=== PATIENT | male | born 1975 | race American Indian/Alaskan Native ===

== ENCOUNTER 2018-03-09 13:57 | Outpatient (REF) | payer SELFPAY ==
[2018-03-10 09:38] LABS: HBs Antibody, Quant 24.9 mIU/mL; Hepatitis B Surface Ab Positive
[2018-03-10 11:35] LABS: Mumps Antibody IgG Positive; Rubella IgG Ab (UVM) Positive; Varicella IgG Antibody Positive
[2018-03-10 12:28] LABS: Measles IgG Antibody Negative
[2018-03-12 15:08] LABS: TB Interpretation Negative (NEGAT)
== END 2018-03-09 14:17 ==
LOC: LBO 13:57
PROVIDERS: PCP Family Medicine; Visit Provider Nurse Practitioner Family
DX: Z02.1 Encounter for pre-employment examination (principal); Z01.84 Encounter for antibody response examination
CPT/HCPCS: 36415; 86706; 86787; 86735; 86762; 86765

== ENCOUNTER 2019-03-11 16:26 | Outpatient (REF) | payer OTHER, SELFPAY | END 2019-03-11 16:46 | LOC: LBN 16:26 | PROVIDERS: PCP Family Medicine; Visit Provider Nurse Practitioner Family | DX: R05 Cough (principal) | CPT/HCPCS: 87449 ==

== ENCOUNTER 2019-07-12 07:50 | Outpatient (CLI) | payer MEDICAID, SELFPAY ==
[2019-07-12 08:35] LABS: Abs Immature Grans 0.01 k/cumm (0.0-0.09); Absolute Basophil Count 0.08 k/cumm (0.0-0.2); Absolute Eosinophil Count 0.51 k/cumm (0.0-0.7); Absolute Lymphocyte Count 1.83 k/cumm (1.2-3.4); Absolute Monocyte Count 0.42 k/cumm (0.11-0.7); Absolute Neutrophil Count 5.26 k/cumm (1.2-6.7); Eosinophils % 6.3; HCT 47.8 % (40.0-50.0); HGB 16.3 g/dL (13.5-17.5); Immature Grans % 0.1 %; Lymphocytes % 22.6; Mean Corp. HGB Concentration 34.1 g/dL (32.0-36.0); Mean Corpuscular Hemoglobin 29.1 pg (27.0-33.0); Mean Corpuscular Volume 85.4 fL (80-95); Mean Platelet Volume 10.6 fL (8.0-11.0); Monocytes % 5.2; Neutrophils % 64.8; Platelet Count 183 x1000/uL (130-400); RBC Distribution Width 13.6 % (11.8-14.1); White Blood Cell Count 8.11 k/cumm (4.4-10.8)
--- NOTE | 2019-07-12 08:38 | DI.RAD_ITS ---
EXAM: XR CHEST 2V PA LATERAL CLINICAL HISTORY: pain, back pain, chest pain, dorsalgia, M54.9, R07.9. TECHNIQUE: 2D digital imaging was performed. COMPARISON: CHEST 2 VIEWS PA,LAT from 04/28/2017 FINDINGS: LUNGS: Clear. No pleural abnormality seen. HEART: Normal. MEDIASTINUM: Normal. OTHER FINDINGS:Normal. BONE:Normal. IMPRESSION: No acute pulmonary findings.
[2019-07-12 09:19] LABS: ALT 27 U/L (16-63); AST 20 U/L (15-37); Albumin 4.5 g/dL (3.4-5.0); Alkaline Phosphatase 50 U/L (46-116); BUN 20 mg/dL (7-18); Bilirubin, Total 0.8 mg/dL (0.2-1.0); CREATININE 1.16 mg/dL (0.70-1.30); Calcium 9.2 mg/dL (8.5-10.1); Chloride 106 mmol/L (98-107); Glucose 119 mg/dL (74-106); Potassium 3.7 mmol/L (3.5-5.1); Sodium 143 mmol/L (136-145); Total Protein 6.9 g/dL (6.4-8.2)
[2019-07-13 08:50] LABS: Hemoglobin A1C 5.6 % (3.8-5.6)
== END 2019-07-12 08:10 ==
PROVIDERS: PCP Family Medicine; Visit Provider Internal Medicine
DX: R07.9 Chest pain, unspecified (principal); I10 Essential (primary) hypertension; R50.9 Fever, unspecified; E11.9 Type 2 diabetes mellitus without complications; M54.9 Dorsalgia, unspecified
CPT/HCPCS: 36415; 80053; 71046; 83036; 85025

== ENCOUNTER 2019-09-05 19:01 | Observation (INO) | payer MEDICAID, SELFPAY ==
[2019-09-05] VITALS (28 sets, daily range): BP systolic 79–172; BP diastolic 56–105; PULSE 38–58; RESP 9–22; TEMP 36.4–36.9; O2SAT 89–100
--- NOTE | 2019-09-05 19:16 | DI.CT_ITS ---
EXAM: CT THORAX ABD/PEL CTA CLINICAL HISTORY: bradycardia, abdominal pain LLQ. TECHNIQUE: Imaging protocol: Axial computed tomography images were obtained and coronal and sagittal reformatted images were created and reviewed. CONTRAST MATERIAL: 100 cc Omnipaque 350 IV, arterial phase. COMPARISON: CHEST ABD PELVIS WITH CONTRAST from 12/10/2012 FINDINGS: Tracheobronchial tree: Patent where visualized. Mediastinum and Marizol: No dominant adenopathy or fluid collection. Pulmonary parenchyma: No consolidation or dominant measurable mass. Emphysema: None. Interstitial changes: None. Pleura: No effusion or pneumothorax. Heart/Aorta: Thoracic aorta non-dilated. There is no evidence of dissection. The heart is not dilat ed. No coronary artery calcifications are seen. There is minimal calcification of the distal abdomin al aorta. There is no occlusion or significant stenosis of branch vessels. The pulmonary arteries a re not yet opacified. Liver shows several small hypervascular lesions, likely representing hemangiomas. The spleen, pancreas, kidneys, adrenals and gallbladder are unremarkable. There is no bowel dilatati on or inflammatory change. The appendix appears normal. There is a normal quantity of stool. There is no free air or free fluid. Prostate is unremarkable. Lymph nodes: Within normal limits. Bones: Degenerative changes are seen in the spine, greatest at L5-S1. No evidence compression fractu re. IMPRESSION: No acute abnormality in the chest abdomen or pelvis. DATA REPOSITORY: All CT scans at this facility are submitted to the National Radiology Data Registry (NRDR) Dose Index Registry (DIR) with the [employer] (A[employer]). RADIATION OPTIMIZATION: All CT scans at this facility use at least one of these dose optimization te chniques: automated exposure control; mA and/or kV adjustment per patient size (includes targeted exa ms where dose is matched to clinical indication); or iterative reconstruction.
[2019-09-05] MEDS: Normal Saline 1,000 ML 1000 ML IV (19:28)
[2019-09-05] MEDS: Ondansetron 4 MG/2 ML VIAL IVP (19:30)
[2019-09-05] MEDS: Omnipaque 350 MG/ML 100 ML BTL IJ (19:32)
[2019-09-05] MEDS: Normal Saline - Diluent 50 ML VIAL IV (19:34)
[2019-09-05 19:40] LABS: Lactate 1.7 mmol/L (0.6-1.4)
[2019-09-05 19:43] LABS: Abs Immature Grans 0.02 k/cumm (0.0-0.09); Absolute Basophil Count 0.02 k/cumm (0.0-0.2); Absolute Eosinophil Count 0.03 k/cumm (0.0-0.7); Absolute Lymphocyte Count 0.85 k/cumm (1.2-3.4); Absolute Monocyte Count 0.34 k/cumm (0.11-0.7); Absolute Neutrophil Count 9.55 k/cumm (1.2-6.7); Basophils % 0.2; Eosinophils % 0.3; HGB 15.7 g/dL (13.5-17.5); Immature Grans % 0.2 %; Lymphocytes % 7.9; Mean Corp. HGB Concentration 34.9 g/dL (32.0-36.0); Mean Corpuscular Hemoglobin 29.8 pg (27.0-33.0); Mean Corpuscular Volume 85.4 fL (80-95); Mean Platelet Volume 10.7 fL (8.0-11.0); Monocytes % 3.1; Neutrophils % 88.3; Platelet Count 217 x1000/uL (130-400); RBC 5.27 m/cumm (4.50-6.00); RBC Distribution Width 13.8 % (11.8-14.1); White Blood Cell Count 10.82 k/cumm (4.4-10.8)
--- NOTE | 2019-09-05 19:50 | W.ED.GENAD ---
Discharge Plan Disposition Patient Disposition: [facility] INPATIENT Condition: Good Discharge Details Chief Complaint: Abd Prob Clinical Impression: Bradycardia, Vomiting, Abdominal pain Admit Date/Time: 09/05/19 21:32 Admit Provider: Kishor Garcia Attending Provider: Kishor Garcia Primary Care Provider: Michael Floyd ED Provider: Kyra Schuster Hospital Course Hospital Course: 44 y.o male with PMH of HTN and smoking admitted from [facility] ED for bradycardia and abdominal pain. Labs unremarkable except lactate elevated on admission at 1.7 WBC 10.8 on admission. Abodminal pain resolved. CT chest/abd negative for acute process. Concern for patient have HR in 30-50's, he is athletic though HR usually in 60's per patient. Elevated by Cardiology, I do not consider that additional cardiac testing or monitoring would be indicated, he is asymptomatic. He needs follow up with his PCP, recommend event recorder but at this time patient is self pay, per cardiology recommendation he can be discharged without monitor, however CM will work on insurance and recommend zio patch by PCP if bradycardia persists or becomes symptomatic. All symptoms have resolved, given COVID 19 patient would be better at home, will discharge home with recommendation to follow up as outpatient. He denies CP, SOB, n/v/d Discharge Instructions Instructions: Bradycardia (DC) Forms: Nursing Discharge Form Referrals: Michael Floyd MD [Primary Care Provider] - (message left with CM to call you with a appointment. If you haven't heard from them by September 06 please call, ) Discharge Data Discharge Date/Time-TO BE ENTERED AT DEPARTURE: 09/05/19 22:22 Medical Decision Making 1911 -- 44-year-old male with history of COPD and chronic tobacco smoker presents with constant left mid and lower abdominal pain and vomiting since this morning. Also admits to diffuse body pain, sweating and dizziness today. Heart rate 40s on arrival. Heart rate decreased to high 30s at its lowest. Patient admitted to feeling cold and dizzy at this time but denied any chest pain. Pacer pads placed. Patient admitted to severe left lower quadrant abdominal pain. His blood pressure is hypertensive. He is afebrile and appears nontoxic. Unclear if bradycardia due to vasovagal as patient appears in significant pain. A dose of Zofran and morphine given. After morphine, patient complained of feeling hot all over with chest tightness. An EKG was done which noted a heart rate of 38, sinus, no acute ST ischemic changes. Patient taken directly to CT for CTA chest abdomen and pelvis. Patient's heart rate ranged between high 30s to low 60s. Upon return from CT, patient complained of persistent pain and was given a dose of Dilaudid and this seemed to improve his symptoms. 2019 -- heart rate remained stable in the high 40s low 50s. Labs reviewed and unremarkable. White blood cell count 10. Potassium 3.3. Lactate 1.7. Troponin negative. 2044 -- d/w hospitalist -accepts patient for admission. Medical Records Medical records reviewed: Yes I reviewed the patient's medical records. Imaging Data Radiologic Study: Radiologist's impression: CT Angiography Chest With Contrast Exam date and time: 09/05/2019 7:37 PM Age: 44 years old Clinical indication: Chest pain; Other: Bradycardia, abd pain llq; Abdominal pain; Localized; Left lower quadrant (llq) TECHNIQUE: Imaging protocol: Computed tomographic angiography of the chest with intravenous contrast. 3D rendering: MIP and/or 3D reconstructed images were created by the technologist. COMPARISON: CT CHEST ABD PELVIS WITH CONTRAST 12/10/2012 9:45 PM FINDINGS: Pulmonary arteries: Limited opacification without obvious pulmonary emboli. Aorta: No aortic aneurysm. No aortic dissection. Lungs: Minimal scattered emphysematous changes are present with predominance in the lung apices. No significant consolidation. Pleural space: No pneumothorax. No pleural effusion. Heart: Unremarkable. No cardiomegaly. No pericardial effusion. Lymph nodes: Unremarkable. No enlarged lymph nodes. Bones/joints: Unremarkable. No acute fracture. Soft tissues: Unremarkable. IMPRESSION: No acute findings. CT Angiography Abdomen and Pelvis With Contrast Exam date and time: 09/05/2019 7:37 PM Age: 44 years old Clinical indication: Chest pain; Other: Bradycardia, abd pain llq; Abdominal pain; Localized; Left lower quadrant (llq) TECHNIQUE: Imaging protocol: Computed tomographic angiography of the abdomen and pelvis with intravenous contrast material. 3D rendering: MIP and/or 3D reconstructed images were created by the technologist. COMPARISON: CT CHEST ABD PELVIS WITH CONTRAST 12/10/2012 9:45 PM FINDINGS: Aorta: No aortic aneurysm. No aortic dissection. Celiac trunk and mesenteric arteries: No occlusion or significant stenosis. Renal arteries: No occlusion or significant stenosis. Right iliac arteries: No occlusion or significant stenosis. Left iliac arteries: No occlusion or significant stenosis. Liver: A small hyperdense right liver lobe lesion is present and is seen in the same location as a smaller dense lesion from the study performed in 2013. Size is slightly increased from prior, but compatible with a benign diagnosis given limited change since the previous study. Similar appearing smaller lesions are present in the periphery of the liver, and these may represent small granulomas or flash fill hemangiomas. Gallbladder and bile ducts: Unremarkable. No calcified stones. No ductal dilation. Pancreas: Unremarkable. No mass. No ductal dilation. Spleen: Unremarkable. No splenomegaly. Adrenals: Unremarkable. No mass. Kidneys and ureters: Unremarkable. No solid mass. No hydronephrosis. Stomach and bowel: Unremarkable. No obstruction. No mucosal thickening. Appendix: No evidence of appendicitis. Intraperitoneal space: Unremarkable. No free air. No significant fluid collection. Lymph nodes: Unremarkable. No enlarged lymph nodes. Bladder: Unremarkable. No mass. Reproductive: Unremarkable as visualized. Bones/joints: Advanced degenerative changes at L5-S1. No acute osseous findings. Soft tissues: Unremarkable. IMPRESSION: No acute findings. Lab Data Lab results reviewed: Yes I reviewed the patient's lab results. Labs: 09/05/19 20:50 Nasopharynx Influenza Types A,B Antigen - Final 09/05/19 20:05 Blood Blood Culture - Pending 09/05/19 19:27 Blood Blood Culture - Pending Laboratory Tests Range/Units 09/05/19 09/05/19 09/05/19 19:26 19:27 19:27 WBC (4.4-10.8) k/cumm 10.82 H RBC (4.50-6.00) m/cumm 5.27 Hgb (13.5-17.5) g/dL 15.7 Hct (40.0-50.0) % 45.0 MCV (80-95) fL 85.4 MCH (27.0-33.0) pg 29.8 MCHC (32.0-36.0) g/dL 34.9 RDW (11.8-14.1) % 13.8 Plt Count (130-400) x1000/uL 217 MPV (8.0-11.0) fL 10.7 Immature Gran % % 0.2 Neutrophils % 88.3 Lymphocytes % 7.9 Monocytes % 3.1 Eosinophils % 0.3 Basophils % 0.2 Absolute Neutrophils (1.2-6.7) k/cumm 9.55 H Absolute Lymphocytes (1.2-3.4) k/cumm 0.85 L Absolute Monocytes (0.11-0.7) k/cumm 0.34 Absolute Eosinophils (0.0-0.7) k/cumm 0.03 Absolute Basophils (0.0-0.2) k/cumm 0.02 PT (9.3-11.0) sec INR (0.9-1.1) APTT (21.0-31.4) sec Sodium (136-145) mmol/L 142 Potassium (3.5-5.1) mmol/L 3.3 L Chloride (98-107) mmol/L 103 Carbon Dioxide (21.0-32.0) mmol/L 25.9 Anion Gap (3-11) mmol/L 13.1 H BUN (7-18) mg/dL 12 Creatinine (0.70-1.30) mg/dL 1.06 Estimated GFR/1.73 m2 (mL/min/1.73m2) >= 60.00 Glucose (74-106) mg/dL 121 H Lactate (0.6-1.4) mmol/L Calcium (8.5-10.1) mg/dL 9.9 Total Bilirubin (0.2-1.0) mg/dL 0.9 AST (15-37) U/L 19 ALT (16-63) U/L 21 Alkaline Phosphatase (46-116) U/L 58 Troponin I (<0.06) ng/Ml Total Protein (6.4-8.2) g/dL 7.3 Albumin (3.4-5.0) g/dL 4.3 Lipase (73-393) U/L 57 Patient ABO/Rh Antibody Screen Range/Units 09/05/19 09/05/19 09/05/19 19:27 19:27 19:27 WBC (4.4-10.8) k/cumm RBC (4.50-6.00) m/cumm Hgb (13.5-17.5) g/dL Hct (40.0-50.0) % MCV (80-95) fL MCH (27.0-33.0) pg MCHC (32.0-36.0) g/dL RDW (11.8-14.1) % Plt Count (130-400) x1000/uL MPV (8.0-11.0) fL Immature Gran % % Neutrophils % Lymphocytes % Monocytes % Eosinophils % Basophils % Absolute Neutrophils (1.2-6.7) k/cumm Absolute Lymphocytes (1.2-3.4) k/cumm Absolute Monocytes (0.11-0.7) k/cumm Absolute Eosinophils (0.0-0.7) k/cumm Absolute Basophils (0.0-0.2) k/cumm PT (9.3-11.0) sec 11.0 INR (0.9-1.1) 1.1 APTT (21.0-31.4) sec 25.9 Sodium (136-145) mmol/L Potassium (3.5-5.1) mmol/L Chloride (98-107) mmol/L Carbon Dioxide (21.0-32.0) mmol/L Anion Gap (3-11) mmol/L BUN (7-18) mg/dL Creatinine (0.70-1.30) mg/dL Estimated GFR/1.73 m2 (mL/min/1.73m2) Glucose (74-106) mg/dL Lactate (0.6-1.4) mmol/L 1.7 H Calcium (8.5-10.1) mg/dL Total Bilirubin (0.2-1.0) mg/dL AST (15-37) U/L ALT (16-63) U/L Alkaline Phosphatase (46-116) U/L Troponin I (<0.06) ng/Ml Total Protein (6.4-8.2) g/dL Albumin (3.4-5.0) g/dL Lipase (73-393) U/L Patient ABO/Rh A Positive Antibody Screen Negative Range/Units 09/05/19 09/05/19 19:27 20:57 WBC (4.4-10.8) k/cumm RBC (4.50-6.00) m/cumm Hgb (13.5-17.5) g/dL Hct (40.0-50.0) % MCV (80-95) fL MCH (27.0-33.0) pg MCHC (32.0-36.0) g/dL RDW (11.8-14.1) % Plt Count (130-400) x1000/uL MPV (8.0-11.0) fL Immature Gran % % Neutrophils % Lymphocytes % Monocytes % Eosinophils % Basophils % Absolute Neutrophils (1.2-6.7) k/cumm Absolute Lymphocytes (1.2-3.4) k/cumm Absolute Monocytes (0.11-0.7) k/cumm Absolute Eosinophils (0.0-0.7) k/cumm Absolute Basophils (0.0-0.2) k/cumm PT (9.3-11.0) sec INR (0.9-1.1) APTT (21.0-31.4) sec Sodium (136-145) mmol/L Potassium (3.5-5.1) mmol/L Chloride (98-107) mmol/L Carbon Dioxide (21.0-32.0) mmol/L Anion Gap (3-11) mmol/L BUN (7-18) mg/dL Creatinine (0.70-1.30) mg/dL Estimated GFR/1.73 m2 (mL/min/1.73m2) Glucose (74-106) mg/dL Lactate (0.6-1.4) mmol/L Calcium (8.5-10.1) mg/dL Total Bilirubin (0.2-1.0) mg/dL AST (15-37) U/L ALT (16-63) U/L Alkaline Phosphatase (46-116) U/L Troponin I (<0.06) ng/Ml < 0.05 Total Protein (6.4-8.2) g/dL Albumin (3.4-5.0) g/dL Lipase (73-393) U/L Cancelled Patient ABO/Rh Antibody Screen ECG Data Attestation: I personally reviewed and interpreted this ECG (s) as follows: Interpretation: Rate of 38, sinus, no acute ST elevation or depression. NM 150. QTc 423. QRS 102. HPI General Mode of arrival: ambulatory. Date/Time Provider Initiated Documentation: 09/05/19 19:03. Limitations to Documentation: no limitations. Information obtained by: patient. HPI Narrative: Patient is a 44-year-old male with history of COPD and tobacco smoker who presents with constant left mid and lower quadrant abdominal pain since this morning. He states he has vomited multiple times. Last bowel movement yesterday. Admits to constipation today. He cannot describe the quality of his abdominal pain. He also admits to diffuse body pain and feeling sweaty today. Denies any known fever, cough, chest pain, shortness of breath. Related Data Home Medications Medication Instructions Recorded Confirmed ibuprofen [Ibuprofen IB] 800 mg PO PRN PRN 12/10/12 09/05/19 hydrochlorothiazide 25 mg tablet 25 mg PO DAILY #90 tab 07/11/19 09/05/19 lisinopril 20 mg tablet 20 mg PO DAILY #90 tab-cap 07/11/19 09/05/19 Previous Rx's Medication Instructions Recorded hydrochlorothiazide 25 mg tablet 25 mg PO DAILY #90 tab 07/11/19 lisinopril 20 mg tablet 20 mg PO DAILY #90 tab-cap 07/11/19 Allergies Allergy/AdvReac Type Severity Reaction Status Date / Time oxycodone AdvReac Intermediate Nausea Unverified 09/05/19 19:25 codeine phosphate AdvReac Mild Nausea Unverified 09/05/19 19:25 [From Tylenol-Codeine #3] GRASS Allergy Intermediate Itching Uncoded 09/05/19 19:25 MOLDS AND SMUTS Allergy Mild Itching Uncoded 09/05/19 19:25 General Stated Complaint: Abd Prob LISA: 3 Review of Systems All systems reviewed & are unremarkable except as noted in HPI and below Constitutional Constitutional: Reports as per HPI, Denies chills and Denies fever(s) Eyes Eyes: Denies blurry vision ENT Ears, Nose, Mouth, and Throat: Denies dizziness, Denies sore throat and Denies throat swelling Cardiovascular Cardiovascular: Denies chest pain and Denies dyspnea Respiratory Respiratory: Denies cough and Denies dyspnea Gastrointestinal Gastrointestinal: Reports abdominal pain, Denies diarrhea and Denies vomiting Genitourinary Genitourinary: Denies hematuria and Denies dysuria Musculoskeletal Musculoskeletal: Denies back pain and Denies numbness Integumentary/Breasts Skin/Breast: Denies lesions and Denies rash Neurologic Neurologic: Denies dizziness, Denies localized weakness and Denies numbness Allergic/Immunologic Allergic/Immunologic: Denies throat swelling [facility] Medical History COPD (chronic obstructive pulmonary disease) (Chronic) Laceration of spleen (Resolved 12/10/12) Social History Smoking/Tobacco Use Status: Current every day Alcohol Intake: never Drug use: Occasionally Substance use type: marijuana Do you feel safe at home: Yes Do you feel safe in your relationship?: Yes Exam Const General: cooperative, uncomfortable and ill appearing acutely Nutritional Appearance: average body habitus Orientation: alert, awake and oriented x3 HENMT Head: normal to inspection Face and sinus: normal facial exam Eyes General: appearance normal, both eyes and all related structures Pupils: PERRL EOM: EOM intact bilaterally Neck Neck: normal visual inspection and No submandibular swelling Lymphatic: no lymphadenopathy noted Chest Chest: normal inspection of the chest and no tenderness Resp Effort & Inspection: normal respiratory effort and able to speak in complete sentences Auscultation: clear to auscultation bilaterally Cardio Rate: regular rate Rhythm: regular rhythm GI Inspection: normal to inspection Palpation: soft, not firm, not rigid and nontender Auscultation: normal bowel sounds Skin General skin exam: no rashes or lesions noted Neuro General: patient alert, patient awake and patient oriented x3 Cognition: normal cognition Speech: speech normal Motor: muscle tone normal throughout Sensory Exam: no sensory deficits noted Extrem General: normal to inspection, full ROM, capillary refill normal, no calf tenderness bilaterally and no edema Psych Appearance: grossly normal Mental Status: mental status grossly normal Speech and Movement: speech and movement normal Affect: normal affect Course Vital Signs Vital signs: Vital Signs Temperature 98.4 F 09/05/19 19:07 Pulse 48 L 09/05/19 19:07 Respiratory Rate 12 09/05/19 19:07 Blood Pressure 159/98 H 09/05/19 19:07 Pulse Oximetry 100 09/05/19 19:07 Temperature 98.4 F 09/05/19 19:07 Temperature Source Temporal Artery Scan 09/05/19 19:07 Pulse 48 L 09/05/19 19:07 Respiratory Rate 12 09/05/19 19:07 Blood Pressure 159/98 H 09/05/19 19:07 Blood Pressure Position Sitting 09/05/19 19:07 Pulse Oximetry 100 09/05/19 19:07 Oxygen Delivery Method Room Air 09/05/19 19:07 Oxygen Flow Rate 0 09/05/19 19:07 Pain Level 10 09/05/19 19:07 Lab/Test Results Lab/Test Results: 09/05/19 19:27 Blood Blood Culture - Pending 09/05/19 19:24 Blood Blood Culture - Pending Laboratory Tests Range/Units 09/05/19 09/05/19 19:27 19:27 WBC (4.4-10.8) k/cumm 10.82 H RBC (4.50-6.00) m/cumm 5.27 Hgb (13.5-17.5) g/dL 15.7 Hct (40.0-50.0) % 45.0 MCV (80-95) fL 85.4 MCH (27.0-33.0) pg 29.8 MCHC (32.0-36.0) g/dL 34.9 RDW (11.8-14.1) % 13.8 Plt Count (130-400) x1000/uL 217 MPV (8.0-11.0) fL 10.7 Immature Gran % % 0.2 Neutrophils % 88.3 Lymphocytes % 7.9 Monocytes % 3.1 Eosinophils % 0.3 Basophils % 0.2 Absolute Neutrophils (1.2-6.7) k/cumm 9.55 H Absolute Lymphocytes (1.2-3.4) k/cumm 0.85 L Absolute Monocytes (0.11-0.7) k/cumm 0.34 Absolute Eosinophils (0.0-0.7) k/cumm 0.03 Absolute Basophils (0.0-0.2) k/cumm 0.02 Lactate (0.6-1.4) mmol/L 1.7 H
[2019-09-05] MEDS: Normal Saline 50 ML (19:53)
[2019-09-05] MEDS: HYDROmorphone 2 MG/ML VIAL 1 MG IVP (19:53)
[2019-09-05 19:56] LABS: INR 1.1 (0.9-1.1); PTT Activated 25.9 sec (21.0-31.4)
[2019-09-05 19:58] LABS: ALT 21 U/L (16-63); AST 19 U/L (15-37); Albumin 4.3 g/dL (3.4-5.0); Alkaline Phosphatase 58 U/L (46-116); Anion Gap 13.1 mmol/L (3-11); BUN 12 mg/dL (7-18); Bilirubin, Total 0.9 mg/dL (0.2-1.0); CO2 25.9 mmol/L (21.0-32.0); CREATININE 1.06 mg/dL (0.70-1.30); Calcium 9.9 mg/dL (8.5-10.1); Chloride 103 mmol/L (98-107); Glucose 121 mg/dL (74-106); Potassium 3.3 mmol/L (3.5-5.1); Sodium 142 mmol/L (136-145); Total Protein 7.3 g/dL (6.4-8.2)
[2019-09-05 20:10] LABS: Troponin I < 0.05 ng/Ml (<0.06)
--- NOTE | 2019-09-05 20:34 | DI.VRAD_ITS ---
PROCEDURE INFORMATION: Exam: CT Angiography Chest With Contrast Exam date and time: 09/05/2019 7:37 PM Age: 44 years old Clinical indication: Chest pain; Other: Bradycardia, abd pain llq; Abdominal pain; Localized; Left lower quadrant (llq) TECHNIQUE: Imaging protocol: Computed tomographic angiography of the chest with intravenous contrast. 3D rendering: MIP and/or 3D reconstructed images were created by the technologist. COMPARISON: CT CHEST ABD PELVIS WITH CONTRAST 12/10/2012 9:45 PM FINDINGS: Pulmonary arteries: Limited opacification without obvious pulmonary emboli. Aorta: No aortic aneurysm. No aortic dissection. Lungs: Minimal scattered emphysematous changes are present with predominance in the lung apices. No significant consolidation. Pleural space: No pneumothorax. No pleural effusion. Heart: Unremarkable. No cardiomegaly. No pericardial effusion. Lymph nodes: Unremarkable. No enlarged lymph nodes. Bones/joints: Unremarkable. No acute fracture. Soft tissues: Unremarkable. IMPRESSION: No acute findings. PROCEDURE INFORMATION: Exam: CT Angiography Abdomen and Pelvis With Contrast Exam date and time: 09/05/2019 7:37 PM Age: 44 years old Clinical indication: Chest pain; Other: Bradycardia, abd pain llq; Abdominal pain; Localized; Left lower quadrant (llq) TECHNIQUE: Imaging protocol: Computed tomographic angiography of the abdomen and pelvis with intravenous contrast material. 3D rendering: MIP and/or 3D reconstructed images were created by the technologist. COMPARISON: CT CHEST ABD PELVIS WITH CONTRAST 12/10/2012 9:45 PM FINDINGS: Aorta: No aortic aneurysm. No aortic dissection. Celiac trunk and mesenteric arteries: No occlusion or significant stenosis. Renal arteries: No occlusion or significant stenosis. Right iliac arteries: No occlusion or significant stenosis. Left iliac arteries: No occlusion or significant stenosis. Liver: A small hyperdense right liver lobe lesion is present and is seen in the same location as a smaller dense lesion from the study performed in 2012. Size is slightly increased from prior, but compatible with a benign diagnosis given limited change since the previous study. Similar appearing smaller lesions are present in the periphery of the liver, and these may represent small granulomas or flash fill hemangiomas. Gallbladder and bile ducts: Unremarkable. No calcified stones. No ductal dilation. Pancreas: Unremarkable. No mass. No ductal dilation. Spleen: Unremarkable. No splenomegaly. Adrenals: Unremarkable. No mass. Kidneys and ureters: Unremarkable. No solid mass. No hydronephrosis. Stomach and bowel: Unremarkable. No obstruction. No mucosal thickening. Appendix: No evidence of appendicitis. Intraperitoneal space: Unremarkable. No free air. No significant fluid collection. Lymph nodes: Unremarkable. No enlarged lymph nodes. Bladder: Unremarkable. No mass. Reproductive: Unremarkable as visualized. Bones/joints: Advanced degenerative changes at L5-S1. No acute osseous findings. Soft tissues: Unremarkable. IMPRESSION: No acute findings. Dictated and Authenticated by: Baldo Barahona MD. Ordering:CHAN Paige MD
[2019-09-05] MEDS: Normal Saline 500 ML IV (21:04)
--- NOTE | 2019-09-05 21:14 | W.PM.HP.N ---
Date of service: 09/05/19 Time of Service: 21:15 Assessment and Plan Assessment and plan (1) Abdominal pain: Status: Acute Assessment and plan: Abdominal pain, w/o specific diagnosis at this time. Given the vague constitutional symptoms one wonders whether there is perhaps some viral syndrome brewing but this is speculative and by exclusion. I do not have a good explanation at this point for the bradycardia, though I would firstly note that this is asymptomatic and not requiring any treatment. Perhaps some of this may have been vagally mediated, perhaps some (at this point) secondary to opiates. Regardless will monitor, and suffice to say I see no obvious connection to the belly pain syndromically. In short, will give IVF, prn anti-emetics and analgesics, and maintain telemetry. Will await urinalysis and tox screen to complete evaluation. History of Present Illness History of Present Illness Chief Complaint: abdiminal pain Narrative: 44 male repots LLQ pain starting this morning while straining to move bowels (had only small volume BM). Pain intrmittent since, and several episodes of bilious vomiting. Pain non-radiating. Has also had some mild diffuse myalgias.. No similar illness at home and has been on self-isolation for 3 weeks. In ER findings of note fro sinus bradycardia (30s-50s) while eutensive, and unremarkable CBC and chemistries and negative CT chest an abdomen. Due to persistent bradycaria ER requested admission. Patient has received opiates in ER an states no pain at present. Review of Systems All systems reviewed & are unremarkable except as noted in HPI and below PFSH Medical History COPD (chronic obstructive pulmonary disease) (Chronic) Laceration of spleen (Resolved 12/10/12) Social History Smoking/Tobacco Use Status: Current every day Alcohol Intake: never Drug use: Occasionally Substance use type: marijuana Do you feel safe at home: Yes Do you feel safe in your relationship?: Yes Meds Home Medications and Allergies Home Medications Medication Instructions Recorded Confirmed Type ibuprofen [Ibuprofen IB] 800 mg PO PRN PRN 12/10/12 09/05/19 History measles,mumps,rubella vacc(PF) 0.5 ml SC ONCE #1 each 06/22/18 09/05/19 Clinic 1,000-12,[id number]/0.5 mL subcut hydrochlorothiazide 25 mg tablet 25 mg PO DAILY #90 tab 07/11/19 09/05/19 Rx lisinopril 20 mg tablet 20 mg PO DAILY #90 tab-cap 07/11/19 09/05/19 Rx Allergies Allergy/AdvReac Type Severity Reaction Status Date / Time oxycodone AdvReac Intermediate Nausea Unverified 09/05/19 19:25 codeine phosphate AdvReac Mild Nausea Unverified 09/05/19 19:25 [From Tylenol-Codeine #3] GRASS Allergy Intermediate Itching Uncoded 09/05/19 19:25 MOLDS AND SMUTS Allergy Mild Itching Uncoded 09/05/19 19:25 Exam Narrative Exam Narrative: 105/63, 45, 36.9, 14. HEENT unremarkable; neck supple; lungs clear; heart mario and regular; abdomen hypoactive BS, soft and NT; /rctal dferred; extremities w/o edema; neuro Ox3, non-focal Results Labs Result diagrams: 09/05/19 19:27 09/05/19 19:27 Labs: Laboratory Results - last 24 hr 09/05/19 09/05/19 09/05/19 19:27 19:27 19:27 WBC 10.82 H RBC 5.27 Hgb 15.7 Hct 45.0 MCV 85.4 MCH 29.8 MCHC 34.9 RDW 13.8 Plt Count 217 MPV 10.7 Immature Gran % 0.2 Neutrophils % 88.3 Lymphocytes % 7.9 Monocytes % 3.1 Eosinophils % 0.3 Basophils % 0.2 Absolute Neutrophils 9.55 H Absolute Lymphocytes 0.85 L Absolute Monocytes 0.34 Absolute Eosinophils 0.03 Absolute Basophils 0.02 PT 11.0 INR 1.1 APTT 25.9 Sodium 142 Potassium 3.3 L Chloride 103 Carbon Dioxide 25.9 Anion Gap 13.1 H BUN 12 Creatinine 1.06 Estimated GFR/1.73 m2 >= 60.00 Glucose 121 H Lactate Calcium 9.9 Total Bilirubin 0.9 AST 19 ALT 21 Alkaline Phosphatase 58 Troponin I Total Protein 7.3 Albumin 4.3 Lipase Patient ABO/Rh Antibody Screen 09/05/19 09/05/19 09/05/19 19:27 19:27 19:27 WBC RBC Hgb Hct MCV MCH MCHC RDW Plt Count MPV Immature Gran % Neutrophils % Lymphocytes % Monocytes % Eosinophils % Basophils % Absolute Neutrophils Absolute Lymphocytes Absolute Monocytes Absolute Eosinophils Absolute Basophils PT INR APTT Sodium Potassium Chloride Carbon Dioxide Anion Gap BUN Creatinine Estimated GFR/1.73 m2 Glucose Lactate 1.7 H Calcium Total Bilirubin AST ALT Alkaline Phosphatase Troponin I < 0.05 Total Protein Albumin Lipase Patient ABO/Rh A Positive Antibody Screen Negative 09/05/19 20:57 WBC RBC Hgb Hct MCV MCH MCHC RDW Plt Count MPV Immature Gran % Neutrophils % Lymphocytes % Monocytes % Eosinophils % Basophils % Absolute Neutrophils Absolute Lymphocytes Absolute Monocytes Absolute Eosinophils Absolute Basophils PT INR APTT Sodium Potassium Chloride Carbon Dioxide Anion Gap BUN Creatinine Estimated GFR/1.73 m2 Glucose Lactate Calcium Total Bilirubin AST ALT Alkaline Phosphatase Troponin I Total Protein Albumin Lipase Cancelled Patient ABO/Rh Antibody Screen Last Vital Signs Temp 36.9 C 09/05/19 19:07 Pulse 42 L 09/05/19 20:45 Resp 14 09/05/19 20:50 BP 105/63 09/05/19 20:45 Pulse Ox 94 L 09/05/19 20:50 COVID-19 Screening Traveled to [place] from one of the affected countries or regions?: No Recent travel in the [place] within the last 8 weeks?: No Recent out of the country travel within the last 8 weeks?: No Exposure or possible exposure to illness during travel?: No Had IN PERSON contact w/suspected or confirmed C-19 person: No Have you had the following symptoms in the past few days?: No
[2019-09-05 21:34] LABS: Lipase 57 U/L (73-393)
[2019-09-05 22:35] LABS: Bilirubin Negative (Negative); Blood Negative (Negative); Clarity Clear (Clear); Glucose Negative (Negative); Ketones 40 mg/dL (Negative); Leukocyte Esterase Negative (Negative); Nitrite Negative (Negative); Specific Gravity 1.015 (1.005-1.025); Urobilinogen 0.2 EU/dL (Up TO 0.2); pH 8.5 (5-8)
[2019-09-05 22:40] LABS: Troponin I < 0.05 ng/Ml (<0.06)
[2019-09-05 22:50] LABS: *AMPHETAMINES SCREEN URINE Negative (Negative); *BARBITURATES SCREEN URINE Negative (Negative); *BENZODIAZEPINES SCREEN URINE Negative (Negative); Cannabinoids THC POSITIVE (Negative); Cocaine Screen,Urine Negative (Negative); METHADONE URINE SCREEN Negative (Negative); OPIATES URINE SCREEN POSITIVE (Negative)
[2019-09-05 23:03] LABS: Tricyclic Antidepressants Negative (Negative)
[2019-09-05] MEDS: POTASSIUM CHLORIDE/0.9% NACL 1,000 ML 100 MEQ IV (23:15)
[2019-09-05] MEDS: Normal Saline Flush 10 ML SYR IVP (23:15)
[2019-09-06 03:58] VITALS: BP 125/73; PULSE 48; RESP 17; TEMP 36.6; O2SAT 96
[2019-09-06] MEDS: HYDROmorphone 2 MG/ML VIAL 1 MG IVP (04:27)
[2019-09-06 07:26] VITALS: BP 119/73; PULSE 60; RESP 17; TEMP 37.5; O2SAT 97
[2019-09-06] MEDS: POTASSIUM CHLORIDE/0.9% NACL 1,000 ML 100 MEQ IV (09:21)
[2019-09-06 09:24] LABS: Anion Gap 9.3 mmol/L (3-11); BUN 13 mg/dL (7-18); CO2 26.7 mmol/L (21.0-32.0); CREATININE 1.21 mg/dL (0.70-1.30); Calcium 8.8 mg/dL (8.5-10.1); Chloride 109 mmol/L (98-107); FREE T4 1.14 ng/dL (0.76-1.46); Glucose 128 mg/dL (74-106); Magnesium 1.7 mg/dL (1.8-2.4); Potassium 3.8 mmol/L (3.5-5.1); Sodium 145 mmol/L (136-145); TSH 1.53 uIU/mL (0.36-3.74)
--- NOTE | 2019-09-06 10:11 | W.CARDCONSUL ---
Date of service: 09/06/19 Time of Service: 10:12 Assessment and Plan Assessment and plan (1) Bradycardia: Status: Acute Assessment and plan: The patient had asymptomatic sinus bradycardia when presenting with significant abdominal discomfort. I suspect there was some degree of vasovagal reflex contributory to this. I do not consider that additional cardiac testing or monitoring would be indicated (2) Essential hypertension: Status: Chronic Assessment and plan: Adequate control of blood pressure on his lisinopril and hydrochlorothiazide. Neither of these medications are contributory to #1 (3) Abdominal pain: Status: Acute Assessment and plan: This appears to have resolved, will defer to hospital medicine for recommendations History of Present Illness History of Present Illness Chief Complaint: Abdominal pain, constipation, vomiting Narrative: This is a 44-year-old man who presented to the emergency room yesterday because of constipation. He reports that overall he is healthy though he does has a history of hypertension for which he takes lisinopril and hydrochlorothiazide. Usually he moves his bowels every morning around 830. Yesterday he had generalized abdominal pain and felt unable to move his bowels. When he would bear down he would get sweaty and nauseated though he was not lightheaded or dizzy. Because of the symptoms he presented to the emergency room. There his heart rate varied from the 30s to 60s though there was no documented associated cardiac symptoms. His electrocardiogram showed sinus bradycardia but was otherwise normal. He has been admitted overnight. His heart rate currently is in the 50s. Monitoring has disclosed no significant dysrhythmia. His abdominal pain has resolved and he reports that he had a normal bowel movement today [facility] Medical History COPD (chronic obstructive pulmonary disease) (Chronic) Laceration of spleen (Resolved 12/10/12) Social History Smoking/Tobacco Use Status: Current every day Alcohol Intake: never Drug use: Occasionally Substance use type: marijuana Do you feel safe at home: Yes Do you feel safe in your relationship?: Yes Exam Narrative Exam Narrative: Well-developed well-nourished appears stated age no acute distress vital signs noted HEENT is unremarkable neck is supple trachea is midline there is no neck vein distention lungs are clear Heart is regular normal S1-S2 physiologically split no murmur rub or gallop Abdomen was not examined There is no peripheral edema Results Last Vital Signs Temp 37.5 C 09/06/19 07:26 Pulse 60 09/06/19 07:26 Resp 17 09/06/19 07:26 BP 119/73 09/06/19 07:26 Pulse Ox 97 09/06/19 07:26 Labs Result diagrams: 09/05/19 19:27 09/06/19 08:45 Labs: Laboratory Results - last 24 hr 09/05/19 09/05/19 09/05/19 19:26 19:27 19:27 WBC 10.82 H RBC 5.27 Hgb 15.7 Hct 45.0 MCV 85.4 MCH 29.8 MCHC 34.9 RDW 13.8 Plt Count 217 MPV 10.7 Immature Gran % 0.2 Neutrophils % 88.3 Lymphocytes % 7.9 Monocytes % 3.1 Eosinophils % 0.3 Basophils % 0.2 Absolute Neutrophils 9.55 H Absolute Lymphocytes 0.85 L Absolute Monocytes 0.34 Absolute Eosinophils 0.03 Absolute Basophils 0.02 PT INR APTT Sodium 142 Potassium 3.3 L Chloride 103 Carbon Dioxide 25.9 Anion Gap 13.1 H BUN 12 Creatinine 1.06 Estimated GFR/1.73 m2 >= 60.00 Glucose 121 H Lactate Calcium 9.9 Magnesium Total Bilirubin 0.9 AST 19 ALT 21 Alkaline Phosphatase 58 Troponin I Total Protein 7.3 Albumin 4.3 Lipase 57 TSH Free T4 Urine Color Urine Clarity Urine pH Ur Specific [place] Urine Protein Urine Ketones Urine Blood Urine Nitrite Urine Bilirubin Urine Urobilinogen Ur Leukocyte Esterase Urine Glucose Urine Opiates Screen Urine Methadone Screen Ur Barbiturates Screen Ur Tricyclics Screen Ur Amphetamines Screen U Benzodiazepines Scrn Urine Cocaine Screen Ur THC Screen Patient ABO/Rh Antibody Screen 09/05/19 09/05/19 09/05/19 19:27 19:27 19:27 WBC RBC Hgb Hct MCV MCH MCHC RDW Plt Count MPV Immature Gran % Neutrophils % Lymphocytes % Monocytes % Eosinophils % Basophils % Absolute Neutrophils Absolute Lymphocytes Absolute Monocytes Absolute Eosinophils Absolute Basophils PT 11.0 INR 1.1 APTT 25.9 Sodium Potassium Chloride Carbon Dioxide Anion Gap BUN Creatinine Estimated GFR/1.73 m2 Glucose Lactate 1.7 H Calcium Magnesium Total Bilirubin AST ALT Alkaline Phosphatase Troponin I Total Protein Albumin Lipase TSH Free T4 Urine Color Urine Clarity Urine pH Ur Specific [place] Urine Protein Urine Ketones Urine Blood Urine Nitrite Urine Bilirubin Urine Urobilinogen Ur Leukocyte Esterase Urine Glucose Urine Opiates Screen Urine Methadone Screen Ur Barbiturates Screen Ur Tricyclics Screen Ur Amphetamines Screen U Benzodiazepines Scrn Urine Cocaine Screen Ur THC Screen Patient ABO/Rh A Positive Antibody Screen Negative 09/05/19 09/05/19 09/05/19 19:27 20:57 22:05 WBC RBC Hgb Hct MCV MCH MCHC RDW Plt Count MPV Immature Gran % Neutrophils % Lymphocytes % Monocytes % Eosinophils % Basophils % Absolute Neutrophils Absolute Lymphocytes Absolute Monocytes Absolute Eosinophils Absolute Basophils PT INR APTT Sodium Potassium Chloride Carbon Dioxide Anion Gap BUN Creatinine Estimated GFR/1.73 m2 Glucose Lactate Calcium Magnesium Total Bilirubin AST ALT Alkaline Phosphatase Troponin I < 0.05 Total Protein Albumin Lipase Cancelled TSH Free T4 Urine Color Yellow Urine Clarity Clear Urine pH 8.5 H Ur Specific [place] 1.015 Urine Protein Negative Urine Ketones 40 H Urine Blood Negative Urine Nitrite Negative Urine Bilirubin Negative Urine Urobilinogen 0.2 Ur Leukocyte Esterase Negative Urine Glucose Negative Urine Opiates Screen Urine Methadone Screen Ur Barbiturates Screen Ur Tricyclics Screen Ur Amphetamines Screen U Benzodiazepines Scrn Urine Cocaine Screen Ur THC Screen Patient ABO/Rh Antibody Screen 09/05/19 09/05/19 09/06/19 22:05 22:15 08:45 WBC RBC Hgb Hct MCV MCH MCHC RDW Plt Count MPV Immature Gran % Neutrophils % Lymphocytes % Monocytes % Eosinophils % Basophils % Absolute Neutrophils Absolute Lymphocytes Absolute Monocytes Absolute Eosinophils Absolute Basophils PT INR APTT Sodium 145 Potassium 3.8 Chloride 109 H Carbon Dioxide 26.7 Anion Gap 9.3 BUN 13 Creatinine 1.21 Estimated GFR/1.73 m2 >= 60.00 Glucose 128 H Lactate Calcium 8.8 Magnesium 1.7 L Total Bilirubin AST ALT Alkaline Phosphatase Troponin I < 0.05 Total Protein Albumin Lipase TSH 1.53 Free T4 1.14 Urine Color Urine Clarity Urine pH Ur Specific [place] Urine Protein Urine Ketones Urine Blood Urine Nitrite Urine Bilirubin Urine Urobilinogen Ur Leukocyte Esterase Urine Glucose Urine Opiates Screen Positive A Urine Methadone Screen Negative Ur Barbiturates Screen Negative Ur Tricyclics Screen Negative Ur Amphetamines Screen Negative U Benzodiazepines Scrn Negative Urine Cocaine Screen Negative Ur THC Screen Positive A Patient ABO/Rh Antibody Screen 09/06/19 08:45 WBC RBC Hgb Hct MCV MCH MCHC RDW Plt Count MPV Immature Gran % Neutrophils % Lymphocytes % Monocytes % Eosinophils % Basophils % Absolute Neutrophils Absolute Lymphocytes Absolute Monocytes Absolute Eosinophils Absolute Basophils PT INR APTT Sodium Potassium Chloride Carbon Dioxide Anion Gap BUN Creatinine Estimated GFR/1.73 m2 Glucose Lactate 2.0 H Calcium Magnesium Total Bilirubin AST ALT Alkaline Phosphatase Troponin I Total Protein Albumin Lipase TSH Free T4 Urine Color Urine Clarity Urine pH Ur Specific [place] Urine Protein Urine Ketones Urine Blood Urine Nitrite Urine Bilirubin Urine Urobilinogen Ur Leukocyte Esterase Urine Glucose Urine Opiates Screen Urine Methadone Screen Ur Barbiturates Screen Ur Tricyclics Screen Ur Amphetamines Screen U Benzodiazepines Scrn Urine Cocaine Screen Ur THC Screen Patient ABO/Rh Antibody Screen
--- NOTE | 2019-09-06 10:28 | W.PM.DS.N ---
Date of service: 09/06/19 Time of Service: 10:28 DS: Diagnosis Discharge Diagnosis (1) Bradycardia: Start date: 09/06/19 Start time: 10:28 Status: Acute Asessment and Plan: Asymptomatic, athletic HR in 30-50's by telemetry, cardiology evaluation does not feel at this time, would recommend he go home on a event monitor however at this time he does not have insurance and does not want to pay for recorder, consider at follow up with PCP possible zio patch, though likely this is related to him being athletic with no symptoms. CM will work on insurance coverage with him. Thank you (2) Essential hypertension: Start date: 09/06/19 Start time: 10:56 Status: Chronic Asessment and Plan: Continue medications, home regimen, stop smoking (3) Abdominal pain: Start date: 09/06/19 Start time: 10:56 Status: Resolved Asessment and Plan: Take fiber daily. Discharge Plan Disposition Patient Disposition: HOME Condition: Good Discharge Details Chief Complaint: Abd Prob Clinical Impression: Bradycardia, Vomiting, Abdominal pain Reason For Visit: ABDOMINAL PAIN, BRADYCARDIA Admit Date/Time: 09/05/19 21:32 Admit Provider: Kishor Garcia Attending Provider: Kishor Garcia Primary Care Provider: Michael Floyd ED Provider: Kyra Schuster Hospital Course Hospital Course: 44 y.o male with PMH of HTN and smoking admitted from [facility] ED for bradycardia and abdominal pain. Labs unremarkable except lactate elevated on admission at 1.7 WBC 10.8 on admission. Abodminal pain resolved. CT chest/abd negative for acute process. Concern for patient have HR in 30-50's, he is athletic though HR usually in 60's per patient. Elevated by Cardiology, I do not consider that additional cardiac testing or monitoring would be indicated, he is asymptomatic. He needs follow up with his PCP, recommend event recorder but at this time patient is self pay, per cardiology recommendation he can be discharged without monitor, however CM will work on insurance and recommend zio patch by PCP if bradycardia persists or becomes symptomatic. All symptoms have resolved, given COVID 19 patient would be better at home, will discharge home with recommendation to follow up as outpatient. He denies CP, SOB, n/v/d Home Meds and New Rx's Prescriptions: Continued lisinopril 20 mg tablet 20 mg PO DAILY Qty: 90 RF: 4 hydrochlorothiazide 25 mg tablet 25 mg PO DAILY Qty: 90 RF: 4 measles,mumps,rubella vacc(PF) 1,000-12,500 TCID50/0.5 mL recon soln 0.5 ml SC ONCE Qty: 1 RF: 0 ibuprofen [Ibuprofen IB] 200 MG tablet 800 mg PO PRN PRNRF: 0 Discharge Instructions Instructions: Bradycardia (DC) Stand Alone Forms: Nursing Discharge Form Referrals: Michael Floyd MD [Primary Care Provider] - (message left with CM to call you with a appointment. If you haven't heard from them by September 06 please call, ) Activity:: Activity as Tolerated Equipment/Supplies:: per MD Diet:: Add fiber DS: Summary Status at Discharge Functional status at discharge: independent ambulation Overall status at discharge: patient is back to baseline Mental Status: mental status grossly normal Speech and Movement: speech and movement normal Mood: congruent mood Affect: normal affect Exam Narrative Exam Narrative: . HEENT unremarkable; neck supple; lungs clear; heart mario and regular; abdomen hypoactive BS, soft and NT; /rctal dferred; extremities w/o edema; neuro Ox3, non-focal Psych Mental Status: mental status grossly normal Speech and Movement: speech and movement normal Mood: congruent mood Affect: normal affect DS: Data Vitals/I&O Vitals and I&O: Vital Signs Temperature 37.5 C 09/06/19 07:26 Temperature Source Tympanic 09/06/19 07:26 Pulse 60 09/06/19 07:26 Pulse Rhythm Regular 09/06/19 03:04 Pulse 44 L 09/05/19 21:20 Respiratory Rate 17 09/06/19 07:26 Respiratory Effort Non-Labored 09/06/19 03:04 Respiratory Depth Normal 09/06/19 03:04 Respiratory Pattern Normal 09/06/19 03:04 Blood Pressure 119/73 09/06/19 07:26 Blood Pressure Mean 77 09/05/19 21:15 Blood Pressure Position Sitting 09/05/19 19:07 Pulse Oximetry 97 09/06/19 07:26 Oxygen Delivery Method Room Air 09/06/19 07:26 Oxygen Flow Rate 0 09/06/19 07:26 Pain Level 0 09/06/19 07:26 Intake & Output 09/05/19 09/05/19 09/06/19 11:59 23:59 11:59 Intake Total 1490 / 1490 Balance 1490 / 1490 Weight 88.451 kg Intake: IV 1000 / 1000 Oral 490 / 490 Data Completed and Pending Completed studies during hospitalization [Text1]: PROCEDURE INFORMATION: Exam: CT Angiography Abdomen and Pelvis With Contrast Exam date and time: 09/05/2019 7:37 PM Age: 44 years old Clinical indication: Chest pain; Other: Bradycardia, abd pain llq; Abdominal pain; Localized; Left lower quadrant (llq) TECHNIQUE: Imaging protocol: Computed tomographic angiography of the abdomen and pelvis with intravenous contrast material. 3D rendering: MIP and/or 3D reconstructed images were created by the technologist. COMPARISON: CT CHEST ABD PELVIS WITH CONTRAST 12/10/2012 9:45 PM FINDINGS: Aorta: No aortic aneurysm. No aortic dissection. Celiac trunk and mesenteric arteries: No occlusion or significant stenosis. Renal arteries: No occlusion or significant stenosis. Right iliac arteries: No occlusion or significant stenosis. Left iliac arteries: No occlusion or significant stenosis. Liver: A small hyperdense right liver lobe lesion is present and is seen in the same location as a smaller dense lesion from the study performed in 2012. Size is slightly increased from prior, but compatible with a benign diagnosis given limited change since the previous study. Similar appearing smaller lesions are present in the periphery of the liver, and these may represent small granulomas or flash fill hemangiomas. Gallbladder and bile ducts: Unremarkable. No calcified stones. No ductal dilation. Pancreas: Unremarkable. No mass. No ductal dilation. Spleen: Unremarkable. No splenomegaly. Adrenals: Unremarkable. No mass. Kidneys and ureters: Unremarkable. No solid mass. No hydronephrosis. Stomach and bowel: Unremarkable. No obstruction. No mucosal thickening. Appendix: No evidence of appendicitis. Intraperitoneal space: Unremarkable. No free air. No significant fluid collection. Lymph nodes: Unremarkable. No enlarged lymph nodes. Bladder: Unremarkable. No mass. Reproductive: Unremarkable as visualized. Bones/joints: Advanced degenerative changes at L5-S1. No acute osseous findings. Soft tissues: Unremarkable. IMPRESSION: No acute findings. Labs on day of discharge: Labs from last 24 hours 09/06/19 09/06/19 09/05/19 08:45 08:45 22:15 WBC RBC Hgb Hct MCV MCH MCHC RDW Plt Count MPV Immature Gran % Neutrophils % Lymphocytes % Monocytes % Eosinophils % Basophils % Absolute Neutrophils Absolute Lymphocytes Absolute Monocytes Absolute Eosinophils Absolute Basophils PT INR APTT Sodium 145 Potassium 3.8 Chloride 109 H Carbon Dioxide 26.7 Anion Gap 9.3 BUN 13 Creatinine 1.21 Estimated GFR/1.73 m2 >= 60.00 Glucose 128 H Lactate 2.0 H Calcium 8.8 Magnesium 1.7 L Total Bilirubin AST ALT Alkaline Phosphatase Troponin I < 0.05 Total Protein Albumin Lipase TSH 1.53 Free T4 1.14 Urine Color Urine Clarity Urine pH Ur Specific [place] Urine Protein Urine Ketones Urine Blood Urine Nitrite Urine Bilirubin Urine Urobilinogen Ur Leukocyte Esterase Urine Glucose Urine Opiates Screen Urine Methadone Screen Ur Barbiturates Screen Ur Tricyclics Screen Ur Amphetamines Screen U Benzodiazepines Scrn Urine Cocaine Screen Ur THC Screen Patient ABO/Rh Antibody Screen 09/05/19 09/05/19 09/05/19 22:05 22:05 20:57 WBC RBC Hgb Hct MCV MCH MCHC RDW Plt Count MPV Immature Gran % Neutrophils % Lymphocytes % Monocytes % Eosinophils % Basophils % Absolute Neutrophils Absolute Lymphocytes Absolute Monocytes Absolute Eosinophils Absolute Basophils PT INR APTT Sodium Potassium Chloride Carbon Dioxide Anion Gap BUN Creatinine Estimated GFR/1.73 m2 Glucose Lactate Calcium Magnesium Total Bilirubin AST ALT Alkaline Phosphatase Troponin I Total Protein Albumin Lipase Cancelled TSH Free T4 Urine Color Yellow Urine Clarity Clear Urine pH 8.5 H Ur Specific [place] 1.015 Urine Protein Negative Urine Ketones 40 H Urine Blood Negative Urine Nitrite Negative Urine Bilirubin Negative Urine Urobilinogen 0.2 Ur Leukocyte Esterase Negative Urine Glucose Negative Urine Opiates Screen Positive A Urine Methadone Screen Negative Ur Barbiturates Screen Negative Ur Tricyclics Screen Negative Ur Amphetamines Screen Negative U Benzodiazepines Scrn Negative Urine Cocaine Screen Negative Ur THC Screen Positive A Patient ABO/Rh Antibody Screen 09/05/19 09/05/19 09/05/19 19:27 19:27 19:27 WBC RBC Hgb Hct MCV MCH MCHC RDW Plt Count MPV Immature Gran % Neutrophils % Lymphocytes % Monocytes % Eosinophils % Basophils % Absolute Neutrophils Absolute Lymphocytes Absolute Monocytes Absolute Eosinophils Absolute Basophils PT INR APTT Sodium Potassium Chloride Carbon Dioxide Anion Gap BUN Creatinine Estimated GFR/1.73 m2 Glucose Lactate 1.7 H Calcium Magnesium Total Bilirubin AST ALT Alkaline Phosphatase Troponin I < 0.05 Total Protein Albumin Lipase TSH Free T4 Urine Color Urine Clarity Urine pH Ur Specific [place] Urine Protein Urine Ketones Urine Blood Urine Nitrite Urine Bilirubin Urine Urobilinogen Ur Leukocyte Esterase Urine Glucose Urine Opiates Screen Urine Methadone Screen Ur Barbiturates Screen Ur Tricyclics Screen Ur Amphetamines Screen U Benzodiazepines Scrn Urine Cocaine Screen Ur THC Screen Patient ABO/Rh A Positive Antibody Screen Negative 09/05/19 09/05/19 09/05/19 19:27 19:27 19:27 WBC 10.82 H RBC 5.27 Hgb 15.7 Hct 45.0 MCV 85.4 MCH 29.8 MCHC 34.9 RDW 13.8 Plt Count 217 MPV 10.7 Immature Gran % 0.2 Neutrophils % 88.3 Lymphocytes % 7.9 Monocytes % 3.1 Eosinophils % 0.3 Basophils % 0.2 Absolute Neutrophils 9.55 H Absolute Lymphocytes 0.85 L Absolute Monocytes 0.34 Absolute Eosinophils 0.03 Absolute Basophils 0.02 PT 11.0 INR 1.1 APTT 25.9 Sodium 142 Potassium 3.3 L Chloride 103 Carbon Dioxide 25.9 Anion Gap 13.1 H BUN 12 Creatinine 1.06 Estimated GFR/1.73 m2 >= 60.00 Glucose 121 H Lactate Calcium 9.9 Magnesium Total Bilirubin 0.9 AST 19 ALT 21 Alkaline Phosphatase 58 Troponin I Total Protein 7.3 Albumin 4.3 Lipase TSH Free T4 Urine Color Urine Clarity Urine pH Ur Specific [place] Urine Protein Urine Ketones Urine Blood Urine Nitrite Urine Bilirubin Urine Urobilinogen Ur Leukocyte Esterase Urine Glucose Urine Opiates Screen Urine Methadone Screen Ur Barbiturates Screen Ur Tricyclics Screen Ur Amphetamines Screen U Benzodiazepines Scrn Urine Cocaine Screen Ur THC Screen Patient ABO/Rh Antibody Screen 09/05/19 19:26 WBC RBC Hgb Hct MCV MCH MCHC RDW Plt Count MPV Immature Gran % Neutrophils % Lymphocytes % Monocytes % Eosinophils % Basophils % Absolute Neutrophils Absolute Lymphocytes Absolute Monocytes Absolute Eosinophils Absolute Basophils PT INR APTT Sodium Potassium Chloride Carbon Dioxide Anion Gap BUN Creatinine Estimated GFR/1.73 m2 Glucose Lactate Calcium Magnesium Total Bilirubin AST ALT Alkaline Phosphatase Troponin I Total Protein Albumin Lipase 57 TSH Free T4 Urine Color Urine Clarity Urine pH Ur Specific [place] Urine Protein Urine Ketones Urine Blood Urine Nitrite Urine Bilirubin Urine Urobilinogen Ur Leukocyte Esterase Urine Glucose Urine Opiates Screen Urine Methadone Screen Ur Barbiturates Screen Ur Tricyclics Screen Ur Amphetamines Screen U Benzodiazepines Scrn Urine Cocaine Screen Ur THC Screen Patient ABO/Rh Antibody Screen 03/30/20 20:05 Blood Blood Culture - Pending 09/05/19 19:27 Blood Blood Culture - Pending Preliminary micro results at discharge 09/05/19 20:05 Blood Culture - Pending Blood 09/05/19 19:27 Blood Culture - Pending Blood [facility] Medical History COPD (chronic obstructive pulmonary disease) (Chronic) Laceration of spleen (Resolved 12/10/12) Social History Smoking/Tobacco Use Status: Current every day Alcohol Intake: never Drug use: Occasionally Substance use type: marijuana Do you feel safe at home: Yes Do you feel safe in your relationship?: Yes
[2019-09-06] MEDS: Magnesium Oxide 400 MG TAB 800 MG PO (11:15)
--- NOTE | 2019-09-06 11:15 | PDOC.CMIN ---
- If Service Date Differs Date of service: 09/06/19 Time of Service: 11:15 Care Management Initial Assess REASON FOR HOSPITALIZATION:: Abdominal pain and bradycardia. PAST MEDICAL HISTORY/PAST SURGICAL HISTORY:: Medical History: COPD (chronic obstructive pulmonary disease) and laceration of spleen. No surgical history of record. PREVIOUS FUNCTIONAL STATUS/SOCIAL/FAMILY SUPPORTS:: Rober lives in [place] with his , Jose. 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 Rober spends his time renovating his home. He and his also enjoy snowshoeing and hiking their ten acre property. He drives and is independent at baseline. CURRENT FUNCTIONAL STATUS:: Rober is sitting in a chair watching television when CM comes to meet with him. He is pleasant and easily engages in conversation. He talks a little bit about some of his symptoms and shares he is glad to be returning home with a heart monitor. CM will continue to follow. ADVANCE DIRECTIVES:: None on file. Has patient been provided with information about the portal?: Yes Did the patient sign up for the portal?: No CODE STATUS:: Full Code INSURANCE COVERAGE / FINANCIAL ISSUES:: Self-pay ([employer] has been in touch with Rober with respect to applying for health insurance). CURRENT HOME/COMMUNITY SERVICES/EQUIPMENT:: None. PRIMARY CARE PHYSICIAN:: Michael Floyd MD ([facility]) POTENTIAL DISCHARGE NEEDS:: Follow-up appointment with PCP. PATIENT/FAMILY EDUCATION NEEDS:: Discharge education, limitations and follow-up plan of care, including Ask Me Three and self-management. ANTICIPATED BARRIERS TO DISCHARGE:: None. TRANSPORTATION:: will transport him home via private vehicle when ready. PLAN:: Rober will be discharged home with a cardiac event recorder coordinated by RT. His will transport him home via private vehicle upon discharge. CM will continue to follow.
[2019-09-06] MEDS: Normal Saline Flush 10 ML SYR IVP (11:16)
--- NOTE | 2019-09-06 13:25 | PDOC.CMDIS ---
- If Service Date Differs Date of service: 09/06/19 Time of Service: 13:25 LACE Index Scoring Tool - Questions: Length of Stay (in days): 1 Acuity (Admit via E.D.?): Yes Comorbidities: Chronic Pulmonary Disease E.D. Visits: 1 - Answers: Total Score: 7 Risk of Readmission: Low Risk Care Management Discharge Reason for Hospitalization: Abdominal pain and bradycardia. Discharge Plan: Rober is being discharged home with a cardiac event recorder coordinated by RT. His is transporting him home via private vehicle. Patient/Family Education Needs: Discharge education, limitations and follow up plan of care including Ask Me Three and self-management.
== END 2019-09-06 12:03 | disposition home or self-care (01) ==
LOC: ER 21:41 → MS 22:26
PROVIDERS: Nurse Practitioner Family; Physician Assistant; Admitting Provider General Practice; Emergency Provider Physician Assistant; PCP Family Medicine; Visit Provider Internal Medicine
DX: R00.1 Bradycardia, unspecified (principal); I10 Essential (primary) hypertension; R10.9 Unspecified abdominal pain; F17.210 Nicotine dependence, cigarettes, uncomplicated; J44.9 Chronic obstructive pulmonary disease, unspecified; Z23 Encounter for immunization
CPT/HCPCS: 36415; 74177; 80048; 80053; 80307; 83690; 86850; 86900; 86901; 87040; 87449; 93005; 96361; 96374; 96375; 99222; 99239; 99252; 99285; 81003; 83605; 83735; 84439; 84443; 84484; 85025; 85610; 85730; 93010; 99217; 99218; G0378; J2405; J3490

== ENCOUNTER 2019-09-08 09:36 | Observation (INO) | payer MEDICAID, SELFPAY ==
[2019-09-08] VITALS (36 sets, daily range): BP systolic 108–210; BP diastolic 62–116; PULSE 38–68; RESP 10–26; TEMP 36.5–37.1; O2SAT 91–100
[2019-09-08] MEDS: Normal Saline Flush 10 ML SYR IVP ×3 (09:50→20:11)
[2019-09-08] MEDS: Normal Saline 1,000 ML 1000 ML IV ×2 (10:00→11:15)
[2019-09-08] MEDS: Ondansetron 4 MG/2 ML VIAL IVP ×2 (10:03→22:16)
[2019-09-08 10:07] LABS: Lactate 2.4 mmol/L (0.6-1.4)
[2019-09-08 10:19] LABS: Abs Immature Grans 0.02 k/cumm (0.0-0.09); Absolute Basophil Count 0.04 k/cumm (0.0-0.2); Absolute Eosinophil Count 0.24 k/cumm (0.0-0.7); Absolute Lymphocyte Count 1.24 k/cumm (1.2-3.4); Absolute Monocyte Count 0.71 k/cumm (0.11-0.7); Absolute Neutrophil Count 5.45 k/cumm (1.2-6.7); Basophils % 0.5; Eosinophils % 3.1; HGB 15.3 g/dL (13.5-17.5); Immature Grans % 0.3 %; Lymphocytes % 16.1; Mean Corp. HGB Concentration 34.8 g/dL (32.0-36.0); Mean Corpuscular Hemoglobin 29.9 pg (27.0-33.0); Mean Corpuscular Volume 85.9 fL (80-95); Mean Platelet Volume 10.4 fL (8.0-11.0); Monocytes % 9.2; Neutrophils % 70.8; Platelet Count 188 x1000/uL (130-400); RBC 5.12 m/cumm (4.50-6.00); RBC Distribution Width 13.9 % (11.8-14.1)
[2019-09-08 10:23] LABS: ALT 30 U/L (16-63); AST 23 U/L (15-37); Albumin 4.1 g/dL (3.4-5.0); Alkaline Phosphatase 53 U/L (46-116); Anion Gap 11.3 mmol/L (3-11); BUN 12 mg/dL (7-18); Bilirubin, Total 0.9 mg/dL (0.2-1.0); CO2 24.7 mmol/L (21.0-32.0); Calcium 9.2 mg/dL (8.5-10.1); Chloride 106 mmol/L (98-107); Glucose 118 mg/dL (74-106); Lipase 86 U/L (73-393); Potassium 3.3 mmol/L (3.5-5.1); Sodium 142 mmol/L (136-145)
[2019-09-08] MEDS: HYDROmorphone 2 MG/ML VIAL 0.5 MG IVP ×2 (10:25→14:19)
[2019-09-08 10:28] LABS: Magnesium 1.7 mg/dL (1.8-2.4); Troponin I < 0.05 ng/Ml (<0.06)
[2019-09-08 10:42] LABS: Acetaminophen 4 ug/mL (10-30)
--- NOTE | 2019-09-08 10:50 | W.ED.GENAD ---
Discharge Plan Disposition Patient Disposition: OTHER Condition: Serious Discharge Details Chief Complaint: Abd Prob Clinical Impression: Abdominal pain, Colitis Primary Care Provider: Michael Floyd ED Provider: Omero Pena Home Meds and New Rx's Prescriptions: No Action lisinopril 20 mg tablet 20 mg PO DAILY Qty: 90 RF: 4 hydrochlorothiazide 25 mg tablet 25 mg PO DAILY Qty: 90 RF: 4 measles,mumps,rubella vacc(PF) 1,000-12,500 TCID50/0.5 mL recon soln 0.5 ml SC ONCE Qty: 1 RF: 0 ibuprofen [Ibuprofen IB] 200 MG tablet 800 mg PO PRN PRNRF: 0 acetaminophen 500 mg Tablet 1,000 mg PO PRN PRNRF: 0 Medical Decision Making <KRISTA Ferreira - Last Filed: 09/08/19 13:07> 44-year-old gentleman who was seen in our ER on the last month, subsequently admitted. Discharged the following day. It appears as though he had both a cardiology consultation and a CTA while here in the hospital. The following day his lactate had declined from 1.8-2.0. He reports that he has never been completely pain-free although pain has been much increased since this morning associate with increased nausea and vomiting. He appears uncomfortable and is currently dry heaving. Will obtain routine laboratory values and given his chest pressure after vomiting will obtain EKG and troponin. Will give IV fluid, Zofran and reassess. We will also give 0.5 IV Dilaudid Upon reevaluation no improvement, given 25 IV Phenergan Upon reevaluation no improvement, given 10 IV Reglan and 1 IV Dilaudid Heart rate while he has been here in the ER has been trending primarily in the 40s but does drop into the 30s as well. Laboratory values reveal a white count of 7.70 hemoglobin 15.3, hematocrit 44%. Platelet count of 188 sodium 142, potassium 3.3, chloride 106, carbon dioxide 24.7, anion gap 11.3, glucose 118, lactate 2.4, magnesium 1.7. Urine with 15 ketones. EKG performed, reviewed interpreted by Dr. Marie, please see his note. He spoke with our cardiology team regarding the bradycardia, again please see his note. Given his persistent bradycardia, cardiac pads applied Discussed CT findings with radiology. Reports that from the transverse colon distally the colon is collapsed making evaluation somewhat difficult but there appears to be some mild thickening, stranding, edema, early colitis. No other obvious findings Patient continues to have pain, vomiting. Did not feel as though he would best served being discharged at this time, patient agrees with this and believes that he requires admission. There is no obvious fever or white count, given this I have not initiated antibiotic therapy. I contacted the hospitalist team, Dr. Mon, who requested a surgical consultation. I then discussed the case with Dr. Khan who agreed to evaluate the patient here in the ER. Dr. Khan evaluated the patient in the ER. She does not believe the patient was emergently surgical and could certainly be admitted to our hospitalist team. Please see her completed note. At this time in the setting of lack of elevated white count or fever, will not initiate antibiotic therapy Upon another reevaluation patient is now at least comfortable with the additional Dilaudid and antiemetic. He reports his pain is still present but now a 5 out of 10. His called and requested that we initiate a nicotine patch. Place was called back to Dr. Mon who was agreeable to admission, I will place holding orders <Mic Marie MD - Last Filed: 09/08/19 12:16> I reviewed and interpreted ECG from 959 today: Sinus bradycardia with significant plans with junctional escape. I discussed case with KRISTA Pena -we discussed diagnostic work-up including cardiac monitoring, diagnostic labs and CT imaging. I assisted in care by contacting senior systems administrator, Dr. Mccoy, who saw the patient recently on the inpatient service. I discussed ED presentation and diagnostics with her including concerning ECG. She notes that bradycardia is not clinically significant and secondary to abdominal pain. She is not feel additional intervention necessary at this time. Pacer pads have been placed on the patient and I recommended he maintain cardiac monitoring. KRISTA Pena discussed the condition with Dr. Ahn who has requested surgical consultation. I did not physically assess the patient but I did review treatment plan with KRISTA Pena and agree with course. I was physically present in the emergency department and available for consultation. HPI <KRISTA Ferreira - Last Filed: 09/08/19 13:07> General Mode of arrival: ambulatory. Date/Time Provider Initiated Documentation: 09/08/19 09:41. Limitations to Documentation: no limitations. Information obtained by: patient. HPI Narrative: This is a 44-year-old gentleman with a history of essential hypertension, daily smoker, bradycardia, who was recently evaluated in our ER on , admitted for abdominal pain, and then discharged the following day. Patient reports that he has never been pain-free since being discharged however his pain, nausea, vomiting has gotten worse upon waking this morning. He has had very little to eat since his discharge, reports no bowel movement since he was discharged. Later tells me a very small bowel movement this morning. Patient denies recent illness or sick contact. Denies fever. He does report some chest pressure after vomiting today but denies any active chest pain. Patient reports that he actually was going to follow-up with a new primary care provider today around 1120 via telehealth but felt as though his symptoms were too severe and cannot wait that long. He reports his pain is a 9 or 10 out of 10, across his entire abdomen. He denies any pain radiating to his back or into his groin. Denies any dysuria or hematuria. Patient reports that he has been taking [id number] Tylenol since his discharge likely at a higher rate than prescribed. Related Data Home Medications Medication Instructions Recorded Confirmed ibuprofen [Ibuprofen IB] 800 mg PO PRN PRN 12/10/12 09/08/19 hydrochlorothiazide 25 mg tablet 25 mg PO DAILY #90 tab 07/11/19 09/08/19 lisinopril 20 mg tablet 20 mg PO DAILY #90 tab-cap 07/11/19 09/08/19 acetaminophen 1,000 mg PO PRN PRN 09/08/19 09/08/19 Previous Rx's Medication Instructions Recorded hydrochlorothiazide 25 mg tablet 25 mg PO DAILY #90 tab 07/11/19 lisinopril 20 mg tablet 20 mg PO DAILY #90 tab-cap 07/11/19 Allergies Allergy/AdvReac Type Severity Reaction Status Date / Time oxycodone AdvReac Intermediate Nausea Unverified 09/08/19 09:47 codeine phosphate AdvReac Mild Nausea Unverified 09/08/19 09:47 [From Tylenol-Codeine #3] GRASS Allergy Intermediate Itching Uncoded 09/08/19 09:47 MOLDS AND SMUTS Allergy Mild Itching Uncoded 09/08/19 09:47 General Stated Complaint: Abd Prob LISA: 3 Review of Systems <KRISTA Ferreira - Last Filed: 09/08/19 13:07> Constitutional Constitutional: Denies fatigue, Denies fever(s) and Denies headache(s) Eyes Eyes: Denies change in vision ENT Ears, Nose, Mouth, and Throat: Denies headache(s) and Denies sore throat Cardiovascular Cardiovascular: Denies dyspnea and Reports other (Chest pressure after vomiting) Respiratory Respiratory: Denies cough and Denies dyspnea Gastrointestinal Gastrointestinal: Reports abdominal pain, Denies diarrhea, Reports nausea and Reports vomiting Genitourinary Genitourinary: Denies dysuria Musculoskeletal Musculoskeletal: Denies back pain Integumentary/Breasts Skin/Breast: Denies rash Neurologic Neurologic: Denies headache(s) Endocrine Endocrine: Denies fatigue PFSH <KRISTA Ferreira - Last Filed: 09/08/19 13:07> Medical History COPD (chronic obstructive pulmonary disease) (Chronic) Laceration of spleen (Resolved 12/10/12) Social History Smoking/Tobacco Use Status: Current every day Alcohol Intake: never Drug use: Occasionally Substance use type: marijuana Do you feel safe at home: Yes Do you feel safe in your relationship?: Yes Exam <KRISTA Ferreira - Last Filed: 09/08/19 13:07> Const General: cooperative and in distress mild (Both pain and dry heaving) Orientation: alert, awake and oriented x3 HENMT Head: normal to inspection, normocephalic and atraumatic Mouth: moist mucous membranes abnormal (Slightly dry) Throat: posterior oropharynx normal Eyes Conjunctivae: conjunctivae normal Neck Neck: normal visual inspection, full ROM, trachea midline and supple Chest Chest: normal inspection of the chest Resp Effort & Inspection: normal respiratory effort and able to speak in complete sentences Auscultation: clear to auscultation bilaterally Cardio Rate: regular rate and bradycardic (Rate of 45) Rhythm: regular rhythm GI Inspection: normal to inspection Palpation: soft, not firm, no guarding, not rigid and tender (Diffusely throughout, no point tenderness) Auscultation: normal bowel sounds Back/Spine/Pelvis Back: No back tenderness Skin General skin exam: no rashes or lesions noted Neuro General: patient alert, patient awake, patient oriented x3, moves all extremities and no focal motor deficits Motor: muscle tone normal throughout Sensory Exam: no sensory deficits noted Extrem General: normal to inspection, full ROM and capillary refill normal Psych Appearance: grossly normal Mental Status: mental status grossly normal Course <KRISTA Ferreira - Last Filed: 09/08/19 13:07> Vital Signs Vital signs: Vital Signs Temperature 37 C 09/08/19 09:41 Pulse 64 09/08/19 09:41 Respiratory Rate 22 09/08/19 09:41 Blood Pressure 186/86 H 09/08/19 09:41 Pulse Oximetry 100 09/08/19 09:41 Temperature 37 C 09/08/19 09:41 Temperature Source Skin 09/08/19 09:41 Pulse 43 L 09/08/19 10:31 Pulse 46 L 09/08/19 10:31 Respiratory Rate 11 L 09/08/19 10:31 Respiratory Effort Non-Labored 09/08/19 09:48 Blood Pressure 161/99 H 09/08/19 10:31 Blood Pressure Mean 116 09/08/19 10:31 Blood Pressure Position Sitting 09/08/19 09:41 Pulse Oximetry 99 09/08/19 10:31 Oxygen Delivery Method Room Air 09/08/19 09:41 Oxygen Flow Rate 0 09/08/19 09:41 Pain Level 8 09/08/19 10:25 Lab/Test Results Lab/Test Results: Laboratory Tests Range/Units 09/08/19 09/08/19 09/08/19 09:50 09:50 09:50 WBC (4.4-10.8) k/cumm 7.70 RBC (4.50-6.00) m/cumm 5.12 Hgb (13.5-17.5) g/dL 15.3 Hct (40.0-50.0) % 44.0 MCV (80-95) fL 85.9 MCH (27.0-33.0) pg 29.9 MCHC (32.0-36.0) g/dL 34.8 RDW (11.8-14.1) % 13.9 Plt Count (130-400) x1000/uL 188 MPV (8.0-11.0) fL 10.4 Immature Gran % % 0.3 Neutrophils % 70.8 Lymphocytes % 16.1 Monocytes % 9.2 Eosinophils % 3.1 Basophils % 0.5 Absolute Neutrophils (1.2-6.7) k/cumm 5.45 Absolute Lymphocytes (1.2-3.4) k/cumm 1.24 Absolute Monocytes (0.11-0.7) k/cumm 0.71 H Absolute Eosinophils (0.0-0.7) k/cumm 0.24 Absolute Basophils (0.0-0.2) k/cumm 0.04 Sodium (136-145) mmol/L 142 Potassium (3.5-5.1) mmol/L 3.3 L Chloride (98-107) mmol/L 106 Carbon Dioxide (21.0-32.0) mmol/L 24.7 Anion Gap (3-11) mmol/L 11.3 H BUN (7-18) mg/dL 12 Creatinine (0.70-1.30) mg/dL 1.10 Estimated GFR/1.73 m2 (mL/min/1.73m2) >= 60.00 Glucose (74-106) mg/dL 118 H Lactate (0.6-1.4) mmol/L 2.4 H* Calcium (8.5-10.1) mg/dL 9.2 Magnesium (1.8-2.4) mg/dL Total Bilirubin (0.2-1.0) mg/dL 0.9 AST (15-37) U/L 23 ALT (16-63) U/L 30 Alkaline Phosphatase (46-116) U/L 53 Troponin I (<0.06) ng/Ml Total Protein (6.4-8.2) g/dL 7.0 Albumin (3.4-5.0) g/dL 4.1 Lipase (73-393) U/L 86 Acetaminophen (10-30) ug/mL Range/Units 09/08/19 09/08/19 09:50 09:50 WBC (4.4-10.8) k/cumm RBC (4.50-6.00) m/cumm Hgb (13.5-17.5) g/dL Hct (40.0-50.0) % MCV (80-95) fL MCH (27.0-33.0) pg MCHC (32.0-36.0) g/dL RDW (11.8-14.1) % Plt Count (130-400) x1000/uL MPV (8.0-11.0) fL Immature Gran % % Neutrophils % Lymphocytes % Monocytes % Eosinophils % Basophils % Absolute Neutrophils (1.2-6.7) k/cumm Absolute Lymphocytes (1.2-3.4) k/cumm Absolute Monocytes (0.11-0.7) k/cumm Absolute Eosinophils (0.0-0.7) k/cumm Absolute Basophils (0.0-0.2) k/cumm Sodium (136-145) mmol/L Potassium (3.5-5.1) mmol/L Chloride (98-107) mmol/L Carbon Dioxide (21.0-32.0) mmol/L Anion Gap (3-11) mmol/L BUN (7-18) mg/dL Creatinine (0.70-1.30) mg/dL Estimated GFR/1.73 m2 (mL/min/1.73m2) Glucose (74-106) mg/dL Lactate (0.6-1.4) mmol/L Calcium (8.5-10.1) mg/dL Magnesium (1.8-2.4) mg/dL 1.7 L Total Bilirubin (0.2-1.0) mg/dL AST (15-37) U/L ALT (16-63) U/L Alkaline Phosphatase (46-116) U/L Troponin I (<0.06) ng/Ml < 0.05 Total Protein (6.4-8.2) g/dL Albumin (3.4-5.0) g/dL Lipase (73-393) U/L Acetaminophen (10-30) ug/mL 4
[2019-09-08] MEDS: Normal Saline - Diluent 50 ML VIAL IV (10:52)
[2019-09-08] MEDS: Omnipaque 350 MG/ML 100 ML BTL IJ (10:52)
--- NOTE | 2019-09-08 10:55 | DI.CT_ITS ---
EXAM: CT ABDOMEN PELVIS W CLINICAL HISTORY: Worsening pain, lactate 2.4, N/V, NO BM 4 days TECHNIQUE: CT examination of the abdomen and pelvis was performed with bolus infusion of 100 cc of O mnipaque 350. COMPARISON: CT THORAX ABD/PEL CTA from 09/05/2019 FINDINGS: Images obtained through the lung bases are unremarkable. The liver and spleen appear normal as does the pancreas. Gallbladder and bile ducts are CT normal. Abdominal aorta is of normal diameter and m ajor branches appear normal. No abdominal wall hernia. Slight prominence of retroperitoneal lymph n odes noted without any gross adenopathy. Adrenals and kidneys are unremarkable, no urinary tract obstruction or calcification. Appendix is normal. There is a question of wall thickening of collapsed colon from level of the sple steven flexure to the rectum, question is also raised of subtle pericolonic fat edema particularly in th e distal descending and proximal sigmoid colon. The findings could be associated with colitis. Razia chela of the bowel is unremarkable. IMPRESSION: Question colitis involving the splenic flexure to rectum. Please correlate clinically.
[2019-09-08 11:19] LABS: Bilirubin Negative (Negative); Blood Negative (Negative); Clarity Clear (Clear); Glucose Negative (Negative); Ketones 15 mg/dL (Negative); Leukocyte Esterase Negative (Negative); Nitrite Negative (Negative); Urobilinogen 0.2 EU/dL (Up TO 0.2); pH 8.5 (5-8)
[2019-09-08] MEDS: HYDROmorphone 2 MG/ML VIAL 1 MG IVP (11:39)
[2019-09-08] MEDS: Metoclopramide 10 MG/2 ML VIAL IVP (11:40)
--- NOTE | 2019-09-08 12:02 | NUR.NOTE ---
pacer pads placed on patient Nursing Note:
--- NOTE | 2019-09-08 12:56 | W.SURGCON ---
Date of service: 09/08/19 Time of Service: 12:56 Assessment and Plan Assessment and plan (1) Colitis: Status: Acute Assessment and plan: The colitis may be infectious (virus/bacterial) or ischemic in nature. His vasculature looked patent on CT but a combination of smoking and dehydration may contribute. His WBC is normal and exam fairly benign so I think supportive and symptomatic treatment is adequate. I would not start antibiotics at this point. Will order stool cultures if obtainable. Can consider outpatient colonoscopy when elective cases are being performed. History of Present Illness Narrative: This patient was admitted from 09/05/19 to 09/06/19 with abdominal pain and bradycardia. His symptoms resolved and he was discharged. The abdominal pain had been present since 09/03 and was located in the LUQ with radiation across the abdomen when severe. Today while attempting to have a bowel movement the pain returned and was severe enough to prompt a visit to the emergency department. He is now feeling better after treatment with narcotics. The patient has not had a similar pain in the past. His bowels have been functioning normally up to this episode and now he is having some mild constipation for which he was taking a stool softener. No obvious blood in the stool although occasionally there is some bright red blood present presumably from hemorrhoids. His father was treated for diverticulitis. There is no known family history of inflammatory bowel disease or colon cancer. The patient has never had a prior colonoscopy. He has not traveled. He does report treatment with antibiotics in June. He had a CT scan of the chest abdomen and pelvis at his first admission that was normal. Repeat CT scan today is reviewed and shows some mild thickening of the splenic flexure and descending colon possibly consistent with colitis. Review of Systems All systems reviewed & are unremarkable except as noted in HPI and below [facility] Medical History COPD (chronic obstructive pulmonary disease) (Chronic) Laceration of spleen (Resolved 12/10/12) Social History Smoking/Tobacco Use Status: Current every day Alcohol Intake: never Drug use: Occasionally Substance use type: marijuana Do you feel safe at home: Yes Do you feel safe in your relationship?: Yes Exam Narrative Exam Narrative: Not in acute distress. Abdomen soft, non distended, minimal LUQ tenderness. No peritonitis. Results Last Vital Signs Temp 98.8 F 09/08/19 11:08 Pulse 44 L 09/08/19 11:11 Resp 12 09/08/19 11:50 BP 168/112 H 09/08/19 11:11 Pulse Ox 91 L 09/08/19 11:50 Labs Result diagrams: 09/08/19 09:50 09/08/19 09:50 Labs: Laboratory Results - last 24 hr 09/08/19 09/08/19 09/08/19 09:50 09:50 09:50 WBC 7.70 RBC 5.12 Hgb 15.3 Hct 44.0 MCV 85.9 MCH 29.9 MCHC 34.8 RDW 13.9 Plt Count 188 MPV 10.4 Immature Gran % 0.3 Neutrophils % 70.8 Lymphocytes % 16.1 Monocytes % 9.2 Eosinophils % 3.1 Basophils % 0.5 Absolute Neutrophils 5.45 Absolute Lymphocytes 1.24 Absolute Monocytes 0.71 H Absolute Eosinophils 0.24 Absolute Basophils 0.04 Sodium 142 Potassium 3.3 L Chloride 106 Carbon Dioxide 24.7 Anion Gap 11.3 H BUN 12 Creatinine 1.10 Estimated GFR/1.73 m2 >= 60.00 Glucose 118 H Lactate 2.4 H* Calcium 9.2 Magnesium Total Bilirubin 0.9 AST 23 ALT 30 Alkaline Phosphatase 53 Troponin I Total Protein 7.0 Albumin 4.1 Lipase 86 Urine Color Urine Clarity Urine pH Ur Specific [place] Urine Protein Urine Ketones Urine Blood Urine Nitrite Urine Bilirubin Urine Urobilinogen Ur Leukocyte Esterase Urine Glucose Acetaminophen 09/08/19 09/08/19 09/08/19 09:50 09:50 11:00 WBC RBC Hgb Hct MCV MCH MCHC RDW Plt Count MPV Immature Gran % Neutrophils % Lymphocytes % Monocytes % Eosinophils % Basophils % Absolute Neutrophils Absolute Lymphocytes Absolute Monocytes Absolute Eosinophils Absolute Basophils Sodium Potassium Chloride Carbon Dioxide Anion Gap BUN Creatinine Estimated GFR/1.73 m2 Glucose Lactate Calcium Magnesium 1.7 L Total Bilirubin AST ALT Alkaline Phosphatase Troponin I < 0.05 Total Protein Albumin Lipase Urine Color Yellow Urine Clarity Clear Urine pH 8.5 H Ur Specific [place] 1.020 Urine Protein Negative Urine Ketones 15 H Urine Blood Negative Urine Nitrite Negative Urine Bilirubin Negative Urine Urobilinogen 0.2 Ur Leukocyte Esterase Negative Urine Glucose Negative Acetaminophen 4
[2019-09-08 13:20] LABS: Troponin I < 0.05 ng/Ml (<0.06)
--- NOTE | 2019-09-08 14:22 | HPE_ITS ---
Date of service: 09/08/19 Time of Service: 14:22 Assessment and Plan Assessment and plan (1) Abdominal pain: Status: Resolved Assessment and plan: readmitted for recurrence of symptoms. work up shows question on colitis by CT scan. surgical consult in ED, recommendation for bentyl and NSAID. no antibiotics at this time. continue IV fluids, electrolyte replacement, antiemetics. 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 (2) Bradycardia: Status: Acute Assessment and plan: chronic and asymptomatic, has had cardiac work in in the past. no need to telemetry (3) Smoker: Status: Chronic Assessment and plan: nicotine replacement while hospitalized (4) Essential hypertension: Status: Chronic Assessment and plan: continue home medications, monitor and adjust as needed. (5) Electrolyte abnormality: Status: Acute Assessment and plan: hypomagnesemia and hypokalemia, d/t GI losses. will replete and follow. reports he is unable to tolerate PO so will replete IV. History of Present Illness History of Present Illness Chief Complaint: abdominal pain Narrative: return visit for recurrent abdominal pain, no diagnosis on through work up and overnight observation. work up remains unrevealing. CT abd/pelvis with contrast shows a question of colitis. surgical consultation with recommendation for stool sample for bacterial pathogens, no antibiotic recommendations at this time. will be referred to observation. Review of Systems Constitutional Constitutional: Denies body ache(s) and Denies fever(s) Eyes Eyes: Denies change in vision ENT Ears, Nose, Mouth, and Throat: Denies dysphagia, Denies vertigo and Denies dizziness Cardiovascular Cardiovascular: Denies chest pain Respiratory Respiratory: Denies chest congestion and Denies cough Gastrointestinal Gastrointestinal: Reports abdominal pain, Denies dysphagia, Denies diarrhea, Reports nausea, Reports vomiting and Denies hematemesis Genitourinary Genitourinary: Denies dysuria Musculoskeletal Musculoskeletal: Denies back pain and Denies myalgias Neurologic Neurologic: Denies vertigo and Denies dizziness Hematologic/Lymphatic Hematologic/Lymphatic: Denies easy bleeding [facility] Medical History COPD (chronic obstructive pulmonary disease) (Chronic) Laceration of spleen (Resolved 12/10/12) Social History Smoking/Tobacco Use Status: Current every day Alcohol Intake: never Drug use: Occasionally Substance use type: marijuana Do you feel safe at home: Yes Do you feel safe in your relationship?: Yes Meds Home Medications and Allergies Home Medications Medication Instructions Recorded Confirmed Type ibuprofen [Ibuprofen IB] 800 mg PO PRN PRN 12/10/12 09/08/19 History measles,mumps,rubella vacc(PF) 0.5 ml SC ONCE #1 each 06/22/18 09/05/19 Clinic 1,000-12,[id number]/0.5 mL subcut hydrochlorothiazide 25 mg tablet 25 mg PO DAILY #90 tab 07/11/19 09/08/19 Rx lisinopril 20 mg tablet 20 mg PO DAILY #90 tab-cap 07/11/19 09/08/19 Rx acetaminophen 1,000 mg PO PRN PRN 09/08/19 09/08/19 History Allergies Allergy/AdvReac Type Severity Reaction Status Date / Time oxycodone AdvReac Intermediate Nausea Unverified 09/08/19 09:47 codeine phosphate AdvReac Mild Nausea Unverified 09/08/19 09:47 [From Tylenol-Codeine #3] GRASS Allergy Intermediate Itching Uncoded 09/08/19 09:47 MOLDS AND SMUTS Allergy Mild Itching Uncoded 09/08/19 09:47 Exam Const General: not healthy appearing (older appearing), no acute distress, disheveled and ill appearing Nutritional Appearance: average body habitus HENVT Head: normal to inspection, normocephalic and atraumatic Teeth and gingiva: abnormal tooth or associated gingiva and poor dentition Resp Effort & Inspection: normal respiratory effort Auscultation: clear to auscultation bilaterally Cardio Rate: regular rate Rhythm: regular rhythm GI Inspection: normal to inspection Palpation: soft Auscultation: normal bowel sounds Neuro General: patient alert, patient awake and patient oriented x3 Cranial Nerves: CN's II-XI intact bilaterally Cognition: normal cognition Speech: speech normal Motor: muscle tone normal throughout Results Labs Result diagrams: 09/09/19 06:28 09/09/19 06:28 Labs: Laboratory Results - last 24 hr 09/08/19 09/08/19 09/08/19 09:50 09:50 09:50 WBC 7.70 RBC 5.12 Hgb 15.3 Hct 44.0 MCV 85.9 MCH 29.9 MCHC 34.8 RDW 13.9 Plt Count 188 MPV 10.4 Immature Gran % 0.3 Neutrophils % 70.8 Lymphocytes % 16.1 Monocytes % 9.2 Eosinophils % 3.1 Basophils % 0.5 Absolute Neutrophils 5.45 Absolute Lymphocytes 1.24 Absolute Monocytes 0.71 H Absolute Eosinophils 0.24 Absolute Basophils 0.04 Sodium 142 Potassium 3.3 L Chloride 106 Carbon Dioxide 24.7 Anion Gap 11.3 H BUN 12 Creatinine 1.10 Estimated GFR/1.73 m2 >= 60.00 Glucose 118 H Lactate 2.4 H* Calcium 9.2 Magnesium Total Bilirubin 0.9 AST 23 ALT 30 Alkaline Phosphatase 53 Troponin I Total Protein 7.0 Albumin 4.1 Lipase 86 Urine Color Urine Clarity Urine pH Ur Specific [place] Urine Protein Urine Ketones Urine Blood Urine Nitrite Urine Bilirubin Urine Urobilinogen Ur Leukocyte Esterase Urine Glucose Acetaminophen 09/08/19 09/08/19 09/08/19 09:50 09:50 11:00 WBC RBC Hgb Hct MCV MCH MCHC RDW Plt Count MPV Immature Gran % Neutrophils % Lymphocytes % Monocytes % Eosinophils % Basophils % Absolute Neutrophils Absolute Lymphocytes Absolute Monocytes Absolute Eosinophils Absolute Basophils Sodium Potassium Chloride Carbon Dioxide Anion Gap BUN Creatinine Estimated GFR/1.73 m2 Glucose Lactate Calcium Magnesium 1.7 L Total Bilirubin AST ALT Alkaline Phosphatase Troponin I < 0.05 Total Protein Albumin Lipase Urine Color Yellow Urine Clarity Clear Urine pH 8.5 H Ur Specific [place] 1.020 Urine Protein Negative Urine Ketones 15 H Urine Blood Negative Urine Nitrite Negative Urine Bilirubin Negative Urine Urobilinogen 0.2 Ur Leukocyte Esterase Negative Urine Glucose Negative Acetaminophen 4 09/08/19 12:55 WBC RBC Hgb Hct MCV MCH MCHC RDW Plt Count MPV Immature Gran % Neutrophils % Lymphocytes % Monocytes % Eosinophils % Basophils % Absolute Neutrophils Absolute Lymphocytes Absolute Monocytes Absolute Eosinophils Absolute Basophils Sodium Potassium Chloride Carbon Dioxide Anion Gap BUN Creatinine Estimated GFR/1.73 m2 Glucose Lactate Calcium Magnesium Total Bilirubin AST ALT Alkaline Phosphatase Troponin I < 0.05 Total Protein Albumin Lipase Urine Color Urine Clarity Urine pH Ur Specific [place] Urine Protein Urine Ketones Urine Blood Urine Nitrite Urine Bilirubin Urine Urobilinogen Ur Leukocyte Esterase Urine Glucose Acetaminophen Last Vital Signs Temp 37.1 C 09/08/19 13:33 Pulse 42 L 09/08/19 13:33 Resp 13 09/08/19 13:33 BP 108/70 09/08/19 13:33 Pulse Ox 96 09/08/19 13:33 COVID-19 Screening Traveled to [place] from one of the affected countries or regions?: N Recent travel in the [place] within the last 8 weeks?: No Recent out of the country travel within the last 8 weeks?: No Exposure or possible exposure to illness during travel?: No Had IN PERSON contact w/suspected or confirmed C-19 person: No Have you had the following symptoms in the past few days?: No
[2019-09-08] MEDS: Ketorolac 30 MG/ML VIAL IVP ×2 (14:39→20:10)
[2019-09-08] MEDS: Normal Saline 1,000 ML 70 ML IV (14:49)
[2019-09-08] MEDS: Dicyclomine 20 MG TAB PO ×2 (15:11→22:18)
[2019-09-08] MEDS: POTASSIUM CHLORIDE 10 MEQ/100 ML BAG 100 MEQ IVPB ×4 (17:25→21:17)
[2019-09-08] MEDS: MAGNESIUM SULFATE 1 GM/100 ML BAG IVPB (17:25)
[2019-09-08] MEDS: Acetaminophen 325 MG TAB 650 MG PO (22:18)
[2019-09-08] MEDS: LORazepam 1 MG TAB PO (23:21)
[2019-09-09] MEDS: HYDROmorphone 2 MG/ML VIAL 1 MG IVP ×2 (00:06→03:17)
[2019-09-09 00:38] VITALS: BP 129/66
[2019-09-09 00:40] LABS: Anion Gap 9.9 mmol/L (3-11); BUN 9 mg/dL (7-18); CO2 25.1 mmol/L (21.0-32.0); CREATININE 0.91 mg/dL (0.70-1.30); Calcium 8.4 mg/dL (8.5-10.1); Chloride 106 mmol/L (98-107); Glucose 123 mg/dL (74-106); Potassium 3.1 mmol/L (3.5-5.1); Sodium 141 mmol/L (136-145)
[2019-09-09] MEDS: POTASSIUM CHLORIDE/0.9% NACL 1,000 ML 125 MEQ IV ×2 (01:12→08:48)
[2019-09-09] MEDS: LORazepam 1 MG TAB PO (03:18)
[2019-09-09 06:51] LABS: Abs Immature Grans 0.01 k/cumm (0.0-0.09); Absolute Basophil Count 0.02 k/cumm (0.0-0.2); Absolute Eosinophil Count 0.03 k/cumm (0.0-0.7); Absolute Lymphocyte Count 0.88 k/cumm (1.2-3.4); Absolute Monocyte Count 0.55 k/cumm (0.11-0.7); Absolute Neutrophil Count 7.91 k/cumm (1.2-6.7); Basophils % 0.2; Eosinophils % 0.3; HCT 37.6 % (40.0-50.0); HGB 12.6 g/dL (13.5-17.5); Immature Grans % 0.1 %; Lymphocytes % 9.4; Mean Corp. HGB Concentration 33.5 g/dL (32.0-36.0); Mean Corpuscular Hemoglobin 29.2 pg (27.0-33.0); Mean Corpuscular Volume 87.2 fL (80-95); Mean Platelet Volume 10.4 fL (8.0-11.0); Monocytes % 5.9; Neutrophils % 84.1; Platelet Count 160 x1000/uL (130-400); RBC 4.31 m/cumm (4.50-6.00)
[2019-09-09 07:07] LABS: ALT 22 U/L (16-63); AST 17 U/L (15-37); Albumin 3.3 g/dL (3.4-5.0); Alkaline Phosphatase 41 U/L (46-116); Anion Gap 7.6 mmol/L (3-11); BUN 10 mg/dL (7-18); Bilirubin, Total 0.5 mg/dL (0.2-1.0); CO2 26.4 mmol/L (21.0-32.0); Calcium 8.2 mg/dL (8.5-10.1); Chloride 108 mmol/L (98-107); Glucose 107 mg/dL (74-106); Magnesium 1.7 mg/dL (1.8-2.4); Potassium 3.9 mmol/L (3.5-5.1); Sodium 142 mmol/L (136-145); Total Protein 5.7 g/dL (6.4-8.2)
[2019-09-09 07:17] VITALS: BP 125/71; PULSE 51; RESP 18; TEMP 37.2; O2SAT 95
--- NOTE | 2019-09-09 07:40 | PHA.ADMREV ---
Pharmacy Clinical Review - Admission Clinical Review (Last Reviewed 09/08/19 @ 13:01 by Chanel Khan MD) Electrolyte abnormality (Acute) Colitis (Acute) Bradycardia (Acute) Abdominal pain (Acute) oxycodone Adverse Reaction (Intermediate, Unverified 09/08/19 09:47) Nausea codeine phosphate [From Tylenol-Codeine #3] Adverse Reaction (Mild, Unverified 09/08/19 09:47) Nausea GRASS Allergy (Intermediate, Uncoded 09/08/19 09:47) Itching MOLDS AND SMUTS Allergy (Mild, Uncoded 09/08/19 09:47) Itching Height 6 ft Weight 85.275 kg - Renal Dosing Renal Dosing: BUN 10 mg/dL (7-18) 09/09/19 06:28 Creatinine 0.90 mg/dL (0.70-1.30) 09/09/19 06:28 Medications needing adjustments: Reviewed (cRcL~112mL/min) - Anticoagulation Anticoagulation: Hgb 12.6 g/dL (13.5-17.5) L D 09/09/19 06:28 Hct 37.6 % (40.0-50.0) L 09/09/19 06:28 Plt Count 160 x1000/uL (130-400) 09/09/19 06:28 Creatinine 0.90 mg/dL (0.70-1.30) 09/09/19 06:28 DVT Prohphylaxis: Intervened (No DVT PROPH (has colitis (?Infectious). No blood in stool darrius ask Hospitalist) Therapeutic Anticoagulation: N/A - Opiate Usage Evaluate Pain Scale/Pains Meds: Reviewed (dilaudid iv for abdominal pain) Scheduled Bowel Reg ordered if on Opiates?: No - Relevant Labs Sodium 142 mmol/L (136-145) 09/09/19 06:28 Potassium 3.9 mmol/L (3.5-5.1) D 09/09/19 06:28 Chloride 108 mmol/L (98-107) H 09/09/19 06:28 Magnesium 1.7 mg/dL (1.8-2.4) L 09/09/19 06:28 Electrolytes, C-Reactive P, ESR: Reviewed - Antimicrobial Stewardship Antibiotic appropriateness: N/A Culture review/Resistance: Reviewed - DM Control DM Control: Glucose 107 mg/dL (74-106) H 09/09/19 06:28 Insulin Dosing: N/A - Heart Failure/NE Heart Failure/NE: Troponin I < 0.05 ng/Ml (<0.06) 09/08/19 12:55 EF%, MINNIE's, B-Blockers, Diuretics: Reviewed (currently not order home HCTZ or Lisinopril) - BP Control BP Control: Blood Pressure 129/66 Blood Pressure 209/104 If elevated: Reviewed (current BP WNL. home BP meds not ordered yet) - QTc Review If Elevated: Reviewed (QTc-433 no action required) - Home Meds Home Med List reviewed: Reviewed (hctz,lisinopril not ordered here) - Current meds Current Medication Order Review: Reviewed (HCTZ & Lisinopril not re-order yet)
[2019-09-09 07:55] VITALS: O2SAT 95
[2019-09-09] MEDS: Ketorolac 30 MG/ML VIAL IVP (08:00)
[2019-09-09] MEDS: MAGNESIUM SULFATE 2 GM/50 ML BAG IVPB (08:48)
--- NOTE | 2019-09-09 10:20 | INITIAL_ITS ---
- If Service Date Differs Date of service: 09/09/19 Time of Service: 10:20 Care Management Initial Assess REASON FOR HOSPITALIZATION:: Colitis Abdominal Pain PAST MEDICAL HISTORY/PAST SURGICAL HISTORY:: Medical History. COPD (chronic obstructive pulmonary disease) (Chronic). Laceration of spleen (Resolved 12/10/12) PREVIOUS FUNCTIONAL STATUS/SOCIAL/FAMILY SUPPORTS:: Rober lives in [place] with his , Jose. 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 Rober spends his time renovating his home. He and his also enjoy snowshoeing and hiking their ten acre property. He drives and is independent at baseline. CURRENT FUNCTIONAL STATUS:: Rober was sitting up in his chair when CM met with him. He reported that he was feeling a little better, but that he isn't sure that he is tolerating the liquid diet he is on. He did report a small BM this morning. He stated that his biggest concern is the abdominal pain which is difficult for him to bear at times. CM discussed the plan with him, which is to advance his diet as tolerated. CM will continue to follow. ADVANCE DIRECTIVES:: None on file. Has patient been provided with information about the portal?: Yes Did the patient sign up for the portal?: Yes (previously) CODE STATUS:: Full Code INSURANCE COVERAGE / FINANCIAL ISSUES:: Self-pay ([employer] has been in touch with Rober with respect to applying for health insurance). CURRENT HOME/COMMUNITY SERVICES/EQUIPMENT:: No equipment or services at this time. PRIMARY CARE PHYSICIAN:: Michael Floyd MD POTENTIAL DISCHARGE NEEDS:: Evaluations for further needs, follow up appointments PATIENT/FAMILY EDUCATION NEEDS:: Review discharge instructions regarding act ivity levels and medications, discussion of self care needs including ask me three ANTICIPATED BARRIERS TO DISCHARGE:: None identified at this time. TRANSPORTATION:: will transport him home via private vehicle when ready. PLAN:: Anticipate Rober will return home when medically cleared with no additional services. His will drive him home via private vehicle when ready. He will follow up with his PCP and discharge plan of care. CM will continue to follow. Readmission - Within the Past 30 Days Yes or No: Y - Date of First Admission Date of 1st Admission: 09/05/19 - Date of this Admission Date of Admission: 09/08/19 This admission was: Through ED - Office Visit Since 1st Admission Have you seen your PCP in the office since discharge?: No Had an appointment Been Scheduled?: Yes Date of Scheduled Appointment: 09/08/19 Describe barriers for scheduling or getting an appointment: An appointment was scheduled, but he was back at [facility] when it was supposed to take place through telehealth. - I. Interview patient and/or Family Difficulty reaching your doctor or getting an office appt?: No Have you had trouble purchasing/ or taking medication?: No Have you had trouble with getting meals at home?: No Describe your typical meals since you have been home: Rober stated that his diet has not been good since he has been out of work. Did you feel ready for discharge when you left the last time: Yes (Pain was under control.) If patient did not receive services, were there orders at: No Reason there were no orders at discharge: None needed. Did you call your physician beore you came to the ED?: Yes (Reported that his called.) Did your physician tell you to come in?: Yes (Reported that they expected him at [facility].) How do you think you became sick enough to come back?: Rober reported that he felt well enough to return home upon his discharge, but that his symptoms came back in the same manner that they presented previously. - ED visits How many ED visits in the past 12 months: 2 - Assessment for Readmission Summary of readmission circumstances, based upon interviews: Rober was a patient at [facility] earlier this week, and went home after only one day in observation. He stated that he felt that his pain was under control prior to discharging home, but per report, he stated that it was never gone, just not as severe. He reported that he did feel well enough to return home, but when his symptoms returned he decided to return to the ER. He is hoping to have his pain under control before returning home. Per MD, the plan is to advance his diet, and if it is tolerated he will be discharged. Rober is agreeable to returning home when medically cleared.
--- NOTE | 2019-09-09 11:34 | W.PM.PROGNOT ---
Date of Service Date of service: 09/09/19 Time of Service: 11:35 Assessment and Plan Assessment and plan (1) Colitis: Status: Acute Assessment and plan: This is a soft diagnosis at this time as the CT findings are fairly minimal. Stool cultures are pending. Will need an outpatient colonoscopy. My office will contact him when we are proceeding with elective surgery again. I agree cannabinoid syndrome is also a possibility. Will sign off, please contact surgeon grounds restoration specialist with any further concerns. Subjective Subjective Interval history since last seen: Patient currently has minimal pain. Had an episode of crampy pain last night requiring narcotics. Small stool this am. No diarrhea. Exam Narrative Exam Narrative: Not in acute distress Abdomen soft, non distended. Mild tenderness left mid and left upper abdomen. Objective Objective Clinical Data: Abnormal lab results 09/09/19 09/09/19 09/09/19 Range/Units 00:20 06:28 06:28 RBC 4.31 L (4.50-6.00) m/cumm Hgb 12.6 L D (13.5-17.5) g/dL Hct 37.6 L (40.0-50.0) % Absolute Neutrophils 7.91 H (1.2-6.7) k/cumm Absolute Lymphocytes 0.88 L (1.2-3.4) k/cumm Potassium 3.1 L (3.5-5.1) mmol/L Chloride 108 H (98-107) mmol/L Glucose 123 H 107 H (74-106) mg/dL Calcium 8.4 L 8.2 L (8.5-10.1) mg/dL Magnesium 1.7 L (1.8-2.4) mg/dL Alkaline Phosphatase 41 L (46-116) U/L Total Protein 5.7 L (6.4-8.2) g/dL Albumin 3.3 L (3.4-5.0) g/dL Vital Signs Temperature 99.0 F 09/09/19 07:17 Temperature Source Temporal Artery Scan 09/09/19 07:17 Pulse 51 L 09/09/19 07:17 Pulse Rhythm Regular 09/09/19 07:55 Pulse 41 L 09/08/19 13:30 Respiratory Rate 18 09/09/19 07:17 Respiratory Effort Non-Labored 09/09/19 07:55 Respiratory Depth Normal 09/09/19 07:55 Respiratory Pattern Normal 09/09/19 07:55 Blood Pressure 125/71 09/09/19 07:17 Blood Pressure Mean 77 09/08/19 13:01 Blood Pressure Position Sitting 09/08/19 09:41 Pulse Oximetry 95 09/09/19 07:55 Oxygen Delivery Method Room Air 09/09/19 07:55 Oxygen Flow Rate 0 09/09/19 07:55 Pain Level 3 09/09/19 07:17 Comment 09/08/19 22:29 Intake & Output 09/08/19 09/08/19 09/09/19 11:59 23:59 11:59 Intake Total 1051 / 2751 1700 / 2751 950 / 950 Output Total 1974 1100 / 1974 450 / 450 Balance 176 / 776 600 / 776 500 / 500 Weight 187 lb 15.987 oz 187 lb 15.987 oz Intake: IV 1051 / 2351 1300 / 2351 950 / 950 Oral 400 / 400 Output: Urine 1974 1100 / 1974 450 / 450 Other: Urine Color Yellow Yellow Urine Appearance Clear Clear Urine Odor None None Stool Size Small Stool Characteristics Formed Voiding Methods Urinal Toilet Laboratory Results WBC 9.40 k/cumm (4.4-10.8) 09/09/19 06:28 RBC 4.31 m/cumm (4.50-6.00) L 09/09/19 06:28 Hgb 12.6 g/dL (13.5-17.5) L D 09/09/19 06:28 Hct 37.6 % (40.0-50.0) L 09/09/19 06:28 MCV 87.2 fL (80-95) 09/09/19 06:28 MCH 29.2 pg (27.0-33.0) 09/09/19 06:28 MCHC 33.5 g/dL (32.0-36.0) 09/09/19 06:28 RDW 14.0 % (11.8-14.1) 09/09/19 06:28 Plt Count 160 x1000/uL (130-400) 09/09/19 06:28 MPV 10.4 fL (8.0-11.0) 09/09/19 06:28 Immature Gran % 0.1 % 09/09/19 06:28 Neutrophils % 84.1 09/09/19 06:28 Lymphocytes % 9.4 09/09/19 06:28 Monocytes % 5.9 09/09/19 06:28 Eosinophils % 0.3 09/09/19 06:28 Basophils % 0.2 09/09/19 06:28 Absolute Neutrophils 7.91 k/cumm (1.2-6.7) H 09/09/19 06:28 Absolute Lymphocytes 0.88 k/cumm (1.2-3.4) L 09/09/19 06:28 Absolute Monocytes 0.55 k/cumm (0.11-0.7) 09/09/19 06:28 Absolute Eosinophils 0.03 k/cumm (0.0-0.7) 09/09/19 06:28 Absolute Basophils 0.02 k/cumm (0.0-0.2) 09/09/19 06:28 Sodium 142 mmol/L (136-145) 09/09/19 06:28 Potassium 3.9 mmol/L (3.5-5.1) D 09/09/19 06:28 Chloride 108 mmol/L (98-107) H 09/09/19 06:28 Carbon Dioxide 26.4 mmol/L (21.0-32.0) 09/09/19 06:28 Anion Gap 7.6 mmol/L (3-11) 09/09/19 06:28 BUN 10 mg/dL (7-18) 09/09/19 06:28 Creatinine 0.90 mg/dL (0.70-1.30) 09/09/19 06:28 Estimated GFR/1.73 m2 >= 60.00 (mL/min/1.73m2) 09/09/19 06:28 Glucose 107 mg/dL (74-106) H 09/09/19 06:28 Lactate 2.4 mmol/L (0.6-1.4) H* 09/08/19 09:50 Calcium 8.2 mg/dL (8.5-10.1) L 09/09/19 06:28 Magnesium 1.7 mg/dL (1.8-2.4) L 09/09/19 06:28 Total Bilirubin 0.5 mg/dL (0.2-1.0) 09/09/19 06:28 AST 17 U/L (15-37) 09/09/19 06:28 ALT 22 U/L (16-63) 09/09/19 06:28 Alkaline Phosphatase 41 U/L (46-116) L 09/09/19 06:28 Troponin I < 0.05 ng/Ml (<0.06) 09/08/19 12:55 Total Protein 5.7 g/dL (6.4-8.2) L 09/09/19 06:28 Albumin 3.3 g/dL (3.4-5.0) L 09/09/19 06:28 Lipase 86 U/L (73-393) 09/08/19 09:50 Urine Color Yellow (Yellow) 09/08/19 11:00 Urine Clarity Clear (Clear) 09/08/19 11:00 Urine pH 8.5 (5-8) H 09/08/19 11:00 Ur Specific [place] 1.020 (1.005-1.025) 09/08/19 11:00 Urine Protein Negative mg/dL (Negative) 09/08/19 11:00 Urine Ketones 15 mg/dL (Negative) H 09/08/19 11:00 Urine Blood Negative (Negative) 09/08/19 11:00 Urine Nitrite Negative (Negative) 09/08/19 11:00 Urine Bilirubin Negative (Negative) 09/08/19 11:00 Urine Urobilinogen 0.2 EU/dL (Up TO 0.2) 09/08/19 11:00 Ur Leukocyte Esterase Negative (Negative) 09/08/19 11:00 Urine Glucose Negative mg/dL (Negative) 09/08/19 11:00 Acetaminophen 4 ug/mL (10-30) 09/08/19 09:50
--- NOTE | 2019-09-09 14:57 | W.PM.DS.N ---
Date of service: 09/09/19 Time of Service: 14:57 DS: Diagnosis Discharge Diagnosis (1) Colitis: Status: Acute Discharge Plan Disposition Patient Disposition: HOME Condition: Improving Discharge Details Chief Complaint: Abd Prob Clinical Impression: Abdominal pain, Colitis Reason For Visit: COLITIS ABDOMINAL PAIN Admit Date/Time: 09/08/19 12:57 Admit Provider: Omero Mon Attending Provider: Omero Mon Primary Care Provider: Michael Floyd ED Provider: Omero Pena Hospital Course Hospital Course: THis is a 44 year old male with history of hypertension who returned to the ED for recurrent abdominal pain, on first visit no diagnosis on thorough work up and overnight observation so was discharged home for outpatient follow up with GI. Repeat work up remains unrevealing. CT abd/pelvis with contrast shows a question of colitis. surgical consultation with recommendation for stool sample for bacterial pathogens has been sent and is pending, no antibiotic recommendations at this time. He was referred to observation for IV fluids, antiemetics. He received bentyl and toradol with no signifcant improvement in his symptoms and was ultimately given hydromorphone which improved his symptoms. today he is tolerating oral fluids so diet was advanced, which he tolerated as well. he will be discharged home to follow up outpatient. Dr Khan will notify office for appointment. He will be given bentyl and ondansetron for symptoms management. hemodynamically he is stable and tolerating oral intake. he is dishcharged home with no services. Home Meds and New Rx's Prescriptions: New dicyclomine 20 mg Tablet 20 mg PO QID PRN PRNQty: 12 RF: 0 ondansetron 4 mg tablet,disintegrating 4 mg PO Q6H PRNQty: 10 RF: 0 Continued lisinopril 20 mg tablet 20 mg PO DAILY Qty: 90 RF: 4 hydrochlorothiazide 25 mg tablet 25 mg PO DAILY Qty: 90 RF: 4 measles,mumps,rubella vacc(PF) 1,000-12,500 TCID50/0.5 mL recon soln 0.5 ml SC ONCE Qty: 1 RF: 0 ibuprofen [Ibuprofen IB] 200 MG tablet 800 mg PO PRN PRNRF: 0 acetaminophen 500 mg Tablet 1,000 mg PO PRN PRNRF: 0 Discharge Instructions Instructions: Acute Abdominal Pain (DC) Additional Instructions: try miralax 17 gram daily to keep bowels regular. Referrals: Chanel Khan MD [ [facility] STAFF PHYSICIAN] - (1-2 weeks) Activity:: Activity as Tolerated Equipment/Supplies:: No Equipment Needed Diet:: As Tolerated Discharge Orders Discharge Orders: Discharge Order (Routine); Ordered 09/09/19 Ordered By: Bri Rivera DS: Summary Status at Discharge Functional status at discharge: independent ambulation Overall status at discharge: patient is progressing back to baseline Mental Status: mental status grossly normal Speech and Movement: speech and movement normal Mood: congruent mood Affect: normal affect Exam Narrative Exam Narrative: General: not healthy appearing (older appearing), no acute distress, disheveled and ill appearing Nutritional Appearance: thin body habitus HENMT Head: normal to inspection, normocephalic and atraumatic Teeth and gingiva: abnormal tooth or associated gingiva and poor dentition Resp Effort & Inspection: normal respiratory effort Auscultation: clear to auscultation bilaterally Cardio Rate: regular rate Rhythm: regular rhythm GI Inspection: normal to inspection Palpation: soft Auscultation: normal bowel sounds Neuro General: patient alert, patient awake and patient oriented x3 Cranial Nerves: CN's II-XI intact bilaterally Cognition: normal cognition Speech: speech normal Motor: muscle tone normal throughout Psych Mental Status: mental status grossly normal Speech and Movement: speech and movement normal Mood: congruent mood Affect: normal affect DS: Data Vitals/I&O Vitals and I&O: Vital Signs Temperature 37.2 C 09/09/19 07:17 Temperature Source Temporal Artery Scan 09/09/19 07:17 Pulse 51 L 09/09/19 07:17 Pulse Rhythm Regular 09/09/19 07:55 Pulse 41 L 09/08/19 13:30 Respiratory Rate 18 09/09/19 07:17 Respiratory Effort Non-Labored 09/09/19 07:55 Respiratory Depth Normal 09/09/19 07:55 Respiratory Pattern Normal 09/09/19 07:55 Blood Pressure 125/71 09/09/19 07:17 Blood Pressure Mean 77 09/08/19 13:01 Blood Pressure Position Sitting 09/08/19 09:41 Pulse Oximetry 95 09/09/19 07:55 Oxygen Delivery Method Room Air 09/09/19 07:55 Oxygen Flow Rate 0 09/09/19 07:55 Pain Level 3 09/09/19 07:17 Comment 09/08/19 22:29 Intake & Output 09/08/19 09/09/19 09/09/19 23:59 11:59 23:59 Intake Total 1700 / 2751 1460 / 1710 250 / 1710 Output Total 1099 450 / 450 Balance 600 / 776 1010 / 1260 250 / 1260 Weight 85.275 kg Intake: IV 1300 / 2351 950 / 950 Oral 400 / 400 510 / 760 250 / 760 Output: Urine 1099 450 / 450 Other: Urine Color Yellow Yellow Urine Appearance Clear Clear Urine Odor None None Stool Size Small Small Stool Characteristics Formed Soft Formed Brown Voiding Methods Urinal Toilet Data Completed and Pending Labs on day of discharge: Labs from last 24 hours 09/09/19 09/09/19 09/09/19 09:50 06:28 06:28 WBC 9.40 RBC 4.31 L Hgb 12.6 L D Hct 37.6 L MCV 87.2 MCH 29.2 MCHC 33.5 RDW 14.0 Plt Count 160 MPV 10.4 Immature Gran % 0.1 Neutrophils % 84.1 Lymphocytes % 9.4 Monocytes % 5.9 Eosinophils % 0.3 Basophils % 0.2 Absolute Neutrophils 7.91 H Absolute Lymphocytes 0.88 L Absolute Monocytes 0.55 Absolute Eosinophils 0.03 Absolute Basophils 0.02 Sodium 142 Potassium 3.9 D Chloride 108 H Carbon Dioxide 26.4 Anion Gap 7.6 BUN 10 Creatinine 0.90 Estimated GFR/1.73 m2 >= 60.00 Glucose 107 H Calcium 8.2 L Magnesium 1.7 L Total Bilirubin 0.5 AST 17 ALT 22 Alkaline Phosphatase 41 L Total Protein 5.7 L Albumin 3.3 L Stool Campylobacter PCR Pending Stool Salmonella PCR Pending Stool Shigella PCR Pending Shiga Toxin (PCR) Pending 09/09/19 00:20 WBC RBC Hgb Hct MCV MCH MCHC RDW Plt Count MPV Immature Gran % Neutrophils % Lymphocytes % Monocytes % Eosinophils % Basophils % Absolute Neutrophils Absolute Lymphocytes Absolute Monocytes Absolute Eosinophils Absolute Basophils Sodium 141 Potassium 3.1 L Chloride 106 Carbon Dioxide 25.1 Anion Gap 9.9 BUN 9 Creatinine 0.91 Estimated GFR/1.73 m2 >= 60.00 Glucose 123 H Calcium 8.4 L Magnesium Total Bilirubin AST ALT Alkaline Phosphatase Total Protein Albumin Stool Campylobacter PCR Stool Salmonella PCR Stool Shigella PCR Shiga Toxin (PCR) PFSH Medical History COPD (chronic obstructive pulmonary disease) (Chronic) Laceration of spleen (Resolved 12/10/12) Social History Smoking/Tobacco Use Status: Current every day Alcohol Intake: never Drug use: Occasionally Substance use type: marijuana Do you feel safe at home: Yes Do you feel safe in your relationship?: Yes
--- NOTE | 2019-09-09 15:25 | CHAPLAIN ---
Rober and I remembered each other from a previous admission. He was pleasant, but not interested in a longer conversation. Rober said he expects to be discharged later today.
[2019-09-09 15:27] VITALS: BP 147/86; PULSE 65; RESP 16; TEMP 37; O2SAT 100
--- NOTE | 2019-09-09 15:58 | PDOC.CMDIS ---
- If Service Date Differs Date of service: 09/09/19 Time of Service: 15:58 LACE Index Scoring Tool - Questions: Length of Stay (in days): 2 Acuity (Admit via E.D.?): Yes E.D. Visits: 2 - Answers: Total Score: 7 Risk of Readmission: Low Risk Care Management Discharge Reason for Hospitalization: Colitis Abdominal Pain Discharge Plan: Rober will return home with no additional services at this time. His will drive him home via private vehicle. He will follow up with GI, as recommended. He is agreeable to returning home. Patient/Family Education Needs: Review discharge instructions regarding activity levels and medications, discussion of self care needs including ask me three
== END 2019-09-09 16:20 | disposition home or self-care (01) ==
LOC: ER 13:20 → MS 13:54
PROVIDERS: Family Medicine; Nurse Practitioner Acute Care; Admitting Provider Internal Medicine; Emergency Provider Physician Assistant; PCP Family Medicine; Visit Provider Internal Medicine
DX: K52.9 Noninfective gastroenteritis and colitis, unspecified (principal); R10.9 Unspecified abdominal pain; I10 Essential (primary) hypertension; E86.0 Dehydration; F17.210 Nicotine dependence, cigarettes, uncomplicated; R00.1 Bradycardia, unspecified; E83.42 Hypomagnesemia; E87.6 Hypokalemia
CPT/HCPCS: 36415; 80048; 80053; 83690; 87505; 93005; 96361; 96365; 96375; 99217; 99222; 99231; 99252; 99285; 74177; 80329; 81003; 83605; 83735; 84484; 85025; 93010; 99219; G0378; J1885; J2405; J2765; J3475; J3480; J3490

== ENCOUNTER 2019-09-10 05:18 | Inpatient (IN) | payer MEDICAID, SELFPAY ==
[2019-09-10] VITALS (33 sets, daily range): BP systolic 108–166; BP diastolic 56–108; PULSE 42–83; RESP 15–18; TEMP 36.5–37.6; O2SAT 94–99
--- NOTE | 2019-09-10 05:30 | W.ED.GENAD ---
Discharge Plan Disposition Patient Disposition: [facility] INPATIENT Condition: Stable Discharge Details Chief Complaint: Abd Prob Clinical Impression: Abdominal pain, Renal artery embolism, Renal infarct Admit Date/Time: 09/10/19 09:39 Admit Provider: Omero Mon Attending Provider: Omero Mon Primary Care Provider: Michael Floyd ED Provider: Kyra Schuster Discharge Data Discharge Date/Time-TO BE ENTERED AT DEPARTURE: 09/10/19 11:46 Medical Decision Making <Shaheed Beebe MD - Last Filed: 09/10/19 07:50> 44 yo male with hx of copd, smoker, who was using marijuana daily and last used yesterday who comes in with recurrent abdominal pain. Has been seen twice with similar symptoms of diffuse abdominal pain, n/v with negative CT's though one had question of possible colitis. Was admitted twice over the past week with negative ct abdomen/pelvis and no real cause for his symptoms, was d/c'd yesterday and states had recurrence of his abdominal pain, n/v this morning so came back. Denies fevers, chest pain, dyspnea, drug use other than marijuana. He is dry heaving on exam with nondistended abdomen and tendnerness throughout on exam. No testicle pain or tenderness. Suspect this could be psychosomatic pain vs cannabinoid hyperemesis syndrome given his negative w/u but given continued pain and no dedicated CTA to eval for mesenteric ischemia will order this and also obtain lipase, lfts, and monitor. labs unremarkable, CT report states can't exclude colitis, no mesenteric ischemia, periportal edema, small areas of diminished perfusion in upper pole right kidney and lower pole of left kidney representing pyelo vs renal emobli/infarcts which doesn't seem to fit with his clinical history of n/v and abdominal pain/cramping. He is not dry heaving anymore but is still stating he is having excruciating abdominal cramping and doesn't feel he can go home, will discuss with hospitalist about admission. Spoke with Dr. Mon who requests vascular surgery consult. Will sign out to to Dr. Schuster pending consult Differential Diagnosis Differential Diagnosis: pancreatitis, mesenteric ischemia, cannabinoid hyperemesis syndrome Medical Records Medical records reviewed: Yes I reviewed the patient's medical records. Imaging Data Radiologic Study: Attestation: I personally reviewed and interpreted this imaging study as follows: Imaging: CT Scan Radiologist's impression: IMPRESSION: 1. Collapse of the descending and sigmoid colon and colitis cannot be excluded. 2. No mesenteric ischemia. 3. Periportal edema. 4. Small areas of diminished perfusion involving the upper pole of the right kidney and lower pole of the left kidney, possibly representing evidence of pyelonephritis or evidence of renal emboli/infarcts. 5. Degenerative changes of the spine, as described above Lab Data Lab results reviewed: Yes I reviewed the patient's lab results. <Kyra Schuster DO - Last Filed: 09/10/19 13:10> 0800 -- please see Dr. Beebe's note for initial presentation, exam, and plan. Case endorsed to f/u with vascular surgery. Patient assessed -pain is controlled. 0830 --discussed with vascular surgery. She reviewed CT images and agrees with renal emboli and infarcts but does not see any obvious signs of ischemia. Recommends determining possible cause of emboli. Recommends echo and Doppler ultrasounds lower extremities on Thursday. If those are negative, recommends Holter monitor or zio patch and hematology consult as outpatient. Recommends to check a lactate level and if positive to hydrate and recheck. 0900 --d/w hospitalist - accepts pt for admission. Lactate level normal. Able to obtain doppler US b/l LE and negative for dvt. Medical Records Medical records reviewed: Yes I reviewed the patient's medical records. Imaging Data Radiologic Study: Radiologist's impression: CT Angiography Abdomen and Pelvis With Contrast Exam date and time: 09/10/2019 5:54 AM Age: 44 years old Clinical indication: Abdominal pain; Generalized; Additional info: Severe abdominal pain, ? mesenteric ischemia TECHNIQUE: Imaging protocol: Computed tomographic angiography of the abdomen and pelvis with intravenous contrast material. 3D rendering: MIP and/or 3D reconstructed images were created by the technologist. Radiation optimization: All CT scans at this facility use at least one of these dose optimization techniques: automated exposure control; mA and/or kV adjustment per patient size (includes targeted exams where dose is matched to clinical indication); or iterative reconstruction. Contrast material: [id number]; Contrast volume: 100 ml; Contrast route: IV LAC 18G; COMPARISON: CT ABDOMEN PELVIS W 09/08/2019 10:50 AM FINDINGS: Lungs: Linear atelectasis and/or fibrosis is seen in the left lower lobe. Aorta: No aortic aneurysm. No aortic dissection. Celiac trunk and mesenteric arteries: There is a celiac trunk variant with the left gastric artery arising directly from the aorta. Renal arteries: No occlusion or significant stenosis. Right iliac arteries: No occlusion or significant stenosis. Left iliac arteries: No occlusion or significant stenosis. Liver: There is periportal edema, a finding also present on the previous study. Gallbladder and bile ducts: Unremarkable. No calcified stones. No ductal dilation. Pancreas: Unremarkable. No mass. No ductal dilation. Spleen: Unremarkable. No splenomegaly. Adrenals: Unremarkable. No mass. Kidneys and ureters: There is a small area of diminished perfusion of the medial aspect of the upper pole of the right kidney, a finding not present on the previous study. There is a small perfusion defect involving the posterior aspect of the lower pole of the left kidney, a finding not present on the previous study. Stomach and bowel: The descending colon and sigmoid colon are collapsed and are similar in appearance to the previous study. Appendix: The appendix is normal in appearance. Intraperitoneal space: There is no evidence for mesenteric ischemia. Lymph nodes: Unremarkable. No enlarged lymph nodes. Bladder: Unremarkable. No mass. Reproductive: Unremarkable as visualized. Bones/joints: Degenerative disc disease is demonstrated at L5-S1 with narrowing of the intervertebral disc space, vacuum phenomena, disc osteophyte complex, and impingement on the neural foramen. Soft tissues: Unremarkable. IMPRESSION: 1. Collapse of the descending and sigmoid colon and colitis cannot be excluded. 2. No mesenteric ischemia. 3. Periportal edema. 4. Small areas of diminished perfusion involving the upper pole of the right kidney and lower pole of the left kidney, possibly representing evidence of pyelonephritis or evidence of renal emboli/infarcts. 5. Degenerative changes of the spine, as described above. US Duplex Lower Extremity Veins Exam date and time: 09/10/2019 10:33 AM Age: 44 years old Clinical indication: Other: Renal emboli seen on CT. ? Origin of thrombus; Additional info: Rule out dvt TECHNIQUE: Imaging protocol: Real-time duplex ultrasound of the Lower Extremities with 2-D mosley scale, color Doppler flow and spectral waveform analysis with image documentation. Complete exam focused on the bilateral lower extremity veins. COMPARISON: No relevant prior studies available. FINDINGS: Right deep veins: Unremarkable. The common femoral, femoral, proximal profunda femoral and popliteal veins are patent without thrombus. Normal Doppler waveforms. Normal compressibility and/or augmentation response. Right superficial veins: Saphenofemoral junction is patent without thrombus. Left deep veins: Unremarkable. The common femoral, femoral, proximal profunda femoral and popliteal veins are patent without thrombus. Normal Doppler waveforms. Normal compressibility and/or augmentation response. Left superficial veins: Saphenofemoral junction is patent without thrombus. Soft tissues: Popliteal fossa cyst on the right measures 2.9 x 0.6 x 1.5 cm. IMPRESSION: 1. No evidence of deep vein thrombosis. 2. Popliteal fossa cyst on the right measures 2.9 x 0.6 x 1.5 cm. Lab Data Lab results reviewed: Yes I reviewed the patient's lab results. Labs: 09/10/19 06:57 Urine - Voided Urine Culture - Pending Laboratory Tests Range/Units 09/10/19 09/10/19 09/10/19 05:30 05:30 05:30 WBC (4.4-10.8) k/cumm 10.18 RBC (4.50-6.00) m/cumm 4.85 Hgb (13.5-17.5) g/dL 14.4 Hct (40.0-50.0) % 42.1 MCV (80-95) fL 86.8 MCH (27.0-33.0) pg 29.7 MCHC (32.0-36.0) g/dL 34.2 RDW (11.8-14.1) % 14.0 Plt Count (130-400) x1000/uL 187 MPV (8.0-11.0) fL 10.4 Immature Gran % % 0.2 Neutrophils % 72.4 Lymphocytes % 14.8 Monocytes % 8.8 Eosinophils % 3.2 Basophils % 0.6 Absolute Neutrophils (1.2-6.7) k/cumm 7.36 H Absolute Lymphocytes (1.2-3.4) k/cumm 1.51 Absolute Monocytes (0.11-0.7) k/cumm 0.90 H Absolute Eosinophils (0.0-0.7) k/cumm 0.33 Absolute Basophils (0.0-0.2) k/cumm 0.06 PT (9.3-11.0) sec 11.0 INR (0.9-1.1) 1.1 APTT (21.0-31.4) sec 26.9 Sodium (136-145) mmol/L 144 Potassium (3.5-5.1) mmol/L 3.7 Chloride (98-107) mmol/L 106 Carbon Dioxide (21.0-32.0) mmol/L 26.7 Anion Gap (3-11) mmol/L 11.3 H BUN (7-18) mg/dL 10 Creatinine (0.70-1.30) mg/dL 1.20 Estimated GFR/1.73 m2 (mL/min/1.73m2) >= 60.00 Glucose (74-106) mg/dL 120 H Lactate (0.6-1.4) mmol/L Calcium (8.5-10.1) mg/dL 8.9 Magnesium (1.8-2.4) mg/dL 1.8 Total Bilirubin (0.2-1.0) mg/dL 1.3 H Conjugated Bilirubin (0.00-0.20) mg/dL 0.43 H AST (15-37) U/L 28 ALT (16-63) U/L 37 Alkaline Phosphatase (46-116) U/L 55 Total Protein (6.4-8.2) g/dL 6.9 Albumin (3.4-5.0) g/dL 4.1 Lipase (73-393) U/L 169 Urine Color (Yellow) Urine Clarity (Clear) Urine pH (5-8) Ur Specific [place] (1.005-1.025) Urine Protein (Negative) mg/dL Urine Ketones (Negative) mg/dL Urine Blood (Negative) Urine Nitrite (Negative) Urine Bilirubin (Negative) Urine Urobilinogen (Up TO 0.2) EU/dL Ur Leukocyte Esterase (Negative) Urine Glucose (Negative) mg/dL Range/Units 09/10/19 09/10/19 06:57 08:28 WBC (4.4-10.8) k/cumm RBC (4.50-6.00) m/cumm Hgb (13.5-17.5) g/dL Hct (40.0-50.0) % MCV (80-95) fL MCH (27.0-33.0) pg MCHC (32.0-36.0) g/dL RDW (11.8-14.1) % Plt Count (130-400) x1000/uL MPV (8.0-11.0) fL Immature Gran % % Neutrophils % Lymphocytes % Monocytes % Eosinophils % Basophils % Absolute Neutrophils (1.2-6.7) k/cumm Absolute Lymphocytes (1.2-3.4) k/cumm Absolute Monocytes (0.11-0.7) k/cumm Absolute Eosinophils (0.0-0.7) k/cumm Absolute Basophils (0.0-0.2) k/cumm PT (9.3-11.0) sec INR (0.9-1.1) APTT (21.0-31.4) sec Sodium (136-145) mmol/L Potassium (3.5-5.1) mmol/L Chloride (98-107) mmol/L Carbon Dioxide (21.0-32.0) mmol/L Anion Gap (3-11) mmol/L BUN (7-18) mg/dL Creatinine (0.70-1.30) mg/dL Estimated GFR/1.73 m2 (mL/min/1.73m2) Glucose (74-106) mg/dL Lactate (0.6-1.4) mmol/L 0.7 Calcium (8.5-10.1) mg/dL Magnesium (1.8-2.4) mg/dL Total Bilirubin (0.2-1.0) mg/dL Conjugated Bilirubin (0.00-0.20) mg/dL AST (15-37) U/L ALT (16-63) U/L Alkaline Phosphatase (46-116) U/L Total Protein (6.4-8.2) g/dL Albumin (3.4-5.0) g/dL Lipase (73-393) U/L Urine Color (Yellow) Yellow Urine Clarity (Clear) Clear Urine pH (5-8) 7.0 Ur Specific [place] (1.005-1.025) 1.020 Urine Protein (Negative) mg/dL Negative Urine Ketones (Negative) mg/dL 15 H Urine Blood (Negative) Negative Urine Nitrite (Negative) Negative Urine Bilirubin (Negative) Negative Urine Urobilinogen (Up TO 0.2) EU/dL 0.2 Ur Leukocyte Esterase (Negative) Negative Urine Glucose (Negative) mg/dL Negative ECG Data Attestation: I personally reviewed and interpreted this ECG (s) as follows: Interpretation: Rate of 55, sinus. No acute ST elevation or depression. PA 148. QTc 436. QRS 98. HPI <Shaheed Beebe MD - Last Filed: 09/10/19 07:50> General Mode of arrival: ambulatory. Date/Time Provider Initiated Documentation: 09/10/19 05:19. Limitations to Documentation: no limitations. Information obtained by: patient. History of Present Illness 44 year old M presents to the emergency department with the chief complaint of abdominal pain, described as moderate and severe, and is localized to the abdomen. Patient reports no radiation. No relieving factors improve symptom(s), No exacerbating factors reported . Patient notes nausea/vomiting. Patient did receive the following treatments prior to arrival, none Related Data Home Medications Medication Instructions Recorded Confirmed ibuprofen [Ibuprofen IB] 800 mg PO PRN PRN 12/10/12 09/10/19 hydrochlorothiazide 25 mg tablet 25 mg PO DAILY #90 tab 07/11/19 09/10/19 lisinopril 20 mg tablet 20 mg PO DAILY #90 tab-cap 07/11/19 09/10/19 acetaminophen 1,000 mg PO PRN PRN 09/08/19 09/10/19 dicyclomine 20 mg PO QID PRN PRN #12 tab 09/09/19 09/10/19 ondansetron 4 mg PO Q6H PRN #10 tab 09/09/19 09/10/19 Previous Rx's Medication Instructions Recorded hydrochlorothiazide 25 mg tablet 25 mg PO DAILY #90 tab 07/11/19 lisinopril 20 mg tablet 20 mg PO DAILY #90 tab-cap 07/11/19 dicyclomine 20 mg PO QID PRN PRN #12 tab 09/09/19 ondansetron 4 mg PO Q6H PRN #10 tab 09/09/19 Allergies Allergy/AdvReac Type Severity Reaction Status Date / Time oxycodone AdvReac Intermediate Nausea Unverified 09/08/19 09:47 codeine phosphate AdvReac Mild Nausea Unverified 09/08/19 09:47 [From Tylenol-Codeine #3] GRASS Allergy Intermediate Itching Uncoded 09/08/19 09:47 MOLDS AND SMUTS Allergy Mild Itching Uncoded 09/08/19 09:47 General Stated Complaint: Abd Prob LISA: 3 Review of Systems <Shaheed Beebe MD - Last Filed: 09/10/19 07:50> All systems reviewed & are unremarkable except as noted in HPI and below Constitutional Constitutional: Denies chills and Denies fever(s) Cardiovascular Cardiovascular: Denies chest pain and Denies dyspnea Respiratory Respiratory: Denies cough and Denies dyspnea Musculoskeletal Musculoskeletal: Denies joint swelling Psychiatric Psychiatric: Denies depression PFS <Shaheed Beebe MD - Last Filed: 09/10/19 07:50> Social History Smoking/Tobacco Use Status: Current every day Alcohol Intake: current Alcohol Intake frequency: holidays/special occasions only Drug use: Occasionally Substance use type: marijuana Do you feel safe at home: Yes Do you feel safe in your relationship?: Yes Exam <Shaheed Beebe MD - Last Filed: 09/10/19 07:50> Const General: no acute distress Orientation: alert HENAR Head: normal to inspection Ears: external ears normal General nose exam: external nose normal Mouth: moist mucous membranes Eyes General: appearance normal, both eyes and all related structures Neck Neck: normal visual inspection Resp Effort & Inspection: normal respiratory effort and able to speak in complete sentences Cardio Rate: regular rate GI Palpation: soft and tender Skin General skin exam: no rashes or lesions noted Neuro General: patient alert and patient oriented x3 Extrem General: normal to inspection Psych Mental Status: mental status grossly normal Course <Shaheed Beebe MD - Last Filed: 09/10/19 07:50> Vital Signs Vital signs: Vital Signs Temperature 36.5 C 09/10/19 05:25 Pulse 55 L 09/10/19 05:25 Respiratory Rate 18 09/10/19 05:25 Blood Pressure 154/108 H 09/10/19 05:25 Pulse Oximetry 99 09/10/19 05:25 Temperature 36.5 C 09/10/19 05:25 Temperature Source Skin 09/10/19 05:25 Pulse 55 L 09/10/19 05:25 Respiratory Rate 18 09/10/19 05:25 Respiratory Effort 09/10/19 05:27 Blood Pressure 154/108 H 09/10/19 05:25 Blood Pressure Position Sitting 09/10/19 05:25 Pulse Oximetry 99 09/10/19 05:25 Oxygen Delivery Method Room Air 09/10/19 05:25 Oxygen Flow Rate 0 09/10/19 05:25 Pain Level 10 09/10/19 05:25 Sign Out <Shaheed Beebe MD - Last Filed: 09/10/19 07:50> Sign Out Data: Sign Out Comment: pending vascular surgery consult Last updated by Shaheed Beebe MD at 09/10/19 07:51
[2019-09-10] MEDS: Ketorolac 15 MG/ML VIAL IVP ×2 (05:32→11:55)
[2019-09-10] MEDS: Ondansetron 4 MG/2 ML VIAL IVP ×2 (05:32→12:12)
[2019-09-10] MEDS: Normal Saline 1,000 ML 1000 ML IV (05:33)
[2019-09-10] MEDS: LORazepam 2 MG/ML VIAL IVP (05:33)
[2019-09-10 05:46] LABS: Abs Immature Grans 0.02 k/cumm (0.0-0.09); Absolute Basophil Count 0.06 k/cumm (0.0-0.2); Absolute Eosinophil Count 0.33 k/cumm (0.0-0.7); Absolute Lymphocyte Count 1.51 k/cumm (1.2-3.4); Absolute Neutrophil Count 7.36 k/cumm (1.2-6.7); Basophils % 0.6; Eosinophils % 3.2; HCT 42.1 % (40.0-50.0); HGB 14.4 g/dL (13.5-17.5); Immature Grans % 0.2 %; Lymphocytes % 14.8; Mean Corp. HGB Concentration 34.2 g/dL (32.0-36.0); Mean Corpuscular Hemoglobin 29.7 pg (27.0-33.0); Mean Corpuscular Volume 86.8 fL (80-95); Mean Platelet Volume 10.4 fL (8.0-11.0); Monocytes % 8.8; Neutrophils % 72.4; Platelet Count 187 x1000/uL (130-400); RBC 4.85 m/cumm (4.50-6.00); White Blood Cell Count 10.18 k/cumm (4.4-10.8)
--- NOTE | 2019-09-10 05:53 | DI.CT_ITS ---
EXAM: CT ABDOMEN PELVIS CTA CLINICAL HISTORY: severe abdominal pain, ?mesenteric ischemia. TECHNIQUE: Imaging Protocol: Axial CT angiography was performed with multi-slice acquisition and m ulti-planar and/or 3D reconstructions. CONTRAST MATERIAL: Intravenous: Omnipaque 350 Contrast volume:structured data in ml Oral: yes / no COMPARISON: CT ABDOMEN PELVIS W from 09/08/2019 FINDINGS: Vascular Structures: Celiac Roaring Branch/SMA: There appears to be a left gastric artery variant arising directly from the aorta. 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 Renal Arteries: No evidence of stenosis. There is a single renal artery perfusing each kidney. Aorta: No aneurysm. No dissection. Mild atherosclerosis. Pelvis: Iliac Arteries: No evidence of stenosis. No evidence of occlusion. Common Femoral Arteries: No evidence of stenosis. No evidence of occlusion. Soft Tissues: Lung bases:Linear atelectasis or scarring is seen in the lung bases. Liver: Normal density. No measurable mass. There is periportal edema again noted. Gallbladder and biliary tract: No radiodense calculus or dilation. Pancreas: Normal density, no abnormal calcifications or inflammatory process. Spleen: Normal. Kidneys: Normal size, contour and axis. No radiodense stones or obstructive uropathy. There are now w edge-shaped areas of decreased perfusion in the medial aspect of the right upper lobe and the posteri or aspect of the left lower lobe. These were not present on the prior examination from 09/08/2019. Adrenal glands: No masses seen. Bladder: Symmetric distention, no gross wall thickening. Bowel: No obstruction or bowel wall thickening. There is again seen collapse of the descending colon and sigmoid colon which is unchanged compared to the prior examination. A normal appendix is present . Peritoneal cavity: No ascites, collection or mesenteric inflammatory response. Bones: Degenerative changes are present. Reproductive organs: Unremarkable. Lymph nodes: Within normal limits. IMPRESSION: 1. There is again seen collapse of the descending and sigmoid colon. This is unchanged compared to t he prior examination. Colitis cannot be excluded. 2. No evidence of arterial occlusion or significant stenosis. 3. Areas of decreased perfusion involving the upper pole of the right kidney and the lower pole of th e left kidney. These were not present on the prior examination. Infection/pyelonephritis should be considered in addition to renal infarcts/emboli. 4. Periportal edema in the liver. DATA REPOSITORY: All CT scans at this facility are submitted to the National Radiology Data Registry (NRDR) Dose Index Registry (DIR) with the [employer] (ACR). RADIATION OPTIMIZATION: All CT scans at this facility use at least one of these dose optimization te chniques: automated exposure control; mA and/or kV adjustment per patient size (includes targeted exa ms where dose is matched to clinical indication); or iterative reconstruction.
[2019-09-10 06:01] LABS: ALT 37 U/L (16-63); AST 28 U/L (15-37); Albumin 4.1 g/dL (3.4-5.0); Alkaline Phosphatase 55 U/L (46-116); Anion Gap 11.3 mmol/L (3-11); BUN 10 mg/dL (7-18); Bilirubin, Direct 0.43 mg/dL (0.00-0.20); Bilirubin, Total 1.3 mg/dL (0.2-1.0); CO2 26.7 mmol/L (21.0-32.0); Calcium 8.9 mg/dL (8.5-10.1); Chloride 106 mmol/L (98-107); Glucose 120 mg/dL (74-106); Lipase 169 U/L (73-393); Magnesium 1.8 mg/dL (1.8-2.4); Potassium 3.7 mmol/L (3.5-5.1); Sodium 144 mmol/L (136-145); Total Protein 6.9 g/dL (6.4-8.2)
[2019-09-10] MEDS: Normal Saline Flush 10 ML SYR IVP (06:02)
[2019-09-10] MEDS: Normal Saline - Diluent 50 ML VIAL IV (06:02)
[2019-09-10] MEDS: Omnipaque 350 MG/ML 100 ML BTL IJ (06:03)
[2019-09-10 06:13] LABS: INR 1.1 (0.9-1.1); PTT Activated 26.9 sec (21.0-31.4)
--- NOTE | 2019-09-10 06:41 | DI.VRAD_ITS ---
PROCEDURE INFORMATION: Exam: CT Angiography Abdomen and Pelvis With Contrast Exam date and time: 09/10/2019 5:54 AM Age: 44 years old Clinical indication: Abdominal pain; Generalized; Additional info: Severe abdominal pain, ? mesenteric ischemia TECHNIQUE: Imaging protocol: Computed tomographic angiography of the abdomen and pelvis with intravenous contrast material. 3D rendering: MIP and/or 3D reconstructed images were created by the technologist. Radiation optimization: All CT scans at this facility use at least one of these dose optimization techniques: automated exposure control; mA and/or kV adjustment per patient size (includes targeted exams where dose is matched to clinical indication); or iterative reconstruction. Contrast material: [id number]; Contrast volume: 100 ml; Contrast route: IV LAC 18G; COMPARISON: CT ABDOMEN PELVIS W 09/08/2019 10:50 AM FINDINGS: Lungs: Linear atelectasis and/or fibrosis is seen in the left lower lobe. Aorta: No aortic aneurysm. No aortic dissection. Celiac trunk and mesenteric arteries: There is a celiac trunk variant with the left gastric artery arising directly from the aorta. Renal arteries: No occlusion or significant stenosis. Right iliac arteries: No occlusion or significant stenosis. Left iliac arteries: No occlusion or significant stenosis. Liver: There is periportal edema, a finding also present on the previous study. Gallbladder and bile ducts: Unremarkable. No calcified stones. No ductal dilation. Pancreas: Unremarkable. No mass. No ductal dilation. Spleen: Unremarkable. No splenomegaly. Adrenals: Unremarkable. No mass. Kidneys and ureters: There is a small area of diminished perfusion of the medial aspect of the upper pole of the right kidney, a finding not present on the previous study. There is a small perfusion defect involving the posterior aspect of the lower pole of the left kidney, a finding not present on the previous study. Stomach and bowel: The descending colon and sigmoid colon are collapsed and are similar in appearance to the previous study. Appendix: The appendix is normal in appearance. Intraperitoneal space: There is no evidence for mesenteric ischemia. Lymph nodes: Unremarkable. No enlarged lymph nodes. Bladder: Unremarkable. No mass. Reproductive: Unremarkable as visualized. Bones/joints: Degenerative disc disease is demonstrated at L5-S1 with narrowing of the intervertebral disc space, vacuum phenomena, disc osteophyte complex, and impingement on the neural foramen. Soft tissues: Unremarkable. IMPRESSION: 1. Collapse of the descending and sigmoid colon and colitis cannot be excluded. 2. No mesenteric ischemia. 3. Periportal edema. 4. Small areas of diminished perfusion involving the upper pole of the right kidney and lower pole of the left kidney, possibly representing evidence of pyelonephritis or evidence of renal emboli/infarcts. 5. Degenerative changes of the spine, as described above. Dictated and Authenticated by: Ward Hercules MD. Ordering:CHERI Hummel MD
[2019-09-10] MEDS: HYDROmorphone 2 MG/ML VIAL 1 MG IVP (06:56)
[2019-09-10 07:04] LABS: Bilirubin Negative (Negative); Blood Negative (Negative); Clarity Clear (Clear); Glucose Negative (Negative); Ketones 15 mg/dL (Negative); Leukocyte Esterase Negative (Negative); Nitrite Negative (Negative); Urobilinogen 0.2 EU/dL (Up TO 0.2)
[2019-09-10 08:30] LABS: Lactate 0.7 mmol/L (0.6-1.4)
[2019-09-10] MEDS: Normal Saline 1,000 ML 150 ML IV ×3 (08:45→22:16)
--- NOTE | 2019-09-10 09:30 | DI.US_ITS ---
EXAM: US EXTREMITY VENOUS BI CLINICAL HISTORY: F/U CT, RENAL EMBOLI AND INFARCTS,? ISCHEMIA,? DVT TECHNIQUE: Bilateral lower extremity venous ultrasound performed using grayscale, color-flow, and sp ectral Doppler analysis. COMPARISON: No exams were available for comparison FINDINGS: The bilateral common femoral, femoral and popliteal veins demonstrate normal compressibility, augment ation, and color Doppler. The posterior tibial veins are patent. The saphenofemoral junctions are unr emarkable. There is a 2.9 x 0.6 x 1.5 cm right popliteal cyst. The soft tissues are unremarkable. IMPRESSION: 1. Right: Negative for DVT 2. Left: Negative for DVT 3. 2.9 x 0.6 x 1.5 cm right popliteal cyst. DATA REPOSITORY:
--- NOTE | 2019-09-10 10:47 | DI.VRAD_ITS ---
PROCEDURE INFORMATION: Exam: US Duplex Lower Extremity Veins Exam date and time: 09/10/2019 10:33 AM Age: 44 years old Clinical indication: Other: Renal emboli seen on CT. ? Origin of thrombus; Additional info: Rule out dvt TECHNIQUE: Imaging protocol: Real-time duplex ultrasound of the Lower Extremities with 2-D mosley scale, color Doppler flow and spectral waveform analysis with image documentation. Complete exam focused on the bilateral lower extremity veins. COMPARISON: No relevant prior studies available. FINDINGS: Right deep veins: Unremarkable. The common femoral, femoral, proximal profunda femoral and popliteal veins are patent without thrombus. Normal Doppler waveforms. Normal compressibility and/or augmentation response. Right superficial veins: Saphenofemoral junction is patent without thrombus. Left deep veins: Unremarkable. The common femoral, femoral, proximal profunda femoral and popliteal veins are patent without thrombus. Normal Doppler waveforms. Normal compressibility and/or augmentation response. Left superficial veins: Saphenofemoral junction is patent without thrombus. Soft tissues: Popliteal fossa cyst on the right measures 2.9 x 0.6 x 1.5 cm. IMPRESSION: 1. No evidence of deep vein thrombosis. 2. Popliteal fossa cyst on the right measures 2.9 x 0.6 x 1.5 cm. Dictated and Authenticated by: Livia Bergman MD. Ordering:BRIGETTE Rae MD
[2019-09-10] MEDS: HYDROmorphone 2 MG/ML VIAL IVP ×3 (11:51→21:10)
[2019-09-10 13:13] LABS: Lactate 0.7 mmol/L (0.6-1.4)
--- NOTE | 2019-09-10 13:17 | HPE_ITS ---
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 I faxed an order for stat second read on Rober Babb from today. This was faxed to [facility] at [phone]. Furthermore I discussed the case with Dr. Jordan at [facility]. I have also spoken with Dr. Hank Li, pathologist from [facility] regarding ordering a thrombosis panel. Qualifiers: Abdominal location: periumbilical Qualified Code(s): R10.33 - Periumbilical pain (2) Renal artery embolism: Status: Acute Assessment and plan: ASA and heparin drip. check hypercoagulable/thrombosis panel, check LANG w/ Bubble study to r/o PFO. (3) Essential hypertension: Status: Chronic Assessment and plan: control his hypertension. I am going to hold his lisinopril in light of his CTA in order to prevent nephropathy. I would consider use of a beta landry however in light of his recurrent bradycardia w/ HR down into the 30's and 40's (albeit sinus bradycardia), I am inclined to not use lopressor although I originally ordered it d/t it's properties of reducing wall stress on arteries. History of Present Illness History of Present Illness Chief Complaint: Abdominal pain Narrative: 44-year-old male with a history of essential hypertension, COPD, chronic marijuana use, smoker with no history of other illicit drug use such as cocaine or amphetamines or heroin. Denies a history of IV drug use. He presents to the hospital for his third time to [facility] with recurrent severe abdominal pain with nausea and vomiting. His first admission was September 05, 2019 and is episodes of nausea and vomiting have been associated with bradycardia with no evidence of heart block. Patient states his symptoms all began Thursday morning on September 04 with acute onset of upper abdominal pain that spread both to the right and left upper quadrants. There is no associated diarrhea or fever or chills or dysuria or hematuria. His first hospitalization was from September 04 through September 06, 2019 as diagnostic work-up included initial CBC that showed minimally elevated white count of 10,820 with no anemia and a chemistry panel that showed a low potassium of 3.3 and a mild lactic acidosis with a lactate of 1.7 and anion gap of 13.1. LFTs were otherwise normal his troponin was normal. He also had a lipase that was normal. He was given IV fluids and potassium replacement and antiemetics. The next morning on September 06, 2019 his lactate remain mildly elevated at 2.0 but his electrolytes have been corrected. Serial troponins were negative. An initial CTA of his abdomen pelvis that was performed on September 05, 2019 was read as showing no acute abnormality in the chest abdomen or pelvis. Specifically the radiologist said there is no evidence of dissection although the liver had several small hypervascular lesions possibly representing hemangiomas but the spleen pancreas kidneys adrenals and gallbladder were unremarkable and there was no bowel dilatation or bowel inflammation. Cardiology consultation was obtained regarding his bradycardia. They felt he had an athletic heart and as there was no advanced heart block they recommended follow-up monitoring as an outpatient with event recorder or ZIO Patch. However the patient indicated he cannot afford this and therefore Holter was not set up. He re-presented to the emergency department on September 07 with recurrent symptoms of nausea vomiting and abdominal pain. This was also associated with chest discomfort. He was given Reglan and Phenergan and Dilaudid for symptoms and a repeat work-up included EKG routine labs and a noncontrast CT of his abdomen and pelvis that CT suggested questionable colitis involving the splenic flexure to the rectum. Reportedly the liver and spleen and pancreas and gallbladder and bile ducts appear to be normal and the abdominal aorta and major branches appear to be normal. With there was questionable wall thickening of the collapsed colon from the level of splenic flexure to the rectum and pericolonic fat edema. Again the patient was treated conservatively with IV fluids antiemetics and analgesics including Toradol and narcotic pain meds. Patient was initially made n.p.o. but then his diet was advanced and on the day of discharge September 09, 2019 he was feeling better and was discharged home. Laboratory work-up during that admission included initial CBC that showed a normal white count of 7700 and was repeated on September 09, 2019 and remain normal at 9400. His CMP again showed a hypokalemia of 3.3 and an elevated anion gap of 11.3 with a lactate of 2.4. Magnesium was low at 1.7. Again serial troponins were obtained and were normal at less than 0.05. LFTs were within normal limits. Again the lipase was normal at 86. As the patient was tolerating his diet his pain was controlled he was discharged home on September 09, 2019. Since that time the patient is had recurrent upper abdominal pain and periumbilical pain without radiation into his back but after protracted dry heaves he developed chest discomfort. Work-up this morning clued his CMP that showed an elevated anion gap 11.3 but this time his lactate is normal at 0.7. BUN and creatinine are normal at 10 and 1.20. Potassium is normal at 3.7. Magnesium is normal at 1.8. His total bilirubin is mildly elevated at 1.3 with a conjugated bilirubin 0.43 rest of his transaminases are normal. Lipase is normal at 169. CTA has been performed and was read as showing collapse of the descending and sigmoid colon for which colitis cannot be excluded. Reportedly no mesenteric ischemia seen. There is periportal edema he had the gallbladder and bile ducts are unremarkable with no stones or ductal dilatation and the pancreas and spleen are unremarkable as are the adrenals. However in the kidneys are small areas of diminished perfusion involving the upper pole of the right kidney and lower pole of the left kidney possibly representing evidence of renal emboli or infarcts versus pyelonephritis. However his urinalysis is unremarkable other than a small amount of ketones. Specifically there is no hematuria or proteinuria or pyuria. Dr. Shaheed Beebe initially treated and evaluated the patient emergency room this morning and gave him antiemetics and narcotic analgesics and Toradol for his pain and per my request I asked that he consult [facility] vascular in light of the possible renal infarcts. Dr. Beebe referred the case to Dr. Schuster who assumed care of the patient as it was change of shift. Dr. Schuster spoke with Dr. Jordan vascular surgeon at [facility] who advised that patient did not need transfer to [facility] and did not need acute vascular surgery but recommended work-up for cardioembolic phenomenon versus vasculitis or thrombophilia. As such she recommended patient be admitted to [facility] for IV fluid hydration analgesics and antiemetics and start him on a heparin drip. She also recommended work-up with echocardiography with bubble study to rule out a PFO and a check for venous thrombosis. As such a venous duplex was done of his legs and no evidence of DVT was found. Echocardiography is not available on the weekend. Since he was admitted to the floor the patient's had recurrent exquisite severe sharp epigastric and periumbilical pain requiring narcotic analgesics and antiemetics. He had severe dry heaves with this. I have since called [facility] discussed the case with Dr. 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 She recommends aspirin and statin and keep him n.p.o. while she gets a second read from [facility] radiologist. She also recommends no heparin at this time. She indicated that she will call me back once the radiologist is over read our study. We have had our radiology department send further images including the noncontrast CT of the abdomen pelvis from September 07 and the CTA of the chest abdomen pelvis from September 05, 2019. Review of Systems Constitutional Constitutional: Denies chills and Denies fever(s) Eyes Eyes: Reports system reviewed and no additional complaints, except as documented ENT Ears, Nose, Mouth, and Throat: Reports system reviewed and no additional complaints, except as documented Cardiovascular Cardiovascular: Reports chest pain Respiratory Respiratory: Reports system reviewed and no additional complaints, except as documented Gastrointestinal Gastrointestinal: Reports as per HPI, Reports abdominal pain, Denies melena, Denies hematochezia, Denies diarrhea, Reports nausea, Reports vomiting and Denies hematemesis Genitourinary Genitourinary: Reports system reviewed and no additional complaints, except as documented, Denies hematuria and Denies difficulty urinating Musculoskeletal Musculoskeletal: Reports system reviewed and no additional complaints, except as documented Integumentary/Breasts Skin/Breast: Reports system reviewed and no additional complaints, except as documented Neurologic Neurologic: Reports system reviewed and no additional complaints, except as documented Psychiatric Psychiatric: Reports system reviewed and no additional complaints, except as documented Endocrine Endocrine: Reports system reviewed and no additional complaints, except as documented Hematologic/Lymphatic Hematologic/Lymphatic: Reports system reviewed and no additional complaints, except as documented Allergic/Immunologic Allergic/Immunologic: Reports system reviewed and no additional complaints, except as documented PFSH Family History (Updated 09/10/19 @ 13:55 by Omero Mon) Father , at the age of 73 Diverticulitis Heart disease Congestive heart failure Melanoma Sister No problems noted. Mother No problems noted. Maternal Grandmother Diabetes Paternal Uncle ALS (amyotrophic lateral sclerosis) Social History Smoking/Tobacco Use Status: Current every day Alcohol Intake: current Alcohol Intake frequency: holidays/special occasions only Drug use: Occasionally Substance use type: marijuana Do you feel safe at home: Yes Do you feel safe in your relationship?: Yes Meds Home Medications and Allergies Home Medications Medication Instructions Recorded Confirmed Type ibuprofen [Ibuprofen IB] 800 mg PO PRN PRN 12/10/12 09/10/19 History measles,mumps,rubella vacc(PF) 0.5 ml SC ONCE #1 each 06/22/18 09/05/19 Clinic 1,000-12,[id number]/0.5 mL subcut hydrochlorothiazide 25 mg tablet 25 mg PO DAILY #90 tab 07/11/19 09/10/19 Rx lisinopril 20 mg tablet 20 mg PO DAILY #90 tab-cap 07/11/19 09/10/19 Rx acetaminophen 1,000 mg PO PRN PRN 09/08/19 09/10/19 History dicyclomine 20 mg PO QID PRN PRN #12 tab 09/09/19 09/10/19 Rx ondansetron 4 mg PO Q6H PRN #10 tab 09/09/19 09/10/19 Rx Allergies Allergy/AdvReac Type Severity Reaction Status Date / Time oxycodone AdvReac Intermediate Nausea Unverified 09/08/19 09:47 codeine phosphate AdvReac Mild Nausea Unverified 09/08/19 09:47 [From Tylenol-Codeine #3] GRASS Allergy Intermediate Itching Uncoded 09/08/19 09:47 MOLDS AND SMUTS Allergy Mild Itching Uncoded 09/08/19 09:47 Exam Narrative Exam Narrative: Middle-age male who is writhing in bed from pain with dry heaves. Pain is periumbilical and epigastric and radiates across the abdomen. After treatment with narcotic analgesics and antiemetics he is much more relaxed now. HEENT is unremarkable. Funduscopic exam was performed and showed no [place] spots Neck is supple without JVD normal carotid pulse no bruits no thyromegaly no cervical lymphadenopathy. Lungs are clear to auscultation. Heart is regular rate and rhythm without murmur rub or gallop. Abdomen is positive bowel sounds soft with tenderness in the epigastrium but no rebound tenderness. No palpable masses no bruits. Extremities without peripheral cyanosis clubbing or edema. Specifically I do not see any sacral infarcts of his fingertips or toes or subungual infarcts of his nailbeds. Results Labs Result diagrams: 09/10/19 05:30 09/10/19 05:30 Labs: Laboratory Results - last 24 hr 09/10/19 09/10/19 09/10/19 05:30 05:30 05:30 WBC 10.18 RBC 4.85 Hgb 14.4 Hct 42.1 MCV 86.8 MCH 29.7 MCHC 34.2 RDW 14.0 Plt Count 187 MPV 10.4 Immature Gran % 0.2 Neutrophils % 72.4 Lymphocytes % 14.8 Monocytes % 8.8 Eosinophils % 3.2 Basophils % 0.6 Absolute Neutrophils 7.36 H Absolute Lymphocytes 1.51 Absolute Monocytes 0.90 H Absolute Eosinophils 0.33 Absolute Basophils 0.06 PT 11.0 INR 1.1 APTT 26.9 Sodium 144 Potassium 3.7 Chloride 106 Carbon Dioxide 26.7 Anion Gap 11.3 H BUN 10 Creatinine 1.20 Estimated GFR/1.73 m2 >= 60.00 Glucose 120 H Lactate Calcium 8.9 Magnesium 1.8 Total Bilirubin 1.3 H Conjugated Bilirubin 0.43 H AST 28 ALT 37 Alkaline Phosphatase 55 Total Protein 6.9 Albumin 4.1 Lipase 169 Urine Color Urine Clarity Urine pH Ur Specific [place] Urine Protein Urine Ketones Urine Blood Urine Nitrite Urine Bilirubin Urine Urobilinogen Ur Leukocyte Esterase Urine Glucose 09/10/19 09/10/19 09/10/19 06:57 08:28 13:00 WBC RBC Hgb Hct MCV MCH MCHC RDW Plt Count MPV Immature Gran % Neutrophils % Lymphocytes % Monocytes % Eosinophils % Basophils % Absolute Neutrophils Absolute Lymphocytes Absolute Monocytes Absolute Eosinophils Absolute Basophils PT INR APTT Sodium Potassium Chloride Carbon Dioxide Anion Gap BUN Creatinine Estimated GFR/1.73 m2 Glucose Lactate 0.7 0.7 Calcium Magnesium Total Bilirubin Conjugated Bilirubin AST ALT Alkaline Phosphatase Total Protein Albumin Lipase Urine Color Yellow Urine Clarity Clear Urine pH 7.0 Ur Specific [place] 1.020 Urine Protein Negative Urine Ketones 15 H Urine Blood Negative Urine Nitrite Negative Urine Bilirubin Negative Urine Urobilinogen 0.2 Ur Leukocyte Esterase Negative Urine Glucose Negative Last Vital Signs Temp 37 C 09/10/19 12:55 Pulse 70 09/10/19 12:55 Resp 18 09/10/19 12:55 BP 135/89 09/10/19 12:55 Pulse Ox 97 09/10/19 12:55 COVID-19 Screening Traveled to [place] from one of the affected countries or regions?: NO Recent travel in the [place] within the last 8 weeks?: No Recent out of the country travel within the last 8 weeks?: No Exposure or possible exposure to illness during travel?: No Had IN PERSON contact w/suspected or confirmed C-19 person: No Have you had the following symptoms in the past few days?: No Symptoms noted since travel?: No Symptoms
[2019-09-10] MEDS: Aspirin 81 MG CHEW 162 MG PO (13:40)
[2019-09-10 13:59] LABS: Procalcitonin < 0.1 ng/mL
[2019-09-10 14:28] LABS: LDH 156 U/L (85-227)
[2019-09-10 14:41] LABS: ESR 5 mm/hr (0-15)
[2019-09-10] MEDS: Nicotine 14 MG/24 HR PATCH TD (15:17)
[2019-09-10 16:11] LABS: PTT Activated 84.6 sec (21.0-31.4)
[2019-09-10] MEDS: Atorvastatin 40 MG TAB 80 MG PO (20:39)
[2019-09-11] MEDS: Ondansetron 4 MG/2 ML VIAL IVP ×2 (01:13→12:36)
[2019-09-11] MEDS: HYDROmorphone 2 MG/ML VIAL IVP ×4 (01:14→20:07)
[2019-09-11 03:33] VITALS: BP 148/84; PULSE 64; RESP 16; TEMP 36.6; O2SAT 95
[2019-09-11] MEDS: Normal Saline 1,000 ML 150 ML IV ×3 (04:33→21:28)
[2019-09-11 07:20] VITALS: BP 135/87; PULSE 63; RESP 18; TEMP 37.3; O2SAT 94
[2019-09-11 07:28] LABS: Abs Immature Grans 0.01 k/cumm (0.0-0.09); Absolute Basophil Count 0.04 k/cumm (0.0-0.2); Absolute Eosinophil Count 0.12 k/cumm (0.0-0.7); Absolute Lymphocyte Count 0.91 k/cumm (1.2-3.4); Basophils % 0.7; HCT 35.7 % (40.0-50.0); HGB 11.9 g/dL (13.5-17.5); Immature Grans % 0.2 %; Lymphocytes % 15.1; Mean Corp. HGB Concentration 33.3 g/dL (32.0-36.0); Mean Corpuscular Hemoglobin 29.4 pg (27.0-33.0); Mean Corpuscular Volume 88.1 fL (80-95); Mean Platelet Volume 10.8 fL (8.0-11.0); Monocytes % 8.3; Neutrophils % 73.7; Platelet Count 137 x1000/uL (130-400); RBC 4.05 m/cumm (4.50-6.00); RBC Distribution Width 13.8 % (11.8-14.1); White Blood Cell Count 6.04 k/cumm (4.4-10.8)
[2019-09-11 07:32] LABS: Absolute Neutrophil Count 4.45 k/cumm (1.2-6.7)
[2019-09-11 07:44] LABS: ALT 28 U/L (16-63); AST 16 U/L (15-37); Alkaline Phosphatase 45 U/L (46-116); Anion Gap 10.2 mmol/L (3-11); BUN 10 mg/dL (7-18); Bilirubin, Total 0.9 mg/dL (0.2-1.0); C-Reactive Protein 1.64 mg/dL (0.0-0.3); CO2 24.8 mmol/L (21.0-32.0); CREATININE 0.85 mg/dL (0.70-1.30); Chloride 107 mmol/L (98-107); Glucose 76 mg/dL (74-106); Magnesium 1.5 mg/dL (1.8-2.4); Potassium 3.4 mmol/L (3.5-5.1); Sodium 142 mmol/L (136-145); Total Protein 5.4 g/dL (6.4-8.2)
--- NOTE | 2019-09-11 08:34 | PHA.ADMREV ---
Pharmacy Clinical Review - Admission Clinical Review (Last Reviewed 09/08/19 @ 13:01 by Chanel Khan MD) Renal artery embolism (Acute) Renal infarct (Acute) Abdominal pain (Acute) oxycodone Adverse Reaction (Intermediate, Unverified 09/08/19 09:47) Nausea codeine phosphate [From Tylenol-Codeine #3] Adverse Reaction (Mild, Unverified 09/08/19 09:47) Nausea GRASS Allergy (Intermediate, Uncoded 09/08/19 09:47) Itching MOLDS AND SMUTS Allergy (Mild, Uncoded 09/08/19 09:47) Itching Height 6 ft 0.05 in Weight 85.275 kg ABDOMINAL PAIN, Possible RENAL ARTERY EMBOLI/INFARCT - Renal Dosing Renal Dosing: BUN 10 mg/dL (7-18) 09/11/19 06:15 Creatinine 0.85 mg/dL (0.70-1.30) 09/11/19 06:15 Medications needing adjustments: Reviewed (CrCl~119ml/min-no renal meds) - Anticoagulation Anticoagulation: Hgb 11.9 g/dL (13.5-17.5) L D 09/11/19 06:15 Hct 35.7 % (40.0-50.0) L 09/11/19 06:15 Plt Count 137 x1000/uL (130-400) 09/11/19 06:15 INR 1.1 (0.9-1.1) 09/10/19 05:30 Creatinine 0.85 mg/dL (0.70-1.30) 09/11/19 06:15 DVT Prohphylaxis: N/A Medications: Aspirin (was initially started on Heparin infusion and Aspirin loading dose....but since dc'd per [facility] recommendations of ASA 81mg only with Statin and further imaging on Thursday) Therapeutic Anticoagulation: N/A - Opiate Usage Evaluate Pain Scale/Pains Meds: Reviewed (Hydromorphone IVP prn) Scheduled Bowel Reg ordered if on Opiates?: No (Docusate as needed...NPO) - Relevant Labs ESR 5 mm/hr (0-15) 09/10/19 05:30 Sodium 142 mmol/L (136-145) 09/11/19 06:15 Potassium 3.4 mmol/L (3.5-5.1) L 09/11/19 06:15 Chloride 107 mmol/L (98-107) 09/11/19 06:15 Magnesium 1.5 mg/dL (1.8-2.4) L 09/11/19 06:15 C-Reactive Protein 1.64 mg/dL (0.0-0.3) H 09/11/19 06:15 Electrolytes, C-Reactive P, ESR: Reviewed (will need K+, getting Mag replacement, Lactate normal, trend C-reactive protein) - Antimicrobial Stewardship Antibiotic appropriateness: N/A Surgical Abx d/c within 24 hr: N/A Culture review/Resistance: Reviewed (Urine no growth x24h) - DM Control DM Control: Glucose 76 mg/dL (74-106) 09/11/19 06:15 Insulin Dosing: N/A - Heart Failure/[place] EF%, MINNIE's, B-Blockers, Diuretics: Reviewed (Lisinopril) - BP Control BP Control: Blood Pressure 135/87 Blood Pressure 148/84 Blood Pressure 138/56 If elevated: N/A - QTc Review If Elevated: Reviewed (QTC 476-WNL) - IV to PO Switch IV Medications: Reviewed (NPO, IVF's, Zofran, Phenergan-will advance diet today) - Home Meds Home Med List reviewed: Reviewed (Dicyclomine, HCTZ-watching BP closely, Ibuprofen-contraindicated w/renal infarct at this time) - Current meds Current Medication Order Review: Reviewed ( working w/[facility] radiology to compare results, plan to re-image CTA Thursday, watching hypertension closely)
[2019-09-11] MEDS: Polyethylene Glycol 3350 17 GM PACKET PO (08:46)
[2019-09-11] MEDS: Lisinopril 20 MG TAB PO (08:46)
[2019-09-11] MEDS: MAGNESIUM SULFATE 4 GM/100 ML BAG IVPB (08:46)
[2019-09-11] MEDS: Magnesium Gluconate 500 MG TAB PO (08:46)
[2019-09-11] MEDS: Aspirin E.C. 81 MG TABEC PO (08:46)
[2019-09-11] MEDS: Docusate Sodium 100 MG CAP PO (08:46)
--- NOTE | 2019-09-11 08:56 | W.PM.PROGNOT ---
Date of Service Date of service: 09/11/19 Time of Service: 08:56 Assessment and Plan Assessment and plan (1) Celiac artery dissection: Status: Acute Assessment and plan: Continue aspirin 81 mg daily and atorvastatin 80 mg nightly.. Narcotics and antiemetics. Monitor for worsening abdominal pain as his diet is advanced. Repeat CTA of his abdomen pelvis in the morning and follow-up with [facility] in the morning. Awaiting hypercoagulable studies which were sent out. Control his blood pressure. Resume his lisinopril this morning. Consider low-dose beta-landry. Patient needs to quit smoking. He has been given a nicotine patch. 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 (3) Renal artery embolism: Status: Acute Assessment and plan: As above (4) Essential hypertension: Status: Chronic Assessment and plan: Resume lisinopril consider low-dose beta-landry if his heart rate will tolerate. Subjective Subjective Interval history since last seen: Abdomen abdominal pain is markedly better this morning. Admitted tremor clear liquid diet. His pain has been able to be managed with as needed narcotics. Explained to him that I do not want him getting the narcotics [id number] however if he has severe pain he will be medicated but we need to know if he is having worsening pain as this may be a early sign that his dissection is getting worse. I explained to him that we would try him on a clear liquid diet and see if he tolerates this. I will plan on a repeat CTA of his abdomen pelvis in the morning. For now he will continue on atorvastatin and aspirin. Exam Narrative Exam Narrative: Young male who is alert and oriented person place time circumstance. Lungs are clear to auscultation. Heart is regular rate and rhythm without murmur rub or gallop. Abdomen has active bowel sounds. Soft nondistended. Mild epigastric and periumbilical tenderness without rebound or guarding. Objective Objective Clinical Data: Abnormal lab results 09/10/19 09/11/19 09/11/19 Range/Units 15:15 06:15 06:15 RBC 4.05 L (4.50-6.00) m/cumm Hgb 11.9 L D (13.5-17.5) g/dL Hct 35.7 L (40.0-50.0) % Absolute Lymphocytes 0.91 L (1.2-3.4) k/cumm APTT 84.6 H* D (21.0-31.4) sec Potassium 3.4 L (3.5-5.1) mmol/L Calcium 8.0 L (8.5-10.1) mg/dL Magnesium 1.5 L (1.8-2.4) mg/dL Alkaline Phosphatase 45 L (46-116) U/L C-Reactive Protein 1.64 H (0.0-0.3) mg/dL Total Protein 5.4 L (6.4-8.2) g/dL Albumin 3.0 L (3.4-5.0) g/dL Vital Signs Temperature 37.3 C 09/11/19 07:20 Temperature Source Temporal Artery Scan 09/11/19 07:20 Pulse 63 09/11/19 07:20 Pulse Rhythm Regular 09/10/19 12:55 Pulse 49 L 09/10/19 11:14 Respiratory Rate 18 09/11/19 07:20 Respiratory Effort Non-Labored 09/10/19 23:00 Respiratory Depth Normal 09/10/19 23:00 Respiratory Pattern Normal 09/10/19 23:00 Blood Pressure 135/87 09/11/19 07:20 Blood Pressure Mean 94 09/10/19 10:48 Blood Pressure Position Sitting 09/10/19 05:25 Pulse Oximetry 94 L 09/11/19 07:20 Oxygen Delivery Method Room Air 09/11/19 07:20 Oxygen Flow Rate 0 09/11/19 07:20 Pain Level 1 09/11/19 07:20 Intake & Output 09/10/19 09/10/19 09/11/19 11:59 23:59 11:59 Intake Total 1000 / 3112.766 211.766 / 3112.766 942.5 / 942.5 Output Total 500 / 600 100 / 600 250 / 250 Balance 500 / 2512.766 2011.766 / 2512.766 692.5 / 692.5 Weight 85.275 kg 85.275 kg Intake: IV 1000 / 3067.766 2067.766 / 3067.766 942.5 / 942.5 Oral 45 / 45 Output: Urine 500 / 600 100 / 600 250 / 250 Other: Urine Color Dark Santa Dark Santa Urine Appearance Clear Laboratory Results WBC 6.04 k/cumm (4.4-10.8) D 09/11/19 06:15 RBC 4.05 m/cumm (4.50-6.00) L 09/11/19 06:15 Hgb 11.9 g/dL (13.5-17.5) L D 09/11/19 06:15 Hct 35.7 % (40.0-50.0) L 09/11/19 06:15 MCV 88.1 fL (80-95) 09/11/19 06:15 MCH 29.4 pg (27.0-33.0) 09/11/19 06:15 MCHC 33.3 g/dL (32.0-36.0) 09/11/19 06:15 RDW 13.8 % (11.8-14.1) 09/11/19 06:15 Plt Count 137 x1000/uL (130-400) 09/11/19 06:15 MPV 10.8 fL (8.0-11.0) 09/11/19 06:15 Immature Gran % 0.2 % 09/11/19 06:15 Neutrophils % 73.7 09/11/19 06:15 Lymphocytes % 15.1 09/11/19 06:15 Monocytes % 8.3 09/11/19 06:15 Eosinophils % 2.0 09/11/19 06:15 Basophils % 0.7 09/11/19 06:15 Absolute Neutrophils 4.45 k/cumm (1.2-6.7) 09/11/19 06:15 Absolute Lymphocytes 0.91 k/cumm (1.2-3.4) L 09/11/19 06:15 Absolute Monocytes 0.50 k/cumm (0.11-0.7) 09/11/19 06:15 Absolute Eosinophils 0.12 k/cumm (0.0-0.7) 09/11/19 06:15 Absolute Basophils 0.04 k/cumm (0.0-0.2) 09/11/19 06:15 ESR 5 mm/hr (0-15) 09/10/19 05:30 PT Cancelled 09/10/19 13:00 INR Cancelled 09/10/19 13:00 APTT Cancelled 09/10/19 21:15 PTT Control Cancelled 09/10/19 13:00 PTT Patient/Cntrl Mix Cancelled 09/10/19 13:00 Silica Clot Time Scrn Cancelled 09/10/19 13:00 D-Dimer Cancelled 09/10/19 13:00 Dil Damon Viper Venom Cancelled 09/10/19 13:00 Lupus Anticoag Interp Cancelled 09/10/19 13:00 Functional Protein C Cancelled 09/10/19 13:00 APC Resist Ratio (V) Cancelled 09/10/19 13:00 APC Resistance Interp Cancelled 09/10/19 13:00 Functional Protein S Cancelled 09/10/19 13:00 Func Antithrombin III Cancelled 09/10/19 13:00 Sodium 142 mmol/L (136-145) 09/11/19 06:15 Potassium 3.4 mmol/L (3.5-5.1) L 09/11/19 06:15 Chloride 107 mmol/L (98-107) 09/11/19 06:15 Carbon Dioxide 24.8 mmol/L (21.0-32.0) 09/11/19 06:15 Anion Gap 10.2 mmol/L (3-11) 09/11/19 06:15 BUN 10 mg/dL (7-18) 09/11/19 06:15 Creatinine 0.85 mg/dL (0.70-1.30) 09/11/19 06:15 Estimated GFR/1.73 m2 >= 60.00 (mL/min/1.73m2) 09/11/19 06:15 Glucose 76 mg/dL (74-106) 09/11/19 06:15 Lactate 0.7 mmol/L (0.6-1.4) 09/10/19 13:00 Calcium 8.0 mg/dL (8.5-10.1) L 09/11/19 06:15 Magnesium 1.5 mg/dL (1.8-2.4) L 09/11/19 06:15 Total Bilirubin 0.9 mg/dL (0.2-1.0) 09/11/19 06:15 Conjugated Bilirubin 0.43 mg/dL (0.00-0.20) H 09/10/19 05:30 AST 16 U/L (15-37) 09/11/19 06:15 ALT 28 U/L (16-63) 09/11/19 06:15 Alkaline Phosphatase 45 U/L (46-116) L 09/11/19 06:15 Lactate Dehydrogenase 156 U/L (85-227) 09/10/19 13:00 C-Reactive Protein 1.64 mg/dL (0.0-0.3) H 09/11/19 06:15 Total Protein 5.4 g/dL (6.4-8.2) L 09/11/19 06:15 Albumin 3.0 g/dL (3.4-5.0) L 09/11/19 06:15 Lipase 169 U/L (73-393) 09/10/19 05:30 Procalcitonin < 0.1 ng/mL 09/10/19 13:00 Urine Color Yellow (Yellow) 09/10/19 06:57 Urine Clarity Clear (Clear) 09/10/19 06:57 Urine pH 7.0 (5-8) 09/10/19 06:57 Ur Specific [place] 1.020 (1.005-1.025) 09/10/19 06:57 Urine Protein Negative mg/dL (Negative) 09/10/19 06:57 Urine Ketones 15 mg/dL (Negative) H 09/10/19 06:57 Urine Blood Negative (Negative) 09/10/19 06:57 Urine Nitrite Negative (Negative) 09/10/19 06:57 Urine Bilirubin Negative (Negative) 09/10/19 06:57 Urine Urobilinogen 0.2 EU/dL (Up TO 0.2) 09/10/19 06:57 Ur Leukocyte Esterase Negative (Negative) 09/10/19 06:57 Urine Glucose Negative mg/dL (Negative) 09/10/19 06:57 Anti-Cardiolipin IgG Ab Cancelled 09/10/19 13:00 Anti-Cardiolipin IgM Ab Cancelled 09/10/19 13:00
[2019-09-11 11:40] VITALS: BP 144/92; PULSE 61; RESP 18; TEMP 37.4; O2SAT 95
[2019-09-11] MEDS: Acetaminophen 325 MG TAB PO (12:35)
--- NOTE | 2019-09-11 13:55 | PDOC.CMIN ---
- If Service Date Differs Date of service: 09/11/19 Time of Service: 13:55 Care Management Initial Assess REASON FOR HOSPITALIZATION:: Abdominal Pain, Renal Artery Emboli/Infarct PAST MEDICAL HISTORY/PAST SURGICAL HISTORY:: Medical History. COPD, Essential Hypertension, Laceration of Spleen, Smoker. PREVIOUS FUNCTIONAL STATUS/SOCIAL/FAMILY SUPPORTS:: lorene lives in [place] with his , Jose. 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 Rober spends his time renovating his home. He and his also enjoy snowshoeing and hiking their ten acre property. He drives and is independent at baseline. CURRENT FUNCTIONAL STATUS:: Rober was lying in bed when CM met with him. He stated that his pain has been well managed as well as his nausea. He reported that per MD, he will have a CTA tomorrow to further investigate the diagnosis of Celiac artery dissection. He stated that he has spoken with Clarisa regarding his insurance, which should be active now. CM will continue to follow. ADVANCE DIRECTIVES:: None on file. Has patient been provided with information about the portal?: Yes Did the patient sign up for the portal?: Yes (previously ) CODE STATUS:: Full Code INSURANCE COVERAGE / FINANCIAL ISSUES:: [employer] CURRENT HOME/COMMUNITY SERVICES/EQUIPMENT:: No equipment or services at this time. PRIMARY CARE PHYSICIAN:: Michael Floyd MD POTENTIAL DISCHARGE NEEDS:: Evaluations for further needs, follow up appointments PATIENT/FAMILY EDUCATION NEEDS:: Review discharge instructions regarding activity levels and medications, discussion of self care needs including ask me three ANTICIPATED BARRIERS TO DISCHARGE:: None identified at this time. TRANSPORTATION:: will transport him home via private vehicle when ready. PLAN:: Anticipate Rober will return home when medically cleared with no additional services. His will drive him home via private vehicle when ready. He will follow up with his PCP and discharge plan of care. CM will continue to follow.
[2019-09-11 15:30] VITALS: BP 142/87; PULSE 55; RESP 16; TEMP 37.5; O2SAT 98
[2019-09-11 16:54] LABS: D-Dimer (UVM) 254 ng/mL DDU (<=230); INR 1.1 Ratio (0.9-1.1); PTT (UVM) 33 secs (26-37)
[2019-09-11 19:26] VITALS: BP 147/87; PULSE 58; RESP 16; TEMP 37.2; O2SAT 97
[2019-09-11] MEDS: Atorvastatin 40 MG TAB 80 MG PO (20:07)
[2019-09-11 23:30] VITALS: BP 146/84; PULSE 56; RESP 18; TEMP 37.8; O2SAT 94
[2019-09-12] MEDS: Acetaminophen 325 MG TAB PO (01:02)
[2019-09-12] MEDS: HYDROmorphone 2 MG/ML VIAL IVP ×3 (01:02→11:52)
[2019-09-12 03:34] VITALS: BP 135/82; PULSE 59; RESP 17; TEMP 36.8; O2SAT 95
[2019-09-12] MEDS: Normal Saline 1,000 ML 150 ML IV ×2 (03:47→11:42)
[2019-09-12 06:40] LABS: Lactate 0.5 mmol/L (0.6-1.4)
[2019-09-12 06:46] LABS: Absolute Basophil Count 0.03 k/cumm (0.0-0.2); Absolute Eosinophil Count 0.27 k/cumm (0.0-0.7); Absolute Lymphocyte Count 1.16 k/cumm (1.2-3.4); Absolute Monocyte Count 0.52 k/cumm (0.11-0.7); Absolute Neutrophil Count 3.77 k/cumm (1.2-6.7); Basophils % 0.5; Eosinophils % 4.7; HCT 34.7 % (40.0-50.0); HGB 11.9 g/dL (13.5-17.5); Lymphocytes % 20.2; Mean Corp. HGB Concentration 34.3 g/dL (32.0-36.0); Mean Corpuscular Hemoglobin 29.9 pg (27.0-33.0); Mean Corpuscular Volume 87.2 fL (80-95); Mean Platelet Volume 10.4 fL (8.0-11.0); Neutrophils % 65.6; Platelet Count 136 x1000/uL (130-400); RBC 3.98 m/cumm (4.50-6.00); RBC Distribution Width 13.7 % (11.8-14.1); White Blood Cell Count 5.75 k/cumm (4.4-10.8)
[2019-09-12 06:56] LABS: C-Reactive Protein 2.55 mg/dL (0.0-0.3)
[2019-09-12 06:58] LABS: ALT 31 U/L (16-63); AST 20 U/L (15-37); Albumin 2.9 g/dL (3.4-5.0); Alkaline Phosphatase 53 U/L (46-116); Anion Gap 8.1 mmol/L (3-11); BUN 10 mg/dL (7-18); Bilirubin, Total 1.4 mg/dL (0.2-1.0); CO2 25.9 mmol/L (21.0-32.0); CREATININE 0.86 mg/dL (0.70-1.30); Calcium 7.7 mg/dL (8.5-10.1); Chloride 106 mmol/L (98-107); Glucose 82 mg/dL (74-106); Potassium 3.5 mmol/L (3.5-5.1); Sodium 140 mmol/L (136-145); Total Protein 5.3 g/dL (6.4-8.2)
--- NOTE | 2019-09-12 07:15 | DI.CT_ITS ---
EXAM: CT ABDOMEN PELVIS CTA CLINICAL HISTORY: Celiac artery dissection with thrombosis, SMA thrombosis. TECHNIQUE: Imaging Protocol: Axial CT angiography was performed with multi-slice acquisition and m ulti-planar and/or 3D reconstructions. CONTRAST MATERIAL: Intravenous: Omnipaque 350 Contrast volume: 100 ml Oral: yes / no COMPARISON: CT ABDOMEN PELVIS CTA from 09/10/2019 FINDINGS: Vascular Structures: Celiac [place]/SMA: Left gastric artery is again seen to arise directly from the aorta. There is again seen a dissection of the celiac axis. It is unchanged compared to the prior examination. There is also a short segment dissection of the superior mesenteric artery. The distal branches of the superi or mesenteric artery are patent. Renal Arteries: No evidence of stenosis. There is a single renal artery perfusing each kidney. Aorta: No aneurysm. No dissection. Mild atherosclerosis. Mild haziness in the periaortic fat. This may reflect edema or inflammation. Pelvis: Iliac Arteries: No evidence of stenosis. Common Femoral Arteries: No evidence of stenosis. Soft Tissues: Lung bases:Bilateral basilar atelectasis. Liver: Normal density. No measurable mass. Gallbladder and biliary tract: No radiodense calculus or dilation. High density material is seen in t he gallbladder likely reflecting prior contrast CT examination. Pancreas: Normal density, no abnormal calcifications or inflammatory process. Spleen: Normal. Kidneys: Normal size, contour and axis. No radiodense stones or obstructive uropathy. No masses seen. The areas of decreased perfusion in the right and left kidneys are no longer visualized. Adrenal glands: No masses seen. Bladder: Symmetric distention, no gross wall thickening. Bowel: No obstruction or bowel wall thickening. Peritoneal cavity: There is a trace amount of free fluid in the pelvis. Bones: No acute abnormality. Lymph nodes: Within normal limits. Reproductive organs: Enlarged prostate gland. IMPRESSION: 1. Stable celiac and superior mesenteric artery dissections. Perfusion is seen into the distal mesen teric branches. 2. Stable haziness of the periaortic fat which may reflect inflammation or edema. DATA REPOSITORY: All CT scans at this facility are submitted to the National Radiology Data Registry (NRDR) Dose Index Registry (DIR) with the [employer] (ACR). RADIATION OPTIMIZATION: All CT scans at this facility use at least one of these dose optimization te chniques: automated exposure control; mA and/or kV adjustment per patient size (includes targeted exa ms where dose is matched to clinical indication); or iterative reconstruction.
[2019-09-12] MEDS: Normal Saline Flush 10 ML SYR IVP ×2 (07:18→08:16)
[2019-09-12] MEDS: Omnipaque 350 MG/ML 100 ML BTL IJ (07:18)
[2019-09-12] MEDS: Normal Saline - Diluent 50 ML VIAL IV (07:18)
[2019-09-12 07:25] VITALS: BP 165/98; PULSE 48; RESP 17; TEMP 36.9; O2SAT 96
[2019-09-12 07:36] LABS: ESR 7 mm/hr (0-15)
--- NOTE | 2019-09-12 07:47 | DI.VRAD_ITS ---
PROCEDURE INFORMATION: Exam: CT Angiography Abdomen and Pelvis With Contrast Exam date and time: 09/12/2019 12:00 AM Age: 44 years old Clinical indication: Other: Celiac artery dissection with thrombosis, sma thrombosis . History of hypertension. TECHNIQUE: Imaging protocol: Computed tomographic angiography of the abdomen and pelvis with intravenous contrast material. 3D rendering: MIP and/or 3D reconstructed images were created by the technologist. Radiation optimization: All CT scans at this facility use at least one of these dose optimization techniques: automated exposure control; mA and/or kV adjustment per patient size (includes targeted exams where dose is matched to clinical indication); or iterative reconstruction. Contrast material: OMNIPAQUE 350; Contrast volume: 100 ml; Contrast route: IV; COMPARISON: CT ABDOMEN PELVIS CTA 09/10/2019 5:42 AM FINDINGS: Lungs: Mild atelectasis at the lung bases. Aorta: Minimal atherosclerotic disease. No aortic dissection or aneurysm. Celiac trunk and mesenteric arteries: As previously seen there is a dissection involving the celiac trunk extending to the bifurcation of the hepatic and splenic arteries. Both lumens are patent. 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 The superior mesenteric artery also demonstrates a proximal vessel . There is mild narrowing of the true lumen. Distal branches are well perfused. Incidentally noted is a left gastric artery is seen arising off the aorta just superior to the celiac artery. Renal arteries: Renal arteries are unremarkable. Right iliac arteries: No occlusion or significant stenosis. Left iliac arteries: No occlusion or significant stenosis. Liver: No mass. Gallbladder and bile ducts: Hyperdense material is seen in the gallbladder which likely represents contrast from a prior study. Pancreas: Unremarkable. No mass. No ductal dilation. Spleen: Unremarkable. Adrenals: Unremarkable. No mass. Kidneys and ureters: No renal stones or hydronephrosis. Kidneys enhance symmetrically. The previously seen region of diminished perfusion in the right renal cortex is no longer identified. Stomach and bowel: Unremarkable. No obstruction. No mucosal thickening. Appendix: Normal appendix. Intraperitoneal space: Trace free fluid in the pelvis. There is hazy opacity in the retroperitoneal fat surrounding the aorta and mesenteric vessels which may be represent edema . This is unchanged from the prior study. Lymph nodes: Unremarkable. No enlarged lymph nodes. Bladder: Unremarkable. No mass. Reproductive: Enlarged prostate.Nonspecific mild wall prominence of the underdistended urinary bladder. Bones/joints: Degenerative changes at the L5-S1 space with mild L5-S1 retrolisthesis. Soft tissues: Unremarkable. IMPRESSION: Stable dissections involving celiac and superior mesenteric arteries. Perfusion is seen into the distal mesenteric branches. Stable hazy opacity in the periaortic retroperitoneal fat similar to the prior exam which may be related to inflammation or edema. Enlarged prostate. Dictated and Authenticated by: Aisha Hogue MD. Ordering:[facility] Elieser Jamil MD
[2019-09-12] MEDS: Lisinopril 20 MG TAB PO (08:14)
[2019-09-12] MEDS: Magnesium Gluconate 500 MG TAB PO (08:14)
[2019-09-12] MEDS: Aspirin E.C. 81 MG TABEC PO (08:14)
[2019-09-12] MEDS: Potassium Chloride 20 MEQ TABCR PO (08:14)
[2019-09-12] MEDS: Ondansetron 4 MG/2 ML VIAL IVP (08:23)
[2019-09-12 08:51] LABS: Antithrombin 3, Funct. 91 % (85-125)
[2019-09-12 10:32] LABS: Hepatitis A Antibody IgM Negative (Negative); Hepatitis B Core Antibody Negative (Negative); Hepatitis B surface Ag Negative (Negative); Hepatitis C Ab w Rflx HCV PCR Negative (Negative)
[2019-09-12 11:35] VITALS: BP 167/89; PULSE 57; RESP 18; TEMP 37.1; O2SAT 96
[2019-09-12] MEDS: Docusate Sodium 100 MG CAP PO (11:42)
[2019-09-12] MEDS: Polyethylene Glycol 3350 17 GM PACKET PO (11:42)
[2019-09-12] MEDS: amLODIPine 5 MG TAB PO (12:50)
[2019-09-12 13:29] LABS: Dilute Russell Viper Venom 36.7 secs (27.2-36.9); LA Cascade Summary (See Note); Silica Clotting Time 43.2 secs (30.2-48.4)
--- NOTE | 2019-09-12 14:28 | W.PM.DS.N ---
DS: Diagnosis Discharge Diagnosis (1) Celiac artery dissection: Status: Acute Asessment and Plan: patient has been placed on atorvastatin and ASA. He initially was placed on heparin drip when the intial CTA on admission was read as demonstrating bilateral renal infarcts. This was done after discussion w/ vascular surgery at [facility] (Dr. Liu). 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 Per vascular surgery's recommendations on 09/10/2019 the heparin drip was stopped and he remained on atorvastatin and ASA and made NPO while receiving hydration. Repeat CTA of the abdomen and pelvis was performed on 09/12/2019 and showed stability in the celiac and superior mesenteric dissections w/ perfusion seen in all distal mesenteric branches. Follow up call was placed to [facility] and I spoke w/ Dr. Dan who after discussion w/ her colleagues, recommended transfer of the patient to [facility] for close monitoring and to expedite his workup of his aneurysms and dissections. Workup here included anti-cardiolipin antibodies IgG and IgM (both pending), acute hepatitis studies ( immune status: HBs positive @ 24.9, negative HB core antibody and surface antigen; neg for HCV and HAV), functional AT III 91%, lupus anticoagulant, functional protein C, functional protien S and protein C are pending. These hypercoagulable studies were ordered when the original CTA from 09/04 was read as only demonstrating bilateral renal infarcts. No mention was made of celiac or SMA aneurysm or dissection. This was over read by [facility] radiology. 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 continue ASA 81 mg daily and Atorvastatin 80 mg nightly. (3) Renal artery embolism: Status: Acute (4) Essential hypertension: Status: Chronic Asessment and Plan: patient's lisinopril was initially held on 09/09 d/t concern of excess contrast and risk of nephropathy. Patient was treated w/ norvasc. His lisinopril was resumed on 09/10 after repeat BMP demonstrated stable renal function. Discharge Plan Disposition Patient Disposition: [facility] Condition: Stable Discharge Details Chief Complaint: Abd Prob Clinical Impression: Abdominal pain, Renal artery embolism, Renal infarct Reason For Visit: celiac/SMA aneurysm, RENAL ARTERY EMBOLI/INFARCT Admit Date/Time: 09/10/19 09:39 Admit Provider: Omero Mon Attending Provider: Omero Mon Primary Care Provider: Michael Floyd ED Provider: Kyra Schuster Home Meds and New Rx's Prescriptions: Continued lisinopril 20 mg tablet 20 mg PO DAILY Qty: 90 RF: 4 hydrochlorothiazide 25 mg tablet 25 mg PO DAILY Qty: 90 RF: 4 measles,mumps,rubella vacc(PF) 1,000-12,500 TCID50/0.5 mL recon soln 0.5 ml SC ONCE Qty: 1 RF: 0 acetaminophen 500 mg Tablet 1,000 mg PO PRN PRNRF: 0 ondansetron 4 mg tablet,disintegrating 4 mg PO Q6H PRNQty: 10 RF: 0 Discontinued ibuprofen [Ibuprofen IB] 200 MG tablet 800 mg PO PRN PRNRF: 0 dicyclomine 20 mg Tablet 20 mg PO QID PRN PRNQty: 12 RF: 0 Discharge Instructions Instructions: Abdominal Aortic Aneurysm (DC) Additional Instructions: Your home medications will be reconciled upon discharge from [facility]. This will include adjustment of your antihypertensive medications Stand Alone Forms: Nursing Discharge Form Activity:: Activity as Tolerated Diet:: As Tolerated Discharge Orders Discharge Orders: Discharge Order (Routine); Ordered 09/12/19 Ordered By: Omero Mon DS: Summary Status at Discharge Functional status at discharge: independent ambulation Overall status at discharge: patient is progressing back to baseline Mental Status: mental status grossly normal Speech and Movement: speech and movement normal Mood: congruent mood Affect: normal affect Exam Narrative Exam Narrative: Young male who is alert and oriented person place time circumstance. Lungs are clear to auscultation. Heart is regular rate and rhythm without murmur rub or gallop. Abdomen has active bowel sounds. Soft nondistended. Mild epigastric and periumbilical tenderness without rebound or guarding. Psych Mental Status: mental status grossly normal Speech and Movement: speech and movement normal Mood: congruent mood Affect: normal affect DS: Data Vitals/I&O Vitals and I&O: Vital Signs Temperature 37.1 C 09/12/19 11:35 Temperature Source Tympanic 09/12/19 11:35 Pulse 57 L 09/12/19 11:35 Pulse Rhythm Regular 09/12/19 09:55 Pulse 49 L 09/10/19 11:14 Respiratory Rate 18 09/12/19 11:35 Respiratory Effort 09/11/19 20:00 Respiratory Depth Normal 09/11/19 20:00 Respiratory Pattern Normal 09/11/19 20:00 Blood Pressure 167/89 H 09/12/19 11:35 Blood Pressure Mean 94 09/10/19 10:48 Blood Pressure Position Sitting 09/10/19 05:25 Pulse Oximetry 96 09/12/19 11:35 Oxygen Delivery Method Room Air 09/12/19 11:35 Oxygen Flow Rate 0 09/12/19 11:35 Pain Level 7 09/12/19 11:52 Comment 09/11/19 23:30 Intake & Output 09/11/19 09/12/19 09/12/19 23:59 11:59 23:59 Intake Total 1212.5 / 3155.0 1947.5 / 1947.5 Output Total 200 / 450 300 / 550 250 / 550 Balance 1012.5 / 2705.0 1647.5 / 1397.5 -250 / 1397.5 Weight 87.3 kg Intake: IV 882.5 / 2825.0 1947.5 / 1947.5 Oral 330 / 330 Output: Urine 200 / 450 300 / 550 250 / 550 Other: Urine Color Yellow Light Santa Light Santa Urine Appearance Clear Clear Urine Odor None None Stool Occult Blood Negative Stool Size Small Stool Characteristics Liquid Brown Voiding Methods Toilet Urinal Urinal Data Completed and Pending Labs on day of discharge: Labs from last 24 hours 09/12/19 09/12/19 09/12/19 06:30 06:30 06:30 WBC 5.75 RBC 3.98 L Hgb 11.9 L Hct 34.7 L MCV 87.2 MCH 29.9 MCHC 34.3 RDW 13.7 Plt Count 136 MPV 10.4 Immature Gran % 0.0 Neutrophils % 65.6 Lymphocytes % 20.2 Monocytes % 9.0 Eosinophils % 4.7 Basophils % 0.5 Absolute Neutrophils 3.77 Absolute Lymphocytes 1.16 L Absolute Monocytes 0.52 Absolute Eosinophils 0.27 Absolute Basophils 0.03 ESR 7 PT INR APTT D-Dimer Func Antithrombin III Sodium 140 Potassium 3.5 Chloride 106 Carbon Dioxide 25.9 Anion Gap 8.1 BUN 10 Creatinine 0.86 Estimated GFR/1.73 m2 >= 60.00 Glucose 82 Lactate 0.5 L Calcium 7.7 L Magnesium Total Bilirubin 1.4 H AST 20 ALT 31 Alkaline Phosphatase 53 C-Reactive Protein Total Protein 5.3 L Albumin 2.9 L Hepatitis A IgM Ab Hep Bs Antigen Hep B Core Total Ab Hepatitis C Antibody 09/12/19 09/11/19 09/10/19 06:30 09:00 13:00 WBC RBC Hgb Hct MCV MCH MCHC RDW Plt Count MPV Immature Gran % Neutrophils % Lymphocytes % Monocytes % Eosinophils % Basophils % Absolute Neutrophils Absolute Lymphocytes Absolute Monocytes Absolute Eosinophils Absolute Basophils ESR PT 12.8 INR 1.1 APTT 33 D-Dimer 254 H Func Antithrombin III 91 Sodium Potassium Chloride Carbon Dioxide Anion Gap BUN Creatinine Estimated GFR/1.73 m2 Glucose Lactate Calcium Magnesium 2.0 Total Bilirubin AST ALT Alkaline Phosphatase C-Reactive Protein 2.55 H Total Protein Albumin Hepatitis A IgM Ab Negative Hep Bs Antigen Negative Hep B Core Total Ab Negative Hepatitis C Antibody Negative [facility] Family History (Updated 09/10/19 @ 13:55 by Oemro Mon) Father , at the age of 73 Diverticulitis Heart disease Congestive heart failure Melanoma Sister No problems noted. Mother No problems noted. Maternal Grandmother Diabetes Paternal Uncle ALS (amyotrophic lateral sclerosis) Social History Smoking/Tobacco Use Status: Current every day Alcohol Intake: current Alcohol Intake frequency: holidays/special occasions only Drug use: Occasionally Substance use type: marijuana Do you feel safe at home: Yes Do you feel safe in your relationship?: Yes
--- NOTE | 2019-09-12 15:56 | CMPROGNOTE_ITS ---
- If Service Date Differs Date of service: 09/12/19 Time of Service: 15:56 Care Management Progress Note S/O: Rober was sitting up in his chair when CM met with him. He reported that per MD, he would be transferred to [facility] for further treatment and monitoring of his aneurysms and dissections. CM asked how he was feeling about that, which he replied that he is nervous and a bit scared, but he will be happy when this problem is resolved. He recognizes that it is in his best interest to be tra nsferred as there are specialists at [facility] that we do not have access to at [facility]. He is agreeable to the plan, but he is openly nervous. CM will continue to follow. A: Rober is a 44 year old male admitted to [facility] on 09/10/19 with Celiac Artery Dissection. P: Per MD, Rober is being transferred to [facility] for close monitoring and to expedite the workup of his aneurysms and dissections. He will transfer via ambulance. He is nervous, but agreeable to the plan. CM will continue to follow and support discharge planning considerations.
[2019-09-14 11:51] LABS: Protein C, Functional >150 % (71-199); Protein S, Functional 81 % (73-156)
== END 2019-09-12 14:52 | disposition short-term general hospital (02) | DRG 299 ==
LOC: ER 09:52 → MS 11:04
PROVIDERS: Emergency Medicine; Admitting Provider Internal Medicine; Emergency Provider Physician Assistant; PCP Family Medicine; Visit Provider Internal Medicine
DX: I77.79 Dissection of other specified artery (principal); K55.069 Acute infarction of intestine, part and extent unspecified; N28.0 Ischemia and infarction of kidney; I72.8 Aneurysm of other specified arteries; I10 Essential (primary) hypertension; R10.33 Periumbilical pain; J44.9 Chronic obstructive pulmonary disease, unspecified; F12.10 Cannabis abuse, uncomplicated; F17.210 Nicotine dependence, cigarettes, uncomplicated
CPT/HCPCS: 36410; 36415; 80053; 81240; 81241; 83690; 84145; 85300; 85303; 85306; 85610; 85613; 85652; 85730; 85732; 86147; 86704; 86709; 86803; 87340; 93005; 96365; 96366; 99223; 99233; 99239; 99285; 74174; 81003; 82248; 83605; 83615; 83735; 85025; 85240; 85379; 86140; 87086; 93010; 93970; J1885; J2060; J2405; J3475; J3490

== ENCOUNTER 2019-11-24 07:04 | Emergency (ER) | payer MEDICAID, SELFPAY ==
[2019-11-24] VITALS (77 sets, daily range): BP systolic 85–168; BP diastolic 61–108; PULSE 45–88; RESP 6–25; TEMP 36.4–37; O2SAT 93–100
--- NOTE | 2019-11-24 07:13 | W.ED.GENAD ---
Discharge Plan Disposition Patient Disposition: HOME Condition: Improving Discharge Details Chief Complaint: Nausea/Vomit/Diar Clinical Impression: Vomiting, Abdominal pain Primary Care Provider: Michael Floyd ED Provider: Anshu Guadarrama Home Meds and New Rx's Prescriptions: New ondansetron HCl [Zofran] 4 mg tablet 4 mg PO QID PRN (Reason: nausea and vomiting) Qty: 10 RF: 0 dicyclomine 10 mg capsule 10 mg PO TID PRN (Reason: spasm, bloating) Qty: 20 RF: 0 hydrocodone-acetaminophen 5-325 mg tablet 1 tab PO Q8H PRN (Reason: pain) Qty: 7 RF: 0 Continued hydrochlorothiazide 25 mg tablet 25 mg PO DAILY Qty: 90 RF: 4 tamsulosin 0.4 mg capsule 0.4 mg PO DAILY Qty: 60 RF: 2 lisinopril 40 mg tablet 40 mg PO DAILY Qty: 90 RF: 4 atorvastatin 80 mg tablet 80 mg PO QHS Qty: 90 RF: 4 amlodipine 10 mg tablet 5 mg PO DAILY Qty: 90 RF: 4 measles,mumps,rubella vacc(PF) 1,000-12,500 TCID50/0.5 mL recon soln 0.5 ml SC ONCE Qty: 1 RF: 0 acetaminophen 500 mg Tablet 1,000 mg PO PRN PRNRF: 0 prednisone 20 mg tablet 25 mg PO DAILY RF: 0 Discharge Instructions Instructions: Abdominal Pain (ED) Additional Instructions: Home to rest today. May use Bentyl as prescribed for cramping and spasmodic abdominal pain. May use provided Zofran/ondansetron as needed for nausea. May use the prescribed hydrocodone as needed for breakthrough pain. Continue your prednisone as currently prescribed. Please call the rheumatology department at [facility] to make a follow-up outpatient appointment, per their request after we reviewed your results with them today. Return for fever, persistent vomiting, worsening abdominal pain, or any other acute concerns. Discharge Data Discharge Date/Time-TO BE ENTERED AT DEPARTURE: 11/24/19 14:45 Medical Decision Making <Jesus Foster MD - Last Filed: 11/24/19 20:14> Patient with extensive history with recurrent abdominal pain/back pain and some chest discomfort. EKG normal except for bradycardia. No ST changes. Very uncomfortable and writhing on stretcher. I have reviewed our records as well as [facility] records. IV is in place. Fluids going. Dilaudid and Zofran offered for symptomatic control. CTA of the chest abdomen pelvis ordered given previous history of vasculitis and celiac dissection. Will sign over to oncoming physician, Dr. Guadarrama. Medical Records Medical records reviewed: Yes I reviewed the patient's medical records. ECG Data Attestation: I personally reviewed and interpreted this ECG (s) as follows: Prior ECG tracings: not available for review Interpretation: Sinus bradycardia at 47. Normal axis and intervals. Normal ST segments. <Anshu Guadarrama MD - Last Filed: 11/24/19 14:23> Received signout from Dr. Foster. Please see his note regarding details of patient's presentation, exam, plan of care. Patient presented last night with the abrupt onset of bloating, nausea, vomiting after eating the evening meal. The patient's history is notable for vasculitis, celiac artery dissection, SMA thrombosis for which he has been evaluated by the [facility] vascular surgery service and currently managed by rheumatology. Of note, recently decreased prednisone from 40 to 25 mg. His diagnostics today: Labs note a normal lactate 0.9, CBC 14, creatinine 1.1, unremarkable LFTs, CRP less than 0.05 CT scan: Stable areas of dissection and poststenotic dilatation of the celiac artery and superior mesenteric artery. Stable dilatation of the mid splenic artery. No evidence of thrombus. No new areas of dissection are seen. Images uploaded and case discussed with on-call rheumatology at [facility], Dr Potter. We reviewed that the patient's improving retroperitoneal findings without evidence of inflammatory response or significant lymphadenopathy, is unchanged arterial findings, and his normal CRP are encouraging. He is to continue the slow steroid taper and follow-up with rheumatology. Lab Data Lab results reviewed: Yes I reviewed the patient's lab results. Labs: Laboratory Results - last 24 hr 11/24/19 11/24/19 11/24/19 07:15 07:15 07:15 WBC 14.90 H RBC 4.65 Hgb 14.4 Hct 42.6 MCV 91.6 MCH 31.0 MCHC 33.8 RDW 16.8 H Plt Count 297 MPV 9.6 Immature Gran % 0.6 Neutrophils % 72.2 Lymphocytes % 20.3 Monocytes % 5.8 Eosinophils % 0.9 Basophils % 0.2 Absolute Neutrophils 10.76 H Absolute Lymphocytes 3.02 Absolute Monocytes 0.86 H Absolute Eosinophils 0.13 Absolute Basophils 0.03 Sodium 142 Potassium 3.2 L Chloride 101 Carbon Dioxide 34.8 H Anion Gap 6.2 BUN 24 H Creatinine 1.10 Estimated GFR/1.73 m2 >= 60.00 Glucose 126 H Lactate Cancelled Calcium 9.3 Magnesium 2.1 Total Bilirubin 0.8 AST 19 ALT 41 Alkaline Phosphatase 39 L Troponin I < 0.05 Total Protein 6.5 Albumin 4.0 Lipase 195 11/24/19 07:50 WBC RBC Hgb Hct MCV MCH MCHC RDW Plt Count MPV Immature Gran % Neutrophils % Lymphocytes % Monocytes % Eosinophils % Basophils % Absolute Neutrophils Absolute Lymphocytes Absolute Monocytes Absolute Eosinophils Absolute Basophils Sodium Potassium Chloride Carbon Dioxide Anion Gap BUN Creatinine Estimated GFR/1.73 m2 Glucose Lactate 0.9 Calcium Magnesium Total Bilirubin AST ALT Alkaline Phosphatase Troponin I Total Protein Albumin Lipase HPI <Jesus Foster MD - Last Filed: 11/24/19 20:14> General Mode of arrival: wheelchair. Date/Time Provider Initiated Documentation: 11/24/19 07:07. Limitations to Documentation: no limitations. Information obtained by: patient, RN notes reviewed and old records reviewed. HPI Narrative: Patient presents to ED with recurrent abdominal pain/back pain and vomiting. Patient has history of celiac dissection with SMA thrombus, retroperitoneal fibrosis, vasculitis. Currently on a fairly prolonged prednisone taper being managed by rheumatology at [facility]. Has been doing relatively well since discharge. Last night developed severe pain and vomiting like he had at the end of August, start of September when his initial event occurred. Patient also endorsing some chest discomfort but mostly abdominal pain. Pain is upper abdomen and into the back. Denies fever. Has some shortness of breath but cannot tell whether it is related to pain or not. Denies extremity pain. Denies neurologic changes. Did contact his [facility] physicians and presents now for evaluation and repeat CTA. Related Data Home Medications Medication Instructions Recorded Confirmed hydrochlorothiazide 25 mg tablet 25 mg PO DAILY #90 tab 07/11/19 11/24/19 acetaminophen 1,000 mg PO PRN PRN 09/08/19 11/24/19 atorvastatin 80 mg tablet 80 mg PO QHS #90 tab 09/29/19 11/24/19 lisinopril 40 mg tablet 40 mg PO DAILY #90 tab-cap 09/29/19 11/24/19 tamsulosin 0.4 mg capsule 0.4 mg PO DAILY #60 cap 09/29/19 11/24/19 amlodipine 10 mg tablet 5 mg PO DAILY #90 tab 10/25/19 11/24/19 dicyclomine 10 mg PO TID PRN #20 cap 11/24/19 hydrocodone-acetaminophen 1 tab PO Q8H PRN #7 tab 11/24/19 ondansetron HCl [Zofran] 4 mg PO QID PRN #10 tab 11/24/19 prednisone 25 mg PO DAILY 11/24/19 11/24/19 Previous Rx's Medication Instructions Recorded hydrochlorothiazide 25 mg tablet 25 mg PO DAILY #90 tab 07/11/19 atorvastatin 80 mg tablet 80 mg PO QHS #90 tab 09/29/19 lisinopril 40 mg tablet 40 mg PO DAILY #90 tab-cap 09/29/19 tamsulosin 0.4 mg capsule 0.4 mg PO DAILY #60 cap 09/29/19 amlodipine 10 mg tablet 5 mg PO DAILY #90 tab 10/25/19 dicyclomine 10 mg PO TID PRN #20 cap 11/24/19 hydrocodone-acetaminophen 1 tab PO Q8H PRN #7 tab 11/24/19 ondansetron HCl [Zofran] 4 mg PO QID PRN #10 tab 11/24/19 Allergies Allergy/AdvReac Type Severity Reaction Status Date / Time oxycodone AdvReac Intermediate Nausea Unverified 11/24/19 07:10 codeine phosphate AdvReac Mild Nausea Unverified 11/24/19 07:10 [From Tylenol-Codeine #3] GRASS Allergy Intermediate Itching Uncoded 11/24/19 07:10 MOLDS AND SMUTS Allergy Mild Itching Uncoded 11/24/19 07:10 General Stated Complaint: Nausea/Vomit/Diar LISA: 2 Review of Systems <Jesus Foster MD - Last Filed: 11/24/19 20:14> Narrative: Review of systems not obtained, patient in distress from pain, not forthcoming historian. PFSH <Jesus Foster MD - Last Filed: 11/24/19 20:14> Medical History (Updated 11/24/19 @ 14:22 by Anshu Guadarrama MD) Celiac artery dissection (Acute) COPD (chronic obstructive pulmonary disease) (Chronic) Essential hypertension (Chronic 05/07/17) Laceration of spleen (Resolved 12/10/12) Renal artery embolism (Acute) Renal infarct (Acute) Retroperitoneal fibrosis (Acute) Superior mesenteric artery thrombosis (Acute) Surgical History (Updated 11/24/19 @ 07:38 by Jesus Foster MD) No significant past surgical history (Acute) Family History (Updated 09/10/19 @ 13:55 by Omero Elieser) Father , at the age of 73 Diverticulitis Heart disease Congestive heart failure Melanoma Sister No problems noted. Mother No problems noted. Maternal Grandmother Diabetes Paternal Uncle ALS (amyotrophic lateral sclerosis) Social History Smoking/Tobacco Use Status: Current every day Alcohol Intake: current Alcohol Intake frequency: holidays/special occasions only Drug use: Occasionally Substance use type: marijuana Do you feel safe at home: Yes Do you feel safe in your relationship?: Yes Exam <Jesus Foster MD - Last Filed: 11/24/19 20:14> Narrative Exam Narrative: Vitals: Afebrile. Hypertensive. Normal heart rate and room air pulse ox. Const: WDWN male in distress writhing on stretcher. HEENT: NC/AT. Normal facial exam. Eyes: Normal conjunctiva and sclera. Neck: Supple. Trachea midline. Lungs: Normal respiratory effort. Cor: Good radial pulses. GI: Soft and nondistended. Diffusely tender. Neuro: A+O x 3. Normal speech, mentation, gait. Cranial nerves II - XII grossly intact. No gross motor or sensory deficit. Ext: No C/C/E. Skin: Warm and dry without rash. Course <Jesus Fostre MD - Last Filed: 11/24/19 20:14> Vital Signs Vital signs: Vital Signs Temperature 97.5 F L 11/24/19 07:06 Pulse 63 11/24/19 07:06 Respiratory Rate 11/24/19 07:06 Blood Pressure 150/108 H 11/24/19 07:06 Pulse Oximetry 99 11/24/19 07:06 Temperature 97.5 F L 11/24/19 07:06 Temperature Source Temporal Artery Scan 11/24/19 07:06 Pulse 63 11/24/19 07:06 Respiratory Rate 20 11/24/19 07:06 Respiratory Effort Non-Labored 11/24/19 07:09 Blood Pressure 150/108 H 11/24/19 07:06 Blood Pressure Position Sitting 11/24/19 07:06 Pulse Oximetry 99 11/24/19 07:06 Oxygen Delivery Method Room Air 11/24/19 07:06 Oxygen Flow Rate 0 11/24/19 07:06 Pain Level 8 11/24/19 07:06 Sign Out <Jesus Foster MD - Last Filed: 11/24/19 20:14> Sign Out Data: Sign Out Comment: Patient signed out to Dr. Guadarrama for follow-up on lab and imaging studies. Last updated by Jesus Foster MD at 11/24/19 08:03
[2019-11-24] MEDS: Normal Saline 1,000 ML 1000 ML IV (07:20)
[2019-11-24] MEDS: Ondansetron 4 MG/2 ML VIAL IVP ×2 (07:25→10:00)
[2019-11-24] MEDS: HYDROmorphone 2 MG/ML VIAL 1 MG IVP (07:30)
[2019-11-24] MEDS: Normal Saline Flush 10 ML SYR IVP (07:41)
[2019-11-24 07:47] LABS: Abs Immature Grans 0.09 k/cumm (0.0-0.09); Absolute Basophil Count 0.03 k/cumm (0.0-0.2); Absolute Monocyte Count 0.86 k/cumm (0.11-0.7); Basophils % 0.2; Eosinophils % 0.9; HCT 42.6 % (40.0-50.0); HGB 14.4 g/dL (13.5-17.5); Immature Grans % 0.6 %; Lymphocytes % 20.3; Mean Corp. HGB Concentration 33.8 g/dL (32.0-36.0); Mean Corpuscular Volume 91.6 fL (80-95); Mean Platelet Volume 9.6 fL (8.0-11.0); Monocytes % 5.8; Neutrophils % 72.2; Platelet Count 297 x1000/uL (130-400); RBC 4.65 m/cumm (4.50-6.00); RBC Distribution Width 16.8 % (11.8-14.1)
--- NOTE | 2019-11-24 07:49 | DI.CT_ITS ---
EXAM: CT THORAX ABD/PEL CTA CLINICAL HISTORY: chest/abdomen/back pain and vomiting. TECHNIQUE: Imaging Protocol: Axial CT angiography was performed with multi-slice acquisition and m ulti-planar and/or 3D reconstructions. CONTRAST MATERIAL: Intravenous: Omnipaque 350 Contrast volume:100 cc Oral: no COMPARISON: CT CT THORAX ABD/PEL CTA from 09/05/[address] ABDOMEN PELVIS W from 09/08/[address] ABDOMEN PELVIS CTA from 09/10/[address] ABDOMEN PELVIS CTA from 09/12/2019 FINDINGS: CHEST: Pulmonary Arteries: No evidence of filling defect to suggest pulmonary emboli. Tracheobronchial tree: Patent where visualized. Mediastinum and Marizol: No dominant adenopathy or fluid collection. Pulmonary parenchyma: No consolidation or dominant measurable mass. No architectural distortion. Pleura: No effusion or pneumothorax. Heart: The heart is not dilated. No coronary artery calcifications are seen. Aorta: Thoracic aorta non-dilated. No evidence of dissection. . ABDOMEN AND PELVIS: Abdomen: Celiac [place]/SMA: There is again noted to be a dissection of the proximal celiac artery in the proxim al portion extending over a length of approximately 3 cm. There is dilatation of the celiac artery i n the region of dissection to 14 millimeters. This appears unchanged. Again shows a dissection appr oximately 5 cm from the origin with dilatation distally tool approximately 11 millimeters. No thromb us is seen. The gastric arteries again noted to originate from the aorta. There is dilatation of th e mid splenic artery to 1 cm but no evidence of dissection. There is focal dilatation branch of the hepatic artery in the mid right lobe of the liver. Renal Arteries: No evidence of stenosis or dissection.. There is a single renal artery perfusing eac h kidney. Aorta: No aneurysm. No dissection. Minimal calcification distally. There is stable mildly increased density surrounding the abdominal aorta. Pelvis: Iliac Arteries: No evidence of stenosis or dissection.. Common Femoral Arteries: No evidence of stenosis or dissection.. ABDOMEN: Liver: Normal density. Cyst stable tiny hyper perfusing lesion in the anterior left lobe of the liver .. Portal, Superior Mesenteric, and Splenic Veins: Unremarkable. Not yet opacified with contrast. Gallbladder and Biliary Tract: No radiodense calculus or dilation. Pancreas: Normal density, no abnormal calcifications or inflammatory process. Spleen: Normal. Adrenals: No masses seen. Kidneys: Normal size, contour and axis. No radiodense stones or obstructive uropathy. No masses seen. Bowel: No obstruction or bowel wall thickening. Appendix is unremarkable. Peritoneal Cavity: No ascites, collection or mesenteric inflammatory response. Lymph Nodes: Within normal limits. Soft Tissues: Unremarkable. PELVIS: Bladder: Symmetric distention, no gross wall thickening. Reproductive Organs: Unremarkable as visualized. Lymph Nodes: Within normal limits. Bones: Degenerative changes are seen in the spine.. IMPRESSION: Stable areas of dissection and poststenotic dilatation of the celiac artery and superior mesenteric a rtery. Stable dilatation of the mid splenic artery. No evidence of thrombus. No new areas of disse ction are seen.. RADIATION DOSE DELIVERED: 1,038.58mGy.cm Total DLP DATA REPOSITORY: All CT scans at this facility are submitted to the National Radiology Data Registry (NRDR) Dose Index Registry (DIR) with the [employer] (ACR). RADIATION OPTIMIZATION: All CT scans at this facility use at least one of these dose optimization te chniques: automated exposure control; mA and/or kV adjustment per patient size (includes targeted exa ms where dose is matched to clinical indication); or iterative reconstruction.
[2019-11-24 07:50] LABS: Absolute Eosinophil Count 0.13 k/cumm (0.0-0.7); Absolute Lymphocyte Count 3.02 k/cumm (1.2-3.4); Absolute Neutrophil Count 10.76 k/cumm (1.2-6.7)
[2019-11-24 07:53] LABS: Lactate 0.9 mmol/L (0.6-1.4)
[2019-11-24] MEDS: Omnipaque 350 MG/ML 100 ML BTL IJ (07:59)
[2019-11-24] MEDS: Normal Saline - Diluent 50 ML VIAL IV (08:00)
[2019-11-24 08:02] LABS: ALT 41 U/L (16-63); AST 19 U/L (15-37); Alkaline Phosphatase 39 U/L (46-116); Anion Gap 6.2 mmol/L (3-11); BUN 24 mg/dL (7-18); Bilirubin, Total 0.8 mg/dL (0.2-1.0); CO2 34.8 mmol/L (21.0-32.0); Calcium 9.3 mg/dL (8.5-10.1); Chloride 101 mmol/L (98-107); Glucose 126 mg/dL (74-106); Lipase 195 U/L (73-393); Magnesium 2.1 mg/dL (1.8-2.4); Potassium 3.2 mmol/L (3.5-5.1); Sodium 142 mmol/L (136-145); Total Protein 6.5 g/dL (6.4-8.2)
[2019-11-24 08:03] LABS: Troponin I < 0.05 ng/mL (<0.06)
--- NOTE | 2019-11-24 08:16 | DI.VRAD_ITS ---
PROCEDURE INFORMATION: Exam: CT Angiography Chest With Contrast Exam date and time: 11/24/2019 7:41 AM Age: 44 years old Clinical indication: Chest pain; Type not specified; Abdominal pain; Generalized; Patient HX: Chest/abdomen/back pain and vomiting. Previous celiac artery disection/sma thrombosis TECHNIQUE: Imaging protocol: Computed tomographic angiography of the chest with intravenous contrast. 3D rendering: MIP and/or 3D reconstructed images were created by the technologist. Radiation optimization: All CT scans at this facility use at least one of these dose optimization techniques: automated exposure control; mA and/or kV adjustment per patient size (includes targeted exams where dose is matched to clinical indication); or iterative reconstruction. Contrast material: OMNI-PAQUE 350; Contrast volume: 100 ml; Contrast route: INTRAVENOUS (IV); COMPARISON: CT THORAX ABD/PEL CTA 09/05/2019 7:38 PM FINDINGS: Pulmonary arteries: Normal. No pulmonary emboli. Aorta: Unremarkable. No aortic aneurysm. No aortic dissection. Lungs: Unremarkable. No consolidation. No masses. Pleural space: Unremarkable. No pneumothorax. No pleural effusion. Heart: Unremarkable. No cardiomegaly. No pericardial effusion. Lymph nodes: Unremarkable. No enlarged lymph nodes. Bones/joints: Unremarkable. No acute fracture. Soft tissues: Unremarkable. IMPRESSION: No acute findings. PROCEDURE INFORMATION: Exam: CT Angiography Abdomen and Pelvis With Contrast Exam date and time: 11/24/2019 7:41 AM Age: 44 years old Clinical indication: Chest pain; Type not specified; Abdominal pain; Generalized; Patient HX: Chest/abdomen/back pain and vomiting. Previous celiac artery disection/sma thrombosis TECHNIQUE: Imaging protocol: Computed tomographic angiography of the abdomen and pelvis with intravenous contrast material. 3D rendering: MIP and/or 3D reconstructed images were created by the technologist. Radiation optimization: All CT scans at this facility use at least one of these dose optimization techniques: automated exposure control; mA and/or kV adjustment per patient size (includes targeted exams where dose is matched to clinical indication); or iterative reconstruction. Contrast material: OMNI-PAQUE 350; Contrast volume: 100 ml; Contrast route: INTRAVENOUS (IV); COMPARISON: CT THORAX ABD/PEL CTA 09/05/2019 7:38 PM FINDINGS: Aorta: No aortic aneurysm. No aortic dissection. Celiac trunk and mesenteric arteries: The celiac artery demonstrates a short segmental dissection near its origin. The celiac distal to this demonstrates aneurysmal dilatation measuring up to 14 mm which may reflect poststenotic dilatation. Incidental note is made of a separate origin of the left gastric artery from the aorta. 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 The SMA demonstrates a short segmental dissection with subsequent aneurysmal dilatation measuring 1 cm. The appearance of the SMA and celiac are stable compared with the prior study. Note is made of what appears to reflect aneurysmal dilatation of an intrahepatic branch of the hepatic artery in the right lobe of the liver measuring 3 mm Renal arteries: No occlusion or significant stenosis. Right iliac arteries: No occlusion or significant stenosis. Left iliac arteries: No occlusion or significant stenosis. Liver: Multifocal hepatic hyper vascular lesions may reflect transient hepatic attenuation differences Gallbladder and bile ducts: Unremarkable. No calcified stones. No ductal dilation. Pancreas: Unremarkable. No mass. No ductal dilation. Spleen: Unremarkable. No splenomegaly. Adrenals: Unremarkable. No mass. Kidneys and ureters: Unremarkable. No solid mass. No hydronephrosis. Stomach and bowel: Unremarkable. No obstruction. No mucosal thickening. Appendix: No evidence of appendicitis. Intraperitoneal space: Unremarkable. No free air. No significant fluid collection. Lymph nodes: Unremarkable. No enlarged lymph nodes. Bladder: Unremarkable. No mass. Reproductive: Unremarkable as visualized. Bones/joints: No acute fracture. No dislocation. Soft tissues: Unremarkable. IMPRESSION: 1. The celiac artery demonstrates a short segmental dissection near its origin. The celiac distal to this demonstrates aneurysmal dilatation measuring up to 14 mm which may reflect poststenotic dilatation. Incidental note is made of a separate origin of the left gastric artery from the aorta. 2. 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 3. The SMA demonstrates a short segmental dissection with subsequent aneurysmal dilatation measuring 1 cm. 4. The appearance of the SMA and celiac are stable compared with the prior study. Dictated and Authenticated by: Armen Navarro MD. Ordering:OMIZ Lee MD
[2019-11-24 08:38] LABS: Bilirubin Negative (Negative); Blood Negative (Negative); Clarity Clear (Clear); Glucose Negative (Negative); Ketones Negative (Negative); Leukocyte Esterase Negative (Negative); Nitrite Negative (Negative); Specific Gravity 1.015 (1.005-1.025); Urobilinogen 0.2 EU/dL (Up TO 0.2); pH 8.5 (5-8)
[2019-11-24 09:49] LABS: C-Reactive Protein < 0.05 mg/dL (0.0-0.3)
--- NOTE | 2019-11-24 09:59 | NUR.NOTE ---
Nursing Note: Pt reports returning stomach pain accompanied by headache. MD Guadarrama made aware.
[2019-11-24] MEDS: Normal Saline 250 ML IV (10:00)
[2019-11-24] MEDS: HYDROmorphone 2 MG/ML VIAL 0.5 MG IV (10:17)
[2019-11-24] MEDS: Acetaminophen 500 MG TAB 1000 MG PO (10:26)
[2019-11-24] MEDS: POTASSIUM CHLORIDE 20 MEQ/100 ML BAG 50 MEQ IVPB (10:41)
[2019-11-24 10:54] LABS: Troponin I < 0.05 ng/mL (<0.06)
== END 2019-11-24 14:45 | disposition home or self-care (01) ==
PROVIDERS: Emergency Medicine; Emergency Provider Emergency Medicine; PCP Family Medicine
DX: R11.2 Nausea with vomiting, unspecified (principal); R10.10 Upper abdominal pain, unspecified; I77.6 Arteritis, unspecified; I77.79 Dissection of other specified artery; I10 Essential (primary) hypertension; J44.9 Chronic obstructive pulmonary disease, unspecified; F17.210 Nicotine dependence, cigarettes, uncomplicated
CPT/HCPCS: 36415; 71275; 74177; 80053; 83690; 93005; 96361; 96365; 96366; 96375; 96376; 99285; 81003; 83605; 83735; 84484; 85025; 86140; 93010; J2405; J3480; J3490

== ENCOUNTER 2020-03-07 21:16 | Emergency (ER) | payer MEDICAID, SELFPAY ==
[2020-03-07 21:23] VITALS: BP 133/82; PULSE 79; RESP 18; TEMP 36.7; O2SAT 99
--- NOTE | 2020-03-07 21:30 | RT.EKG_ITS ---
APPROVED REPORT Exam: Resting ECG Patient Location: E HR:64 bpm ECG Measurements Heart Rate 64 AXIS DE 151 P 75 QRSd 87 QRS 38 QT 442 T 60 QTc 456 Conclusion Sinus rhythm...normal P axis, V-rate 60- 99 Normal Electrocardiogram
--- NOTE | 2020-03-07 21:30 | W.ED.GENAD ---
Discharge Plan Disposition Patient Disposition: [facility] Condition: Serious Discharge Details Clinical Impression: Abdominal pain Primary Care Provider: Bonita Gong ED Provider: Jud Flores Home Meds and New Rx's Prescriptions: No Action hydrochlorothiazide 25 mg tablet 25 mg PO DAILY Qty: 90 RF: 4 lisinopril 40 mg tablet 40 mg PO DAILY Qty: 90 RF: 4 atorvastatin 80 mg tablet 80 mg PO QHS Qty: 90 RF: 4 amlodipine 10 mg tablet 5 mg PO DAILY Qty: 90 RF: 4 measles,mumps,rubella vacc(PF) 1,000-12,500 TCID50/0.5 mL recon soln 0.5 ml SC ONCE Qty: 1 RF: 0 tamsulosin 0.4 mg capsule 0.4 mg PO DAILY Qty: 90 RF: 4 aspirin 81 mg tablet,delayed release (DR/EC) 81 mg PO DAILY Qty: 90 RF: 4 acetaminophen 500 mg Tablet 1,000 mg PO PRN PRNRF: 0 prednisone 20 mg tablet 25 mg PO DAILY RF: 0 ondansetron HCl [Zofran] 4 mg tablet 4 mg PO QID PRN (Reason: nausea and vomiting) Qty: 10 RF: 0 dicyclomine 10 mg capsule 10 mg PO TID PRN (Reason: spasm, bloating) Qty: 20 RF: 0 Medical Decision Making Patient is a 45-year-old male presenting today with chief complaint of sudden onset of severe abdominal pain. Patient's past medical history significant for celiac dissection with SMA thrombus, retroperitoneal fibrosis, vasculitis. He is currently being followed by rheumatology at [facility]. Recently reports that his prednisone was tapered from 20 mg to 10 mg daily. 3 hours ago he had sudden onset of severe abdominal pain. States that since then he has vomited x5. Denies any hematemesis. Reports normal bowel movement this morning. Denies any change in urinary habits. Reports severe abdominal pain with no known precipitating factors. Denies anything that makes it worse or better. Denies any fevers or chills. No recent travel. On exam, patient is writhing in pain, grimacing. Lungs are clear. His vital signs are stable. He has guarding and exquisite tenderness palpation anywhere about the abdomen but worse in the upper half of the abdomen. He has pulses equal bilaterally in lower extremities. No pulsatile mass. No ecchymosis is noted. CVA tenderness bilaterally. FAST exam was performed by myself did not appreciate any free fluid. We will treat the patient's pain and obtain blood work. I am concerned for potential recurrence of his dissection or thrombus. However, at this time our CT scanner is down and I will need to transfer the patient out for imaging. Will consult with [facility] as the patient typically receives his care at their facility. Discussed with the patient who is in agreement. Consulted with the ED attending, Dr. Hammonds who accepts the patient in transfer for continued evaluation of his severe abdominal pain. HPI General Mode of arrival: ambulatory. Date/Time Provider Initiated Documentation: 03/07/20 21:29. Limitations to Documentation: no limitations. Information obtained by: patient, RN notes reviewed and old records reviewed. History of Present Illness 45 year old M presents to the emergency department with the chief complaint of severe upper abdominal pain, described as severe and similar to prior episodes (same as when here in November), with intensity rated at 8. Quality is described as stabbing, and is localized to the abdomen. Patient reports no radiation. Patient started experiencing this hour(s) (3) and it has been constant. No relieving factors improve symptom(s), No exacerbating factors reported . Patient notes loss of appetite and nausea/vomiting (x4); denies chest pain, cough, fever/chills, rash and shortness of breath. Patient did receive the following treatments prior to arrival, none Related Data Home Medications Medication Instructions Recorded Confirmed hydrochlorothiazide 25 mg tablet 25 mg PO DAILY #90 tab 07/11/19 03/07/20 acetaminophen 1,000 mg PO PRN PRN 09/08/19 03/07/20 atorvastatin 80 mg tablet 80 mg PO QHS #90 tab 09/29/19 03/07/20 lisinopril 40 mg tablet 40 mg PO DAILY #90 tab-cap 09/29/19 03/07/20 amlodipine 10 mg tablet 5 mg PO DAILY #90 tab 10/25/19 03/07/20 dicyclomine 10 mg PO TID PRN #20 cap 11/24/19 03/07/20 ondansetron HCl [Zofran] 4 mg PO QID PRN #10 tab 11/24/19 03/07/20 prednisone 25 mg PO DAILY 11/24/19 03/07/20 aspirin 81 mg tablet,delayed 81 mg PO DAILY #90 tab 01/12/20 03/07/20 release tamsulosin 0.4 mg capsule 0.4 mg PO DAILY #90 cap 01/12/20 03/07/20 Previous Rx's Medication Instructions Recorded hydrochlorothiazide 25 mg tablet 25 mg PO DAILY #90 tab 07/11/19 atorvastatin 80 mg tablet 80 mg PO QHS #90 tab 09/29/19 lisinopril 40 mg tablet 40 mg PO DAILY #90 tab-cap 09/29/19 amlodipine 10 mg tablet 5 mg PO DAILY #90 tab 10/25/19 dicyclomine 10 mg PO TID PRN #20 cap 11/24/19 ondansetron HCl [Zofran] 4 mg PO QID PRN #10 tab 11/24/19 aspirin 81 mg tablet,delayed 81 mg PO DAILY #90 tab 01/12/20 release tamsulosin 0.4 mg capsule 0.4 mg PO DAILY #90 cap 01/12/20 Allergies Allergy/AdvReac Type Severity Reaction Status Date / Time oxycodone AdvReac Intermediate Nausea Unverified 11/24/19 07:10 codeine phosphate AdvReac Mild Nausea Unverified 11/24/19 07:10 [From Tylenol-Codeine #3] GRASS Allergy Intermediate Itching Uncoded 11/24/19 07:10 MOLDS AND SMUTS Allergy Mild Itching Uncoded 11/24/19 07:10 General Stated Complaint: Abd Prob LISA: 3 Review of Systems Constitutional Constitutional: Reports as per HPI, Denies chills, Denies fatigue, Denies fever(s) and Denies headache(s) ENT Ears, Nose, Mouth, and Throat: Denies headache(s) Cardiovascular Cardiovascular: Reports as per HPI, Denies chest pain and Denies dyspnea Respiratory Respiratory: Reports as per HPI, Denies cough and Denies dyspnea Gastrointestinal Gastrointestinal: Reports as per HPI Genitourinary Genitourinary: Denies system reviewed and no additional complaints, except as documented (patient denies any change in urinary habits) Musculoskeletal Musculoskeletal: Reports as per HPI and Denies back pain Integumentary/Breasts Skin/Breast: Reports as per HPI and Denies rash Neurologic Neurologic: Reports as per HPI and Denies headache(s) Endocrine Endocrine: Denies fatigue PFSH Medical History (Updated 03/07/20 @ 22:22 by KRISTA Matos) Celiac artery dissection COPD (chronic obstructive pulmonary disease) Essential hypertension (05/07/17) Laceration of spleen (12/10/12) 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 Mother No problems noted. Maternal Grandmother Diabetes Paternal Uncle ALS (amyotrophic lateral sclerosis) Social History Smoking/Tobacco Use Status: Former Tobacco Use Alcohol Intake: never Drug use: Occasionally Substance use type: marijuana Do you feel safe at home: Yes Do you feel safe in your relationship?: Yes Exam Const General: cooperative, healthy appearing, uncomfortable (patient is writhing, grimacing) and well developed Nutritional Appearance: average body habitus and well nourished Orientation: alert and awake HENMT Head: normal to inspection Mouth: moist mucous membranes Resp Effort & Inspection: normal respiratory effort, able to speak in complete sentences and no respiratory distress Auscultation: clear to auscultation bilaterally, no rales, no rhonchi and no wheezes Cardio Rate: regular rate Rhythm: regular rhythm Heart Sounds: S1 normal and S2 normal GI Inspection: normal to inspection Palpation: firm, guarding (diffuse), no hernias, no masses, no pulsatile masses and tender (diffuse pain) Percussion: normal to percussion Auscultation: hypoactive bowel sounds Back/Spine/Pelvis Back: CVA tenderness (bilaterally) Skin General skin exam: no rashes or lesions noted Trauma: no lacerations or abrasions Neuro General: patient alert and patient awake Cognition: normal cognition Speech: speech normal Gait: normal gait Extrem General: normal to inspection and other (2+ distal pulses) Psych Appearance: grossly normal and well kempt Mental Status: mental status grossly normal Speech and Movement: speech and movement normal Course Vital Signs Vital signs: Vital Signs Temperature 36.7 C 03/07/20 21:23 Pulse 79 03/07/20 21:23 Respiratory Rate 18 03/07/20 21:23 Blood Pressure 133/82 03/07/20 21:23 Pulse Oximetry 99 03/07/20 21:23 Temperature 36.7 C 03/07/20 21:23 Temperature Source Temporal Artery Scan 03/07/20 21:23 Pulse 79 03/07/20 21:23 Respiratory Rate 18 03/07/20 21:23 Respiratory Effort 03/07/20 21:27 Blood Pressure 133/82 03/07/20 21:23 Blood Pressure Position Supine 03/07/20 21:23 Pulse Oximetry 99 03/07/20 21:23 Oxygen Delivery Method Room Air 03/07/20 21:23 Oxygen Flow Rate 0 03/07/20 21:23 Pain Level 8 03/07/20 21:23
[2020-03-07] MEDS: HYDROmorphone 2 MG/ML VIAL 1 MG IVP ×2 (21:44→23:42)
[2020-03-07] MEDS: Ondansetron 4 MG/2 ML VIAL IVP (21:45)
[2020-03-07 21:47] LABS: Abs Immature Grans 0.11 10^3/uL (0.0-0.06); Absolute Basophil Count 0.08 10^3/uL (0.0-0.2); Absolute Eosinophil Count 0.19 10^3/uL (0.0-0.7); Absolute Lymphocyte Count 2.61 10^3/uL (1.2-3.4); Absolute Monocyte Count 1.18 10^3/uL (0.1-0.8); Absolute Neutrophil Count 14.62 10^3/uL (1.2-6.7); Basophils % 0.4; HCT 46.4 % (40.0-50.0); HGB 15.8 g/dL (13.5-17.5); Immature Grans % 0.6; Lymphocytes % 13.9; MCH 30.9 pg (27.0-33.0); MCHC 34.1 % (32.0-36.0); MCV 90.6 fL (80-95); MPV 10.3 fL (8.0-11.0); Monocytes % 6.3; Neutrophils % 77.8; Nucleated RBC 0 %; Platelet Count 260 10^3/uL (130-400); RBC 5.12 10^6/uL (4.36-5.78); RDW 12.8 % (11.8-14.1); RDW-SD 42.6 fL; WBC 18.79 10^3/uL (4.4-10.8)
[2020-03-07] MEDS: Lactated Ringers 1,000 ML 1000 ML IV (21:47)
[2020-03-07 21:56] LABS: Lipase 93 U/L (73-393); Magnesium 2.1 mg/dL (1.8-2.4)
[2020-03-07 22:04] LABS: ALT 31 U/L (16-63); AST 18 U/L (15-37); Albumin 4.5 g/dL (3.4-5.0); Alkaline Phosphatase 49 U/L (46-116); Anion Gap 9.7 mmol/L (3-11); BUN 29 mg/dL (7-18); Bilirubin, Total 0.8 mg/dL (0.2-1.0); CO2 29.3 mmol/L (21.0-32.0); CREATININE 1.17 mg/dL (0.70-1.30); Calcium 10.1 mg/dL (8.5-10.1); Chloride 102 mmol/L (98-107); Glucose 115 mg/dL (74-106); Potassium 3.5 mmol/L (3.5-5.1); Sodium 141 mmol/L (136-145); Troponin I < 0.05 ng/mL (<0.06)
[2020-03-07 22:32] VITALS: BP 106/64; PULSE 65; RESP 15; TEMP 36.6; O2SAT 97
[2020-03-07 23:46] VITALS: BP 113/71; PULSE 66; RESP 16; TEMP 36.6; O2SAT 97
== END 2020-03-07 23:51 | disposition short-term general hospital (02) ==
PROVIDERS: Emergency Provider Physician Assistant; PCP Nurse Practitioner
DX: R10.10 Upper abdominal pain, unspecified (principal); R11.2 Nausea with vomiting, unspecified; I10 Essential (primary) hypertension; J44.9 Chronic obstructive pulmonary disease, unspecified; Z87.891 Personal history of nicotine dependence
CPT/HCPCS: 36415; 80053; 83690; 93005; 96361; 96374; 96375; 96376; 99285; 83735; 84484; 85025; 93010; J2405

== ENCOUNTER 2020-04-06 13:32 | Outpatient (CLI) | payer MEDICAID, SELFPAY ==
[2020-04-06 10:01] LABS: Abs Immature Grans 0.15 10^3/uL (0.0-0.06); Absolute Basophil Count 0.06 10^3/uL (0.0-0.2); Absolute Lymphocyte Count 2.09 10^3/uL (1.2-3.4); Absolute Monocyte Count 0.59 10^3/uL (0.1-0.8); Basophils % 0.4; Eosinophils % 0.9; HCT 47.2 % (40.0-50.0); HGB 15.8 g/dL (13.5-17.5); Lymphocytes % 13.9; MCH 30.6 pg (27.0-33.0); MCHC 33.5 % (32.0-36.0); MCV 91.5 fL (80-95); Monocytes % 3.9; Neutrophils % 79.9; Nucleated RBC 0 %; Platelet Count 206 10^3/uL (130-400); RBC 5.16 10^6/uL (4.36-5.78); RDW 13.2 % (11.8-14.1); RDW-SD 45.1 fL; WBC 15.05 10^3/uL (4.4-10.8)
[2020-04-06 10:02] LABS: Absolute Eosinophil Count 0.14 10^3/uL (0.0-0.7); Absolute Neutrophil Count 12.02 10^3/uL (1.2-6.7)
[2020-04-06 10:48] LABS: ALT 37 U/L (16-63); AST 21 U/L (15-37); Albumin 4.4 g/dL (3.4-5.0); Alkaline Phosphatase 39 U/L (46-116); BUN 24 mg/dL (7-18); Bilirubin, Total 1.2 mg/dL (0.2-1.0); C-Reactive Protein < 0.05 mg/dL (0.0-0.3); CREATININE 1.18 mg/dL (0.70-1.30); Calcium 9.8 mg/dL (8.5-10.1); Chloride 100 mmol/L (98-107); Glucose 121 mg/dL (74-106); Potassium 3.4 mmol/L (3.5-5.1); Sodium 139 mmol/L (136-145); Total Protein 6.7 g/dL (6.4-8.2)
[2020-04-06 11:23] LABS: ESR 2 mm/hr (0-15)
[2020-04-10 16:07] LABS: Hepatitis C Ab w Rflx HCV PCR Negative (Negative)
[2020-04-10 16:08] LABS: Hep B Core Antibody Negative (Negative); Hepatitis B Surface Ag Negative (Negative)
[2020-04-10 16:16] LABS: HBs Antibody, Quant 16.3 mIU/mL (See Note); Hepatitis B Surface Ab Positive (See Note)
[2020-04-11 16:22] LABS: PSA, Screening 1.8 ng/mL (0-2.5)
[2020-04-11 16:32] LABS: HIV-1/2 Ag & Ab Screen Negative (Negative)
[2020-04-12 16:01] LABS: TB Interpretation Negative
== END 2020-04-06 13:52 ==
PROVIDERS: PCP Nurse Practitioner; Visit Provider Nurse Practitioner
DX: Z80.42 Family history of malignant neoplasm of prostate (principal)
CPT/HCPCS: 36415; 80053; 84153; 85652; 86704; 86706; 86803; 87340; 87389; 85025; 86140; 86480

== ENCOUNTER 2020-04-16 16:21 | Emergency (ER) | payer MEDICAID, SELFPAY ==
[2020-04-16] VITALS (24 sets, daily range): BP systolic 89–104; BP diastolic 59–68; PULSE 69–90; RESP 12–18; TEMP 36.2–37.1; O2SAT 92–97
--- NOTE | 2020-04-16 16:30 | RT.EKG_ITS ---
APPROVED REPORT Exam: Resting ECG Patient Location: E HR:80 bpm ECG Measurements Heart Rate 80 AXIS VT 135 P 85 QRSd 88 QRS 31 QT 388 T 50 QTc 446 Conclusion Sinus rhythm...normal P axis, V-rate 60- 99 ST elev, probable normal early repol pattern...ST elevation, age<55
--- NOTE | 2020-04-16 16:45 | DI.CT_ITS ---
EXAM: CT CHEST PE CTA CLINICAL HISTORY: shortness of breath, neck swelling sensation. TECHNIQUE: Imaging Protocol: Axial CT angiography was performed with multi-slice acquisition and mu lti-planar and/or 3D reconstructions. CONTRAST MATERIAL: Intravenous: Omnipaque 350 Contrast volume:80 mL COMPARISON: CT CT THORAX ABD/PEL CTA from 11/24/2019 FINDINGS: Pulmonary Arteries: No evidence of filling defect to suggest pulmonary emboli. Tracheobronchial tree: Patent where visualized. Mediastinum and Marizol: No dominant adenopathy or fluid collection. Thyroid gland is unremarkable. Pulmonary parenchyma: No consolidation or dominant measurable mass. No architectural distortion. Mild emphysematous changes. Pleura: No effusion or pneumothorax. Heart: The heart is not dilated. No coronary artery calcifications are seen. No significant pericardi al effusion. Aorta: Thoracic aorta non-dilated. No evidence of dissection. Upper abdomen: Unremarkable. Bones: Degenerative changes. Soft tissues: Unremarkable. IMPRESSION: No evidence of pulmonary embolism, thoracic aortic dissection or aneurysm. RADIATION DOSE DELIVERED: 502.08mGy.cm Total DLP DATA REPOSITORY: All CT scans at this facility are submitted to the National Radiology Data Registry (NRDR) Dose Index Registry (DIR) with the [employer] (A[employer]). RADIATION OPTIMIZATION: All CT scans at this facility use at least one of these dose optimization te chniques: automated exposure control; mA and/or kV adjustment per patient size (includes targeted exa ms where dose is matched to clinical indication); or iterative reconstruction.
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
[2020-04-16 17:22] LABS: Abs Immature Grans 0.23 10^3/uL (0.0-0.06); Absolute Lymphocyte Count 0.79 10^3/uL (1.2-3.4); Basophils % 0.3; Eosinophils % 0.1; HGB 15.4 g/dL (13.5-17.5); Immature Grans % 1.5; MCH 30.5 pg (27.0-33.0); MCHC 34.2 % (32.0-36.0); MCV 89.1 fL (80-95); MPV 9.6 fL (8.0-11.0); Monocytes % 1.6; Neutrophils % 91.5; Nucleated RBC 0 %; Platelet Count 252 10^3/uL (130-400); RBC 5.05 10^6/uL (4.36-5.78); RDW 13.2 % (11.8-14.1); RDW-SD 42.9 fL
[2020-04-16 17:23] LABS: BE (Venous) 1 mmol/L (-2-3); HCO3 (Venous) 25 mmol/L (23-28); O2 Sat (Venous) 99 %; TCO2 (Venous) 22 mmol/L (24-29); pCO2 (Venous) 37 mmHg (41-51); pH (Venous) 7.45 (7.31-7.41); pO2 (Venous) 107 mmHg
[2020-04-16 17:24] LABS: Absolute Basophil Count 0.05 10^3/uL (0.0-0.2); Absolute Eosinophil Count 0.02 10^3/uL (0.0-0.7); Absolute Monocyte Count 0.25 10^3/uL (0.1-0.8); Absolute Neutrophil Count 14.46 10^3/uL (1.2-6.7)
[2020-04-16 17:32] LABS: Prothrombin Time 10.2 sec (9.3-11.0)
[2020-04-16 17:36] LABS: Lipase 138 U/L (73-393); PTT Activated 20.1 sec (21.0-27.5)
[2020-04-16 17:47] LABS: NT-proBNP 18 pg/mL (<300)
[2020-04-16 17:50] LABS: ALT 32 U/L (16-63); AST 16 U/L (15-37); Albumin 3.9 g/dL (3.4-5.0); Alkaline Phosphatase 35 U/L (46-116); Anion Gap 10.9 mmol/L (3-11); BUN 32 mg/dL (7-18); Bilirubin, Total 0.7 mg/dL (0.2-1.0); CO2 26.1 mmol/L (21.0-32.0); CREATININE 1.68 mg/dL (0.70-1.30); Chloride 98 mmol/L (98-107); Estimated GFR 44.01 (mL/min/1.73m2); Glucose 157 mg/dL (74-106); Potassium 3.8 mmol/L (3.5-5.1); Sodium 135 mmol/L (136-145); TSH (W/Ref FT4) 0.63 uIU/mL (0.36-3.74); Total Protein 6.1 g/dL (6.4-8.2); Troponin I < 0.05 ng/mL (<0.06)
[2020-04-16] MEDS: Omnipaque 350 MG/ML 100 ML BTL IJ (18:36)
[2020-04-16] MEDS: Normal Saline - Diluent 50 ML VIAL IV (18:37)
[2020-04-16 19:02] LABS: Bilirubin Negative (Negative); Blood Negative (Negative); Clarity Clear (Clear); Glucose Negative (Negative); Ketones Negative (Negative); Leukocyte Esterase Negative (Negative); Nitrite Negative (Negative); Specific Gravity >= 1.030 (1.005-1.025); Urobilinogen 0.2 EU/dL (Up TO 0.2); pH 5.5 (5-8)
--- NOTE | 2020-04-16 19:04 | DI.VRAD_ITS ---
PROCEDURE INFORMATION: Exam: CT Angiography Chest With Contrast Exam date and time: 04/16/2020 4:57 PM Age: 45 years old Clinical indication: Shortness of breath; Patient HX: SOB, neck swelling sensation TECHNIQUE: Imaging protocol: Computed tomographic angiography of the chest with intravenous contrast. 3D rendering (Not supervised by radiologist): MIP and/or 3D reconstructed images were created by the technologist. COMPARISON: CT THORAX ABD/PEL CTA 24/11/2019 07:37 FINDINGS: Pulmonary arteries: No evidence for pulmonary embolus. Aorta: Unremarkable. No aortic aneurysm. No aortic dissection. Lungs: Mild emphysematous lung changes at the bases. Pleural space: Unremarkable. No pneumothorax. No pleural effusion. Heart: Unremarkable. No cardiomegaly. No pericardial effusion. Mediastinal space: Hiatal hernia. Lymph nodes: Unremarkable. No enlarged lymph nodes. Bones/joints: Degenerative changes of the thoracic spine. Soft tissues: Unremarkable. IMPRESSION: No acute findings. Dictated and Authenticated by: Emily Macedo MD. Ordering:CHERI Hummel MD
[2020-04-16] MEDS: Normal Saline 1,000 ML 1000 ML IV (19:06)
[2020-04-22 15:02] LABS: Patient Race White; SARS-CoV-2 RNA Undetected (Undetected); SARS-CoV-2 Specimen Source Nasopharynx
--- NOTE | 2020-04-23 11:34 | NUR.NOTE ---
Spoke with patient, verified identity and relayed negative covid and flu test results to patient.
== END 2020-04-16 20:00 | disposition home or self-care (01) ==
PROVIDERS: Emergency Provider Emergency Medicine; PCP Nurse Practitioner
DX: R06.02 Shortness of breath (principal); R53.83 Other fatigue; E86.0 Dehydration; N17.9 Acute kidney failure, unspecified; D80.3 Selective deficiency of immunoglobulin G [IgG] subclasses; I10 Essential (primary) hypertension; Z11.59 Encounter for screening for other viral diseases; J44.9 Chronic obstructive pulmonary disease, unspecified; Z87.891 Personal history of nicotine dependence
CPT/HCPCS: 36415; 71275; 80053; 82805; 83690; 87040; 87449; 93005; 96360; 99285; U0003; 81003; 83605; 83735; 83880; 84443; 84484; 85025; 85610; 85730; 93010; J3490

== ENCOUNTER 2020-08-20 03:17 | Outpatient (CLI) | payer MEDICAID, SELFPAY ==
[2020-08-20 13:39] LABS: Abs Immature Grans 0.03 10^3/uL (0.0-0.06); Absolute Eosinophil Count 0.16 10^3/uL (0.0-0.7); Absolute Lymphocyte Count 1.32 10^3/uL (1.2-3.4); Absolute Monocyte Count 0.45 10^3/uL (0.1-0.8); Eosinophils % 1.4; HCT 46.3 % (40.0-50.0); HGB 15.2 g/dL (13.5-17.5); Immature Grans % 0.3; Lymphocytes % 11.5; MCH 30.5 pg (27.0-33.0); MCHC 32.8 % (32.0-36.0); MCV 92.8 fL (80-95); MPV 10.4 fL (8.0-11.0); Monocytes % 3.9; Neutrophils % 81.9; Nucleated RBC 0 %; Platelet Count 230 10^3/uL (130-400); RBC 4.99 10^6/uL (4.36-5.78); RDW 12.8 % (11.8-14.1); RDW-SD 43.5 fL; WBC 11.52 10^3/uL (4.4-10.8)
[2020-08-20 13:47] LABS: Absolute Basophil Count 0.12 10^3/uL (0.0-0.2); Absolute Neutrophil Count 9.43 10^3/uL (1.2-6.7)
[2020-08-20 15:12] LABS: Lipase 845 U/L (73-393)
[2020-08-20 15:13] LABS: ALT 25 U/L (16-63); AST 16 U/L (15-37); Albumin 4.4 g/dL (3.4-5.0); Alkaline Phosphatase 55 U/L (46-116); Anion Gap 9.7 mmol/L (3-11); BUN 17 mg/dL (7-18); Bilirubin, Total 0.6 mg/dL (0.2-1.0); CO2 30.3 mmol/L (21.0-32.0); CREATININE 1.1 mg/dL (0.70-1.30); Calcium 9.8 mg/dL (8.5-10.1); Chloride 104 mmol/L (98-107); Glucose 109 mg/dL (74-106); Potassium 3.5 mmol/L (3.5-5.1); Sodium 144 mmol/L (136-145)
[2020-08-20 15:21] LABS: C-Reactive Protein < 0.05 mg/dL (0.0-0.3)
[2020-08-20 18:49] LABS: ESR 1 mm/hr (<or=15)
== END 2020-08-20 03:18 | disposition home or self-care (01) ==
LOC: LBO 03:17
PROVIDERS: Family Medicine; PCP Nurse Practitioner
DX: I77.79 Dissection of other specified artery (principal); N28.0 Ischemia and infarction of kidney; Z80.42 Family history of malignant neoplasm of prostate; Z12.5 Encounter for screening for malignant neoplasm of prostate; R74.8 Abnormal levels of other serum enzymes
CPT/HCPCS: 36415; 80053; 83690; 84153; 85652; 85025; 86140

== ENCOUNTER 2020-09-17 01:59 | Outpatient (CLI) | payer MEDICAID, SELFPAY ==
--- NOTE | 2020-09-17 07:00 | DI.US_ITS ---
EXAM: US ABDOMEN CLINICAL HISTORY: elevated amylase,r74.8 TECHNIQUE: Ultrasound of complete upper abdomen performed using standard protocol. COMPARISON: US US EXTREMITY VENOUS BI from 09/10/[address] ABDOMEN PELVIS CTA from 09/12/2019 was reviewed FINDINGS: There is no ascites evident. LIVER: There are no hepatic lesions evident nor obvious dilatation of intrahepatic ducts. GALLBLADDER/BILIARY: There are no gallstones. No gallbladder wall edema nor pericholecystic fluid. The common hepatic duct isnot dilated, measuring 3mm at the level of dewey hepatis. PANCREAS: There is no evidence of pancreatic mass nor dilatation of the pancreatic duct. SPLEEN: The spleen is not enlarged and there are no intrasplenic lesions evident. KIDNEYS:Kidneys exhibit normal size with no evidence of solid mass, calculus, nor hydronephrosis. No cortical cysts evident. ABDOMINAL AORTA: There is no evidence of abdominal aortic aneurysm. IVC: Normal diameter where visualized. IMPRESSION: 1. No evidence of cholelithiasis nor dilatation of the biliary tree. 2. No other significant ultrasound findings in the upper abdomen. 3. There is no ascites. DATA REPOSITORY:
== END 2020-09-17 02:19 ==
PROVIDERS: PCP Nurse Practitioner; Visit Provider Nurse Practitioner
DX: R74.8 Abnormal levels of other serum enzymes (principal)
CPT/HCPCS: 76700

== ENCOUNTER 2020-09-17 04:15 | Outpatient (CLI) | payer MEDICAID, SELFPAY ==
[2020-09-17 09:01] LABS: ALT 23 U/L (16-63); AST 17 U/L (15-37); Alkaline Phosphatase 48 U/L (46-116); Bilirubin, Total 0.5 mg/dL (0.2-1.0); CREATININE 0.9 mg/dL (0.70-1.30); Calculated LDL 73 mg/dL (<100); Cholesterol 151 mg/dL (<200); HDL Cholesterol 54 mg/dL (40-60); Potassium 3.9 mmol/L (3.5-5.1); Total Protein 6.3 g/dL (6.4-8.2); Triglyceride 124 mg/dL (<150)
[2020-09-17 09:09] LABS: Amylase 69 U/L (25-115); Bilirubin, Direct 0.1 mg/dL (0.0-0.2)
== END 2020-09-17 04:16 | disposition home or self-care (01) ==
LOC: LBO 04:15
PROVIDERS: PCP Nurse Practitioner; Visit Provider Nurse Practitioner
DX: I10 Essential (primary) hypertension (principal); R74.8 Abnormal levels of other serum enzymes; Z13.6 Encounter for screening for cardiovascular disorders
CPT/HCPCS: 36415; 80061; 80076; 82150; 82565; 84132

== ENCOUNTER 2021-03-11 04:05 | Outpatient (CLI) | payer MEDICAID, SELFPAY ==
[2021-03-11 12:23] LABS: Abs Immature Grans 0.03 10^3/uL (0.0-0.06); Absolute Basophil Count 0.08 10^3/uL (0.0-0.2); Absolute Eosinophil Count 0.22 10^3/uL (0.0-0.7); Absolute Lymphocyte Count 1.28 10^3/uL (1.2-3.4); Absolute Monocyte Count 0.47 10^3/uL (0.1-0.8); Absolute Neutrophil Count 6.48 10^3/uL (1.2-6.7); Basophils % 0.9; Eosinophils % 2.6; HCT 45.5 % (40.0-50.0); HGB 14.9 g/dL (13.5-17.5); Immature Grans % 0.4; MCH 29.4 pg (27.0-33.0); MCHC 32.7 % (32.0-36.0); MCV 89.7 fL (80-95); MPV 11.3 fL (8.0-11.0); Monocytes % 5.5; Neutrophils % 75.6; Nucleated RBC 0 %; Platelet Count 195 10^3/uL (130-400); RBC 5.07 10^6/uL (4.36-5.78); RDW 13.2 % (11.8-14.1); RDW-SD 43.2 fL; WBC 8.56 10^3/uL (4.4-10.8)
[2021-03-11 12:31] LABS: ESR < 1 mm/hr (0-15)
[2021-03-11 13:19] LABS: ALT 24 U/L (16-63); AST 17 U/L (15-37); Albumin 4.3 g/dL (3.4-5.0); Alkaline Phosphatase 57 U/L (46-116); Anion Gap 5.8 mmol/L (3-11); BUN 14 mg/dL (7-18); Bilirubin, Total 0.7 mg/dL (0.2-1.0); CO2 33.2 mmol/L (21.0-32.0); CREATININE 1.1 mg/dL (0.70-1.30); Calcium 9.5 mg/dL (8.5-10.1); Chloride 106 mmol/L (98-107); Glucose 91 mg/dL (74-106); Potassium 3.8 mmol/L (3.5-5.1); Sodium 145 mmol/L (136-145); Total Protein 6.7 g/dL (6.4-8.2)
[2021-03-11 13:20] LABS: C-Reactive Protein < 0.05 mg/dL (0.0-0.3)
== END 2021-03-11 04:06 | disposition home or self-care (01) ==
PROVIDERS: PCP Nurse Practitioner; Visit Provider Student in an Organized Health Care Education/Training Program
DX: D89.89 Other specified disorders involving the immune mechanism, not elsewhere classified (principal)
CPT/HCPCS: 36415; 80053; 85652; 85025; 86140

== ENCOUNTER 2021-04-01 02:12 | Outpatient (CLI) | payer MEDICAID, SELFPAY ==
[2021-04-01 11:28] LABS: Source Nasal/Nares
[2021-04-01 17:01] LABS: COVID-19 PCR Negative (Negative)
== END 2021-04-01 02:13 | disposition home or self-care (01) ==
LOC: LBO 02:13
PROVIDERS: PCP Nurse Practitioner; Visit Provider Surgery
DX: Z20.822 Contact with and (suspected) exposure to COVID-19 (principal); Z01.818 Encounter for other preprocedural examination
CPT/HCPCS: 87635

== ENCOUNTER 2021-04-02 06:19 | Day surgery (SDC) | payer MEDICAID, SELFPAY ==
[2021-04-02 06:35] VITALS: BP 118/83; PULSE 53; RESP 17; TEMP 36.4; O2SAT 98
--- NOTE | 2021-04-02 07:51 | SKI_PTH ---
PATIENT: Rober Oropeza LOC: [facility] U#:[id number] AGE/SX: 46/M ROOM: RE04/02/[address]: Anali Starkey : 1975 BED: DIS: 04/02/2021 SPEC #: [id number] RECD: 04/02/21 12:32 STATUS: NIK REQ #: [id number] KALYANI: 04/02/21 07:[address]: Anali Starkey DEPT: Surgical Specimen RECD BY: Gina Garcia ENTERED: 04/02/21 12:32 SP TYPE: NIC JADE DR: Bonita Gong, PhD MANAGER CARGO Tissues: 1 - SKIN CYST/TAG/DEBRIDEMENT Procedures: GROSS AND MICRO LEVEL 3 Comments: [id number]
[2021-04-02] MEDS: Bacitracin 30 GM TUBE (08:02)
--- NOTE | 2021-04-02 08:12 | W.PM.DSUDISC ---
Discharge Plan Disposition Patient Disposition: HOME Condition: Good Discharge Details Reason For Visit: lesion removal Attending Provider: Anali Starkey Primary Care Provider: Bonita Gong Home Meds and New Rx's Prescriptions: Continued measles,mumps,rubella vacc(PF) 1,000-12,500 TCID50/0.5 mL recon soln 0.5 ml SC ONCE Qty: 1 RF: 0 rituximab 10 mg/mL concentrate 100 mg IV [id number] RF: 0 Myrbetriq 50 mg tablet extended release 24 hr 50 mg PO DAILY Qty: 90 RF: 4 multivitamin Tablet 1 tab PO DAILY RF: 0 Probiotic 3 billion cell capsule 3,000 mmu cells PO DAILY RF: 0 ascorbic acid (vitamin C) 500 mg capsule PO RF: 0 prednisone 5 mg tablet 5 mg PO DAILY RF: 0 lisinopril 20 mg tablet 20 mg PO DAILY Qty: 90 RF: 3 aspirin 81 mg tablet,delayed release (DR/EC) 81 mg PO DAILY Qty: 90 RF: 4 atorvastatin 80 mg tablet 80 mg PO QHS Qty: 90 RF: 4 hydrochlorothiazide 25 mg tablet 25 mg PO DAILY Qty: 90 RF: 4 acetaminophen 500 mg Tablet 1,000 mg PO PRN PRNRF: 0 ondansetron HCl [Zofran] 4 mg tablet 4 mg PO QID PRN (Reason: nausea and vomiting) Qty: 10 RF: 0 dicyclomine 10 mg capsule 10 mg PO TID PRN (Reason: spasm, bloating) Qty: 20 RF: 0 Discharge Instructions Additional Instructions: Caring for Your Incision You?ll need to help care for your incision after surgery and certain medical procedures. To close an incision, your healthcare provider used stitches (sutures), special strips of surgical tape called Steri-Strips, surgical salvatore, or surgical skin glue. Follow the tips on this sheet to help stop bleeding, speed healing, and prevent infection of your incision. Pain Control Use ice! Ice keeps the swelling down and swelling is what causes pain. Never apply ice directly to the skin. Wrap it in a towel or cloth. Apply ice 20 minutes on and 20 minutes off for pain control. Use as needed. Take tylenol 500 mg by mouth with food every 4 hours as needed for pain. Do not take tylenol if you have a history of heavy drinking , hepatits C or liver problems. Wash w/ soap and water twice a day. Apply bacitracin twice a day Types of incision closures ? Surgical stitches (sutures) are placed by sewing the edges of an incision together with surgical thread. Sutures are either absorbable or non-absorbable. Absorbable sutures break down in the body over time. Non-absorbable sutures need to be removed. ? Home care ? Always wash your hands before touching your incision. ? Keep the incision clean, dry, and out of water, keep the incision out of water. ? Do not to pick at the scabs. Scabs help protect the wound. ? You can take a shower in 24 hours and wash the incision with soap and water. Pat dry/don?t scrub. It?s OK to wash around the incision. But don?t spray water directly on it. ? Pat stitches dry if they get wet. Don't rub. ? Check the incision site daily for pain, redness, drainage, swelling, or separation of the incision edges. ? If there is a bandage (dressing) over the incision, change this every 24 hours as instructed by your provider. Using clean hands change the dressing as directed by your healthcare provider. Always wash your hands before changing your dressing. ? Make sure any clothing that touches the incision is loose-fitting. This will prevent rubbing. If the incision is on the head, keep your child from wearing caps or other head coverings. These may rub against the incision. ? Try to avoid from rough play, contact sports, or physical activities for two weeks. This can put you at risk of opening the incision. ? Make sure you avoid doing things that could cause dirt or sweat to get in or on the incision. As your incision heals, the skin may appear pink or red. It may also feel slightly bumpy or raised. This is called a healing ridge. Over time, the color should fade and the raised skin will become less noticeable. Care for specific closures : ? Sutures or salvatore. Once you no longer need to keep these dry, clean the incision or wound daily, generally after the first 24 hours. First remove the bandage using clean hands. Then wash the area gently with soap and warm water. Use a wet cotton swab to loosen and remove any blood or crust that forms. After cleaning, put a thin layer of antibiotic ointment on. Then put on a new bandage. Follow-up care Salvatore or sutures generally need to be removed in 7-10 days. Be sure to return for suture or staple removal as directed. If dissolving stitches were used in your mouth, these will not need to be removed. They should fall out or dissolve on their own. If tape closures were used, remove them yourself when your healthcare provider tells you to if they have not fallen off on their own. When to seek medical care Call your healthcare provider right away if you have any of these: ? More pain, redness, swelling, bleeding, or foul-smelling discharge around the incision area ? Fever of 101?F (38.3?C) or higher, or as directed by your child's healthcare provider ? Shaking chills ? Vomiting or nausea that doesn?t go away ? Numbness, coldness, or tingling around the incision area, or changes in skin color ? Opening of the sutures or wound Stitches or salvatore come apart or fall out or surgical tape falls off before 7 days, or as directed by your healthcare provider [facility] to make appt w/ Dr. Starkey in 10 days. [phone] Activity:: see above Remove Dressings/Wound Care:: 24 hours Shower/Bathe:: 24 hours Diet:: As Tolerated Discharge Orders Discharge Orders: Discharge Order (Routine); Ordered 04/02/21 Ordered By: Anali Starkey DS: Diagnosis Discharge Diagnosis (1) Skin lesion: Status: Acute
--- NOTE | 2021-04-02 08:17 | ROE_ITS ---
Date of service: 04/02/21 Time of Service: 08:18 Operative Note Operative Note DATE OF PROCEDURE: 04/02/21 PRE-OP DIAGNOSIS: cyst behind right ear POST-OP DIAGNOSIS: same PROCEDURE: excision 1x1cm SURGEON: Anali Starkey MARINE SAFETY OFFICER: Anali Starkey ANESTHESIA TYPE: Local By Surgeon Refer to Anesthesia Record ESTIMATED BLOOD LOSS: 3 PATHOLOGY: other Patient was transported to: same day Patient's condition: stable Procedure Description: Patient is here today for cyst excision. He is seen in preop and the lesion is marked. Risks include bleeding, infection, nonhealing because of his medications. Patient is brought back to the operative suite and placed in the left lateral decubitus position. The area was prepped and draped in usual sterile fashion using a ChloraPrep scrub solution. Timeout is performed. The areas right posterior ear is anesthetized with 10 cc of quarter percent cocaine plain. The lesion is 1 x 1 cm. The incision is 2 x 1 cm. It is excised with a number 15 blade. It is irrigated. Electrocautery is used to provide hemostasis. Lesion was undermined. It is closed in single layer with 4-0 nylon. Bacitracin is applied. May not be able to have a dressing in this area. Specimen is sent to pathology. Patient tolerated procedure well without complication and transferred back to same-day surgery. He was given instructions in wound care, activity, warning signs, pain control. He has an appointment to follow-up in 10 days. If he has any questions or concerns he should contact our office.
[2021-04-02] MEDS: Acetaminophen 500 MG TAB 1000 MG PO (08:22)
[2021-04-02 08:35] VITALS: BP 127/84; PULSE 53; RESP 18; TEMP 36.3; O2SAT 98
== END 2021-04-02 08:35 | disposition home or self-care (01) ==
PROVIDERS: PCP Nurse Practitioner; Visit Provider Surgery
PROC: (CPT 11442; principal; 2021-04-02 07:30)
DX: L98.8 Other specified disorders of the skin and subcutaneous tissue (principal)
CPT/HCPCS: 11442; 88304

== ENCOUNTER 2021-04-15 09:49 | Outpatient (REF) | payer MEDICAID, SELFPAY ==
[2021-04-15 09:24] LABS: Source Nasal/Nares
[2021-04-15 10:15] LABS: COVID-19 PCR Negative (Negative)
== END 2021-04-15 09:50 | disposition home or self-care (01) ==
LOC: LBN 09:49
PROVIDERS: PCP Nurse Practitioner; Visit Provider Surgery
DX: Z20.822 Contact with and (suspected) exposure to COVID-19 (principal); Z01.818 Encounter for other preprocedural examination
CPT/HCPCS: 87635

== ENCOUNTER 2021-04-16 09:22 | Day surgery (SDC) | payer MEDICAID, SELFPAY ==
--- NOTE | 2021-04-15 22:07 | ROE_ITS ---
Date of service: 04/16/21 Operative Note Operative Note DATE OF PROCEDURE: 04/16/21 PRE-OP DIAGNOSIS: squamous acanthoma POST-OP DIAGNOSIS: same SURGEON: Anali Starkey TRUSTEE OF ESTATE: Kimi Maya ANESTHESIA TYPE: Local By Surgeon and MAC Refer to Anesthesia Record ESTIMATED BLOOD LOSS: 2 PATHOLOGY: other Patient was transported to: same day Procedure Description: Patient is here today for reexcision of sinus tract. Informed consent is obtained explaining risks and benefits of procedure including but not limited to: Bleeding, infection, scarring, need for further surgery, anesthesia, and need to heal by secondary intent. Patient is brought to the operative suite room suite and placed in the left lateral decubitus position. IV sedation is administered per the department of anesthesia. He did receive preop antibiotics. Area prepped and draped in the usual sterile fashion with Betadine scrub solution. Timeout is performed. The area is localized with 10 cc of 1/4% Marcaine. The to of the lesion are excised. The floor the lesion is excised. This tissue specimen sent for pathology. The to are curetted to ensure we have all the sinus tract removal. Electrocautery is used to provide hemostasis. The lesion is closed with 3-0 nylon. 10cc of long- acting liposomal lidocaine is instilled at the closure. sterile dressing is applied. Patient was transferred to the recovery room in stable [facility]
--- NOTE | 2021-04-15 22:08 | W.PM.DSUDISC ---
Discharge Plan Disposition Patient Disposition: HOME Condition: Good Discharge Details Reason For Visit: excision sinus tract Attending Provider: Anali Starkey Primary Care Provider: Bonita Gong Home Meds and New Rx's Prescriptions: New cephalexin 500 mg capsule 500 mg PO BID 5 Days Qty: 10 RF: 0 tramadol [Ultram] 50 mg tablet 50 mg PO Q6H PRNQty: 10 RF: 0 Continued measles,mumps,rubella vacc(PF) 1,000-12,500 TCID50/0.5 mL recon soln 0.5 ml SC ONCE Qty: 1 RF: 0 rituximab 10 mg/mL concentrate 100 mg IV [id number] RF: 0 Myrbetriq 50 mg tablet extended release 24 hr 50 mg PO DAILY Qty: 90 RF: 4 multivitamin Tablet 1 tab PO DAILY RF: 0 Probiotic 3 billion cell capsule 3,000 mmu cells PO DAILY RF: 0 ascorbic acid (vitamin C) 500 mg capsule 500 mg PO DAILY RF: 0 prednisone 5 mg tablet 5 mg PO DAILY RF: 0 lisinopril 20 mg tablet 20 mg PO DAILY Qty: 90 RF: 3 aspirin 81 mg tablet,delayed release (DR/EC) 81 mg PO DAILY Qty: 90 RF: 4 atorvastatin 80 mg tablet 80 mg PO QHS Qty: 90 RF: 4 hydrochlorothiazide 25 mg tablet 25 mg PO DAILY Qty: 90 RF: 4 acetaminophen 500 mg Tablet 1,000 mg PO PRN PRNRF: 0 ondansetron HCl [Zofran] 4 mg tablet 4 mg PO QID PRN (Reason: nausea and vomiting) Qty: 10 RF: 0 dicyclomine 10 mg capsule 10 mg PO TID PRN (Reason: spasm, bloating) Qty: 20 RF: 0 Discharge Instructions Additional Instructions: Caring for Your Incision You?ll need to help care for your incision after surgery and certain medical procedures. To close an incision, your healthcare provider used stitches (sutures), special strips of surgical tape called Steri-Strips, surgical salvatore, or surgical skin glue. Follow the tips on this sheet to help stop bleeding, speed healing, and prevent infection of your incision. Pain Control Use ice! Ice keeps the swelling down and swelling is what causes pain. Never apply ice directly to the skin. Wrap it in a towel or cloth. Apply ice 20 minutes on and 20 minutes off for pain control. Use as needed. Take tylenol 500 mg by mouth with food every 6 hours as needed for pain. Or ibuprofen 600 mg by mouth with food every 6 hours as needed for pain. Do not take tylenol if you have a history of heavy drinking , hepatits C or liver problems. Do not take ibuprofen if you have a history of stomach ulcers/problems, bleeding problem or kidney issues. You also have ultram for pain >7. -You also have a prescription for cephalexin, which is an antibiotic. Take this daily until gone. Probiotic daily while on antibiotics. F/u in clinic 04/22 at 3pm. -wash w/ soap and water twice a day and apply antibiotic ointment. Types of incision closures ? Surgical stitches (sutures) are placed by sewing the edges of an incision together with surgical thread. Sutures are either absorbable or non-absorbable. Non-absorbable sutures need to be removed- in 2 wks time. ? Home care ? Always wash your hands before touching your incision. ? Keep the incision clean, dry, and out of water, keep the incision out of water. ? Do not to pick at the scabs. Scabs help protect the wound. ? You can take a shower in 24 hours and wash the incision with soap and water. Pat dry/don?t scrub. It?s OK to wash around the incision. But don?t spray water directly on it. ? Pat stitches dry if they get wet. Don't rub. ? Check the incision site daily for pain, redness, drainage, swelling, or separation of the incision edges. ? If there is a bandage (dressing) over the incision, change this every 24 hours as instructed by your provider. Using clean hands change the dressing as directed by your healthcare provider. Always wash your hands before changing your dressing. ? Make sure any clothing that touches the incision is loose-fitting. This will prevent rubbing. If the incision is on the head, keep your child from wearing caps or other head coverings. These may rub against the incision. ? Try to avoid from rough play, contact sports, or physical activities for two weeks. This can put you at risk of opening the incision. ? Make sure you avoid doing things that could cause dirt or sweat to get in or on the incision. As your incision heals, the skin may appear pink or red. It may also feel slightly bumpy or raised. This is called a healing ridge. Over time, the color should fade and the raised skin will become less noticeable. Care for specific closures : ? Sutures or salvatore. Once you no longer need to keep these dry, clean the incision or wound daily, generally after the first 24 hours. First remove the bandage using clean hands. Then wash the area gently with soap and warm water. Use a wet cotton swab to loosen and remove any blood or crust that forms. After cleaning, put a thin layer of antibiotic ointment on. Then put on a new bandage. Follow-up care Salvatore or sutures generally need to be removed in 7-10 days. Be sure to return for suture or staple removal as directed. If dissolving stitches were used in your mouth, these will not need to be removed. They should fall out or dissolve on their own. If tape closures were used, remove them yourself when your healthcare provider tells you to if they have not fallen off on their own. When to seek medical care Call your healthcare provider right away if you have any of these: ? More pain, redness, swelling, bleeding, or foul-smelling discharge around the incision area ? Fever of 101?F (38.3?C) or higher, or as directed by your child's healthcare provider ? Shaking chills ? Vomiting or nausea that doesn?t go away ? Numbness, coldness, or tingling around the incision area, or changes in skin color ? Opening of the sutures or wound Stitches or salvatore come apart or fall out or surgical tape falls off before 7 days, or as directed by your healthcare provider [facility] make appt w/ Dr. Starkey in 10 days. [phone] Activity:: see above Remove Dressings/Wound Care:: 24 hours Shower/Bathe:: 24 hours Diet:: see above Discharge Orders Discharge Orders: Discharge Order (Routine); Ordered 04/15/21 Ordered By: Anali Starkey DS: Diagnosis Discharge Diagnosis (1) Squamous acanthoma of external ear: Status: Acute (2) COPD (chronic obstructive pulmonary disease): Status: Chronic (3) Skin lesion: Status: Deleted (4) IgG4 related disease: Status: Acute (5) Lower urinary tract symptoms (LUTS): Status: Acute (6) Retroperitoneal fibrosis: Status: Acute (7) Essential hypertension: Status: Chronic
--- NOTE | 2021-04-16 07:26 | W.ANESPRE ---
General Info Date of Service Date Performed: 04/16/21 Height: 6 ft Weight: 83.007 kg Body Mass Index (BMI): 24.8 Surgical Procedure: Operation Date: 04/16/21 10:55 Proposed Procedures Side Surgeon p Excision Cyst RIGHT POSTERIOR EAR Right Anali Starkey, DO Meds Allergies and Home Medications Allergies Allergy/AdvReac Type Severity Reaction Status Date / Time oxycodone AdvReac Intermediate Nausea Verified 04/16/21 09:42 codeine phosphate AdvReac Mild Nausea Verified 04/16/21 09:42 [From Tylenol-Codeine #3] morphine AdvReac Verified 04/16/21 09:42 GRASS Allergy Intermediate Itching Uncoded 04/16/21 09:42 MOLDS AND SMUTS Allergy Mild Itching Uncoded 04/16/21 09:42 Home Medication Medication Instructions Recorded acetaminophen 1,000 mg PO PRN PRN 09/08/19 dicyclomine 10 mg PO TID PRN #20 cap 11/24/19 ondansetron HCl [Zofran] 4 mg PO QID PRN #10 tab 11/24/19 lisinopril 20 mg tablet 20 mg PO DAILY #90 tab 05/29/20 aspirin 81 mg tablet,delayed 81 mg PO DAILY #90 tab 07/17/20 release atorvastatin 80 mg tablet 80 mg PO QHS #90 tab 07/27/20 rituximab 10 mg/mL 100 mg IV [id number] ml 08/30/20 concentrate,intravenous hydrochlorothiazide 25 mg tablet 25 mg PO DAILY #90 tab 10/04/20 mirabegron 50 mg tablet,extended 50 mg PO DAILY #90 tab 12/28/20 release 24 hr ascorbic acid (vitamin C) 500 mg mg PO 01/14/21 capsule lactobacillus combination no.4 3 3,000 mmu cells PO DAILY 01/14/21 billion cell capsule multivitamin 1 tab PO DAILY 01/14/21 prednisone 5 mg tablet 5 mg PO DAILY 01/14/21 Current Visit Medications: Current Medications Generic Name Dose Route Start Last Admin Trade Name Freq PRN Reason Stop Dose Admin Acetaminophen 1,000 mg 04/16/21 06:00 Acetaminophen 500 Mg Tab PO 05/15/21 23:59 PREOP VIVIAN Gabapentin 600 mg 04/16/21 06:00 Gabapentin 300 Mg Cap PO 05/15/21 23:59 PREOP VIVIAN Ringer's Solution 1,000 mls @ 80 mls/hr 04/16/21 06:00 IV 05/15/21 23:59 INFUSION VIVIAN Cefazolin Sodium/Dextrose 2 gm in 50 mls @ 100 mls/hr 04/16/21 06:00 Ancef Duplex IVPB 05/15/21 23:59 PREOP VIVIAN Ondansetron HCl 4 mg/ Sodium 52 mls @ 200 mls/hr 04/15/21 22:05 Chloride IVPB Q6H PRN PRN IV Miscellaneous Supplies 1 each 04/16/21 06:00 Iv Access IV 05/15/21 23:59 DIRECTED VIVIAN Morphine Sulfate 2 mg 04/15/21 22:05 Morphine 4 Mg/Ml Syr IVP Q1H PRN PRN Sodium Chloride 0 ml 04/16/21 06:00 Normal Saline Flush 10 Ml Syr IV 05/15/21 23:59 PRN PRN Sodium Chloride 0 ml 04/16/21 06:00 Normal Saline 10 Ml Vial IJ 05/15/21 23:59 DIRECTED PRN Sterile Water 0 ml 04/16/21 06:00 Water,Injection,Sterile 10 Ml Vial IJ 05/15/21 23:59 DIRECTED PRN Tramadol HCl 50 mg 04/15/21 22:05 Tramadol 50 Mg Tab PO Q6H PRN PRN Pain PFSH Active Problems Active Problems: Problem Status Onset Code Squamous acanthoma of external ear D23.20 COPD (chronic obstructive pulmonary disease) J44.9 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 Elevated amylase R74.8 Lower urinary tract symptoms (LUTS) R39.9 Family history of prostate cancer Z80.42 Low back pain potentially associated with radiculopathy M54.5 Retroperitoneal fibrosis N13.5 Essential hypertension 05/07/17 I10 Bradycardia R00.1 Medical History Medical History 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 smoked 34 years , under 20 cigs a day Superior mesenteric artery thrombosis Surgical History Surgical History History of removal of cyst (~04/02/21) behind Right ear No significant past surgical history Tobacco Smoking/Tobacco Use Status: Former Tobacco Use Tobacco: How many years used: 1 Passive smoking exposure: Yes Second hand exposure: Yes Substance Use Substance use: Daily Substance use type: marijuana and prescription drug Details: last 04.01.21 Vital Signs and Lab Results Lab Results Blood Type / Crossmatch: No Data to Display Complete Blood Count: No Data to Display Complete Metabolic Panel: No Data to Display Liver Function Panel: No Data to Display Coagulation Panel: No Data to Display Cardiac Panel: No Data to Display Arterial Blood Gas: No Data to Display Venous Blood Gas: No Data to Display Pancreas Panel: No Data to Display Thyroid Panel: No Data to Display Infectious Disease: Coronavirus (COVID-19)(PCR) Negative (Negative) 04/15/21 09:09 04/15/21 Coronavirus 2019 Source Nasal/Nares 04/15/21 09:09 04/15/21 Blood Cultures: No Data to Display Toxicology Panel: No Data to Display Imaging and Studies Imaging and Studies EKG Summary: Conclusion Sinus rhythm...normal P axis, V-rate 60- 99 ST elev, probable normal early repol pattern...ST elevation, age<55 Stress Test Summary: Impressions: - Blood pressure response was hypertensive with stress. - Normal myocardial perfusion and contraction after maximal exercise. - Low risk of cardiac events. Summary: 1. Myocardial perfusion imaging: No myocardial perfusion defects noted. 2. The calculated left ventricular ejection fraction after stress: 47% (underestimated) . Left ventricular ejection fraction is within normal limits by visual estimate. No left ventricular regional motion abnormality. 3. Stress ECG conclusions: The stress ECG is negative. 4. Stress: The target heart rate was achieved. There is resting hypertension with a hypertensive response to stress (peak blood pressure 210/105). The patient experienced no chest pain during stress. Exercise capacity is excellent. Recommendations: Consider anti-hypertensive medications. Anesthesia Assessment and Plan Anesthesia History Personal History: No History of Anesthesia Complications Family History: No Family History of Anesthesia Complications Exercise Tolerance Exercise Tolerance: Metabolic Equivalents>4 Pertinent Negatives Pertinent Negatives: No Symptoms of GERD, No Major Cardiovascular Symptoms or Complaints, No Major Pulmonary Symptoms or Complaints and No History of CVA/TIA Cardiac & Pulmonary Exam Cardiac Exam: Normal S1/S2 Heart Sounds Pulmonary Exam: Clear Bilateral Breath Sounds Implantable Cardiac Device Does patient have a Pacemaker or an ICD?: No Airway Exam Known Difficult Airway: No Mallampati Class: 2 Mouth Opening: Normal (> 3cm) Thyromental Distance: Greater than 3 cm Neck Range of Motion: Full ROM Neck Circumference: Normal Teeth Condition: Normal Dentition ASA Classification ASA Score: ASA 2 Emergency Case?: No NPO Status NPO Status: NPO Clears >2 hours, Solids >8 hours Anesthesia Plan Resuscitation Status: Full Code Anesthesia Technique: General Anesthesia Airway Planned: Natural Airway Monitors Used: Standard Monitors
[2021-04-16 09:29] VITALS: BP 129/93; PULSE 62; RESP 16; TEMP 36.3; O2SAT 99
[2021-04-16 11:26] VITALS: BMI 24.8
[2021-04-16] MEDS: predniSONE 5 MG TAB PO (12:37)
[2021-04-16] MEDS: Gabapentin 300 MG CAP 600 MG PO (12:38)
[2021-04-16] MEDS: Acetaminophen 500 MG TAB 1000 MG PO (12:38)
[2021-04-16] MEDS: Lactated Ringers 1,000 ML 80 ML IV (12:45)
[2021-04-16] MEDS: Bupivacaine 0.25% Pres-Free 30 ML VIAL (13:30)
[2021-04-16] MEDS: Bacitracin 30 GM TUBE (13:40)
--- NOTE | 2021-04-16 13:50 | SKI_PTH ---
PATIENT: Rober Oropeza LOC: [facility] U#:[id number] AGE/SX: 46/M ROOM: RE04/16/[address]: Anali Starkey : 1975 BED: DIS: 04/16/2021 SPEC #: [id number] RECD: 04/16/21 18:25 STATUS: NIK RE #: [id number] KALYANI: 04/16/21 13:[address]: Anali Starkey DEPT: Surgical Specimen RECD BY: Gina Garcia ENTERED: 04/16/21 18:26 SP TYPE: NIC JADE DR: Bonita Gong, PhD [employer] Tissues: 1 - SKIN BIOPSY(SHAVE/PUNCH) Procedures: SKIN LEVEL 4 Comments: [id number]
[2021-04-16 13:53] VITALS: BP 113/73; PULSE 64; RESP 16; O2SAT 98
[2021-04-16 13:58] VITALS: BP 108/86; PULSE 64; RESP 16; O2SAT 98
[2021-04-16 14:03] VITALS: BP 116/78; PULSE 60; RESP 18; O2SAT 98
[2021-04-16 14:10] VITALS: BP 110/77; PULSE 61; RESP 18; TEMP 36.7; O2SAT 99
[2021-04-16] MEDS: Bupivacaine LIPOSOME/PF 133 MG/10 ML VIAL IJ (14:11)
--- NOTE | 2021-04-16 14:34 | W.ANESPOSTOP ---
Postoperative Evaluation Date, Time and Location Date Performed: 04/16/21 Time Performed: 14:34 Patient Location: Day Surgery Unit Vital Signs Most Recent Imported Vital Signs: Most Recent Vital Signs Temp Pulse Resp BP Pulse Ox 36.7 C 61 18 110/77 99 04/16/21 14:10 04/16/21 14:10 04/16/21 14:10 04/16/21 14:10 04/16/21 14:10 Pain Score Most Recent Pain Score: Most Recent Pain Score Pain Level 0 04/16/21 14:10 Assessment Mental Status: Awake (Alert & Oriented to Patient Baseline) Airway and Respiratory Function: Patent airway with normal (patient baseline) respiratory exam Cardiovascular Function: Hemodynamically Stable Hydration Status: Adequately Hydrated Nausea & Vomiting: No Nausea or Vomiting Pain: Pt. Denies Any Pain Peripheral Nerve Block: Patient did not receive a nerve block
[2021-04-16 14:48] VITALS: BP 123/94; PULSE 56; RESP 16; TEMP 37.6; O2SAT 99
== END 2021-04-16 15:25 | disposition home or self-care (01) ==
PROVIDERS: PCP Nurse Practitioner; Visit Provider Surgery
PROC: (CPT 11442; principal; 2021-04-16 10:45)
DX: D23.21 Other benign neoplasm of skin of right ear and external auricular canal (principal); M79.5 Residual foreign body in soft tissue; D84.821 Immunodeficiency due to drugs; T45.1X5A Adverse effect of antineoplastic and immunosuppressive drugs, initial encounter; Z79.52 Long term (current) use of systemic steroids
CPT/HCPCS: 11442; 88305; J2001; J2250; J7512

== ENCOUNTER 2021-04-22 23:25 | Emergency (ER) | payer MEDICAID, SELFPAY ==
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
--- NOTE | 2021-04-22 23:30 | DI.CT_ITS ---
Exam(s) CT ABDOMEN PELVIS CTA EXAM: CT ABDOMEN PELVIS CTA CLINICAL HISTORY: hx of celiac dissection, LLQ pain and epigastric. TECHNIQUE: Imaging Protocol: Axial CT angiography was performed with multi-slice acquisition and m ulti-planar and/or 3D reconstructions. CONTRAST MATERIAL: Intravenous: Omnipaque 350 Contrast volume:100 ml Oral: no COMPARISON: CT CHEST ABD PELVIS WITH CONTRAST from 12/10/2012 CT CHEST ABD PELVIS WITH CONTRAST from 12/10/[address] CHEST PE CTA from 04/16/2020 FINDINGS: Vascular Structures: Celiac [place]/SMA: No evidence of stenosis. Dilatation of the celiac trunk distal to the dissection flap, unchanged. Stable focal dilatation of the superior mesenteric artery just distal to small diss ection flap. Renal Arteries: No evidence of stenosis. There is a single renal artery perfusing each kidney. Aorta: No aneurysm. No dissection. Pelvis: Iliac Arteries: No evidence of stenosis. Common Femoral Arteries: No evidence of stenosis. Soft Tissues: Lung bases:Normal. Liver: Normal density. Tiny hypervascular lesion superior right lobe visible on arterial phase images , likely hemangioma. Slight increase interval increase in size when compared with 2012. Gallbladder and biliary tract: No radiodense calculus or dilation. Pancreas: Normal density, no abnormal calcifications or inflammatory process. Spleen: Normal. Kidneys: Normal size, contour and axis. No radiodense stones or obstructive uropathy. No masses seen. Adrenal glands: No masses seen. Bladder: Symmetric distention, no gross wall thickening. Bowel: No obstruction or bowel wall thickening. Peritoneal cavity: No ascites, collection or mesenteric inflammatory response. Bones: Degenerative disc changes lower lumbar spine. Lymph nodes: Within normal limits. 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 No evidence of mesenteric ischemia. No vascular occlusion or significant stenosis. RADIATION DOSE DELIVERED: 1,323.17mGy.cm Total DLP DATA REPOSITORY: All CT scans at this facility are submitted to the National Radiology Data Registry (NRDR) Dose Index Registry (DIR) with the [employer] (ACR). RADIATION OPTIMIZATION: All CT scans at this facility use at least one of these dose optimization te chniques: automated exposure control; mA and/or kV adjustment per patient size (includes targeted exa ms where dose is matched to clinical indication); or iterative reconstruction.
[2021-04-22 23:32] VITALS: BP 141/76; PULSE 58; RESP 21; TEMP 37.4; O2SAT 97
[2021-04-22 23:41] LABS: Abs Immature Grans 0.03 10^3/uL (0.0-0.06); Absolute Basophil Count 0.08 10^3/uL (0.0-0.2); Absolute Eosinophil Count 0.24 10^3/uL (0.0-0.7); Absolute Monocyte Count 0.78 10^3/uL (0.1-0.8); Absolute Neutrophil Count 8.43 10^3/uL (1.2-6.7); Basophils % 0.7; HCT 45.1 % (40.0-50.0); Immature Grans % 0.3; Lymphocytes % 18.7; MCH 29.5 pg (27.0-33.0); MCHC 33.3 % (32.0-36.0); MCV 88.8 fL (80-95); MPV 10.7 fL (8.0-11.0); Monocytes % 6.6; Neutrophils % 71.7; Nucleated RBC 0 %; Platelet Count 225 10^3/uL (130-400); RBC 5.08 10^6/uL (4.36-5.78); RDW 13.1 % (11.8-14.1); WBC 11.76 10^3/uL (4.4-10.8)
[2021-04-22 23:42] LABS: Lactate 2.3 mmol/L (0.6-1.4)
[2021-04-22] MEDS: Normal Saline - Diluent 50 ML VIAL IV (23:45)
[2021-04-22] MEDS: Normal Saline 1,000 ML 1000 ML IV (23:45)
[2021-04-22] MEDS: Omnipaque 350 MG/ML 100 ML BTL IJ (23:45)
[2021-04-22] MEDS: Normal Saline Flush 10 ML SYR IVP (23:46)
[2021-04-22 23:57] LABS: ALT 24 U/L (16-63); AST 18 U/L (15-37); Albumin 4.7 g/dL (3.4-5.0); Alkaline Phosphatase 57 U/L (46-116); Anion Gap 10.7 mmol/L (3-11); BUN 19 mg/dL (7-18); Bilirubin, Total 1.2 mg/dL (0.2-1.0); CO2 31.3 mmol/L (21.0-32.0); CREATININE 1.1 mg/dL (0.70-1.30); Calcium 9.7 mg/dL (8.5-10.1); Chloride 103 mmol/L (98-107); Glucose 108 mg/dL (74-106); Lipase 86 U/L (73-393); Potassium 3.1 mmol/L (3.5-5.1); Sodium 145 mmol/L (136-145); Total Protein 7.1 g/dL (6.4-8.2)
--- NOTE | 2021-04-23 08:58 | DI.VRAD_ITS ---
PROCEDURE INFORMATION: Exam: CTA Abdomen and Pelvis With Contrast Exam date and time: 04/22/2021 11:36 PM Age: 46 years old Clinical indication: Abdominal pain; Localized; Other: Llq and epigastric; Patient HX: HX of celiac dissection, llq pain and epigastric TECHNIQUE: Imaging protocol: Computed tomographic angiography of the abdomen and pelvis with contrast material. 3D rendering (Not supervised by radiologist): MIP and/or 3D reconstructed images were created by the technologist. Radiation optimization: All CT scans at this facility use at least one of these dose optimization techniques: automated exposure control; mA and/or kV adjustment per patient size (includes targeted exams where dose is matched to clinical indication); or iterative reconstruction. Contrast material: OMNIPAQUE 350; Contrast volume: 100 ml; Contrast route: INTRAVENOUS (IV); COMPARISON: CT THORAX ABD/PEL CTA 11/24/2019 7:37 AM FINDINGS: Lungs: The visualized portions of the lung bases are normal. Aorta: No aortic aneurysm. No aortic dissection. Celiac trunk and mesenteric arteries: Stable chronic dissection of the celiac trunk with associated aneurysmal dilatation measuring 1.7 x 3.2 x 1.5 cm. Stable chronic dissection of the proximal-mid superior mesenteric artery with associated aneurysmal dilatation measuring 1.9 x 1.2 x 1.2 cm. Renal arteries: No occlusion or significant stenosis. Right iliac arteries: No occlusion or significant stenosis. Left iliac arteries: No occlusion or significant stenosis. Liver: Enhancing nodular lesion within segment 7 of the liver is larger in size now measuring 8 mm (previously 5 mm). Gallbladder and bile ducts: Unremarkable. No calcified stones. No ductal dilation. Pancreas: Unremarkable. No mass. No ductal dilation. Spleen: Unremarkable. No splenomegaly. Adrenal glands: Unremarkable. No mass. Kidneys and ureters: Unremarkable. No solid mass. No hydronephrosis. Stomach and bowel: Unremarkable. No obstruction. No mucosal thickening. Appendix: No evidence of appendicitis. Intraperitoneal space: Unremarkable. No free air. No significant fluid collection. Lymph nodes: Unremarkable. No enlarged lymph nodes. Urinary bladder: Unremarkable. No mass. Reproductive: Unremarkable as visualized. Bones/joints: Advanced degenerative disc disease at L5-S1. Soft tissues: Unremarkable. IMPRESSION: 1. No evidence of acute abdominal or pelvic process. 2. Stable chronic dissection of the celiac trunk with associated aneurysmal dilatation measuring 1.7 x 3.2 x 1.5 cm. 3. Stable chronic dissection of the proximal-mid superior mesenteric artery with associated aneurysmal dilatation measuring 1.9 x 1.2 x 1.2 cm. 4. Enhancing nodular lesion within segment 7 of the liver is larger in size now measuring 8 mm (previously 5 mm). This may be further characterized with ultrasound. Dictated and Authenticated by: Jacky Haynes MD. Ordering:MINAL Bauer MD
[2021-04-23 11:31] LABS: Clarity Clear (Clear)
[2021-04-23 11:32] LABS: Bilirubin Negative (Negative); Blood Negative (Negative); Glucose Negative (Negative); Ketones Trace mg/dL (Negative); Leukocyte Esterase Negative (Negative); Nitrite Negative (Negative); Urobilinogen 0.2 EU/dL (Up TO 0.2); pH 7.5 (5-8)
--- NOTE | 2021-04-23 13:30 | RT.EKG_ITS ---
APPROVED REPORT Exam: Resting ECG Reason for Exam: upper abdominal pain Patient Location: E HR:48 bpm ECG Measurements Heart Rate 48 AXIS DC 148 P 65 QRSd 104 QRS 1 QT 491 T 57 QTc 432 Conclusion Sinus bradycardia...rate< 60 Atrial premature complex...SV complex w/ short R-R interval. Pt not seen by me and I was not in department at time of EKG but EKG backordered after downtime compl ete. Sinus. No STEMI. I have reviewed and interpreted ECG and agree with software generated interpretation.
== END 2021-04-23 08:19 | disposition home or self-care (01) ==
LOC: ER 23:57
PROVIDERS: Emergency Provider Student in an Organized Health Care Education/Training Program; PCP Nurse Practitioner
DX: R10.32 Left lower quadrant pain (principal); R11.2 Nausea with vomiting, unspecified; R10.13 Epigastric pain
CPT/HCPCS: 36415; 80053; 83690; 93005; 96361; 96374; 96375; 99285; 74174; 81003; 83605; 85025; 93010; 99284; J3490

== ENCOUNTER 2021-06-16 17:12 | Inpatient (IN) | payer MEDICAID, SELFPAY ==
[2021-06-16] VITALS (16 sets, daily range): BP systolic 92–151; BP diastolic 54–97; PULSE 37–60; RESP 8–31; TEMP 36.4–36.8; O2SAT 97–100
--- NOTE | 2021-06-16 17:15 | RT.EKG_ITS ---
APPROVED REPORT Exam: Resting ECG Reason for Exam: abd pain Patient Location: E HR:48 bpm ECG Measurements Heart Rate 48 AXIS WA 143 P 67 QRSd 106 QRS 23 QT 500 T 65 QTc 448 Conclusion Sinus bradycardia...rate< 60
[2021-06-16] MEDS: Ondansetron 4 MG/2 ML VIAL IVP ×2 (17:26→23:03)
[2021-06-16] MEDS: Normal Saline 1,000 ML 1000 ML IV (17:26)
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
[2021-06-16] MEDS: HYDROmorphone 2 MG/ML VIAL 0.5 MG IVP ×2 (17:33→18:40)
[2021-06-16 17:34] LABS: Abs Immature Grans 0.09 10^3/uL (0.0-0.06); Absolute Lymphocyte Count 1.55 10^3/uL (1.2-3.4); Absolute Neutrophil Count 16.52 10^3/uL (1.2-6.7); Basophils % 0.7; Eosinophils % 0.7; HCT 47.1 % (40.0-50.0); HGB 15.8 g/dL (13.5-17.5); Immature Grans % 0.5; Lymphocytes % 8.1; MCH 29.8 pg (27.0-33.0); MCHC 33.5 % (32.0-36.0); MCV 88.9 fL (80-95); MPV 10.9 fL (8.0-11.0); Monocytes % 3.7; Neutrophils % 86.3; Nucleated RBC 0 %; Platelet Count 228 10^3/uL (130-400); RDW 13.1 % (11.8-14.1); RDW-SD 42.6 fL; WBC 19.14 10^3/uL (4.4-10.8)
[2021-06-16 17:35] LABS: Absolute Basophil Count 0.13 10^3/uL (0.0-0.2); Absolute Eosinophil Count 0.13 10^3/uL (0.0-0.7); Absolute Monocyte Count 0.71 10^3/uL (0.1-0.8)
--- NOTE | 2021-06-16 17:45 | RT.EKG_ITS ---
APPROVED REPORT Exam: Resting ECG Reason for Exam: chest pain Patient Location: E HR:38 bpm ECG Measurements Heart Rate 38 AXIS MO 146 P 73 QRSd 93 QRS 7 QT 549 T 59 QTc 435 Conclusion Sinus bradycardia...rate< 60
[2021-06-16 17:46] LABS: ALT 22 U/L (16-63); AST 23 U/L (15-37); Albumin 4.8 g/dL (3.4-5.0); Alkaline Phosphatase 62 U/L (46-116); BUN 20 mg/dL (7-18); Bilirubin, Total 1.1 mg/dL (0.2-1.0); CREATININE 1.1 mg/dL (0.70-1.30); Calcium 10.1 mg/dL (8.5-10.1); Chloride 103 mmol/L (98-107); Glucose 128 mg/dL (74-106); Lipase 74 U/L (73-393); Magnesium 1.8 mg/dL (1.8-2.4); Potassium 3.4 mmol/L (3.5-5.1); Sodium 142 mmol/L (136-145); Total Protein 7.7 g/dL (6.4-8.2)
[2021-06-16 17:51] LABS: Troponin I < 50 ng/L (<or=60)
[2021-06-16] MEDS: Dicyclomine 20 MG TAB PO (18:41)
--- NOTE | 2021-06-16 18:45 | DI.CT_ITS ---
Exam(s) CT ABDOMEN PELVIS CTA EXAM: CT ABDOMEN PELVIS CTA CLINICAL HISTORY: abd pain. TECHNIQUE: Imaging Protocol: Axial CT angiography was performed with multi-slice acquisition and m ulti-planar and/or 3D reconstructions. Arterial and venous phase acquisitions. CONTRAST MATERIAL: Intravenous: Omnipaque 350 Contrast volume:structured data in ml Oral: / no COMPARISON: CT CT ABDOMEN PELVIS CTA from 04/22/2021 FINDINGS: Vascular Structures: No evidence of vascular occlusion. Celiac [place]/SMA: Stable dissection flap and dilatation distally. Stable small area of dissection in the SMA and distension distal to the flap. Renal Arteries: No evidence of stenosis. There is a single renal artery perfusing each kidney. Aorta: No aneurysm. Minimal atherosclerotic changes. Pelvis: Iliac Arteries: No evidence of stenosis. Common Femoral Arteries: No evidence of stenosis. Soft Tissues: Lung bases:Normal. Liver: Normal density. No measurable mass. Gallbladder and biliary tract: No radiodense calculus or dilation. Pancreas: Normal density, no abnormal calcifications or inflammatory process. Spleen: Normal. Kidneys: Normal size, contour and axis. No radiodense stones or obstructive uropathy. No masses seen. Adrenal glands: No masses seen. Bladder: Symmetric distention, no gross wall thickening. Bowel: Mild dilatation loops of jejunum anteriorly at the level of the umbilicus. Remainder of the b owel mainly decompressed. Colon is mainly decompressed. Appendix is normal. Peritoneal cavity: No ascites, collection or mesenteric inflammatory response. Reproductive: Mildly e nlarged prostate. Bones: Within normal limits. Lymph nodes: Within normal limits. IMPRESSION: stable areas dilatation distal to dissection flaps in the celiac trunk and SMA. No evidence of occl usion of distal branches.. Mildly to of distended thick walled loop of jejunum, nonspecific. Findings could be secondary to inf ectious or inflammatory enteritis versus ischemia. RADIATION DOSE DELIVERED: 1,197.09mGy.cm Total DLP DATA REPOSITORY: All CT scans at this facility are submitted to the National Radiology Data Registry (NRDR) Dose Index Registry (DIR) with the [employer] (ACR). RADIATION OPTIMIZATION: All CT scans at this facility use at least one of these dose optimization te chniques: automated exposure control; mA and/or kV adjustment per patient size (includes targeted exa ms where dose is matched to clinical indication); or iterative reconstruction.
[2021-06-16] MEDS: Omnipaque 350 MG/ML 100 ML BTL IJ (19:15)
[2021-06-16] MEDS: Normal Saline Flush 10 ML SYR IVP ×2 (19:17→23:54)
[2021-06-16 20:18] LABS: Bilirubin Negative (Negative); Blood Negative (Negative); Clarity Cloudy (Clear); Glucose Negative (Negative); Ketones 80 mg/dL (Negative); Leukocyte Esterase Negative (Negative); Nitrite Negative (Negative); Specific Gravity 1.015 (1.005-1.025); Urobilinogen 0.2 EU/dL (Up TO 0.2); pH 8.5 (5-8)
[2021-06-16] MEDS: Ketorolac 30 MG/ML VIAL IVP (20:20)
[2021-06-16 20:26] LABS: Bacteria Few HPF (Negative); C & S Indicated? Yes; Casts Negative LPF (Negative); Crystals Few Amorphous HPF (Negative); Epithelial Cells Few HPF (Negative); Mucus Trace (Negative); RBC 0-2 HPF (0-2)
--- NOTE | 2021-06-16 20:27 | DI.VRAD_ITS ---
PROCEDURE INFORMATION: Exam: CTA Abdomen and Pelvis With Contrast Exam date and time: 06/16/2021 6:55 PM Age: 46 years old Clinical indication: Abdominal pain; Localized; Lower; Patient HX: Upper abd pain; Additional info: Mesenteric ischemia protocol per provider TECHNIQUE: Imaging protocol: Computed tomographic angiography of the abdomen and pelvis with contrast material. 3D rendering (Not supervised by radiologist): MIP and/or 3D reconstructed images were created by the technologist. Radiation optimization: All CT scans at this facility use at least one of these dose optimization techniques: automated exposure control; mA and/or kV adjustment per patient size (includes targeted exams where dose is matched to clinical indication); or iterative reconstruction. Contrast material: OMNIPAQUE 350; Contrast volume: 100 ml; Contrast route: INTRAVENOUS (IV); COMPARISON: CT ABDOMEN PELVIS CTA 04/22/2021 11:57 PM FINDINGS: Lungs: Mild dependent atelectasis at the lung bases. Aorta: Normal caliber abdominal aorta. No aneurysmal dilatation or dissection. Celiac trunk and mesenteric arteries: Replaced left gastric artery, arising directly from the aorta. Gross dilatation of the celiac trunk to a maximum transverse dimension of 1.8 cm through the region of what appears to be a long dissection flap measuring approximately 3 cm in length, best demonstrated by sagittal image 63 of series 9, similar in appearance on the comparison exam from April 23, 2022. Splenic artery grossly patent. Moderate focal narrowing at the origin of the common hepatic artery, image 23 of series 4, also seen on the comparison exam, otherwise patent. Superior mesenteric artery grossly patent with unusual focal dilatation to a maximum transverse dimension of 11 mm extending over a 2.0 cm segment at the level of proximal SMA branching. Possible short proximal dissection flap versus vascular folding redemonstratedcInferior mesenteric artery well visualized and widely patent. Renal arteries: Right and left renal arteries widely patent bilaterally. Right iliac arteries: Right common iliac, internal iliac, and external iliac arteries widely patent. Left iliac arteries: Left common iliac, internal iliac, and external iliac arteries widely patent. Liver: Normal appearing liver. Gallbladder and bile ducts: Normal appearing gallbladder. No calcified gallstones. No biliary dilatation. Pancreas: Normal appearing pancreas. Spleen: Normal appearing spleen. Adrenal glands: Normal appearing adrenal glands. Kidneys and ureters: Normal appearing kidneys. No hydronephrosis. Stomach and bowel: No oral contrast. Stomach partially decompressed. No small bowel dilatation to suggest obstruction. Apparent mural thickening through a moderately long segment of the proximal jejunum in the upper abdomen. Relatively normal-appearing downstream mid and distal small bowel loops. Colon largely well evacuated and collapsed through much of its length. Apparent mural thickening through the collapsed distal ascending and proximal transverse colon. Artifact of incomplete distention? Acute segmental colitis? No evidence of focal acute diverticulitis. Appendix: Normal appendix. Intraperitoneal space: No gross ascites or free air. Lymph nodes: No pathologically enlarged mesenteric, retroperitoneal, or pelvic sidewall lymph nodes. Urinary bladder: Normal appearing urinary bladder. Reproductive: Enlarged prostate gland measuring 4.4 cm x 5.6 cm. Normal-appearing seminal vesicles. Bones/joints: No acute fracture seen among the bones of the abdomen or pelvis. Prominent discogenic degeneration at L5-S1. Preservation of a rudimentary S1-S2 disc. Soft tissues: No significant ventral or inguinal hernia. IMPRESSION: 1. Apparent mural thickening through a moderately long segment of the proximal jejunum in the upper abdomen. Acute segmental enteritis could have this appearance although an artifactual appearance caused by the normal redundancy of the absorptive jejunal mucosa could probably simulate this appearance. Clinical correlation is recommended. If acute enteritis is suspected clinically, infectious, ischemic, or inflammatory causes would be considered. 2. Apparent mural thickening through the collapsed distal ascending and proximal transverse colon. Artifact of incomplete distention is suspected although acute segmental colitis could perhaps produce a similar appearance. Clinical correlation is recommended. 3. Gross dilatation of the celiac trunk to a maximum transverse dimension of 1.8 cm through the region of what appears to be a long dissection flap measuring approximately 3 cm in length, best demonstrated by sagittal image 63 of series 9, similar in appearance on the comparison exam from April 23, 2022. Moderate focal narrowing at the origin of the common hepatic artery, image 23 of series 4, also seen on the comparison exam, otherwise patent. 4. Superior mesenteric artery grossly patent with unusual focal dilatation to a maximum transverse dimension of 11 mm extending over a 2.0 cm segment at the level of proximal SMA branching. Possible short proximal dissection flap versus vascular folding redemonstrated, images 289 of series 7 and 39 of series 8. Dictated and Authenticated by: Hadley Kent MD. Ordering:HALIMA Gregory MD
[2021-06-16 20:46] LABS: Lactate 0.9 mmol/L (0.6-1.4)
[2021-06-16 21:46] LABS: ESR 1 mm/hr (0-15)
[2021-06-16 21:52] LABS: C-Reactive Protein < 0.05 mg/dL (0.0-0.3)
[2021-06-16 22:22] LABS: Source Nasal/Nares
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
[2021-06-16] MEDS: HYDROmorphone 2 MG/ML VIAL IVP (23:01)
[2021-06-16 23:03] LABS: COVID-19 PCR Negative (Negative)
[2021-06-16] MEDS: methylPREDNISolone SUCC 125 MG VIAL 80 MG IVP (23:54)
[2021-06-16] MEDS: POTASSIUM CHLORIDE/D5-0.9%NACL 1,000 ML 125 MEQ IV (23:55)
[2021-06-17 01:40] VITALS: BP 92/54; PULSE 60; RESP 17; TEMP 36.5; O2SAT 97
[2021-06-17 06:09] VITALS: BP 104/66; PULSE 70
[2021-06-17 07:17] LABS: HCT 40.9 % (40.0-50.0); HGB 13.7 g/dL (13.5-17.5); MCH 29.9 pg (27.0-33.0); MCHC 33.5 % (32.0-36.0); MCV 89.3 fL (80-95); MPV 11.3 fL (8.0-11.0); Platelet Count 155 10^3/uL (130-400); RBC 4.58 10^6/uL (4.36-5.78); RDW 13.1 % (11.8-14.1); RDW-SD 43.1 fL; WBC 8.58 10^3/uL (4.4-10.8)
[2021-06-17 07:32] LABS: Anion Gap 8.2 mmol/L (3-11); BUN 25 mg/dL (7-18); CO2 26.8 mmol/L (21.0-32.0); Calcium 8.8 mg/dL (8.5-10.1); Chloride 108 mmol/L (98-107); Glucose 163 mg/dL (74-106); Sodium 143 mmol/L (136-145)
[2021-06-17] MEDS: Lisinopril 20 MG TAB PO (07:39)
[2021-06-17] MEDS: Aspirin E.C. 81 MG TABEC PO (07:39)
[2021-06-17] MEDS: POTASSIUM CHLORIDE/D5-0.9%NACL 1,000 ML 125 MEQ IV (07:40)
[2021-06-17] MEDS: methylPREDNISolone SUCC 40 MG VIAL IVP (07:46)
[2021-06-17 07:53] VITALS: BP 108/72; PULSE 64; RESP 18; TEMP 36.9; O2SAT 95
--- NOTE | 2021-06-17 08:31 | INITIAL_ITS ---
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 Laceration of spleen (12/10/12). Renal artery embolism. Renal infarct. Smoker. quit September 06, 2019. smoked 34 years , under 20 cigs a day. Superior mesenteric artery thrombosis. History of removal of cyst (~04/02/21). behind Right ear. No significant past surgical history PREVIOUS FUNCTIONAL STATUS/SOCIAL/FAMILY SUPPORTS:: Rober resides in [place] with his , Jose. He is independent at baseline in the community. CURRENT FUNCTIONAL STATUS:: Rober had his diet advanced and tolerated it well, per MD. He is preparing for discharge with no noted needs at this time. ADVANCE DIRECTIVES:: None on file. Has patient been provided with info about the portal/API?: Yes Did the patient sign up for the portal?: Yes (Previously) CODE STATUS:: Full Code INSURANCE COVERAGE / FINANCIAL ISSUES:: Medicaid CURRENT HOME/COMMUNITY SERVICES/EQUIPMENT:: Raised toilet seat, tub bench, hand held shower PRIMARY CARE PHYSICIAN:: Bonita Gong NP POTENTIAL DISCHARGE NEEDS:: Follow up appointments. PATIENT/FAMILY EDUCATION NEEDS:: Review of discharge instructions, discuss Ask Me Three. ANTICIPATED BARRIERS TO DISCHARGE:: None identified at this time. TRANSPORTATION:: Via private vehicle with his , Jose. PLAN:: Rober will return home when ready per MD. No additional services at this time. He will follow up with his PCP and plan of care as prescribed, and transport via private vehicle with his , Jose.
[2021-06-17] MEDS: Sucralfate 1 GM TAB PO ×2 (09:14→11:54)
[2021-06-17] MEDS: Pantoprazole 40 MG VIAL IVP (09:18)
[2021-06-17] MEDS: Normal Saline Flush 10 ML SYR IVP (10:12)
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
--- NOTE | 2021-06-17 12:43 | PDOC.CMDIS ---
- If Service Date Differs Date of service: 06/17/21 Time of Service: 12:43 LACE Index Scoring Tool - Questions: Length of Stay (in days): 1 Acuity (Admit via E.D.?): Yes Comorbidities: Chronic Pulmonary Disease E.D. Visits: 2 - Answers: Total Score: 8 Risk of Readmission: Low Risk Care Management Discharge Reason for Hospitalization: Abdominal Pain Discharge Plan: Rober will return home when ready per MD. No additional services at this time. He will follow up with his PCP and plan of care as prescribed, and transport via private vehicle with his , Jose. Patient/Family Education Needs: Review of discharge instructions, discuss Ask Me Three.
== END 2021-06-17 14:49 | disposition home or self-care (01) | DRG 393 ==
LOC: ER 22:50 → MS 23:30
PROVIDERS: Admitting Provider General Practice; Emergency Provider Nurse Practitioner Acute Care; PCP Nurse Practitioner; Visit Provider General Practice
DX: K55.1 Chronic vascular disorders of intestine (principal); I77.79 Dissection of other specified artery; D80.3 Selective deficiency of immunoglobulin G [IgG] subclasses; J44.9 Chronic obstructive pulmonary disease, unspecified; I10 Essential (primary) hypertension; M54.16 Radiculopathy, lumbar region; F12.90 Cannabis use, unspecified, uncomplicated; Z87.891 Personal history of nicotine dependence
CPT/HCPCS: 36415; 80048; 80053; 83690; 85027; 85652; 87635; 90686; 93005; 96361; 96374; 96375; 96376; 99285; 74174; 81003; 81015; 83605; 83735; 84484; 85025; 86140; 87086; 93010; 99222; 99238; J1885; J2405; J2930; J3490

== ENCOUNTER 2021-06-18 06:01 | Observation (INO) | payer MEDICAID, SELFPAY ==
[2021-06-18] VITALS (19 sets, daily range): BP systolic 111–168; BP diastolic 68–96; PULSE 41–86; RESP 16–18; TEMP 36.3–37.4; O2SAT 94–100
--- NOTE | 2021-06-18 06:00 | RT.EKG_ITS ---
APPROVED REPORT Exam: Resting ECG Reason for Exam: n/v Patient Location: E HR:53 bpm ECG Measurements Heart Rate 53 AXIS KS 157 P 89 QRSd 95 QRS 24 QT 485 T 66 QTc 456 Conclusion Slow sinus arrhythmia...V-rate 41- 62, mean< 60
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
[2021-06-18 06:18] LABS: Abs Immature Grans 0.08 10^3/uL (0.0-0.06); Absolute Basophil Count 0.06 10^3/uL (0.0-0.2); Absolute Lymphocyte Count 2.18 10^3/uL (1.2-3.4); Absolute Monocyte Count 1.38 10^3/uL (0.1-0.8); Absolute Neutrophil Count 15.66 10^3/uL (1.2-6.7); Basophils % 0.3; Eosinophils % 0.5; HCT 44.3 % (40.0-50.0); HGB 14.2 g/dL (13.5-17.5); Immature Grans % 0.4; Lymphocytes % 11.2; MCH 29.5 pg (27.0-33.0); MCHC 32.1 % (32.0-36.0); MCV 91.9 fL (80-95); MPV 10.9 fL (8.0-11.0); Monocytes % 7.1; Neutrophils % 80.5; Nucleated RBC 0 %; Platelet Count 188 10^3/uL (130-400); RBC 4.82 10^6/uL (4.36-5.78); RDW 13.3 % (11.8-14.1); RDW-SD 45.2 fL; WBC 19.45 10^3/uL (4.4-10.8)
[2021-06-18] MEDS: Normal Saline 1,000 ML 1000 ML IV (06:19)
[2021-06-18] MEDS: HYDROmorphone 2 MG/ML VIAL 1 MG IVP (06:19)
[2021-06-18] MEDS: Ondansetron 4 MG/2 ML VIAL IVP (06:20)
[2021-06-18 06:35] LABS: ALT 27 U/L (16-63); AST 20 U/L (15-37); Albumin 4.3 g/dL (3.4-5.0); Alkaline Phosphatase 54 U/L (46-116); Anion Gap 13.6 mmol/L (3-11); BUN 26 mg/dL (7-18); Bilirubin, Total 0.9 mg/dL (0.2-1.0); CO2 24.4 mmol/L (21.0-32.0); CREATININE 1.3 mg/dL (0.70-1.30); Chloride 108 mmol/L (98-107); Estimated GFR 58.92 (mL/min/1.73m2); Glucose 129 mg/dL (74-106); Lipase 127 U/L (73-393); Magnesium 2.1 mg/dL (1.8-2.4); Potassium 3.5 mmol/L (3.5-5.1); Sodium 146 mmol/L (136-145); Total Protein 6.7 g/dL (6.4-8.2); Troponin I < 50 ng/L (<or=60)
[2021-06-18] MEDS: diphenhydrAMINE 50 MG/ML VIAL 25 MG IVP (06:55)
[2021-06-18] MEDS: Haloperidol 5 MG/ML VIAL IM/IV (06:56)
[2021-06-18 07:57] LABS: Bilirubin Small (Negative); Blood Negative (Negative); Clarity Sl Cloudy (Clear); Glucose Negative (Negative); Ketones Negative (Negative); Leukocyte Esterase Negative (Negative); Nitrite Negative (Negative); Specific Gravity >= 1.030 (1.005-1.025); Urobilinogen 0.2 EU/dL (Up TO 0.2)
[2021-06-18] MEDS: Omnipaque 350 MG/ML 100 ML BTL IJ (08:06)
--- NOTE | 2021-06-18 08:10 | DI.CT_ITS ---
Exam(s) CT THORAX ABD/PEL CTA EXAM: CT THORAX ABD/PEL CTA TECHNIQUE: CT angiography of the chest, abdomen and pelvis was performed with bolus infusion of 100 cc of Omnipaque 350. Axial CT angiography was performed with multi-slice acquisition and multi-planar and/or 3D reconstruc tions. COMPARISON: CT CT ABDOMEN PELVIS CTA from 04/22/[address] ABDOMEN PELVIS CTA from 06/16/2021 FINDINGS: The lungs are clear. No pleural effusion. No evidence of pulmonary embolic disease. No thoracic aort ic dissection or aneurysm. Major branches of the thoracic aorta appear normal. No pleural effusion. No mediastinal or hilar adenopathy. Tracheobronchial tree appears intact. No focal hepatic or renal abnormality seen. However there is periportal edema and small pericholecys tic fluid collection. There is mild upper abdominal ascites but no free fluid in pelvis. Gallbladde r and bile ducts are CT normal. Pancreas is unremarkable. Spleen is unremarkable. No abdominal aortic aneurysm or dissection. There is previously described celiac artery dissection with apparent stable pseudoaneurysm measuring about 30 x 16 x 19 millimeters. This involves the hepatosplenic trunk. There is a left gastric albert ry arising independently from the aorta. Note is also made of previously described dissection of the superior mesenteric artery proximally 6 c m from its origin. No change from prior examination of June 16. No other vascular abnormality i dentified in the abdomen or pelvis. No abdominal or pelvic adenopathy. Normal appendix. No significant abdominal wall hernia. No focal leroy wel pathology. IMPRESSION: 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 No change from examination o f June 16. There is new periportal edema, mild upper abdominal ascites, and pericholecystic fluid collection. P lease correlate clinically. RADIATION DOSE DELIVERED: 979.48mGy.cm Total DLP 979.48mGy.cm Total DLP 13.18mGy CTDIvol DATA REPOSITORY: All CT scans at this facility are submitted to the National Radiology Data Registry (NRDR) Dose Index Registry (DIR) with the [employer] (A[employer]). RADIATION OPTIMIZATION: All CT scans at this facility use at least one of these dose optimization te chniques: automated exposure control; mA and/or kV adjustment per patient size (includes targeted exa ms where dose is matched to clinical indication); or iterative reconstruction.
[2021-06-18] MEDS: PIPERACILLIN/TAZO 3.375 GM in Normal Saline 50 ML IVPB (08:46)
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
[2021-06-18 09:07] LABS: C-Reactive Protein < 0.05 mg/dL (0.0-0.3)
[2021-06-18 09:16] LABS: ESR < 1 mm/hr (0-15)
[2021-06-18 09:20] LABS: Source Nasal/Nares
[2021-06-18] MEDS: Normal Saline 1,000 ML 150 ML IV (09:28)
--- NOTE | 2021-06-18 09:45 | DI.US_ITS ---
Exam(s) US ABDOMEN LIMITED EXAM: US ABDOMEN LIMITED INDICATION: ruq pain, eval gb and liver COMPARISON: US US ABDOMEN from 09/17/2020 TECHNIQUE: Ultrasound abdomen performed using standard protocol FINDINGS: Abdominal ultrasound was performed according to the usual protocol. The liver is normal in size and shape. No focal hepatic lesion seen. There is no evidence of cholelithiasis or biliary dilatation. There is normal thickness of the gallb ladder wall. There is a small pericholecystic fluid collection, as noted on CT. Note is also made o f a small quantity of perihepatic ascites as seen on CT.. Portal venous flow is hepatopetal. Pancreas appears intact as visualized. Spleen is unremarkable in appearance with no focal lesion. Kidneys are normal in size and shape. No renal mass, hydronephrosis, or nephrolithiasis. Abdominal aorta and IVC are of normal diameter. IMPRESSION: No evidence of cholelithiasis. Small quantity of free fluid, pericholecystic and perihepatic .
[2021-06-18 09:56] LABS: Procalcitonin < 0.1 ng/mL
--- NOTE | 2021-06-18 10:30 | DI.NM_ITS ---
Exam(s) NE HEPATOBILIARY SCAN GRP EXAM: NE HEPATOBILIARY SCAN GRP CLINICAL HISTORY: right upper quad pain, [facility] requested. COMPARISON: NE MPI RESTING AND STRESS from 05/06/2017 TECHNIQUE: Hepatobiliary scan was performed with intravenous infusion of 4.6 millicuries of techneti um 99 labeled mebrofenin. Following injection of radiopharmaceutical, there was prompt homogeneous h epatic uptake. There is prompt uptake in gallbladder and bile ducts. Small intestinal uptake was noted on 90 minute s images. FINDINGS: Negative hepatic biliary scan. No evidence of acute cholecystitis. IMPRESSION: DATA REPOSITORY:
[2021-06-18 12:41] LABS: COVID-19 PCR Negative (Negative)
[2021-06-18 13:56] LABS: Troponin I < 50 ng/L (<or=60)
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
[2021-06-18] MEDS: Sucralfate 1 GM TAB PO (21:07)
[2021-06-18] MEDS: Atorvastatin 40 MG TAB 80 MG PO (21:07)
[2021-06-19 06:54] VITALS: BP 121/72; PULSE 65; RESP 18; TEMP 37.4; O2SAT 94
[2021-06-19 07:29] VITALS: BP 149/89; PULSE 54; RESP 14; TEMP 36.6; O2SAT 98
[2021-06-19 07:40] LABS: Abs Immature Grans 0.04 10^3/uL (0.0-0.06); Absolute Basophil Count 0.06 10^3/uL (0.0-0.2); Absolute Eosinophil Count 0.12 10^3/uL (0.0-0.7); Absolute Lymphocyte Count 1.21 10^3/uL (1.2-3.4); Absolute Monocyte Count 0.63 10^3/uL (0.1-0.8); Absolute Neutrophil Count 7.09 10^3/uL (1.2-6.7); Basophils % 0.7; Eosinophils % 1.3; HCT 39.8 % (40.0-50.0); HGB 12.8 g/dL (13.5-17.5); Immature Grans % 0.4; Lymphocytes % 13.2; MCH 30.1 pg (27.0-33.0); MCHC 32.2 % (32.0-36.0); MCV 93.6 fL (80-95); MPV 11.6 fL (8.0-11.0); Monocytes % 6.9; Neutrophils % 77.5; Nucleated RBC 0 %; Platelet Count 125 10^3/uL (130-400); RBC 4.25 10^6/uL (4.36-5.78); RDW 13.4 % (11.8-14.1); RDW-SD 45.8 fL; WBC 9.15 10^3/uL (4.4-10.8)
[2021-06-19 08:00] LABS: ALT 35 U/L (16-63); AST 19 U/L (15-37); Albumin 3.5 g/dL (3.4-5.0); Alkaline Phosphatase 50 U/L (46-116); Anion Gap 4.5 mmol/L (3-11); BUN 26 mg/dL (7-18); Bilirubin, Total 0.9 mg/dL (0.2-1.0); CO2 29.5 mmol/L (21.0-32.0); CREATININE 1.1 mg/dL (0.70-1.30); Calcium 8.1 mg/dL (8.5-10.1); Chloride 108 mmol/L (98-107); Glucose 106 mg/dL (74-106); Potassium 3.3 mmol/L (3.5-5.1); Sodium 142 mmol/L (136-145); Total Protein 5.5 g/dL (6.4-8.2)
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
[2021-06-19] MEDS: Aspirin E.C. 81 MG TABEC PO (09:23)
[2021-06-19] MEDS: predniSONE 20 MG TAB 60 MG PO (09:23)
[2021-06-19] MEDS: Sucralfate 1 GM TAB PO (09:24)
[2021-06-19] MEDS: hydroCHLOROthiazide 25 MG TAB PO (09:24)
[2021-06-19] MEDS: Lactobacillus Acidophilus CAP 1 CAP PO (09:24)
[2021-06-19] MEDS: Normal Saline Flush 10 ML SYR IVP (09:25)
[2021-06-19 10:43] LABS: Hepatitis A Antibody IgM Negative (Negative); Hepatitis B Core Antibody Negative (Negative); Hepatitis B surface Ag Negative (Negative); Hepatitis C Ab w Rflx HCV PCR Negative (Negative)
== END 2021-06-19 10:35 | disposition home or self-care (01) ==
LOC: ER 13:27 → MS 16:54
PROVIDERS: Emergency Medicine; Nurse Practitioner Acute Care; Admitting Provider Internal Medicine; Emergency Provider Student in an Organized Health Care Education/Training Program; PCP Nurse Practitioner; Visit Provider Internal Medicine
DX: R11.2 Nausea with vomiting, unspecified (principal); J44.9 Chronic obstructive pulmonary disease, unspecified; M54.50 Low back pain, unspecified; I10 Essential (primary) hypertension; R00.1 Bradycardia, unspecified; N13.5 Crossing vessel and stricture of ureter without hydronephrosis; R39.9 Unspecified symptoms and signs involving the genitourinary system; I77.79 Dissection of other specified artery; R10.9 Unspecified abdominal pain; F12.90 Cannabis use, unspecified, uncomplicated; D80.3 Selective deficiency of immunoglobulin G [IgG] subclasses; Z87.891 Personal history of nicotine dependence; Z80.42 Family history of malignant neoplasm of prostate
CPT/HCPCS: 36415; 71275; 74177; 78227; 80053; 83690; 84145; 85652; 86704; 86709; 86803; 87040; 87340; 87635; 93005; 96361; 96365; 96372; 96375; 99285; 76705; 81003; 83735; 84484; 85025; 86140; 93010; 99217; 99220; G0378; J1200; J1630; J2405; J2543; J3490; J7512

== ENCOUNTER 2021-06-20 23:28 | Emergency (ER) | payer MEDICAID, SELFPAY ==
[2021-06-20 23:33] VITALS: BP 137/87; PULSE 46; RESP 18; TEMP 36.6; O2SAT 99
[2021-06-20 23:34] VITALS: BP 170/97; PULSE 41; PULSE 44; RESP 14; O2SAT 99
[2021-06-20 23:35] VITALS: PULSE 50; RESP 11; O2SAT 99
[2021-06-20 23:40] VITALS: PULSE 43; RESP 22; O2SAT 97
--- NOTE | 2021-06-20 23:45 | RT.EKG_ITS ---
APPROVED REPORT Exam: Resting ECG Reason for Exam: Patient Location: E HR:44 bpm ECG Measurements Heart Rate 44 AXIS TX 137 P 75 QRSd 97 QRS -1 QT 511 T 38 QTc 437 Conclusion Sinus bradycardia...rate< 60 Probable left atrial enlargement...P >50mS, <-0.10mV V1 There are no significant changes compared to prior EKG performed on 06/16/2021 at 17:58.
[2021-06-20 23:46] VITALS: BP 151/108; PULSE 49; PULSE 50; RESP 20; O2SAT 98
[2021-06-20 23:50] VITALS: PULSE 52; RESP 18; O2SAT 99
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
[2021-06-20 23:59] LABS: Abs Immature Grans 0.05 10^3/uL (0.0-0.06); Absolute Basophil Count 0.01 10^3/uL (0.0-0.2); Absolute Eosinophil Count 0.01 10^3/uL (0.0-0.7); Absolute Lymphocyte Count 1.01 10^3/uL (1.2-3.4); Absolute Monocyte Count 0.91 10^3/uL (0.1-0.8); Basophils % 0.1; Eosinophils % 0.1; HCT 40.2 % (40.0-50.0); HGB 13.8 g/dL (13.5-17.5); Immature Grans % 0.4; Lymphocytes % 7.8; MCH 30.1 pg (27.0-33.0); MCHC 34.3 % (32.0-36.0); MCV 87.8 fL (80-95); MPV 10.9 fL (8.0-11.0); Neutrophils % 84.6; Nucleated RBC 0 %; Platelet Count 165 10^3/uL (130-400); RBC 4.58 10^6/uL (4.36-5.78); RDW 12.5 % (11.8-14.1); RDW-SD 40.5 fL; WBC 12.97 10^3/uL (4.4-10.8)
--- NOTE | 2021-06-20 23:59 | DI.RAD_ITS ---
Exam(s) XR PORTABLE CHEST AP EXAM: XR PORTABLE CHEST AP CLINICAL HISTORY: CP. TECHNIQUE: 2D digital imaging was performed. COMPARISON: CR XR CHEST 2V PA LATERAL from 07/12/2019 FINDINGS: Heart size is upper normal. The mediastinum is not widened. Lungs are clear. No infiltrates nor obvious pleural effusions. IMPRESSION: No acute pulmonary findings on this single AP portable view of the chest. DATA REPOSITORY: RADIATION DOSE DELIVERED: All CT scans at this facility use at least one of these dose optimization techniques: automated exposure control; mA and/or kV adjustment per patient size (includes targeted e xams where dose is matched to clinical indication); or iterative reconstruction.
[2021-06-21] VITALS (51 sets, daily range): BP systolic 88–155; BP diastolic 59–98; PULSE 39–70; RESP 9–28; O2SAT 93–99
[2021-06-21 00:01] LABS: Absolute Neutrophil Count 10.97 10^3/uL (1.2-6.7)
[2021-06-21 00:03] LABS: Lactate 2.7 mmol/L (0.6-1.4)
[2021-06-21] MEDS: Lactated Ringers 1,000 ML 1000 ML IV (00:10)
[2021-06-21 00:22] LABS: ALT 33 U/L (16-63); AST 21 U/L (15-37); Albumin 4.2 g/dL (3.4-5.0); Alkaline Phosphatase 60 U/L (46-116); Anion Gap 12.7 mmol/L (3-11); BUN 18 mg/dL (7-18); Bilirubin, Total 1.2 mg/dL (0.2-1.0); CO2 24.3 mmol/L (21.0-32.0); CREATININE 1.1 mg/dL (0.70-1.30); Calcium 8.9 mg/dL (8.5-10.1); Chloride 104 mmol/L (98-107); Glucose 113 mg/dL (74-106); Lipase 55 U/L (73-393); Potassium 3.2 mmol/L (3.5-5.1); Sodium 141 mmol/L (136-145); Total Protein 6.6 g/dL (6.4-8.2); Troponin I < 50 ng/L (<or=60)
--- NOTE | 2021-06-21 00:47 | DI.VRAD_ITS ---
PROCEDURE INFORMATION: Exam: XR Chest Exam date and time: 06/20/2021 23:54 Age: 46 years old Clinical indication: Other: Cp TECHNIQUE: Imaging protocol: XR of the chest. Views: 1 view. COMPARISON: CT THORAX ABD/PEL CTA 06/18/2021 07:54 FINDINGS: Lungs: No airspace consolidation. No significant interstitial disease for the degree of inflation. Pleural spaces: No pleural effusion. No pneumothorax. Heart/Mediastinum: No cardiomegaly. Diaphragm: Elevated right hemidiaphragm. Bones/joints: No acute fracture. IMPRESSION: Negative portable chest. Dictated and Authenticated by: Carla Carrasco MD. Ordering:MOIZ Lee MD
[2021-06-21] MEDS: LORazepam 2 MG/ML VIAL 1 MG IVP (01:17)
[2021-06-21] MEDS: Hyoscyamine 0.125 MG SL/ORAL/CHEW SL (02:00)
--- NOTE | 2021-06-21 02:30 | RT.EKG_ITS ---
APPROVED REPORT Exam: Resting ECG Reason for Exam: repeat trop draw Patient Location: E HR:40 bpm ECG Measurements Heart Rate 40 AXIS WA 146 P 73 QRSd 92 QRS 8 QT 538 T 37 QTc 442 Conclusion Sinus bradycardia...rate< 60 There are no significant changes compared to prior EKG performed on 06/21/2021 at 00:13.
[2021-06-21 03:01] LABS: Troponin I < 50 ng/L (<or=60)
== END 2021-06-21 06:44 | disposition home or self-care (01) ==
PROVIDERS: Emergency Provider Emergency Medicine; PCP Nurse Practitioner
DX: R10.9 Unspecified abdominal pain (principal); R11.10 Vomiting, unspecified; K92.0 Hematemesis; R07.89 Other chest pain; Z98.890 Other specified postprocedural states
CPT/HCPCS: 36415; 80053; 83690; 93005; 96361; 96374; 96375; 99284; 71045; 83605; 84484; 85025; 93010; J2060; J3490

== ENCOUNTER 2021-09-18 03:10 | Outpatient (CLI) | payer MEDICAID, SELFPAY | END 2021-09-18 03:11 | disposition home or self-care (01) | LOC: LBO 03:10 | PROVIDERS: PCP Nurse Practitioner; Visit Provider Nurse Practitioner ==

== ENCOUNTER 2021-09-26 02:27 | Outpatient (CLI) | payer MEDICAID, SELFPAY ==
[2021-09-27 09:24] LABS: PSA, Screening 2.1 ng/mL (<=2.5)
== END 2021-09-26 02:28 | disposition home or self-care (01) ==
LOC: LBO 02:27
PROVIDERS: PCP Nurse Practitioner; Visit Provider Nurse Practitioner
DX: Z12.5 Encounter for screening for malignant neoplasm of prostate (principal)
CPT/HCPCS: 36415; 84153

== ENCOUNTER 2022-11-07 05:30 | Emergency (ER) | payer MEDICAID, SELFPAY ==
--- NOTE | 2022-11-07 05:30 | RT.EKG_ITS ---
APPROVED REPORT Exam: Resting ECG Reason for Exam: vomiting Patient Location: E HR:50 bpm ECG Measurements Heart Rate 50 AXIS W[place] 167 P 77 QRSd 104 QRS 29 QT 489 T 71 QTc 445 Conclusion Sinus bradycardia...rate< 60 Probable left atrial enlargement...P >50mS, <-0.10mV V1 motion artifact no stemi
[2022-11-07 05:33] VITALS: BP 176/98; PULSE 60; RESP 16; TEMP 36.6; O2SAT 100
[2022-11-07] MEDS: Normal Saline 1,000 ML 1000 ML IV ×2 (05:45→07:45)
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
[2022-11-07] MEDS: Droperidol 5 MG/2 ML VIAL IVP (05:54)
[2022-11-07 06:12] LABS: Abs Immature Grans 0.04 10^3/uL (0.0-0.06); Absolute Basophil Count 0.12 10^3/uL (0.0-0.2); Absolute Eosinophil Count 0.68 10^3/uL (0.0-0.7); Absolute Lymphocyte Count 2.67 10^3/uL (1.2-3.4); Absolute Monocyte Count 0.81 10^3/uL (0.1-0.8); Absolute Neutrophil Count 5.92 10^3/uL (1.2-6.7); Basophils % 1.2; Eosinophils % 6.6; HGB 16.2 g/dL (13.5-17.5); Immature Grans % 0.4; Lymphocytes % 26.1; MCH 31.2 pg (27.0-33.0); MCHC 35.2 % (32.0-36.0); MCV 89 fL (80-95); MPV 11.1 fL (8.0-11.0); Monocytes % 7.9; Neutrophils % 57.8; Platelet Count 222 10^3/uL (130-400); RDW 12.7 % (11.8-14.1); RDW-SD 41.7 fL; WBC 10.24 10^3/uL (4.4-10.8)
[2022-11-07 06:13] LABS: Lactate 2.3 mmol/L (0.6-1.4)
--- NOTE | 2022-11-07 06:13 | NUR.NOTE ---
0600- Pt c/o 01/15 generalized ABD pain, unchanged nausea. HR SB at 39. MD Concepción made aware. No new ords received.
[2022-11-07 06:27] LABS: PTT Activated 25.5 sec (21.5-31.9); Prothrombin Time 10.1 sec (9.3-11.0)
[2022-11-07 06:28] LABS: ALT 28 U/L (16-63); AST 19 U/L (15-37); Albumin 4.4 g/dL (3.4-5.0); Alkaline Phosphatase 70 U/L (46-116); Anion Gap 11.3 mmol/L (3-11); BUN 23 mg/dL (7-18); Bilirubin, Total 0.8 mg/dL (0.2-1.0); CO2 27.7 mmol/L (21.0-32.0); CREATININE 1.1 mg/dL (0.70-1.30); Calcium 9.4 mg/dL (8.5-10.1); Chloride 105 mmol/L (98-107); Estimated GFR 82.29 (mL/min/1.73m2); Glucose 117 mg/dL (74-106); Lipase 46 U/L (16-77); Magnesium 1.9 mg/dL (1.8-2.4); Potassium 3.2 mmol/L (3.5-5.1); Sodium 144 mmol/L (136-145)
[2022-11-07 06:30] VITALS: BP 169/108; PULSE 43; RESP 22; O2SAT 98
--- NOTE | 2022-11-07 06:30 | DI.CT_ITS ---
Exam(s) CT THORAX ABD/PEL CTA EXAM: CT THORAX ABD/PEL CTA CLINICAL HISTORY: abdominal pain, n/v, hx of celiac artery dissectio. TECHNIQUE: Imaging Protocol: Axial CT angiography was performed with multi-slice acquisition and m ulti-planar and/or 3D reconstructions. CONTRAST MATERIAL: Intravenous: Omnipaque 350 Contrast volume:structured data in ml Oral: yes / no COMPARISON: CT CT THORAX ABD/PEL CTA from 09/05/[address] THORAX ABD/PEL CTA from 06/18/2021 FINDINGS: CHEST: Pulmonary Arteries: No evidence of filling defect to suggest pulmonary emboli. Tracheobronchial tree: Patent where visualized. Mediastinum and Marizol: No dominant adenopathy or fluid collection. Pulmonary parenchyma: No consolidation or dominant measurable mass. Minimal emphysematous changes. Pleura: No effusion or pneumothorax. Heart: The heart is not dilated. Mild coronary artery calcifications are seen. Aorta: Thoracic aorta non-dilated. No visible atherosclerotic changes. Bones: Normal. Tubes, Catheters, and Lines: ABDOMEN AND PELVIS: Abdomen: Celiac axis: No change in celiac artery the dissection and aneurysmal dilatation to 1.8 cm. Superior mesenteric artery: Stable 1.4 centimeter aneurysm of the distal SMA with dissection flap. N o evidence of occlusion or significant stenosis. Renal Arteries: No evidence of occlusion or significant stenosis. There is a single renal artery per fusing each kidney. Aorta: Minimal atherosclerotic changes. No evidence of occlusion or significant stenosis. No aneury sm or dissection. Pelvis: Iliac Arteries: No evidence of occlusion or significant stenosis. Common Femoral Arteries: No evidence of occlusion or significant stenosis. ABDOMEN: Liver: Mild periportal edema which could be secondary to aggressive IV hydration. Normal density. No measurable mass. Portal, Superior Mesenteric, and Splenic Veins: Unremarkable. Gallbladder and Biliary Tract: No radiodense calculus or dilation. Pancreas: Normal density, no abnormal calcifications or inflammatory process. Spleen: Normal. Adrenals: No masses seen. Kidneys: Normal size, contour and axis. No radiodense stones or obstructive uropathy. No masses seen. Bowel: No obstruction or bowel wall thickening. Appendix is unremarkable. Peritoneal Cavity: No ascites, collection or mesenteric inflammatory response. Lymph Nodes: Within normal limits. Bones: Degenerative disc changes L5-S1. Soft Tissues: Unremarkable. PELVIS: Bladder: Symmetric distention, no gross wall thickening. Reproductive Organs: Prostate mildly enlarged. Lymph Nodes: Within normal limits. Bones: Within normal limits. IMPRESSION: No significant abnormality seen in the chest. Stable dissection with aneurysm of the celiac axis and SMA. No new abnormality in the abdomen or pel vis. RADIATION DOSE DELIVERED: 1,005.61mGy.cm Total DLP 1,005.61mGy.cm Total DLP DATA REPOSITORY: All CT scans at this facility are submitted to the National Radiology Data Registry (NRDR) Dose Index Registry (DIR) with the [employer] (ACR). RADIATION OPTIMIZATION: All CT scans at this facility use at least one of these dose optimization te chniques: automated exposure control; mA and/or kV adjustment per patient size (includes targeted exa ms where dose is matched to clinical indication); or iterative reconstruction.
[2022-11-07] MEDS: Ketorolac 15 MG/ML VIAL IVP (06:45)
[2022-11-07] MEDS: LORazepam 2 MG/ML VIAL 1 MG IVP (06:45)
[2022-11-07] MEDS: Omnipaque 350 MG/ML 100 ML BTL IJ (06:52)
[2022-11-07] MEDS: Normal Saline - Diluent 50 ML VIAL IJ (06:57)
[2022-11-07 09:03] LABS: Lactate 0.9 mmol/L (0.6-1.4)
--- NOTE | 2022-11-07 09:22 | DI.VRAD_ITS ---
PROCEDURE INFORMATION: Exam: CTA Chest With Contrast CTA Abdomen and Pelvis With Contrast Exam date and time: 11/07/2022 6:52 AM Age: 47 years old Clinical indication: Other: Abdominal pain, n/v, HX of celiac artery dissectio TECHNIQUE: Imaging protocol: Computed tomographic angiography of the chest with contrast. Exam focused on the arteries. Computed tomographic angiography of the abdomen and pelvis with contrast. Exam focused on the arteries. 3D rendering (Not supervised by radiologist): MIP and/or 3D reconstructed images were created by the technologist. Radiation optimization: All CT scans at this facility use at least one of these dose optimization techniques: automated exposure control; mA and/or kV adjustment per patient size (includes targeted exams where dose is matched to clinical indication); or iterative reconstruction. Contrast material: OMNI 350; Contrast volume: 100 ml; Contrast route: INTRAVENOUS (IV); COMPARISON: CT THORAX ABD/PEL CTA 06/18/2021 7:54 AM FINDINGS: VASCULATURE: Pulmonary arteries: Normal. No pulmonary emboli. Aorta: No aortic aneurysm or dissection. 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 No change in aneurysm diameter compared to 06/18/2021. The left gastric artery arises directly from the aorta. 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 Renal arteries: No occlusion or significant stenosis. Right iliac arteries: No occlusion or significant stenosis. Left iliac arteries: No occlusion or significant stenosis. CHEST: Lungs: There is mild centrilobular and paraseptal emphysema. Pleural spaces: Unremarkable. No pneumothorax. No pleural effusion. Heart: Unremarkable. No cardiomegaly. No pericardial effusion. ABDOMEN AND PELVIS: Liver: There is periportal edema, likely secondary to fluid resuscitation. No mass. Gallbladder and bile ducts: Unremarkable. No calcified stones. No ductal dilation. Pancreas: Unremarkable. No mass. No ductal dilation. Spleen: Unremarkable. No splenomegaly. Adrenal glands: Unremarkable. No mass. Kidneys and ureters: Unremarkable. No solid mass. No hydronephrosis. Stomach and bowel: Unremarkable. No obstruction. No mucosal thickening. Appendix: No evidence of appendicitis. Intraperitoneal space: Unremarkable. No free air. No significant fluid collection. Urinary bladder: Unremarkable. No mass. Reproductive: The prostate gland is enlarged. Lymph nodes: Unremarkable. No enlarged lymph nodes. Bones/joints: Unremarkable. No acute fracture. Soft tissues: Unremarkable. IMPRESSION: 1. Dissecting aneurysm of the celiac artery, unchanged. 2. Unchanged distal SMA aneurysm. 3. Mild emphysema. 4. Prostatomegaly. Dictated and Authenticated by: Nicolasa Ortega MD. Ordering:CHERI Hummel MD
[2022-11-07 09:24] LABS: Troponin I < 50 ng/L (<or=60)
--- NOTE | 2022-11-07 09:43 | NUR.NOTE ---
pt confirms that he has used Dilaudid before for pain without an adverse effects
[2022-11-07] MEDS: HYDROmorphone 2 MG/ML SYR 1 MG IVP (09:48)
[2022-11-07 09:51] VITALS: BP 124/85; PULSE 50; RESP 18; O2SAT 95
--- NOTE | 2022-11-07 09:52 | ED.PROG_ITS ---
Date of service: 11/07/22 Time of Service: 09:52 Medical Decision Making Care signed out by Dr. Beebe, please see his documentation regarding initial ED presentation course. Plan at signout was to follow-up on CTA imaging and repeat lactate. Repeat lactate has decreased to 0.9 after IV fluids. Patient was reassessed and continues to complain of abdominal pain. I will give Dilaudid 1 mg IV. Patient notes allergy to morphine in the past and a lot of the past without side effects. CTA of the abdomen pelvis was interpreted by radiology: FINDINGS: VASCULATURE: Pulmonary arteries: Normal. No pulmonary emboli. Aorta: No aortic aneurysm or dissection. 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 No change in aneurysm diameter compared to 06/18/2021. The left gastric artery arises directly from the aorta. 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 Renal arteries: No occlusion or significant stenosis. Right iliac arteries: No occlusion or significant stenosis. Left iliac arteries: No occlusion or significant stenosis. CHEST: Lungs: There is mild centrilobular and paraseptal emphysema. Pleural spaces: Unremarkable. No pneumothorax. No pleural effusion. Heart: Unremarkable. No cardiomegaly. No pericardial effusion. ABDOMEN AND PELVIS: Liver: There is periportal edema, likely secondary to fluid resuscitation.? No mass. Gallbladder and bile ducts: Unremarkable. No calcified stones. No ductal dilation. Pancreas: Unremarkable. No mass. No ductal dilation. Spleen: Unremarkable. No splenomegaly. Adrenal glands: Unremarkable. No mass. Kidneys and ureters: Unremarkable. No solid mass. No hydronephrosis. Stomach and bowel: Unremarkable. No obstruction. No mucosal thickening. Appendix: No evidence of appendicitis. Intraperitoneal space: Unremarkable. No free air. No significant fluid collection. Urinary bladder: Unremarkable. No mass. Reproductive: The prostate gland is enlarged. Lymph nodes: Unremarkable. No enlarged lymph nodes. Bones/joints: Unremarkable. No acute fracture. Soft tissues: Unremarkable. IMPRESSION: 1. ? Dissecting aneurysm of the celiac artery, unchanged. 2. ? Unchanged distal SMA aneurysm. 3. ? Mild emphysema. 4. ? Prostatomegaly. Upon receiving interpretation of CTA, I contacted [facility] [place] to request emergent transfer. I received a call back from Dr. Williamson, discussed ED presentation course, he reviewed CTA imaging and will accept patient in transfer. Lab Data Lab results reviewed: Yes I reviewed the patient's lab results. Labs: Laboratory Tests Range/Units 11/07/22 11/07/22 11/07/22 05:45 05:45 05:45 WBC (4.4-10.8) 10^3/uL 10.24 RBC (4.36-5.78) 10^6/uL 5.20 Hgb (13.5-17.5) g/dL 16.2 Hct (40.0-50.0) % 46.0 MCV (80-95) fL 89 MCH (27.0-33.0) pg 31.2 MCHC (32.0-36.0) % 35.2 RDW (11.8-14.1) % 12.7 Plt Count (130-400) 10^3/uL 222 MPV (8.0-11.0) fL 11.1 H Immature Gran % 0.4 Neutrophils % 57.8 Lymphocytes % 26.1 Monocytes % 7.9 Eosinophils % 6.6 Basophils % 1.2 Nucleated RBC % (0.0-0.3) % 0.0 Absolute Neutrophils (1.2-6.7) 10^3/uL 5.92 Absolute Lymphocytes (1.2-3.4) 10^3/uL 2.67 Absolute Monocytes (0.1-0.8) 10^3/uL 0.81 H Absolute Eosinophils (0.0-0.7) 10^3/uL 0.68 Absolute Basophils (0.0-0.2) 10^3/uL 0.12 PT (9.3-11.0) sec INR (0.9-1.1) APTT (21.5-31.9) sec VBG Lactate (0.6-1.4) mmol/L 2.3 H* Sodium (136-145) mmol/L 144 Potassium (3.5-5.1) mmol/L 3.2 L Chloride (98-107) mmol/L 105 Carbon Dioxide (21.0-32.0) mmol/L 27.7 Anion Gap (3-11) mmol/L 11.3 H BUN (7-18) mg/dL 23 H Creatinine (0.70-1.30) mg/dL 1.1 Est GFR (CKD-EPI 2020) (mL/min/1.73m2) 82.29 Glucose (74-106) mg/dL 117 H Calcium (8.5-10.1) mg/dL 9.4 Magnesium (1.8-2.4) mg/dL 1.9 Total Bilirubin (0.2-1.0) mg/dL 0.8 AST (15-37) U/L 19 ALT (16-63) U/L 28 Alkaline Phosphatase (46-116) U/L 70 Troponin I Total Protein (6.4-8.2) g/dL 7.0 Albumin (3.4-5.0) g/dL 4.4 Lipase (16-77) U/L 46 Range/Units 11/07/22 11/07/22 11/07/22 05:45 05:53 08:58 WBC (4.4-10.8) 10^3/uL RBC (4.36-5.78) 10^6/uL Hgb (13.5-17.5) g/dL Hct (40.0-50.0) % MCV (80-95) fL MCH (27.0-33.0) pg MCHC (32.0-36.0) % RDW (11.8-14.1) % Plt Count (130-400) 10^3/uL MPV (8.0-11.0) fL Immature Gran % Neutrophils % Lymphocytes % Monocytes % Eosinophils % Basophils % Nucleated RBC % (0.0-0.3) % Absolute Neutrophils (1.2-6.7) 10^3/uL Absolute Lymphocytes (1.2-3.4) 10^3/uL Absolute Monocytes (0.1-0.8) 10^3/uL Absolute Eosinophils (0.0-0.7) 10^3/uL Absolute Basophils (0.0-0.2) 10^3/uL PT (9.3-11.0) sec 10.1 INR (0.9-1.1) 1.0 APTT (21.5-31.9) sec 25.5 VBG Lactate (0.6-1.4) mmol/L Sodium (136-145) mmol/L Potassium (3.5-5.1) mmol/L Chloride (98-107) mmol/L Carbon Dioxide (21.0-32.0) mmol/L Anion Gap (3-11) mmol/L BUN (7-18) mg/dL Creatinine (0.70-1.30) mg/dL Est GFR (CKD-EPI 2020) (mL/min/1.73m2) Glucose (74-106) mg/dL Calcium (8.5-10.1) mg/dL Magnesium (1.8-2.4) mg/dL Total Bilirubin (0.2-1.0) mg/dL AST (15-37) U/L ALT (16-63) U/L Alkaline Phosphatase (46-116) U/L Troponin I Cancelled < 50 Total Protein (6.4-8.2) g/dL Albumin (3.4-5.0) g/dL Lipase (16-77) U/L Range/Units 11/07/22 08:58 WBC (4.4-10.8) 10^3/uL RBC (4.36-5.78) 10^6/uL Hgb (13.5-17.5) g/dL Hct (40.0-50.0) % MCV (80-95) fL MCH (27.0-33.0) pg MCHC (32.0-36.0) % RDW (11.8-14.1) % Plt Count (130-400) 10^3/uL MPV (8.0-11.0) fL Immature Gran % Neutrophils % Lymphocytes % Monocytes % Eosinophils % Basophils % Nucleated RBC % (0.0-0.3) % Absolute Neutrophils (1.2-6.7) 10^3/uL Absolute Lymphocytes (1.2-3.4) 10^3/uL Absolute Monocytes (0.1-0.8) 10^3/uL Absolute Eosinophils (0.0-0.7) 10^3/uL Absolute Basophils (0.0-0.2) 10^3/uL PT (9.3-11.0) sec INR (0.9-1.1) APTT (21.5-31.9) sec VBG Lactate (0.6-1.4) mmol/L 0.9 Sodium (136-145) mmol/L Potassium (3.5-5.1) mmol/L Chloride (98-107) mmol/L Carbon Dioxide (21.0-32.0) mmol/L Anion Gap (3-11) mmol/L BUN (7-18) mg/dL Creatinine (0.70-1.30) mg/dL Est GFR (CKD-EPI 2020) (mL/min/1.73m2) Glucose (74-106) mg/dL Calcium (8.5-10.1) mg/dL Magnesium (1.8-2.4) mg/dL Total Bilirubin (0.2-1.0) mg/dL AST (15-37) U/L ALT (16-63) U/L Alkaline Phosphatase (46-116) U/L Troponin I Total Protein (6.4-8.2) g/dL Albumin (3.4-5.0) g/dL Lipase (16-77) U/L Critical Care Time Critical Care Time Critical Care Time: Yes Total Critical Care Time: 40 Attestation: I spent greater than 40 minutes addressing this patient's immediate life threats. Please see MDM section of note. This time was spent engaged in work directly related to the patient's care, exclusive of separate procedures, and failure to initiate these interventions would have likely resulted in clinically significant or life threatening deterioration in the patient's condition. Sign Out Sign Out Data: Sign Out Comment: hx of celiac artery dissection and sma thrombus, igg4 vs who has frequent episodes of abdominal pain and n/v comes in with recurrent abdominal pain and n/v. pending ct read, reevaluation after dluids, pain meds/antiemetics. Last updated by Shaheed Beebe MD at 11/07/22 07:28 Discharge Plan Disposition Patient Disposition: Transfer-Acute Inpatient Care Specific Acute Inpt Facility: [facility] Condition: Critical Discharge Details Clinical Impression: Dissection of mesenteric artery, Aneurysm Primary Care Provider: Jacqueline Pfeiffer ED Provider: Mic Marie Home Meds and New Rx's Prescriptions: No Action hydrochlorothiazide 12.5 mg tablet 12.5 mg PO DAILY Qty: 90 3RF prednisone 5 mg tablet 5 mg PO DAILY Qty: 0 0RF Rx Instructions: [facility] [place] measles,mumps,rubella vacc(PF) 1,000-12,500 TCID50/0.5 mL recon soln 0.5 ml SC ONCE Qty: 1 0RF rituximab 10 mg/mL concentrate 100 mg IV [id number] multivitamin Tablet 1 tab PO DAILY Probiotic 3 billion cell capsule 3,000 mmu cells PO DAILY Rx Instructions: administer with a meal ascorbic acid (vitamin C) 500 mg capsule 500 mg PO DAILY sucralfate 1 gram tablet 1 g PO AC & HS Qty: 80 0RF aspirin 81 mg tablet,delayed release (DR/EC) See Rx Instructions .ROUTE .COMPLEX Qty: 90 4RF Dose Instruction: TAKE ONE TABLET BY MOUTH EVERY DAY Rx Instructions: TAKE ONE TABLET BY MOUTH EVERY DAY atorvastatin 80 mg tablet 80 mg PO QHS Qty: 90 4RF ondansetron HCl 4 mg tablet 4 mg PO QID PRN (Reason: nausea and vomiting) Qty: 10 0RF dicyclomine 10 mg capsule 10 mg PO TID PRN (Reason: spasm, bloating) Qty: 20 0RF losartan 50 mg tablet 50 mg PO DAILY Qty: 90 4RF Myrbetriq 50 mg tablet extended release 24 hr 50 mg PO DAILY Qty: 90 4RF acetaminophen 500 mg Tablet 1,000 mg PO PRN PRN Discharge Data Discharge Date/Time-TO BE ENTERED AT DEPARTURE: 11/07/22 11:11
[2022-11-07 10:46] VITALS: BP 134/75; PULSE 40; RESP 18; O2SAT 97
--- NOTE | 2022-11-07 11:15 | NUR.NOTE ---
attempted to call [facility] for report, phone went to voicemail.
--- NOTE | 2022-11-11 08:59 | NUR.NOTE ---
Nursing Note: Accessed pt chart for transfer documentation information.
== END 2022-11-07 11:11 | disposition short-term general hospital (02) ==
PROVIDERS: Emergency Medicine; Emergency Provider Student in an Organized Health Care Education/Training Program; PCP Nurse Practitioner Family
DX: I77.79 Dissection of other specified artery (principal); I72.8 Aneurysm of other specified arteries
CPT/HCPCS: 36415; 71275; 80053; 83690; 93005; 96361; 96374; 96375; 99291; 74174; 81003; 83605; 83735; 84484; 85025; 85610; 85730; 93010; J1170; J1790; J1885; J2060; J3490

== ENCOUNTER 2022-11-13 04:01 | Emergency (ER) | payer MEDICAID, SELFPAY ==
[2022-11-13] VITALS (23 sets, daily range): BP systolic 145–183; BP diastolic 83–98; PULSE 45–65; RESP 4–43; TEMP 37.2; O2SAT 91–100
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
--- NOTE | 2022-11-13 04:15 | DI.CT_ITS ---
Exam(s) CT THORAX ABD/PEL CTA EXAM: CT THORAX ABD/PEL CTA CLINICAL HISTORY: Hx dissect mesen artery chest abdominal pain. TECHNIQUE: Imaging Protocol: Axial CT angiography was performed with multi-slice acquisition and m ulti-planar and/or 3D reconstructions. CONTRAST MATERIAL: Intravenous: Omnipaque 350 contrast volume:100 mL Oral: No COMPARISON: CT CT THORAX ABD/PEL CTA from 11/07/2022 FINDINGS: CHEST: Tracheobronchial tree: Patent where visualized. Pulmonary parenchyma: No consolidation or dominant measurable mass. No architectural distortion. Pulmonary Arteries: No evidence of filling defect to suggest pulmonary emboli. Mediastinum and Marizol: No dominant adenopathy or fluid collection. The esophagus is unremarkable. Visualized thyroid: Unremarkable. Pleura: No effusion or pneumothorax. Heart: The heart is not dilated. No coronary artery calcifications are seen. No pericardial effusion. Aorta: Thoracic aorta non-dilated. The thoracic ascending aorta measures 3.7 x 3.8 cm. The descendin g aorta measures 2.9 cm maximally. Soft Tissues: Unremarkable. Bones: Within normal limits for the patient's age. ABDOMEN AND PELVIS: Abdomen: Celiac axis/mesenteric arteries: There is again seen a celiac artery aneurysm and dissection which ap pears unchanged. There is a normal variant with the gastric artery arising directly from the aorta. There is now a dissection of the proximal left gastric artery which measures approximately 2.6 cm in length. There is severe luminal narrowing (greater than 50 percent) with no evidence of occlusion. There is also an aneurysm of the superior mesenteric artery with a small dissection flap which is un changed. Renal Arteries: No evidence of occlusion or significant stenosis. There is a single renal artery per fusing each kidney. Atherosclerosis. Aorta: No evidence of occlusion or significant stenosis. No aneurysm or dissection. Atherosclerosi s. Pelvis: Iliac Arteries: No evidence of occlusion or significant stenosis. Atherosclerosis. Common Femoral Arteries: No evidence of occlusion or significant stenosis. ABDOMEN: Liver: Normal density. No measurable mass. Gallbladder and Biliary Tract: No radiodense calculus or dilation. Pancreas: Normal density, no abnormal calcifications or inflammatory process. Spleen: Normal. Adrenals: No masses seen. Kidneys: Normal size, contour and axis. No radiodense stones or obstructive uropathy. No masses seen. Bowel: No obstruction or bowel wall thickening. Appendix is unremarkable. Peritoneal Cavity: No ascites, collection or mesenteric inflammatory response. No free air. Lymph Nodes: Within normal limits. Bones: Within normal limits for the patient's age. Soft Tissues: Unremarkable. PELVIS: Bladder: Symmetric distention, no gross wall thickening. Reproductive Organs: There is enlarged prostate gland. Lymph Nodes: Within normal limits. Bones: Within normal limits for the patient's age. IMPRESSION: 1. New dissection involving the proximal left gastric artery. This was not present on the examinatio n from 11/07/2022. No vessel occlusion but greater than 50 percent stenosis is seen. 2. Stable aneurysms and dissections involving the superior mesenteric artery and the celiac artery. 3. No acute pulmonary, abdominal or pelvic process other than described above. RADIATION DOSE DELIVERED: 960.03mGy.cm Total DLP DATA REPOSITORY: All CT scans at this facility are submitted to the National Radiology Data Registry (NRDR) Dose Index Registry (DIR) with the [employer] (ACR). RADIATION OPTIMIZATION: All CT scans at this facility use at least one of these dose optimization te chniques: automated exposure control; mA and/or kV adjustment per patient size (includes targeted exa ms where dose is matched to clinical indication); or iterative reconstruction.
--- NOTE | 2022-11-13 04:30 | RT.EKG_ITS ---
APPROVED REPORT Exam: Resting ECG Reason for Exam: Chest pain Patient Location: E HR:57 bpm ECG Measurements Heart Rate 57 AXIS PA 105 P -87 QRSd 95 QRS 25 QT 503 T 70 QTc 490 Conclusion Ectopic atrial bradycardia...abnormal P axis, V-rate< 60 ECG showing narrow complex bradycardia not meeting criteria for sinus but with normal axis at a rate of 57. With short PA interval. No signs of WPW. QTc mildly prolonged.Prior QTc has lengthened and PA has shortened. Sinus rhythm is no longer present.
[2022-11-13] MEDS: Ondansetron 4 MG/2 ML VIAL IVP (04:39)
[2022-11-13] MEDS: HYDROmorphone 2 MG/ML SYR 0.5 MG IVP ×2 (04:40→08:23)
[2022-11-13] MEDS: Normal Saline 1,000 ML 1000 ML IV (04:40)
[2022-11-13 04:41] LABS: Abs Immature Grans 0.05 10^3/uL (0.0-0.06); Absolute Eosinophil Count 0.01 10^3/uL (0.0-0.7); Absolute Lymphocyte Count 0.66 10^3/uL (1.2-3.4); Basophils % 0.1; Eosinophils % 0.1; HCT 43.5 % (40.0-50.0); HGB 15.4 g/dL (13.5-17.5); Immature Grans % 0.4; Lymphocytes % 4.7; MCH 30.7 pg (27.0-33.0); MCHC 35.4 % (32.0-36.0); MCV 87 fL (80-95); MPV 10.7 fL (8.0-11.0); Monocytes % 9.3; Neutrophils % 85.4; Platelet Count 191 10^3/uL (130-400); RBC 5.02 10^6/uL (4.36-5.78); RDW 12.5 % (11.8-14.1); RDW-SD 39.5 fL; WBC 14.05 10^3/uL (4.4-10.8)
[2022-11-13 04:43] LABS: Absolute Basophil Count 0.01 10^3/uL (0.0-0.2); Absolute Monocyte Count 1.31 10^3/uL (0.1-0.8); Lactate 1.4 mmol/L (0.6-1.4)
--- NOTE | 2022-11-13 05:06 | NUR.NOTE ---
Pt placed on care management list for Patient Advocacy, pt's physician primary care sports medicine requesting info.
[2022-11-13 05:14] LABS: ALT 24 U/L (16-63); AST 12 U/L (15-37); Albumin 4.2 g/dL (3.4-5.0); Alkaline Phosphatase 64 U/L (46-116); Anion Gap 7.1 mmol/L (3-11); BUN 23 mg/dL (7-18); Bilirubin, Total 1.2 mg/dL (0.2-1.0); CO2 32.9 mmol/L (21.0-32.0); CREATININE 1.3 mg/dL (0.70-1.30); Calcium 9.5 mg/dL (8.5-10.1); Chloride 99 mmol/L (98-107); Estimated GFR 67.34 (mL/min/1.73m2); Glucose 126 mg/dL (74-106); Lipase 130 U/L (16-77); Potassium 3.5 mmol/L (3.5-5.1); Sodium 139 mmol/L (136-145); Total Protein 6.9 g/dL (6.4-8.2); Troponin I < 50 ng/L (<or=60)
--- NOTE | 2022-11-13 05:15 | RT.EKG_ITS ---
APPROVED REPORT Exam: Resting ECG Reason for Exam: Chest pain Patient Location: E HR:52 bpm ECG Measurements Heart Rate 52 AXIS MI 148 P 74 QRSd 93 QRS -13 QT 522 T 52 QTc 485 Conclusion Sinus bradycardia...rate< 60 Probable left atrial enlargement...P >50mS, <-0.10mV V1 Repeat ECG showing narrow complex sinus bradycardia at a rate of 52. Left axis deviation no signs of LVH based on voltage criteria. No acute injury pattern. Sinus bradycardia has replaced ectopic atr ial bradycardia from prior ECG.
[2022-11-13] MEDS: Normal Saline - Diluent 50 ML VIAL IJ (05:26)
[2022-11-13] MEDS: Omnipaque 350 MG/ML 100 ML BTL IJ (05:26)
--- NOTE | 2022-11-13 07:32 | DI.VRAD_ITS ---
PROCEDURE INFORMATION: Exam: CTA Chest With Contrast CTA Abdomen and Pelvis With Contrast Exam date and time: 11/13/2022 5:20 AM Age: 47 years old Clinical indication: Other: HX dissect mesenteric artery chest \T\ abdominal pain TECHNIQUE: Imaging protocol: Computed tomographic angiography of the chest with contrast. Exam focused on the arteries. Computed tomographic angiography of the abdomen and pelvis with contrast. Exam focused on the arteries. 3D rendering (Not supervised by radiologist): MIP and/or 3D reconstructed images were created by the technologist. Radiation optimization: All CT scans at this facility use at least one of these dose optimization techniques: automated exposure control; mA and/or kV adjustment per patient size (includes targeted exams where dose is matched to clinical indication); or iterative reconstruction. Contrast material: OMNI 350; Contrast volume: 100 ml; Contrast route: INTRAVENOUS (IV); COMPARISON: 1. CT THORAX ABD/PEL CTA 11/07/2022 6:[address] THORAX ABD/PEL CTA 06/18/2021 7:54 AM FINDINGS: VASCULATURE: Pulmonary arteries: Normal caliber main pulmonary artery. No central pulmonary embolism. Aorta: No aortic dissection or aneurysm. Mild atherosclerotic mural calcification in the abdominal aorta. Celiac trunk and mesenteric arteries: There is variant anatomy of the celiac axis with the left gastric artery arising directly from the aorta. 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 There is new poststenotic dilatation of the vessel which measures up to 7 mm in diameter. 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 Renal arteries: No occlusion or significant stenosis. Single bilateral renal arteries. Right iliac arteries: No occlusion or significant stenosis. Left iliac arteries: No occlusion or significant stenosis. CHEST: Lungs: Minimal dependent hypoventilatory changes. Lungs are otherwise clear, without consolidation or mass. Pleural spaces: Unremarkable. No pneumothorax. No pleural effusion. Heart: Heart size is normal. No pericardial effusion. ABDOMEN AND PELVIS: Liver: Unremarkable. Gallbladder and bile ducts: Unremarkable. No calcified gallstones. No intrahepatic or extrahepatic biliary ductal dilation. Pancreas: Unremarkable. Spleen: Unremarkable. The spleen is normal in size. Adrenal glands: Unremarkable. Kidneys and ureters: No hydronephrosis or hydroureter. Normal and symmetric renal enhancement. No suspicious renal masses. Stomach and bowel: Unremarkable. The stomach is nondilated. The small and large bowel are normal in caliber. No mural thickening. Appendix: A nondilated appendix is identified. Intraperitoneal space: No ascites, fluid collection, or pneumoperitoneum. Urinary bladder: Unremarkable. Reproductive: Mildly enlarged prostate gland. Lymph nodes: No pathologically enlarged lymph nodes. Bones/joints: Degenerative changes. No suspicious osseous lesions. Soft tissues: Unremarkable. IMPRESSION: 1. 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 No vessel occlusion. 2. Additional stable vascular findings are discussed in the body of the report. Dictated and Authenticated by: Lorri Floyd MD. Ordering:BRIAN Rodriguez MD
--- NOTE | 2022-11-13 08:15 | ED.PROG_ITS ---
Date of service: 11/13/22 Time of Service: 08:16 Medical Decision Making Signout received from Dr. Caceres. Patient with gastric artery dissection, follow closely at [facility], recurrent abdominal pain nausea today. Given new arterial dissection and worsening symptoms patient will be transferred to [facility] vascular surgery service excepting physician Dr. Peralta; recommendations of vascular team is to control patient's pain, keep systolic blood pressure between 130 and 140. Patient amenable to plan Sign Out Sign Out Data: Sign Out Comment: Please follow-up with vascular from [facility] in the setting of new proximal left gastric artery dissection. Last updated by Michael Caceres MD at 11/13/22 07:51 Discharge Plan Disposition Patient Disposition: Transfer-Acute Inpatient Care Specific Acute Inpt Facility: [facility] Condition: Stable Discharge Details Chief Complaint: Abd Prob Clinical Impression: Artery dissection, Abdominal pain Primary Care Provider: Jacqueline Pfeiffer ED Provider: Michael Caceres Home Meds and New Rx's Prescriptions: No Action hydrochlorothiazide 12.5 mg tablet 12.5 mg PO DAILY Qty: 90 3RF prednisone 5 mg tablet 5 mg PO DAILY Qty: 0 0RF Rx Instructions: [facility] measles,mumps,rubella vacc(PF) 1,000-12,500 TCID50/0.5 mL recon soln 0.5 ml SC ONCE Qty: 1 0RF rituximab 10 mg/mL concentrate 100 mg IV [id number] multivitamin Tablet 1 tab PO DAILY Probiotic 3 billion cell capsule 3,000 mmu cells PO DAILY Rx Instructions: administer with a meal ascorbic acid (vitamin C) 500 mg capsule 500 mg PO DAILY sucralfate 1 gram tablet 1 g PO AC & HS Qty: 80 0RF aspirin 81 mg tablet,delayed release (DR/EC) See Rx Instructions .ROUTE .COMPLEX Qty: 90 4RF Dose Instruction: TAKE ONE TABLET BY MOUTH EVERY DAY Rx Instructions: TAKE ONE TABLET BY MOUTH EVERY DAY atorvastatin 80 mg tablet 80 mg PO QHS Qty: 90 4RF ondansetron HCl 4 mg tablet 4 mg PO QID PRN (Reason: nausea and vomiting) Qty: 10 0RF dicyclomine 10 mg capsule 10 mg PO TID PRN (Reason: spasm, bloating) Qty: 20 0RF losartan 50 mg tablet 50 mg PO DAILY Qty: 90 4RF Myrbetriq 50 mg tablet extended release 24 hr 50 mg PO DAILY Qty: 90 4RF acetaminophen 500 mg Tablet 1,000 mg PO PRN PRN
[2022-11-13] MEDS: Labetalol 100 MG/20 ML VIAL 10 MG IVP (08:39)
== END 2022-11-13 09:45 | disposition short-term general hospital (02) ==
PROVIDERS: Emergency Medicine; Emergency Provider Emergency Medicine; PCP Nurse Practitioner Family
DX: I77.79 Dissection of other specified artery (principal); R10.9 Unspecified abdominal pain
CPT/HCPCS: 71275; 80053; 83690; 93005; 96361; 96374; 96375; 96376; 99285; 74174; 83605; 84484; 85025; 93010; J1170; J2405; J3490

== ENCOUNTER 2022-12-06 10:41 | Emergency (ER) | payer MEDICAID, SELFPAY ==
[2022-12-06] VITALS (24 sets, daily range): BP systolic 114–162; BP diastolic 68–96; PULSE 48–64; RESP 20–29; TEMP 36.6; O2SAT 100
--- NOTE | 2022-12-06 10:45 | RT.EKG_ITS ---
APPROVED REPORT Exam: Resting ECG Reason for Exam: vomiting Patient Location: E HR:48 bpm ECG Measurements Heart Rate 48 AXIS NH 136 P 40 QRSd 97 QRS 26 QT 474 T 54 QTc 425 Conclusion Sinus bradycardia...rate< 60
--- NOTE | 2022-12-06 10:55 | DI.CT_ITS ---
Exam(s) CT THORAX ABD/PEL CTA EXAM: CT THORAX ABD/PEL CTA CLINICAL HISTORY: abdomen pain, hx of dissections. TECHNIQUE: Imaging Protocol: Axial CT angiography was performed with multi-slice acquisition and m ulti-planar and/or 3D reconstructions. CONTRAST MATERIAL: Intravenous: Omnipaque 350 contrast volume:125 mL Oral: No COMPARISON: CT CT THORAX ABD/PEL CTA from 11/07/[address] THORAX ABD/PEL CTA from 11/13/2022 FINDINGS: CHEST: Tracheobronchial tree: Patent where visualized. Pulmonary parenchyma: There is dependent atelectasis in the lung bases. No focal consolidating infil trates are present. No architectural distortion. Pulmonary Arteries: No evidence of filling defect to suggest pulmonary emboli. Mediastinum and Marizol: No dominant adenopathy or fluid collection. The esophagus is unremarkable. Visualized thyroid: Unremarkable. Pleura: No effusion or pneumothorax. Heart: The heart is not dilated. Mild atherosclerosis is seen in the LAD. No pericardial effusion. Aorta: Thoracic aorta non-dilated. No evidence of dissection. Atherosclerosis is present. Soft Tissues: Unremarkable. Bones: Within normal limits for the patient's age. ABDOMEN AND PELVIS: Abdomen: Celiac axis/mesenteric arteries: There is a stable dissection with pseudoaneurysm seen of the hepatos plenic trunk. There is also an old dissection seen of the superior mesenteric artery. There is aneu rysmal dilatation of the proximal SMA. There is a new dissection seen on of a branch of the superior mesenteric artery (series 7 images 736 through 770). There is again seen at the left gastric artery arises directly from the aorta. There is stable chronic dissection of the proximal left gastric art fernando. There is increased luminal narrowing of the gastric artery which now just measures 3 mm. This is worsened since the prior examination. Renal Arteries: No evidence of occlusion or significant stenosis. There is a single renal artery per fusing each kidney. Aorta: No evidence of occlusion or significant stenosis. No aneurysm or dissection. Pelvis: Iliac Arteries: There is a stable dissection of the right external iliac artery with pseudoaneurysm. Common Femoral Arteries: No evidence of occlusion or significant stenosis. ABDOMEN: Liver: Normal density. There is a 4 mm area of hyper density in the dome of the right lobe of the shil[place] er. It is isodense to the aorta and may represent small hemangioma. It is too small for further christiano racterization. Gallbladder and Biliary Tract: No radiodense calculus or dilation. Pancreas: Normal density, no abnormal calcifications or inflammatory process. Spleen: Normal. Adrenals: No masses seen. Kidneys: Normal size, contour and axis. No radiodense stones or obstructive uropathy. No masses seen. Bowel: No obstruction or bowel wall thickening. Appendix is unremarkable. Peritoneal Cavity: No ascites, collection or mesenteric inflammatory response. No free air. Lymph Nodes: Within normal limits. Bones: Within normal limits for the patient's age. Soft Tissues: Unremarkable. PELVIS: Bladder: Symmetric distention, no gross wall thickening. Reproductive Organs: Unremarkable as visualized. Lymph Nodes: Within normal limits. Bones: Within normal limits for the patient's age. IMPRESSION: 1. Findings suspicious for a new area of dissection involving a branch arising from the superior mese nteric artery (series 7, images [id number]). 2. Progressive luminal narrowing of the left gastric artery. There is a chronic dissection of the pr oximal left gastric artery noted. 3. Stable dissections in pseudoaneurysm 0 dilatation of arterial branches in the abdomen as described above. 4. No acute pulmonary process. 5. Findings were discussed with Dr. Delcid at 10:24 a.m. on 12/07/2022. RADIATION DOSE DELIVERED: 1,130.35mGy.cm Total DLP DATA REPOSITORY: All CT scans at this facility are submitted to the National Radiology Data Registry (NRDR) Dose Index Registry (DIR) with the [employer] (A[employer]). RADIATION OPTIMIZATION: All CT scans at this facility use at least one of these dose optimization te chniques: automated exposure control; mA and/or kV adjustment per patient size (includes targeted exa ms where dose is matched to clinical indication); or iterative reconstruction.
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
[2022-12-06 11:06] LABS: Abs Immature Grans 0.32 10^3/uL (0.0-0.06); Absolute Basophil Count 0.05 10^3/uL (0.0-0.2); Absolute Neutrophil Count 12.14 10^3/uL (1.2-6.7); Basophils % 0.3; Eosinophils % 1.5; HCT 46.4 % (40.0-50.0); HGB 15.4 g/dL (13.5-17.5); Lymphocytes % 12.4; MCH 30.3 pg (27.0-33.0); MCHC 33.2 % (32.0-36.0); MCV 91 fL (80-95); MPV 9.8 fL (8.0-11.0); Monocytes % 6.8; Platelet Count 214 10^3/uL (130-400); RBC 5.09 10^6/uL (4.36-5.78); RDW 14.4 % (11.8-14.1); RDW-SD 48.1 fL; WBC 15.77 10^3/uL (4.4-10.8)
[2022-12-06] MEDS: Droperidol 5 MG/2 ML VIAL 2.5 MG IVP (11:12)
[2022-12-06] MEDS: HYDROmorphone 2 MG/ML SYR IVP (11:12)
[2022-12-06] MEDS: Normal Saline 1,000 ML 1000 ML IV (11:13)
[2022-12-06 11:15] LABS: PTT Activated 22.3 sec (21.5-31.9); Prothrombin Time 10.1 sec (9.3-11.0)
[2022-12-06 11:19] LABS: Absolute Eosinophil Count 0.24 10^3/uL (0.0-0.7); Absolute Lymphocyte Count 1.96 10^3/uL (1.2-3.4); Absolute Monocyte Count 1.07 10^3/uL (0.1-0.8)
[2022-12-06 11:29] LABS: ALT 38 U/L (16-63); AST 15 U/L (15-37); Albumin 4.4 g/dL (3.4-5.0); Alkaline Phosphatase 52 U/L (46-116); Anion Gap 11.7 mmol/L (3-11); BUN 25 mg/dL (7-18); Bilirubin, Total 1.1 mg/dL (0.2-1.0); CO2 27.3 mmol/L (21.0-32.0); CREATININE 1.1 mg/dL (0.70-1.30); Calcium 9.7 mg/dL (8.5-10.1); Chloride 106 mmol/L (98-107); Estimated GFR 82.29 (mL/min/1.73m2); Glucose 111 mg/dL (74-106); Lipase 104 U/L (16-77); Potassium 3.4 mmol/L (3.5-5.1); Sodium 145 mmol/L (136-145); TSH (W/Ref FT4) 1.76 uIU/mL (0.36-3.74); Total Protein 7.2 g/dL (6.4-8.2); Troponin I < 50 ng/L (<or=60)
[2022-12-06] MEDS: Omnipaque 350 MG/ML 100 ML BTL IJ (12:13)
[2022-12-06] MEDS: Normal Saline - Diluent 50 ML VIAL IJ ×2 (12:13→12:14)
[2022-12-06] MEDS: Omnipaque 350 MG/ML 50 ML BTL IJ (12:14)
[2022-12-06 12:37] LABS: Bilirubin Negative (Negative); Blood Negative (Negative); Clarity Sl Cloudy (Clear); Glucose Negative (Negative); Ketones Negative (Negative); Leukocyte Esterase Negative (Negative); Nitrite Negative (Negative); Urobilinogen 0.2 mg/dL (Up to 0.2); pH 7.5 (5-8)
--- NOTE | 2022-12-06 13:19 | DI.VRAD_ITS ---
PROCEDURE INFORMATION: Exam: CTA Chest With Contrast CTA Abdomen and Pelvis With Contrast Exam date and time: 12/06/2022 12:17 PM Age: 47 years old Clinical indication: Other: Abdomen pain, HX of dissections TECHNIQUE: Imaging protocol: Computed tomographic angiography of the chest with contrast. Exam focused on the arteries. Computed tomographic angiography of the abdomen and pelvis with contrast. Exam focused on the arteries. 3D rendering (Not supervised by radiologist): MIP and/or 3D reconstructed images were created by the technologist. Radiation optimization: All CT scans at this facility use at least one of these dose optimization techniques: automated exposure control; mA and/or kV adjustment per patient size (includes targeted exams where dose is matched to clinical indication); or iterative reconstruction. Contrast material: OMNIPAQUE 350; Contrast volume: 125 ml; Contrast route: INTRAVENOUS (IV); COMPARISON: CT THORAX ABDOMEN CTA 11/13/2022 5:20 AM FINDINGS: VASCULATURE: Pulmonary arteries: No evidence of pulmonary embolus to the segmental level. Aorta: No aneurysm of the aorta. No dissection of the aorta. Celiac trunk and mesenteric arteries: Again noted is variant anatomy of the celiac axis with the left gastric artery arising directly from the aorta. The dissection of the proximal left gastric artery is again noted. There is significant severe luminal narrowing which has exacerbated since the prior study. It is now string like . Series 5, image 60. Series 7 image [id number] . It was 3 mm in width on the prior study.. Also again identified is aneurysmal dilatation of the proximal SMA which contains a stable small dissection flap. 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 Renal arteries: No occlusion or significant stenosis. Right iliac arteries: Stable dissection in the right external iliac artery. Series 7, image 1011. Left iliac arteries: No occlusion or significant stenosis. CHEST: Lungs: Unremarkable. No consolidation. No masses. Pleural spaces: Unremarkable. No pneumothorax. No pleural effusion. Heart: Unremarkable. No cardiomegaly. No pericardial effusion. ABDOMEN AND PELVIS: Liver: No mass. Gallbladder and bile ducts: Unremarkable. No calcified stones. No ductal dilation. Pancreas: Unremarkable. No mass. No ductal dilation. Spleen: Unremarkable. No splenomegaly. Adrenal glands: Unremarkable. No mass. Kidneys and ureters: Unremarkable. No solid mass. No hydronephrosis. Stomach and bowel: Unremarkable. No obstruction. No mucosal thickening. Appendix: Normal appendix Intraperitoneal space: Unremarkable. No free air. No significant fluid collection. Urinary bladder: Unremarkable. No mass. Reproductive: Unremarkable as visualized. Lymph nodes: Unremarkable. No enlarged lymph nodes. Bones/joints: Unremarkable. No acute fracture. Soft tissues: Unremarkable. IMPRESSION: 1. No evidence of pulmonary embolus to the segmental level. 2. No aneurysm of the aorta. 3. No dissection of the aorta. 4. Again noted is variant anatomy of the celiac axis with the left gastric artery arising directly from the aorta. The dissection of the proximal left gastric artery is again noted. There is significant severe luminal narrowing which has exacerbated since the prior study. It is now string like . Series 5, image 60. Series 7 image [id number] . It was 3 mm in width on the prior study.. 5. 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 6. Also again identified is aneurysmal dilatation of the proximal SMA which contains a stable small dissection flap. 7. Stable dissection in the right external iliac artery. Series 7, image 1011. Dictated and Authenticated by: Kayla Parham MD. Ordering:CHERI Hummel MD
[2022-12-06 13:56] LABS: Lactate 1.1 mmol/L (0.6-1.4)
[2022-12-06 14:20] LABS: Troponin I < 50 ng/L (<or=60)
--- NOTE | 2022-12-07 11:00 | W.ED.FU ---
Date of service: 12/06/22 Follow Up Plan: Called patient by phone and spoke directly with him. Informed him of the findings concerning for new dissection. Patient states that this time he is symptom-free and the episode seems to have resolved. He is in no pain no nausea tolerating p.o. fluids. Patient understands need to return to the emergency department should he have a repeat episode of pain or or even if he is having difficulty control blood pressure. Patient is highly intelligent and has a good handle on how he should manage his condition out of the hospital and I feel that there is no indication at this time to emergently come to the emergency department if he is asymptomatic. He has follow-up tomorrow with his PCP and follow-up with vascular surgery in the near term. I have not seen this patient but the phone conversation I had with them would appear that he has some sort of vasculitis and/or connective tissue disorder that is leading to multiple repeated dissections at different sites. He mentions a diagnosis of segmental vasculitis and for this he sees to rheumatology.
== END 2022-12-06 15:01 | disposition home or self-care (01) ==
PROVIDERS: Emergency Provider Emergency Medicine; PCP Nurse Practitioner Family
DX: R10.9 Unspecified abdominal pain (principal); R11.2 Nausea with vomiting, unspecified
CPT/HCPCS: 71275; 80053; 83690; 93005; 96361; 96374; 96375; 99285; 74174; 81003; 83605; 84443; 84484; 85025; 85610; 85730; 93010; 99284; J1170; J1790; J3490; Q9967

== ENCOUNTER 2023-01-15 12:50 | Outpatient (CLI) | payer MEDICAID, SELFPAY ==
[2023-01-15 15:49] LABS: ALT 40 U/L (16-63); AST 17 U/L (15-37); Albumin 3.9 g/dL (3.4-5.0); Alkaline Phosphatase 51 U/L (46-116); Anion Gap 6.1 mmol/L (3-11); BUN 20 mg/dL (7-18); Bilirubin, Total 0.6 mg/dL (0.2-1.0); C-Reactive Protein < 0.05 mg/dL (0.0-0.3); CO2 30.9 mmol/L (21.0-32.0); Calcium 9.1 mg/dL (8.5-10.1); Chloride 106 mmol/L (98-107); Estimated GFR 92.26 (mL/min/1.73m2); Glucose 144 mg/dL (74-106); Potassium 4.1 mmol/L (3.5-5.1); Sodium 143 mmol/L (136-145); Total Protein 6.5 g/dL (6.4-8.2)
[2023-01-15 16:05] LABS: Abs Immature Grans 0.24 10^3/uL (0.0-0.06); Absolute Basophil Count 0.07 10^3/uL (0.0-0.2); Absolute Eosinophil Count 0.08 10^3/uL (0.0-0.7); Absolute Lymphocyte Count 0.74 10^3/uL (1.2-3.4); Absolute Monocyte Count 0.52 10^3/uL (0.1-0.8); Basophils % 0.6; Eosinophils % 0.7; HCT 42.4 % (40.0-50.0); HGB 14.2 g/dL (13.5-17.5); Lymphocytes % 6.3; MCH 30.3 pg (27.0-33.0); MCHC 33.5 % (32.0-36.0); MCV 91 fL (80-95); MPV 10.4 fL (8.0-11.0); Monocytes % 4.4; Platelet Count 185 10^3/uL (130-400); RBC 4.68 10^6/uL (4.36-5.78); RDW 15.2 % (11.8-14.1); RDW-SD 50.4 fL; WBC 11.72 10^3/uL (4.4-10.8)
[2023-01-15 16:11] LABS: Absolute Neutrophil Count 10.08 10^3/uL (1.2-6.7)
[2023-01-15 16:18] LABS: ESR 1 mm/hr (0-15)
== END 2023-01-15 12:51 | disposition home or self-care (01) ==
LOC: LBO 12:51
PROVIDERS: PCP Nurse Practitioner Family; Visit Provider Student in an Organized Health Care Education/Training Program
DX: I77.6 Arteritis, unspecified (principal)
CPT/HCPCS: 36415; 80053; 85652; 85025; 86140

== ENCOUNTER 2023-02-14 13:14 | Emergency (ER) | payer MEDICAID, SELFPAY ==
[2023-02-14] VITALS (24 sets, daily range): BP systolic 137–194; BP diastolic 74–139; PULSE 38–95; RESP 12–25; TEMP 36.4; O2SAT 93–100
--- NOTE | 2023-02-14 13:44 | DI.CT_ITS ---
Exam(s) CT THORAX ABD/PEL CTA EXAM: CT THORAX ABD/PEL CTA CLINICAL HISTORY: Abdominal pain, history of dissection. TECHNIQUE: Imaging Protocol: Axial computed tomography images with coronal and sagittal reformatted images were created and reviewed CONTRAST MATERIAL: Intravenous: Omnipaque 350 Contrast volume:100 ml Oral: None COMPARISON: CT CT THORAX ABD/PEL CTA from 12/06/2022 FINDINGS: CHEST: AORTA: The diameter of the ascending thoracic aorta is 3.8 cm. Aortic arch anatomy is conventional. There is no dissection evident. Diameter of the descending thoracic aorta is 2.7 cm. No dissection . There is no evidence of abdominal aortic aneurysm. Maximum diameter of the abdominal aorta is 2.2 cm. Diameter of the iliac arteries is upper normal. On the right side there is a small nonobstruct nolan dissection flap in the proximal aspect of the right external iliac artery (series 4/image 98). D iameter of the vessel is slightly prominent measuring 1.0 cm at this level but without fusiform dilat ation. The remainder of the right external iliac artery appears unremarkable. Both internal iliac a rteries are patent and both common femoral arteries appear unremarkable. LUNGS: No infiltrates nor pleural effusions. No findings in trachea and mainstem bronchi.. MEDIASTINUM: There is no hilar nor mediastinal adenopathy. Visualized thyroid unremarkable. CARDIAC: Heart size is normal. There is no pericardial effusion. AORTA: As above ABDOMEN: There is no evidence of abdominal aortic aneurysm. Celiac, SMA, and inferior mesenteric arteries are patent. 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 It is dilated up to 1.9 cm at this level just prior to origin of the splenic arter y. There also appears to be a subtle dissection flap in the dilated celiac artery, nonocclusive. The superior mesenteric artery also exhibits prominent aneurysmal diameter of 1.4 cm starting approxi mately 4 cm distal to its origin. Beyond its origin. No calcified plaque. No significant stenosis at its origin. No dissection. No intraluminal filling defects to suggest emboli. No ascites and no ischemic appearing bowel loops. However, diameter of some left-sided jejunal loops are slightly prominent possibly and mint of enteritis. No evidence of small-bowel obstruction. Jeovany endix unremarkable. The transverse colon is collapsed. Probable pseudo colitis pattern. There is n o colitis pattern evident in the sigmoid. No significant sigmoid diverticular disease. LIVER: There are no focal hepatic lesions nor dilatation of intrahepatic ducts. GALLBLADDER/BILIARY: No obvious gallbladder pathology. CBD is not dilated. PANCREAS: No evidence of pancreatic mass nor dilatation of the pancreatic duct. SPLEEN: Spleen is not enlarged. There are no intrasplenic lesions. Splenic and portal veins are grigsby nt. ADRENALS: There are no significant adrenal masses. KIDNEYS: No cysts evident. No calculi nor hydronephrosis. No solid renal masses. ABDOMINAL AORTA: The abdominal aorta is not enlarged. 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 LYMPH NODES: There is no retroperitoneal nor para-aortic adenopathy. No obvious mesenteric masses. ABDOMINAL WALL: No evidence of significant anterior abdominal wall hernia. GI: There is no evidence of bowel obstruction, free air, nor abscess. PELVIS: LYMPH NODES: There is no intrapelvic nor inguinal adenopathy. GI: No evidence of appendicitis.No evidence of sigmoid diverticulitis. URINARY BLADDER: No calculi nor masses evident REPRODUCTIVE: Prostate size upper normal. Seminal vesicles unremarkable. OSSEOUS: No significant osseous lesions. No fractures. Chronic disc space narrowing L5-S1 level. IMPRESSION: 1. No evidence of aortic dissection but again noted are aneurysmal dilatation and dissections in the celiac and superior mesenteric arteries, nonocclusive and there also no emboli evident in these vesse ls. Correlation with any clinical history of collagen vascular disease recommended also focal nonocc lusive dissection seen in the proximal 3rd of the right external iliac artery, similar to previous. 2. There are no ischemic appearing bowel loops. There is no ascites. 3. Other findings as above. 4. RADIATION DOSE DELIVERED: 1,051.9mGy.cm Total DLP DATA REPOSITORY: All CT scans at this facility are submitted to the National Radiology Data Registry (NRDR) Dose Index Registry (DIR) with the [employer] (A[employer]). RADIATION OPTIMIZATION: All CT scans at this facility use at least one of these dose optimization te chniques: automated exposure control; mA and/or kV adjustment per patient size (includes targeted exa ms where dose is matched to clinical indication); or iterative reconstruction.
[2023-02-14] MEDS: HYDROmorphone 2 MG/ML SYR 1 MG IVP (13:52)
[2023-02-14] MEDS: Droperidol 5 MG/2 ML VIAL 2.5 MG IVP (13:52)
[2023-02-14] MEDS: Normal Saline 1,000 ML 1000 ML IV ×2 (13:53→15:31)
[2023-02-14 14:00] LABS: Abs Immature Grans 0.17 10^3/uL (0.0-0.06); Absolute Basophil Count 0.15 10^3/uL (0.0-0.2); Absolute Lymphocyte Count 2.56 10^3/uL (1.2-3.4); Basophils % 0.8; Eosinophils % 1.8; HCT 43.8 % (40.0-50.0); HGB 15.2 g/dL (13.5-17.5); Immature Grans % 0.9; Lymphocytes % 13.4; MCH 30.5 pg (27.0-33.0); MCHC 34.7 % (32.0-36.0); MCV 88 fL (80-95); MPV 10.6 fL (8.0-11.0); Monocytes % 6.4; Neutrophils % 76.7; Platelet Count 258 10^3/uL (130-400); RBC 4.98 10^6/uL (4.36-5.78); RDW 14.5 % (11.8-14.1); RDW-SD 46.8 fL; WBC 19.12 10^3/uL (4.4-10.8)
[2023-02-14 14:02] LABS: Absolute Eosinophil Count 0.34 10^3/uL (0.0-0.7); Absolute Monocyte Count 1.22 10^3/uL (0.1-0.8); Absolute Neutrophil Count 14.67 10^3/uL (1.2-6.7)
[2023-02-14 14:05] LABS: Lactate 2.8 mmol/L (0.6-1.4)
[2023-02-14 14:20] LABS: ALT 21 U/L (16-63); AST 15 U/L (15-37); Albumin 4.6 g/dL (3.4-5.0); Alkaline Phosphatase 64 U/L (46-116); Anion Gap 13.5 mmol/L (3-11); BUN 29 mg/dL (7-18); Bilirubin, Total 1.1 mg/dL (0.2-1.0); CO2 24.5 mmol/L (21.0-32.0); CREATININE 1.1 mg/dL (0.70-1.30); Calcium 10.1 mg/dL (8.5-10.1); Chloride 107 mmol/L (98-107); Estimated GFR 82.29 (mL/min/1.73m2); Glucose 197 mg/dL (74-106); Lipase 27 U/L (16-77); Magnesium 1.9 mg/dL (1.8-2.4); Sodium 145 mmol/L (136-145); Total Protein 7.3 g/dL (6.4-8.2)
[2023-02-14] MEDS: Normal Saline Flush 10 ML SYR IVP (14:56)
[2023-02-14] MEDS: Normal Saline - Diluent 50 ML VIAL IJ (14:56)
[2023-02-14] MEDS: Omnipaque 350 MG/ML 100 ML BTL IJ (14:57)
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
[2023-02-14 15:10] LABS: Bilirubin Negative (Negative); Blood Negative (Negative); Clarity Sl Cloudy (Clear); Glucose Negative (Negative); Ketones 40 mg/dL (Negative); Leukocyte Esterase Negative (Negative); Nitrite Negative (Negative); Urobilinogen 0.2 mg/dL (Up to 0.2)
[2023-02-14 15:22] LABS: Bacteria Moderate HPF (Negative); C & S Indicated? Yes; Casts Negative LPF (Negative); Crystals Negative HPF (Negative); Epithelial Cells Few HPF (Negative); Mucus Trace (Negative); RBC 0-2 HPF (0-2)
--- NOTE | 2023-02-14 15:31 | DI.VRAD_ITS ---
PROCEDURE INFORMATION: Exam: CTA Chest With Contrast CTA Abdomen and Pelvis With Contrast Exam date and time: 02/14/2023 2:33 PM Age: 47 years old Clinical indication: Other: Abdominal pain, HX of dissection TECHNIQUE: Imaging protocol: Computed tomographic angiography of the chest with contrast. Exam focused on the arteries. Computed tomographic angiography of the abdomen and pelvis with contrast. Exam focused on the arteries. 3D rendering (Not supervised by radiologist): MIP and/or 3D reconstructed images were created by the technologist. Radiation optimization: All CT scans at this facility use at least one of these dose optimization techniques: automated exposure control; mA and/or kV adjustment per patient size (includes targeted exams where dose is matched to clinical indication); or iterative reconstruction. Contrast material: OMNI 350; Contrast volume: 100 ml; Contrast route: INTRAVENOUS (IV); COMPARISON: CT THORAX ABD/PEL CTA 12/06/2022 12:17 PM FINDINGS: VASCULATURE: Pulmonary arteries: Normal. No pulmonary emboli. Aorta: No aortic aneurysm. No aortic dissection. Celiac trunk and mesenteric arteries: No occlusion or significant stenosis. Renal arteries: No occlusion or significant stenosis. Right iliac arteries: No occlusion or significant stenosis. Pseudoaneurysm versus focal dissection flap images 98-99 in the right external iliac artery and sagittal image 87 series 9 measuring up to 2 cm Left iliac arteries: No occlusion or significant stenosis. CHEST: Lungs: Unremarkable. No consolidation. No masses. Pleural spaces: Unremarkable. No pneumothorax. No pleural effusion. Heart: Unremarkable. No cardiomegaly. No pericardial effusion. ABDOMEN AND PELVIS: Liver: No mass. Gallbladder and bile ducts: Unremarkable. No calcified stones. No ductal dilation. Pancreas: Unremarkable. No mass. No ductal dilation. Spleen: Unremarkable. No splenomegaly. Adrenal glands: Unremarkable. No mass. Kidneys and ureters: Unremarkable. No solid mass. No hydronephrosis. Stomach and bowel: Unremarkable. No obstruction. No mucosal thickening. Appendix: No evidence of appendicitis. Intraperitoneal space: Unremarkable. No free air. No significant fluid collection. Urinary bladder: Unremarkable. No mass. Reproductive: Unremarkable as visualized. Lymph nodes: Unremarkable. No enlarged lymph nodes. Bones/joints: Unremarkable. No acute fracture. Soft tissues: Unremarkable. 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 No occlusion or significant stenosis. Findings are grossly stable Dictated and Authenticated by: Luciano Ley MD. Ordering:EMILY Longo MD
[2023-02-14] MEDS: Ondansetron O.D.T. 4 MG TABEF, 3 TABS/BTL PO (15:47)
[2023-02-14] MEDS: Potassium Chloride 20 MEQ TABCR 40 MEQ PO (15:48)
== END 2023-02-14 16:16 | disposition home or self-care (01) ==
PROVIDERS: Emergency Provider Nurse Practitioner Family; PCP Nurse Practitioner Family
DX: R11.2 Nausea with vomiting, unspecified (principal); F12.90 Cannabis use, unspecified, uncomplicated; I10 Essential (primary) hypertension; R00.1 Bradycardia, unspecified; K90.0 Celiac disease; Z87.891 Personal history of nicotine dependence
CPT/HCPCS: 71275; 80053; 83690; 96374; 96375; 99285; 74174; 81003; 81015; 83605; 83735; 85025; 87086; 99283; J1170; J1790; J3490

== ENCOUNTER 2023-02-15 05:10 | Emergency (ER) | payer MEDICAID, SELFPAY ==
[2023-02-15 05:13] VITALS: BP 170/90; PULSE 56; RESP 20; TEMP 36.7; O2SAT 100
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
[2023-02-15 05:29] LABS: Abs Immature Grans 0.05 10^3/uL (0.0-0.06); Absolute Basophil Count 0.08 10^3/uL (0.0-0.2); Basophils % 0.5; Eosinophils % 0.9; HGB 13.6 g/dL (13.5-17.5); Immature Grans % 0.3; Lymphocytes % 10.4; MCH 30.2 pg (27.0-33.0); MCHC 33.2 % (32.0-36.0); MCV 91 fL (80-95); MPV 10.7 fL (8.0-11.0); Monocytes % 6.9; Platelet Count 216 10^3/uL (130-400); RBC 4.51 10^6/uL (4.36-5.78); RDW 14.8 % (11.8-14.1); RDW-SD 49.5 fL; WBC 16.28 10^3/uL (4.4-10.8)
[2023-02-15 05:32] LABS: Absolute Eosinophil Count 0.15 10^3/uL (0.0-0.7); Absolute Lymphocyte Count 1.69 10^3/uL (1.2-3.4); Absolute Monocyte Count 1.12 10^3/uL (0.1-0.8); Absolute Neutrophil Count 13.19 10^3/uL (1.2-6.7)
[2023-02-15] MEDS: Droperidol 5 MG/2 ML VIAL 2.5 MG IVP (05:38)
[2023-02-15] MEDS: Normal Saline 1,000 ML 1000 ML IV (05:39)
[2023-02-15] MEDS: HYDROmorphone 2 MG/ML SYR 0.5 MG IVP (05:43)
[2023-02-15 05:46] LABS: ALT 20 U/L (16-63); AST 16 U/L (15-37); Albumin 4.1 g/dL (3.4-5.0); Alkaline Phosphatase 61 U/L (46-116); Anion Gap 13.6 mmol/L (3-11); BUN 20 mg/dL (7-18); Bilirubin, Total 1.4 mg/dL (0.2-1.0); CO2 23.4 mmol/L (21.0-32.0); CREATININE 1.2 mg/dL (0.70-1.30); Calcium 9.6 mg/dL (8.5-10.1); Chloride 106 mmol/L (98-107); Estimated GFR 74.13 (mL/min/1.73m2); Glucose 149 mg/dL (74-106); Lipase 31 U/L (16-77); Potassium 3.9 mmol/L (3.5-5.1); Sodium 143 mmol/L (136-145); Total Protein 6.8 g/dL (6.4-8.2)
== END 2023-02-15 06:53 | disposition home or self-care (01) ==
PROVIDERS: Emergency Provider Emergency Medicine; PCP Nurse Practitioner Family
DX: R11.2 Nausea with vomiting, unspecified (principal); R10.13 Epigastric pain
CPT/HCPCS: 80053; 83690; 96361; 96374; 96375; 99284; 85025; J1170; J1790

== ENCOUNTER 2023-05-11 09:19 | Emergency (ER) | payer MEDICAID, SELFPAY ==
--- NOTE | 2023-05-11 09:15 | RT.EKG_ITS ---
APPROVED REPORT Exam: Resting ECG Reason for Exam: abd pain Patient Location: E HR:48 bpm ECG Measurements Heart Rate [address] 149 P 60 QRSd 100 QRS 25 QT 536 T 54 QTc 480 Conclusion Sinus bradycardia...rate< 60
[2023-05-11 09:19] VITALS: BP 160/102; PULSE 60; RESP 22; O2SAT 100
[2023-05-11] MEDS: Ondansetron 4 MG/2 ML VIAL ×2 (09:44→13:52)
[2023-05-11 09:46] LABS: Lactate 4.2 mmol/L (0.6-1.4)
[2023-05-11 09:47] LABS: Abs Immature Grans 0.11 10^3/uL (0.0-0.06); Absolute Eosinophil Count 0.44 10^3/uL (0.0-0.7); Absolute Lymphocyte Count 2.14 10^3/uL (1.2-3.4); Absolute Monocyte Count 0.84 10^3/uL (0.1-0.8); Basophils % 0.6; Eosinophils % 2.8; HCT 44.8 % (40.0-50.0); HGB 15.4 g/dL (13.5-17.5); Immature Grans % 0.7; Lymphocytes % 13.7; MCH 30.1 pg (27.0-33.0); MCHC 34.4 % (32.0-36.0); MCV 88 fL (80-95); MPV 10.3 fL (8.0-11.0); Monocytes % 5.4; Neutrophils % 76.8; Platelet Count 214 10^3/uL (130-400); RBC 5.11 10^6/uL (4.36-5.78); RDW 12.9 % (11.8-14.1); RDW-SD 41.6 fL
[2023-05-11 09:48] LABS: Absolute Basophil Count 0.09 10^3/uL (0.0-0.2); Absolute Neutrophil Count 11.98 10^3/uL (1.2-6.7)
[2023-05-11] MEDS: HYDROmorphone 2 MG/ML SYR 1 MG IVP ×2 (09:56→13:24)
[2023-05-11] MEDS: Lactated Ringers 500 ML 1000 ML IV (09:59)
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
[2023-05-11 10:06] LABS: ALT 29 U/L (16-63); AST 22 U/L (15-37); Albumin 4.1 g/dL (3.4-5.0); Alkaline Phosphatase 59 U/L (46-116); Anion Gap 14.9 mmol/L (3-11); BUN 25 mg/dL (7-18); Bilirubin, Total 0.7 mg/dL (0.2-1.0); CO2 23.1 mmol/L (21.0-32.0); CREATININE 1.3 mg/dL (0.70-1.30); Chloride 105 mmol/L (98-107); Estimated GFR 66.93 (mL/min/1.73m2); Glucose 165 mg/dL (74-106); Lipase 33 U/L (16-77); Magnesium 1.5 mg/dL (1.8-2.4); Sodium 143 mmol/L (136-145); Total Protein 6.7 g/dL (6.4-8.2)
[2023-05-11 10:10] LABS: Troponin I < 50 ng/L (<or=60)
[2023-05-11 10:11] LABS: Potassium 2.8 mmol/L (3.5-5.1)
[2023-05-11] MEDS: Ketamine 500 MG/10 ML VIAL 29 MG IVP (10:36)
[2023-05-11] MEDS: Normal Saline - Diluent 50 ML VIAL IJ (10:44)
[2023-05-11] MEDS: Omnipaque 350 MG/ML 500 ML BTL-Imaging package 100 ML IJ (10:46)
--- NOTE | 2023-05-11 10:55 | DI.CT_ITS ---
Exam(s) CT ABDOMEN PELVIS CTA EXAM: CT ABDOMEN PELVIS CTA CLINICAL HISTORY: abd pain, n/v, h/o FELECIA, lactate 4. TECHNIQUE: Imaging Protocol: Axial computed tomography images with coronal and sagittal reformatted images were created and reviewed CONTRAST MATERIAL: Intravenous: Omnipaque 350 Contrast volume:100 ml Oral: None COMPARISON: CT CT THORAX ABD/PEL CTA from 02/14/2023 FINDINGS: Visualized lung bases: No infiltrates nor pleural effusions. No nodules in the lung bases. AORTA: Diameter of the most proximal abdominal aorta is 2.7 cm. Just above the celiac artery there i s independent origin of a vessel which is probably the left gastric artery and this exhibits aneurysm al dilatation a few cm past its origin. It is dilated to 6.5 mm. The artery proximal to this is 3 m m diameter. The celiac artery exhibits both aneurysmal dilatation proximally and dissection, similar to previous. The aneurysmal dilatation starts 0.5 cm distal to its origin and extends for 3 cm length and exhibi ts aneurysmal dilatation to maximum diameter of 2 cm. There is a dissection flap again evident in th e dilated celiac artery. There is arterial megaly of the splenic artery measuring 9 mm diameter. Th ere is also aneurysmal dilatation of the proximal aspect of the common hepatic artery which exhibits diameter of 1.4 cm.,. The proximal gastroduodenal artery also exhibits aneurysmal dilatation. The m ore distal hepatic artery is significantly dilated with mural thrombus and a diameter of 2.9 cm. The superior mesenteric artery also exhibits aneurysmal dilatation starting 2 cm distal to its origin and exhibiting diameter up to 1.4 cm. No prominent mural plaque. There are no intraluminal filling defects to suggest emboli within the branches of the SMA. There is no tight stenosis nor aneurysm at the origin of the renal arteries. No evidence of fibromus cular dysplasia of the renal arteries. The inferior mesenteric artery is patent and not dilated. There is an element of arterial megaly of the common and external iliac arteries but without fusiform aneurysms. There are also no focal fusif orm aneurysms of the internal iliac arteries. Common femoral arteries appear unremarkable. LIVER: There are no focal hepatic lesions nor dilatation of intrahepatic ducts. GALLBLADDER/BILIARY: No obvious gallbladder pathology. CBD is not dilated. PANCREAS: No evidence of pancreatic mass nor dilatation of the pancreatic duct. SPLEEN: Spleen is not enlarged. There are no intrasplenic lesions. Splenic and portal veins are grigsby nt. ADRENALS: There are no significant adrenal masses. KIDNEYS: No cysts evident. No calculi nor hydronephrosis. No solid renal masses. ABDOMINAL AORTA: See above. No aneurysm of the abdominal aorta. Symmetrical mild non fusiform arter ial megaly of the common and external iliac arteries. No stenosis of these vessels evident. LYMPH NODES: There is no retroperitoneal nor para-aortic adenopathy. No obvious mesenteric masses. ABDOMINAL WALL: No evidence of significant anterior abdominal wall hernia. GI: There is no evidence of bowel obstruction, free air, nor abscess.No ischemic appearing bowel loop s. PELVIS: LYMPH NODES: There is no intrapelvic nor inguinal adenopathy. GI: No evidence of appendicitis.No evidence of sigmoid diverticulitis. URINARY BLADDER: No calculi nor masses evident REPRODUCTIVE: Mild prostate enlargement. No obturator adenopathy. Seminal vesicles unremarkable. OSSEOUS: No significant osseous lesions. No fractures. No listhesis. Chronic degenerative disc dis ease at L5-S1 level noted. IMPRESSION: 1. Although there is no evidence of abdominal aortic aneurysm nor aortic dissection, there is aneurys mal dilatation of the celiac and superior mesenteric arteries as described above and there is a nonoc clusive dissection of the dilated celiac artery evident. There is also significant dilatation of the origin of the gastroduodenal artery as well as significant aneurysm off the origin of the hepatic ar gabriele with diameter 2.9 cm which is occluded at this level and having appearance of a friedman-type aneur ysm at this level. No dissection flap evident with in the dilated superior mesenteric artery. The inferior mesenteric artery is patent and without aneurysmal dilatation. Renal arteries are patent-unremarkable. No stenosis nor aneurysms. 2. There is generalized arterial megaly of the common and external iliac arteries. There is a nonocc lusive short dissection flap in the proximal 3rd of the right external iliac artery., unchanged from previous. There are no ischemic appearing nor dilated small bowel loops. 3. Other findings as above. Discussed by phone with ER physician RADIATION DOSE DELIVERED: Total DLP DATA REPOSITORY: All CT scans at this facility are submitted to the National Radiology Data Registry (NRDR) Dose Index Registry (DIR) with the [employer] (A[employer]). RADIATION OPTIMIZATION: All CT scans at this facility use at least one of these dose optimization te chniques: automated exposure control; mA and/or kV adjustment per patient size (includes targeted exa ms where dose is matched to clinical indication); or iterative reconstruction.
[2023-05-11] MEDS: POTASSIUM CHLORIDE 20 MEQ/100 ML BAG 50 MEQ IVPB (11:08)
[2023-05-11] MEDS: MAGNESIUM SULFATE 1 GM/100 ML BAG IVPB (11:16)
--- NOTE | 2023-05-11 11:45 | RT.EKG_ITS ---
APPROVED REPORT Exam: Resting ECG Reason for Exam: bradycardia Patient Location: E HR:39 bpm ECG Measurements Heart Rate 39 AXIS DC 150 P 53 QRSd 107 QRS 31 QT 558 T 60 QTc 453 Conclusion Sinus bradycardia...rate< 60
[2023-05-11] MEDS: hydrALAZINE 20 MG/ML VIAL IVP (12:47)
[2023-05-11 13:08] LABS: Lactate 3.1 mmol/L (0.6-1.4)
[2023-05-11] MEDS: niCARdipine 25 MG in Normal Saline 240 ML 50 MG IV (13:27)
[2023-05-11] MEDS: HYDROmorphone 2 MG/ML SYR (14:00)
== END 2023-05-11 13:25 | disposition short-term general hospital (02) ==
PROVIDERS: Emergency Provider Student in an Organized Health Care Education/Training Program; PCP Nurse Practitioner Family
DX: R20.0 Anesthesia of skin (principal); R00.1 Bradycardia, unspecified; I71.40 Abdominal aortic aneurysm, without rupture, unspecified; E87.6 Hypokalemia; E87.21 Acute metabolic acidosis; E83.42 Hypomagnesemia; I10 Essential (primary) hypertension; E78.5 Hyperlipidemia, unspecified; J44.9 Chronic obstructive pulmonary disease, unspecified
CPT/HCPCS: 80053; 83690; 86850; 86900; 86901; 93005; 96365; 96366; 96368; 96375; 96376; 99285; 74174; 83605; 83735; 84484; 85025; 93010; 99284; J0360; J1170; J2405; J3475; J3480; J3490

== ENCOUNTER 2023-11-25 09:52 | Emergency (ER) | payer MEDICAID, SELFPAY ==
[2023-11-25 10:03] VITALS: BP 138/87; PULSE 58; RESP 16; TEMP 36.1; O2SAT 99
[2023-11-25] MEDS: ACETAMINOPHEN 1,000 MG/100 ML BTL 400 MG IVPB (10:27)
[2023-11-25] MEDS: Droperidol 5 MG/2 ML VIAL IVP (10:28)
[2023-11-25] MEDS: Lactated Ringers 1,000 ML 1000 ML IV ×3 (10:28→14:47)
[2023-11-25 10:42] LABS: Lactate 3.5 mmol/L (0.6-1.4)
[2023-11-25 10:44] LABS: Abs Immature Grans 0.08 10^3/uL (0.0-0.06); Absolute Basophil Count 0.15 10^3/uL (0.0-0.2); Absolute Lymphocyte Count 1.73 10^3/uL (1.2-3.4); HGB 15.7 g/dL (13.5-17.5); Immature Grans % 0.5 %; Lymphocytes % 11.4 %; MCH 29.4 pg (27.0-33.0); MCHC 34.1 % (32.0-36.0); MCV 86 fL (80-95); MPV 11.2 fL (8.0-11.0); Monocytes % 4.3 %; Neutrophils % 80.8 %; Platelet Count 242 10^3/uL (130-400); RBC 5.34 10^6/uL (4.36-5.78); RDW 13.9 % (11.8-14.1); RDW-SD 43.5 fL; WBC 15.18 10^3/uL (4.4-10.8)
[2023-11-25 10:53] LABS: Absolute Monocyte Count 0.65 10^3/uL (0.1-0.8); Absolute Neutrophil Count 12.27 10^3/uL (1.2-6.7)
[2023-11-25 11:12] LABS: ALT 23 U/L (16-63); AST 17 U/L (15-37); Albumin 4.7 g/dL (3.4-5.0); Alkaline Phosphatase 88 U/L (46-116); Anion Gap 13.9 mmol/L (3-11); BUN 21 mg/dL (7-18); Bilirubin, Total 0.9 mg/dL (0.2-1.0); CO2 22.1 mmol/L (21.0-32.0); CREATININE 1.2 mg/dL (0.70-1.30); Calcium 10.5 mg/dL (8.5-10.1); Chloride 107 mmol/L (98-107); Estimated GFR 73.67 (mL/min/1.73m2); Glucose 230 mg/dL (74-106); Lipase 31 U/L (16-77); Potassium 3.4 mmol/L (3.5-5.1); Sodium 143 mmol/L (136-145); Total Protein 7.3 g/dL (6.4-8.2)
[2023-11-25 11:18] VITALS: BP 153/77; PULSE 48; RESP 18; TEMP 36.5; O2SAT 98
--- NOTE | 2023-11-25 11:24 | W.ED.GENAD ---
Discharge Plan Disposition Patient Disposition: Home Condition: Good Discharge Details Clinical Impression: Vomiting, Dehydration Primary Care Provider: Jacqueline Pfeiffer ED Provider: Juancarlos Torrez Home Meds and New Rx's Prescriptions: Continued acetaminophen 650 mg tablet extended release 650 mg PO Q12H mirabegron [Myrbetriq] 50 mg tablet extended release 24 hr 50 mg PO DAILY Qty: 90 4RF ondansetron HCl 4 mg tablet 4 mg PO QID PRN (Reason: nausea and vomiting) Qty: 30 1RF multivitamin Tablet 1 tab PO DAILY Probiotic 3 billion cell capsule 3,000 mmu cells PO DAILY Rx Instructions: administer with a meal losartan 50 mg tablet 100 mg PO DAILY spironolactone 25 mg tablet 12.5 mg PO DAILY dicyclomine 20 mg tablet 20 mg PO BID PRN pantoprazole 20 mg tablet,delayed release (DR/EC) 20 mg PO DAILY Qty: 90 3RF aspirin 81 mg capsule 81 mg PO DAILY amitriptyline 10 mg tablet 10 mg PO QHS Qty: 90 3RF atorvastatin 80 mg tablet 80 mg PO QHS Qty: 90 4RF hydrochlorothiazide 12.5 mg tablet 12.5 mg PO DAILY Qty: 90 3RF metoprolol succinate 25 mg tablet extended release 24 hr 25 mg PO DAILY Qty: 90 3RF Discharge Instructions Instructions: Nausea and Vomiting, Adult ED Additional Instructions: At this time your laboratory workup and CAT scan returned stable. You were notably dehydrated. Please continue to take your Zofran as needed. Please drink small frequent sips of water or electrolyte solution. If you notice any worsening of your symptoms, or any new symptoms such as vomiting, diarrhea, fever, chills, shortness of breath, chest pain, numbness, weakness, or fainting , please return immediately to the emergency department for reevaluation. Please follow up with your primary care provider as soon as possible for reassessment and reevaluation. As always, it was a pleasure participating in your medical care today. Referrals: Jacqueline Pfeiffer NP [Primary Care Provider] - [facility] General Date/Time Provider Initiated Documentation: 11/25/23 10:06. 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 Patient states that for the last 3 to 4 days he has had persistent generalized abdominal and epigastric pain, and has been vomiting consistently. No blood in his stools or vomitus. He has been retching per family. Is not been able to keep anything down. Zofran has not improved his symptoms at all. He states that the pain feels similar but slightly worse than his previous episodes. He has tried marijuana smoked however this has not improved his symptoms either. No other complaints at this time. No other modifying factors. Related Data Home Medications Medication Instructions Recorded Confirmed lactobacillus combination no.4 3 3,000 mmu cells PO DAILY 01/14/21 11/05/23 billion cell capsule (Probiotic) multivitamin 1 tab PO DAILY 01/14/21 11/05/23 pantoprazole 20 mg tablet,delayed 20 mg PO DAILY #90 tabs 01/12/23 11/05/23 release ondansetron HCl 4 mg tablet 4 mg PO QID PRN nausea and 02/17/23 11/05/23 vomiting #30 tabs dicyclomine 20 mg tablet 20 mg PO BID PRN 05/18/23 11/05/23 losartan 50 mg tablet 100 mg PO DAILY 05/18/23 11/05/23 spironolactone 25 mg tablet 12.5 mg PO DAILY 05/18/23 11/05/23 aspirin 81 mg capsule 81 mg PO DAILY 05/20/23 11/05/23 amitriptyline 10 mg tablet 10 mg PO QHS #90 tabs 08/17/23 11/05/23 atorvastatin 80 mg tablet 80 mg PO QHS #90 tabs 08/17/23 11/05/23 hydrochlorothiazide 12.5 mg tablet 12.5 mg PO DAILY #90 tabs 10/01/23 11/05/23 acetaminophen 650 mg 650 mg PO Q12H 11/05/23 11/05/23 tablet,extended release mirabegron 50 mg tablet,extended 50 mg PO DAILY #90 tabs 11/05/23 11/05/23 release 24 hr (Myrbetriq) metoprolol succinate 25 mg 25 mg PO DAILY #90 tabs 11/18/23 tablet,extended release 24 hr Previous Rx's Medication Instructions Recorded pantoprazole 20 mg tablet,delayed 20 mg PO DAILY #90 tabs 01/12/23 release ondansetron HCl 4 mg tablet 4 mg PO QID PRN nausea and 02/17/23 vomiting #30 tabs amitriptyline 10 mg tablet 10 mg PO QHS #90 tabs 08/17/23 atorvastatin 80 mg tablet 80 mg PO QHS #90 tabs 08/17/23 hydrochlorothiazide 12.5 mg tablet 12.5 mg PO DAILY #90 tabs 10/01/23 mirabegron 50 mg tablet,extended 50 mg PO DAILY #90 tabs 11/05/23 release 24 hr (Myrbetriq) metoprolol succinate 25 mg 25 mg PO DAILY #90 tabs 11/18/23 tablet,extended release 24 hr Allergies Allergy/AdvReac Type Severity Reaction Status Date / Time oxycodone AdvReac Intermediate Nausea Verified 11/05/23 14:15 codeine phosphate AdvReac Mild Nausea Verified 11/05/23 14:15 [From Tylenol-Codeine #3] morphine AdvReac Nausea Verified 11/05/23 14:15 GRASS Allergy Intermediate Itching Uncoded 11/05/23 14:15 MOLDS AND SMUTS Allergy Mild Itching Uncoded 11/05/23 14:15 General Stated Complaint: Nausea/Vomit/Diar LISA: 3 Review of Systems All systems reviewed & are unremarkable except as noted in HPI and below Exam Narrative Exam Narrative: 1.Const: Well-nourished, Well-developed, appearing stated age 2.Eyes: PERRL, no conjunctival injection, and symmetrical lids. 3.ENT: Atraumatic external nose and ears. Dry MM. Neck: Symmetric, trachea midline, No thyromegaly. 4.CVS: +S1/S2, No murmurs or gallops. Peripheral pulses 2+ and equal in all extremities. Brisk capillary refill in all extremities. 5.RESP: Unlabored respiratory effort. Clear to auscultation bilaterally. No wheezes rales or rhonchi 6.GI: Soft, minimal distention, mild tenderness throughout, especially in the epigastric region. Mild voluntary guarding. 7.MSK: Normocephalic/Atraumatic, Extremities w/o deformity or ttp No cyanosis or clubbing, Normal movement of all extremities 8.Skin: Warm, Dry. No rashes or lesions. 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 Sensation grossly intact, no focal neurologic deficits. 10.Psych: (AAO) x3. Appropriate mood and affect Course Vital Signs Vital signs: Vital Signs Temperature 36.1 C L 11/25/23 10:03 Pulse 58 L 11/25/23 10:03 Respiratory Rate 16 11/25/23 10:03 Blood Pressure 138/87 11/25/23 10:03 Pulse Oximetry 99 11/25/23 10:03 Temperature 36.5 C 11/25/23 11:18 Temperature Source Temporal Artery Scan 11/25/23 11:18 Pulse 48 L 11/25/23 11:18 Respiratory Rate 18 11/25/23 11:18 Respiratory Effort Non-Labored 11/25/23 10:13 Blood Pressure 153/77 H 11/25/23 11:18 Blood Pressure Position Sitting 11/25/23 10:03 Pulse Oximetry 98 11/25/23 11:18 Oxygen Delivery Method Room Air 11/25/23 11:18 Oxygen Flow Rate 0 11/25/23 11:18 Pain Level 8 11/25/23 11:18 Lab/Test Results Lab/Test Results: Laboratory Tests Range/Units 11/25/23 10:28 WBC (4.4-10.8) 10^3/uL 15.18 H RBC (4.36-5.78) 10^6/uL 5.34 Hgb (13.5-17.5) g/dL 15.7 Hct (40.0-50.0) % 46.0 MCV (80-95) fL 86 MCH (27.0-33.0) pg 29.4 MCHC (32.0-36.0) % 34.1 RDW (11.8-14.1) % 13.9 Plt Count (130-400) 10^3/uL 242 MPV (8.0-11.0) fL 11.2 H Immature Gran % % 0.5 Neutrophils % % 80.8 Lymphocytes % % 11.4 Monocytes % % 4.3 Eosinophils % % 2.0 Basophils % % 1.0 Nucleated RBC % (0.0-0.3) % 0.0 Absolute Neutrophils (1.2-6.7) 10^3/uL 12.27 H Absolute Lymphocytes (1.2-3.4) 10^3/uL 1.73 Absolute Monocytes (0.1-0.8) 10^3/uL 0.65 Absolute Eosinophils (0.0-0.7) 10^3/uL 0.30 Absolute Basophils (0.0-0.2) 10^3/uL 0.15 VBG Lactate (0.6-1.4) mmol/L 3.5 H* Sodium (136-145) mmol/L 143 Potassium (3.5-5.1) mmol/L 3.4 L Chloride (98-107) mmol/L 107 Carbon Dioxide (21.0-32.0) mmol/L 22.1 Anion Gap (3-11) mmol/L 13.9 H BUN (7-18) mg/dL 21 H Creatinine (0.70-1.30) mg/dL 1.2 Est GFR (CKD-EPI 2020) (mL/min/1.73m2) 73.67 Glucose (74-106) mg/dL 230 H Calcium (8.5-10.1) mg/dL 10.5 H Total Bilirubin (0.2-1.0) mg/dL 0.9 AST (15-37) U/L 17 ALT (16-63) U/L 23 Alkaline Phosphatase (46-116) U/L 88 Total Protein (6.4-8.2) g/dL 7.3 Albumin (3.4-5.0) g/dL 4.7 Lipase (16-77) U/L 31 Medical Decision Making This is a pleasant 48-year-old male with a past medical history of 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 Patient states that for the last 3 to 4 days he has had persistent generalized abdominal and epigastric pain, and has been vomiting consistently. No blood in his stools or vomitus. He has been retching per family. Is not been able to keep anything down. Zofran has not improved his symptoms at all. He states that the pain feels similar but slightly worse than his previous episodes. He has tried marijuana smoked however this has not improved his symptoms either. No other complaints at this time. No other modifying factors. Exam demonstrates nauseous actively vomiting male. No subcutaneous crepitus, epigastric pain and tenderness is noted. Dry mucous membranes. Differential is broad, but certainly includes pancreatitis, 1 or multiple aneurysmal development/changes, less likely aneurysmal rupture. Viral gastroenteritis could certainly be a component of his symptoms. Obstruction is of concern. We will rehydrate, manage his pain with 4 mg of morphine, give droperidol to help with the nausea and vomiting, give Zofran, give a liter of lactated Ringer's, monitor closely and reassess. We will get CT imaging to evaluate for potential aneurysmal problems. Differential does include ischemic mesenteric etiology. He has no chest pain whatsoever to suggest cardiac or significant thoracic etiology. However because of his history and risk factors we will include the chest for imaging. 2:12 PM Patient has been rehydrated medicated and reassess. On reassessment his nausea has resolved. He has tolerated p.o. and significantly improved. Laboratory workup shows an elevated white count of 15, initial lactate is 3.5, electrolytes stable, BUN is high at 21, creatinine 1.2. Transaminases normal. Lipase normal. Patient otherwise demonstrates notable clinical improvement. After 2 L of lactated Ringer's he was reassessed, repeat lactate is now 1.5. On reassessment he is feeling much better. He has not urinated yet, but blood pressure appears notably stable. No tachycardia. We will get the patient up, ambulate him and see how he does. CAT scan shows evidence of stability for his dissections and aneurysms for the celiac artery branches. Stable dilatation of the superior mesenteric artery. Repeat abdominal exam does not show evidence of symptoms concerning for mesenteric ischemia. No severe abdominal pain. Will continue to monitor closely and reassess. 2:40 PM On reassessment patient is feeling much better. He feels well he ambulated well and shows no signs of hemodynamic instability. Vital signs are stable. He does feel slightly nauseous, but he has had no vomiting. Patient is stable for discharge. I did discuss with the patient continued observation and additional bolus of IV fluids for discharge home, and patient has requested to go home and continue to manage at home rather than here. I do feel that this is reasonable given his current clinical assessment. Patient will be discharged. He does have Zofran ODT at home already. Symptoms at this time appear inconsistent with pancreatitis, obstruction, mesenteric ischemia, ruptured AAA. Discussed red flags for which to return. I have extensively reviewed the treatment plan and discharge instructions with the patient and their family. I have addressed all patient concerns at this time. The patient and family was made aware of what symptoms to monitor for that would warrant a return to the emergency department. Discussed the plan with the patient and family, they demonstrate verbal understanding and agreement with our assessment and plan at this time. The documentation in this chart was dictated using [employer] dictation software. Please excuse any dictation errors. FINDINGS: CHEST: Pulmonary Arteries: No evidence of filling defect to suggest pulmonary emboli. Tracheobronchial tree: Patent where visualized. Mediastinum and Marizol: No dominant adenopathy or fluid collection. Pulmonary parenchyma: No consolidation or dominant measurable mass. No architectural distortion. Pleura: No effusion or pneumothorax. Heart: The heart is not dilated. No coronary artery calcifications are seen. Aorta: Thoracic aorta non-dilated. Bones: Normal. Tubes, Catheters, and Lines: ABDOMEN AND PELVIS: Abdomen: Celiac artery: Dissection again noted proximally with aneurysmal dilatation, unchanged from prior. Dilatation of the common hepatic artery, stable. Dilatation of the splenic artery, stable. Independent origin of the left gastric artery, superior to the celiac axis. SMA is normal diameter proximally however is not aneurysmal distally up to 1.4 cm with small dissection flap. Inferior mesenteric artery: No evidence of occlusion or significant stenosis. Renal Arteries: No evidence of occlusion or significant stenosis. There is a single renal artery perfusing each kidney. Aorta: No evidence of occlusion or significant stenosis. No aneurysm or dissection. Mild atherosclerotic changes. Pelvis: Iliac Arteries: Small dissection flap of right external iliac artery proximally. No evidence of occlusion or significant stenosis. Common Femoral Arteries: No evidence of occlusion or significant stenosis. ABDOMEN and pelvic: Liver: Normal density. No measurable mass. Portal, Superior Mesenteric, and Splenic Veins: Unremarkable. Gallbladder and Biliary Tract: No radiodense calculus or dilation. Pancreas: Normal density, no abnormal calcifications or inflammatory process. Spleen: Normal. Adrenals: No masses seen. Kidneys: Normal size, contour and axis. No radiodense stones or obstructive uropathy. No masses seen. Bowel: No obstruction or bowel wall thickening. Appendix is unremarkable. Peritoneal Cavity: No ascites, collection or mesenteric inflammatory response. Lymph Nodes: Within normal limits. Bones: Unremarkable. Soft Tissues: Unremarkable. Bladder: Symmetric distention, no gross wall thickening. Reproductive Organs: Enlarged prostate. Lymph Nodes: Within normal limits. Bones: Degenerative changes greatest at L4-5. IMPRESSION: Stable appearance of dissection and aneurysm in the celiac artery and branches. Stable dilatation of SMA. No acute abnormality. Quality:SDOH Health Related Social Needs: No Data to Display PFSH All Active Problems (Updated 11/25/23 @ 14:36 by Juancarlos Torrez DO) Dehydration (Acute) Vomiting (Acute) Depression (Chronic) Vascular Bradley-Danlos syndrome (Acute) No coloscopies, no fluroquinolones. Echo every 2 years. Following with [facility] [place] vascular. 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 smoked 34 years , under 20 cigs a day Laceration of spleen (12/10/12) Surgical History History of removal of cyst (~04/02/21) behind Right ear Family History Father , at the age of 73 Diverticulitis Heart disease Congestive heart failure Melanoma Alcohol abuse Prostate cancer Sister Depression Mother Depression Heart disease Maternal Grandmother Diabetes Paternal Uncle ALS (amyotrophic lateral sclerosis) Son No problems noted. Son No problems noted. Social History (Updated 11/19/23 @ 14:26 by Palma Roa) Smoking/Tobacco Use Status: Former Tobacco Use tobacco type: cigarettes Quit Date: 08/07/19 Tobacco: How many years used: 32 Quit status: quit date established Second Hand Exposure: Yes Smoking risk assessment performed?: Yes Alcohol Intake: current Alcohol Intake frequency: holidays/special occasions only Alcohol type: beer and hard liquor Drug use: Daily Substance use type: marijuana Details: i smoke alot of pot daily pot use 11/07/22 Adopted: No Caregiver/Support person: No Household members: significant other Housing: house Number of Children: 2 Communication Needs: None Education Level: college Details: associates degree Do you need help understanding health information?: Never current occupation: disabled Pets and animals: Yes Pets and animals: cat(s), dog(s), fish and snake(s) Sexually active: Yes Do you think of yourself as: straight/heterosexual Current gender identity: male What is your relationship status?: living with partner How often do you talk on the phone with friends or family?: once per week How often do you get together with friends or relatives?: once per week How often do you attend gnosticist or presybeterian services?: decline to answer Do you belong to any clubs or organized social groups?: no Panel score (0-1 are the most socially isolated patients): 1 What type of physical activity do you participate in: regular exercise Duration: 30-45 minutes/day Frequency: daily Mag/Synagogue: Other Special mag needs: No Seatbelt use: always Helmet use: Yes Helmet use: always Drive intox or ride w/intox 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
[2023-11-25] MEDS: MORPHine 4 MG/ML SYR IVP ×2 (11:27→12:37)
[2023-11-25] MEDS: Ondansetron 4 MG/2 ML VIAL IVP (11:27)
[2023-11-25] MEDS: Omnipaque 350 MG/ML 100 ML BTL IJ (11:40)
[2023-11-25] MEDS: Omnipaque 350 MG/ML 50 ML BTL 25 ML IJ (11:41)
[2023-11-25] MEDS: Normal Saline - Diluent 50 ML VIAL IJ (11:42)
--- NOTE | 2023-11-25 11:51 | DI.CT_ITS ---
Exam(s) CT THORAX ABD/PEL CTA EXAM: CT THORAX ABD/PEL CTA CLINICAL HISTORY: multiple vascular aneurysms, vomit x4 days. TECHNIQUE: Imaging Protocol: Axial CT angiography was performed with multi-slice acquisition and m ulti-planar and/or 3D reconstructions. CONTRAST MATERIAL: Intravenous: Omnipaque 350 Contrast volume:structured data in ml Oral: no COMPARISON: CT CT ABDOMEN PELVIS CTA from 05/11/2023 FINDINGS: CHEST: Pulmonary Arteries: No evidence of filling defect to suggest pulmonary emboli. Tracheobronchial tree: Patent where visualized. Mediastinum and Marizol: No dominant adenopathy or fluid collection. Pulmonary parenchyma: No consolidation or dominant measurable mass. No architectural distortion. Pleura: No effusion or pneumothorax. Heart: The heart is not dilated. No coronary artery calcifications are seen. Aorta: Thoracic aorta non-dilated. Bones: Normal. Tubes, Catheters, and Lines: ABDOMEN AND PELVIS: Abdomen: Celiac artery: Dissection again noted proximally with aneurysmal dilatation, unchanged from prior. D ilatation of the common hepatic artery, stable. Dilatation of the splenic artery, stable. Independent origin of the left gastric artery, superior to the celiac axis. SMA is normal diameter proximally however is not aneurysmal distally up to 1.4 cm with small dissecti on flap. Inferior mesenteric artery: No evidence of occlusion or significant stenosis. Renal Arteries: No evidence of occlusion or significant stenosis. There is a single renal artery per fusing each kidney. Aorta: No evidence of occlusion or significant stenosis. No aneurysm or dissection. Mild atheros clerotic changes. Pelvis: Iliac Arteries: Small dissection flap of right external iliac artery proximally. No evidence of occl usion or significant stenosis. Common Femoral Arteries: No evidence of occlusion or significant stenosis. ABDOMEN and pelvic: Liver: Normal density. No measurable mass. Portal, Superior Mesenteric, and Splenic Veins: Unremarkable. Gallbladder and Biliary Tract: No radiodense calculus or dilation. Pancreas: Normal density, no abnormal calcifications or inflammatory process. Spleen: Normal. Adrenals: No masses seen. Kidneys: Normal size, contour and axis. No radiodense stones or obstructive uropathy. No masses seen. Bowel: No obstruction or bowel wall thickening. Appendix is unremarkable. Peritoneal Cavity: No ascites, collection or mesenteric inflammatory response. Lymph Nodes: Within normal limits. Bones: Unremarkable. Soft Tissues: Unremarkable. Bladder: Symmetric distention, no gross wall thickening. Reproductive Organs: Enlarged prostate. Lymph Nodes: Within normal limits. Bones: Degenerative changes greatest at L4-5. IMPRESSION: Stable appearance of dissection and aneurysm in the celiac artery and branches. Stable dilatation of SMA. No acute abnormality. Findings called to Dr. Torrez of the emergency department. RADIATION DOSE DELIVERED: 1,214.61mGy.cm Total DLP DATA REPOSITORY: All CT scans at this facility are submitted to the National Radiology Data Registry (NRDR) Dose Index Registry (DIR) with the [employer] (A[employer]). RADIATION OPTIMIZATION: All CT scans at this facility use at least one of these dose optimization te chniques: automated exposure control; mA and/or kV adjustment per patient size (includes targeted exa ms where dose is matched to clinical indication); or iterative reconstruction.
[2023-11-25 13:22] LABS: Lactate 1.5 mmol/L (0.6-1.4)
[2023-11-25 14:14] VITALS: BP 153/97; PULSE 36; RESP 18; TEMP 36.2; O2SAT 98
[2023-11-25 14:19] VITALS: PULSE 52
[2023-11-25] MEDS: Metoclopramide 10 MG/2 ML VIAL IVP (14:51)
[2023-11-25 14:58] VITALS: BP 153/97; PULSE 52; RESP 18; TEMP 36.2; O2SAT 98
== END 2023-11-25 15:01 | disposition home or self-care (01) ==
PROVIDERS: Emergency Provider Student in an Organized Health Care Education/Training Program; PCP Nurse Practitioner Family
DX: R11.10 Vomiting, unspecified (principal); R10.9 Unspecified abdominal pain; E86.0 Dehydration; Z86.79 Personal history of other diseases of the circulatory system
CPT/HCPCS: 71275; 80053; 83690; 96361; 96365; 96375; 96376; 99285; 74174; 83605; 85025; 99283; J0131; J1790; J2270; J2405; J2765; J3490; Q9967

== ENCOUNTER 2023-11-25 21:56 | Emergency (ER) | payer MEDICAID, SELFPAY ==
[2023-11-25 22:03] VITALS: BP 180/89; PULSE 43; RESP 16; TEMP 36.3; O2SAT 97
[2023-11-25] MEDS: ACETAMINOPHEN 1,000 MG/100 ML BTL 400 MG IVPB (22:41)
[2023-11-25] MEDS: Pantoprazole 40 MG VIAL IVP (22:42)
[2023-11-25] MEDS: Lactated Ringers 1,000 ML 1000 ML IV (22:42)
[2023-11-25] MEDS: Ondansetron 4 MG/2 ML VIAL IVP (22:42)
--- NOTE | 2023-11-25 22:45 | RT.EKG_ITS ---
APPROVED REPORT Exam: Resting ECG Reason for Exam: vomiting Patient Location: E HR:49 bpm ECG Measurements Heart Rate 49 AXIS ID 156 P 85 QRSd 101 QRS 16 QT 527 T 63 QTc 476 Conclusion Bradycardia with irregular rate...V-rate 42- 64, mean < [address] segment or T wave abnormalitites to suggest occlusive ME
--- NOTE | 2023-11-25 22:45 | DI.CT_ITS ---
Exam(s) CT BRAIN NECK CTA EXAM: CT BRAIN NECK CTA CLINICAL HISTORY: refractory vomiting, BRANCH, vascular EDS, neurointact. TECHNIQUE: Imaging Protocol: Axial CT angiography was performed with multi-slice acquisition and mu lti-planar and/or 3D reconstructions. CONTRAST MATERIAL: Intravenous: Omnipaque 350 contrast volume:85 mL COMPARISON: CT CT THORAX ABD/PEL CTA from 11/25/2023 FINDINGS: The examination is limited due to patient motion artifact. CT Head W/O and W: Ventricles and Extra axial spaces: Normal in size and morphology for the patient's age. Hemorrhage: None. Cerebral parenchyma: Normal mosley-white matter differentiation. No mass effect is identified. Midline shift: None. Brainstem/Cerebellum: Normal. Calvarium: Normal. Visualized Paranasal sinuses/Mastoids: Mucosal thickening is seen in the ethmoid air cells bilaterall y. Soft Tissues: Unremarkable. Enhancement: Unremarkable. CTA Neck W: Common Carotid: Right: No dissection, occlusion or significant stenosis. Mild atherosclerotic calcification in the d istal common carotid artery. Left: No dissection, occlusion or significant stenosis. External Carotid: Right: No occlusion or significant stenosis. Left: No occlusion or significant stenosis. Internal Carotid: Right: No occlusion or significant stenosis. Left: No occlusion clusion or significant stenosis. Vertebral Artery: Right: No occlusion or significant stenosis. Left: No occlusion or significant stenosis. Lung Apices: Normal. Bones: Within normal limits for the patient's age. Soft Tissues: Normal. Thyroid gland: Unremarkable. CTA Brain W: Internal Carotid Arteries: Mild atherosclerotic calcification of the left internal carotid artery wit hout significant stenosis. No occlusion is seen no aneurysm is present. Anterior Cerebral Arteries: Right: No aneurysm, occlusion or significant stenosis. Left: No aneurysm, occlusion or significant stenosis. Middle Cerebral Arteries: Right: No aneurysm, occlusion or significant stenosis. Left: No aneurysm, occlusion or significant stenosis. Posterior Cerebral Arteries: Right: No aneurysm, occlusion or significant stenosis. Left: No aneurysm, occlusion or significant stenosis. Vertebral Arteries: Right: No aneurysm, occlusion or significant stenosis. Left: No aneurysm, occlusion or significant stenosis. Basilar Artery: No aneurysm, occlusion or significant stenosis. IMPRESSION: 1. No large vessel occlusion or significant stenosis on the CT angiography of the head. 2. No acute intracranial process. 3. No occlusion or significant stenosis on the CT angiography of the neck. RADIATION DOSE DELIVERED: 1,972.46mGy.cm Total DLP DATA REPOSITORY: All CT scans at this facility are submitted to the National Radiology Data Registry (NRDR) Dose Index Registry (DIR) with the [employer] (ACR). RADIATION OPTIMIZATION: All CT scans at this facility use at least one of these dose optimization te chniques: automated exposure control; mA and/or kV adjustment per patient size (includes targeted exa ms where dose is matched to clinical indication); or iterative reconstruction.
[2023-11-25 22:49] LABS: Lactate 1.5 mmol/L (0.6-1.4)
[2023-11-25 22:50] LABS: Abs Immature Grans 0.13 10^3/uL (0.0-0.06); Absolute Monocyte Count 0.72 10^3/uL (0.1-0.8); Basophils % 0.3 %; HCT 42.6 % (40.0-50.0); HGB 14.1 g/dL (13.5-17.5); Immature Grans % 0.7 %; Lymphocytes % 3.8 %; MCH 29.2 pg (27.0-33.0); MCHC 33.1 % (32.0-36.0); MCV 88 fL (80-95); Monocytes % 3.7 %; Neutrophils % 91.5 %; Platelet Count 201 10^3/uL (130-400); RBC 4.83 10^6/uL (4.36-5.78); RDW 14.2 % (11.8-14.1)
[2023-11-25 22:53] LABS: Absolute Basophil Count 0.06 10^3/uL (0.0-0.2); Absolute Lymphocyte Count 0.74 10^3/uL (1.2-3.4); Absolute Neutrophil Count 17.75 10^3/uL (1.2-6.7)
[2023-11-25 23:04] LABS: Prothrombin Time 10.4 sec (9.1-11.1)
[2023-11-25 23:06] LABS: ALT 26 U/L (16-63); AST 14 U/L (15-37); Albumin 4.3 g/dL (3.4-5.0); Alkaline Phosphatase 80 U/L (46-116); BUN 20 mg/dL (7-18); Bilirubin, Total 0.92 mg/dL (0.2-1.0); Calcium 9.4 mg/dL (8.5-10.1); Chloride 108 mmol/L (98-107); Estimated GFR 91.69 (mL/min/1.73m2); Glucose 163 mg/dL (74-106); Lipase 43 U/L (16-77); Potassium 3.9 mmol/L (3.5-5.1); Sodium 147 mmol/L (136-145); Total Protein 6.9 g/dL (6.4-8.2)
[2023-11-25] MEDS: Omnipaque 350 MG/ML 100 ML BTL IJ (23:10)
[2023-11-25] MEDS: Normal Saline - Diluent 50 ML VIAL IJ (23:10)
[2023-11-25 23:21] LABS: Troponin I < 50 ng/L (< or =60)
--- NOTE | 2023-11-26 00:05 | DI.VRAD_ITS ---
PROCEDURE INFORMATION: Exam: CTA Head Without And With Contrast, Arteriography Exam date and time: 11/25/2023 11:14 PM Age: 48 years old Clinical indication: Other: Refractory vomiting, BRANCH, vascular eds, neurointact TECHNIQUE: Imaging protocol: Computed tomographic angiography of the head without and with contrast. Exam focused on the arteries. 3D rendering (Not supervised by radiologist): MIP and/or 3D reconstructed images were created by the technologist. Contrast material: OMNI 350; Contrast volume: 85 ml; Contrast route: INTRAVENOUS (IV); COMPARISON: No relevant prior studies available. FINDINGS: ANTERIOR CIRCULATION: Right internal carotid artery: Intracranial segment is patent with no significant stenosis or occlusion. No aneurysm. Right middle cerebral artery: No occlusion or significant stenosis. No aneurysm. Right anterior cerebral artery: No occlusion or significant stenosis. No aneurysm. Left internal carotid artery: Intracranial segment is patent with no significant stenosis. No aneurysm. Left middle cerebral artery: No occlusion or significant stenosis. No aneurysm. Left anterior cerebral artery: No occlusion or significant stenosis. No aneurysm. POSTERIOR CIRCULATION: Right vertebral artery: No occlusion or significant stenosis. No aneurysm. Left vertebral artery: No occlusion or significant stenosis. No aneurysm. Basilar artery: No occlusion or significant stenosis. No aneurysm. Right posterior cerebral artery: No occlusion or significant stenosis. No aneurysm. Left posterior cerebral artery: No occlusion or significant stenosis. No aneurysm. HEAD: Brain: No intracranial hemorrhage or extra-axial fluid collection. No evidence of mass effect or midline shift. Wu-white matter differentiation is intact. Cerebral ventricles: Normal. No ventriculomegaly. Bones: Unremarkable. No acute fracture. Paranasal sinuses: Visualized sinuses are normal. No fluid levels. Mastoid air cells: Visualized mastoids are normal. No mastoid effusion. Soft tissues: Unremarkable. IMPRESSION: 1. No intracranial arterial occlusion or significant stenosis. 2. No acute findings on non-contrast Head CT images. ASPECTS score 10. PROCEDURE INFORMATION: Exam: CTA Neck Without And With Contrast Exam date and time: 11/25/2023 11:14 PM Age: 48 years old Clinical indication: Other: Refractory vomiting, BRANCH, vascular eds, neurointact TECHNIQUE: Imaging protocol: Computed tomographic angiography of the neck without and with contrast. Exam focused on the cervical segments of the vasculature. 3D rendering (Not supervised by radiologist): MIP and/or 3D reconstructed images were created by the technologist. Contrast material: OMNI 350; Contrast volume: 85 ml; Contrast route: INTRAVENOUS (IV); COMPARISON: CT THORAX ABD/PEL CTA 11/25/2023 11:45 AM FINDINGS: Right common carotid artery: No significant stenosis. No dissection or occlusion. Right internal carotid artery: Extracranial segment is patent with no significant stenosis (0% stenosis by NASCET criteria). No dissection or occlusion. Right external carotid artery: No occlusion or significant stenosis. Left common carotid artery: No significant stenosis. No dissection or occlusion. Left internal carotid artery: Extracranial segment is patent with no significant stenosis (0% stenosis by NASCET criteria). No dissection or occlusion. Left external carotid artery: No occlusion or significant stenosis. Right vertebral artery: No significant stenosis. No dissection or occlusion. Left vertebral artery: No significant stenosis. No dissection or occlusion. Soft tissues: Unremarkable. Bones/joints: No acute fracture. IMPRESSION: No occlusion or significant stenosis in the arteries of the neck. REFERENCES: NASCET CRITERIA. The degree of stenosis in the cervical segment of the internal carotid artery is based on NASCET criteria. Normal is no stenosis. Mild is less than 50% stenosis. Moderate is 50-69% stenosis. Severe is 70% to 99% stenosis. Total occlusion is no detectable patent lumen. Dictated and Authenticated by: Shawn Garcia MD. Ordering:MARYCRUZ Leonard MD
--- NOTE | 2023-11-26 00:20 | ED.GENADUL_ITS ---
Discharge Plan Disposition Patient Disposition: Home Condition: Good Discharge Details Clinical Impression: Mary-To tear, Vomiting Primary Care Provider: Jacqueline Pfeiffer ED Provider: Aisha Yeh Home Meds and New Rx's Prescriptions: New metoclopramide HCl [Reglan] 10 mg tablet 10 mg PO Q6H PRNQty: 7 0RF Continued acetaminophen 650 mg tablet extended release 650 mg PO Q12H mirabegron [Myrbetriq] 50 mg tablet extended release 24 hr 50 mg PO DAILY Qty: 90 4RF ondansetron HCl 4 mg tablet 4 mg PO QID PRN (Reason: nausea and vomiting) Qty: 30 1RF multivitamin Tablet 1 tab PO DAILY Probiotic 3 billion cell capsule 3,000 mmu cells PO DAILY Rx Instructions: administer with a meal losartan 50 mg tablet 100 mg PO DAILY spironolactone 25 mg tablet 12.5 mg PO DAILY dicyclomine 20 mg tablet 20 mg PO BID PRN pantoprazole 20 mg tablet,delayed release (DR/EC) 20 mg PO DAILY Qty: 90 3RF aspirin 81 mg capsule 81 mg PO DAILY amitriptyline 10 mg tablet 10 mg PO QHS Qty: 90 3RF atorvastatin 80 mg tablet 80 mg PO QHS Qty: 90 4RF hydrochlorothiazide 12.5 mg tablet 12.5 mg PO DAILY Qty: 90 3RF metoprolol succinate 25 mg tablet extended release 24 hr 25 mg PO DAILY Qty: 90 3RF Discharge Instructions Instructions: Nausea and Vomiting, Adult ED Additional Instructions: Metoclopramide up to every 6 hours as needed for vomiting. Call your primary care doctor today to schedule an appointment for within the next 24 hours to follow up on your visit here. Return to the emergency department for new or worsening symptoms including if you are unable to keep down fluids, vomit a large amount of blood, have worsening abdominal pain, or if you have any other concerns. Stand Alone Forms: Work Release Referrals: Jacqueline Pfeiffer NP [Primary Care Provider] - [facility] General Mode of arrival: ambulatory . Date/Time Provider Initiated Documentation: 11/25/23 22:02 . Limitations to Documentation: no limitations . Information obtained by: patient, family and old records reviewed . 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 Was seen in this ED earlier today. He reports 3-4 days of generalized abdominal pain with frequent vomiting, unable to keep anything down. Was evaluated here, had reassuring CT imaging, symptoms improved after medication and he was discharged home. At home took PO zofran but this did not help, about an hour ago began vomiting again now red/bloody. Has had three episodes for vomiting in that period of time, most recently in the waiting room. No lightheadedness, shortness of breath, or chest pain. His abdominal pain is still present and is unchanged. Does have a headache which started while he was in the ED earlier after being medicated. He is otherwise in his usual state of health with no fevers, chills, rash, numbness, tingling, weakness, dysuria, hematuria, vertigo, vision changes, or other concerns. Related Data Home Medications Medication Instructions Recorded Confirmed lactobacillus combination no.4 3 3,000 mmu cells PO DAILY 01/14/21 11/26/23 billion cell capsule (Probiotic) multivitamin 1 tab PO DAILY 01/14/21 11/26/23 pantoprazole 20 mg tablet,delayed 20 mg PO DAILY #90 tabs 01/12/23 11/26/23 release ondansetron HCl 4 mg tablet 4 mg PO QID PRN nausea and 02/17/23 11/26/23 vomiting #30 tabs dicyclomine 20 mg tablet 20 mg PO BID PRN 05/18/23 11/26/23 losartan 50 mg tablet 100 mg PO DAILY 05/18/23 11/26/23 spironolactone 25 mg tablet 12.5 mg PO DAILY 05/18/23 11/26/23 aspirin 81 mg capsule 81 mg PO DAILY 05/20/23 11/26/23 amitriptyline 10 mg tablet 10 mg PO QHS #90 tabs 08/17/23 11/26/23 atorvastatin 80 mg tablet 80 mg PO QHS #90 tabs 08/17/23 11/26/23 hydrochlorothiazide 12.5 mg tablet 12.5 mg PO DAILY #90 tabs 10/01/23 11/26/23 acetaminophen 650 mg 650 mg PO Q12H 11/05/23 11/26/23 tablet,extended release mirabegron 50 mg tablet,extended 50 mg PO DAILY #90 tabs 11/05/23 11/26/23 release 24 hr (Myrbetriq) metoprolol succinate 25 mg 25 mg PO DAILY #90 tabs 11/18/23 11/26/23 tablet,extended release 24 hr metoclopramide HCl 10 mg tablet 10 mg PO Q6H PRN #7 tabs 11/26/23 (Reglan) Previous Rx's Medication Instructions Recorded pantoprazole 20 mg tablet,delayed 20 mg PO DAILY #90 tabs 01/12/23 release ondansetron HCl 4 mg tablet 4 mg PO QID PRN nausea and 02/17/23 vomiting #30 tabs amitriptyline 10 mg tablet 10 mg PO QHS #90 tabs 08/17/23 atorvastatin 80 mg tablet 80 mg PO QHS #90 tabs 08/17/23 hydrochlorothiazide 12.5 mg tablet 12.5 mg PO DAILY #90 tabs 10/01/23 mirabegron 50 mg tablet,extended 50 mg PO DAILY #90 tabs 11/05/23 release 24 hr (Myrbetriq) metoprolol succinate 25 mg 25 mg PO DAILY #90 tabs 11/18/23 tablet,extended release 24 hr metoclopramide HCl 10 mg tablet 10 mg PO Q6H PRN #7 tabs 11/26/23 (Reglan) Allergies Allergy/AdvReac Type Severity Reaction Status Date / Time oxycodone AdvReac Intermediate Nausea Verified 11/26/23 02:33 codeine phosphate AdvReac Mild Nausea Verified 11/26/23 02:33 [From Tylenol-Codeine #3] morphine AdvReac Nausea Verified 11/26/23 02:33 GRASS Allergy Intermediate Itching Uncoded 11/26/23 02:33 MOLDS AND SMUTS Allergy Mild Itching Uncoded 11/26/23 02:33 General Stated Complaint: Nausea/Vomit/Diar LISA: 3 Review of Systems Narrative: see HPI Exam Narrative Exam Narrative: General: Alert, in no acute distress. Head: Normocephalic, atraumatic Neck: Trachea midline, ?Neck supple. ENT: ?Dry MM.? No oropharygeal lesions or exudate. Cardiac: ?RRR, no murmurs appreciated Resp: No respiratory distress. CTAB. Abd: ?Soft, non-distended. Mildly tender to epigastrium with no rebound or guarding. : ?No suprapubic tenderness. Extremities: ?No deformities.? No peripheral edema. Neuro: ? GCS 15.? PERRL.? EOMI.? Fluent speech, no dysarthria. Motor- 5/5 strength symmetric bilateral upper and lower extremities Sensation- ?Intact to light touch and symmetric multiple dermatomes including upper and lower extremities Coordination- No dysmetria on finger to nose Gait/station: ?Normal stance.? No truncal ataxia. Steady gait with equal normal steps CRANIAL NERVES: II: Pupils equal and reactive, III, IV, : EOM intact, no gaze preference or deviation, no nystagmus. V: normal sensation in V1, V2, and V3 segments bilaterally VII: no asymmetry, no nasolabial fold flattening VIII: normal hearing to speech IX, X: normal palatal elevation, no uvular deviation XI: 5/5 head turn and 5/5 shoulder shrug bilaterally XII: midline tongue protrusion Course Vital Signs Vital signs: Vital Signs Temperature 36.3 C L 11/25/23 22:03 Pulse 43 L 11/25/23 22:03 Respiratory Rate 16 11/25/23 22:03 Blood Pressure 180/89 H 11/25/23 22:03 Pulse Oximetry 97 11/25/23 22:03 Temperature 36.3 C L 11/25/23 22:03 Temperature Source Temporal Artery Scan 11/25/23 22:03 Pulse 43 L 11/25/23 22:03 Respiratory Rate 16 11/25/23 22:03 Respiratory Effort Normal 11/25/23 22:07 Blood Pressure 180/89 H 11/25/23 22:03 Pulse Oximetry 97 11/25/23 22:03 Pain Level 7 11/25/23 22:03 Lab/Test Results Lab/Test Results: Laboratory Tests Range/Units 11/25/23 22:30 WBC (4.4-10.8) 10^3/uL 19.40 H RBC (4.36-5.78) 10^6/uL 4.83 Hgb (13.5-17.5) g/dL 14.1 Hct (40.0-50.0) % 42.6 MCV (80-95) fL 88 MCH (27.0-33.0) pg 29.2 MCHC (32.0-36.0) % 33.1 RDW (11.8-14.1) % 14.2 H Plt Count (130-400) 10^3/uL 201 MPV (8.0-11.0) fL 11.0 Immature Gran % % 0.7 Neutrophils % % 91.5 Lymphocytes % % 3.8 Monocytes % % 3.7 Eosinophils % % 0.0 Basophils % % 0.3 Nucleated RBC % (0.0-0.3) % 0.0 Absolute Neutrophils (1.2-6.7) 10^3/uL 17.75 H Absolute Lymphocytes (1.2-3.4) 10^3/uL 0.74 L Absolute Monocytes (0.1-0.8) 10^3/uL 0.72 Absolute Eosinophils (0.0-0.7) 10^3/uL 0.00 Absolute Basophils (0.0-0.2) 10^3/uL 0.06 PT (9.1-11.1) sec 10.4 INR (0.9-1.1) 1.0 APTT (23.6-32.8) sec 24.0 VBG Lactate (0.6-1.4) mmol/L 1.5 H Sodium (136-145) mmol/L 147 H Potassium (3.5-5.1) mmol/L 3.9 Chloride (98-107) mmol/L 108 H Carbon Dioxide (21.0-32.0) mmol/L 28.0 Anion Gap (3-11) mmol/L 11.0 BUN (7-18) mg/dL 20 H Creatinine (0.70-1.30) mg/dL 1.0 Est GFR (CKD-EPI 2020) (mL/min/1.73m2) 91.69 Glucose (74-106) mg/dL 163 H Calcium (8.5-10.1) mg/dL 9.4 Total Bilirubin (0.2-1.0) mg/dL 0.92 AST (15-37) U/L 14 L ALT (16-63) U/L 26 Alkaline Phosphatase (46-116) U/L 80 Troponin I (< or =60) ng/L < 50 Total Protein (6.4-8.2) g/dL 6.9 Albumin (3.4-5.0) g/dL 4.3 Lipase (16-77) U/L 43 Medical Decision Making 48yo M with 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 Was seen in this ED earlier today for 3-4 days of generalized abd pain and vomiting with reassuring workup including labs (mildly elevated lactate which resolved after IVF) and CTA C/A/P with no acute findings. Symptoms improved after medication and he was discharged home with PO zofran; took this tonight but again began vomiting, 3 episodes in the last hour, now red/bloody. Emesis bag viewed- scant (~1ox) brownish/reddish mucsousy emesis present. This is most consistent with MW tear in the setting of frequent vomiting over the past 4 days; no hx liver disease or reason to suspect esophageal varices, less likely bleeding ulcer or vascular issue in gastrum. There has been no change in his abdominal pain; will not repeat abdominal imaging at this time. Given EDS and now headache (though he states vomiting preceded the headache) will evaluate with CTA brain. Hypertensive on arrival, vital signs otherwise reassuring. Not septic. Benign abdominal exam with no peritoneal signs, minimal epigastric tenderness. Normal neurologic exam. Given 1L IVFB, IV zofran, acetaminophen, protonix. -EKG sinus bradycardia, no ST segment or T wave abnormalities to suggest occlusive ID -CTA head and neck independently reviewed, no large ICH on my view, agree with radiology reads below. -Labs reviewed as below, CBC with increasing leukocytosis (19 up from 15 earlier today), slight decrease in Hg 14.1 from 15.7 (may be dilutional after 2L IVFBs earlier), coags normal, lactate reassuring at 1.5, CMP with mild hypernatremia at 147 up from 143 otherwise no significant abnormalities, no acidosis. On reassessment he reports feeling much better. No further emesis including no further hematemesis. PO challenged and tolerated fluids and crackers. He would like to go home. Given his refractory symptoms and Hg decline (though I think it is less likely this is due to an acute bleed) I offered the possibility of hospital observation for symptom control and repeat bloodwork; he would prefer to try to manage his symptoms at home with oral medications and followup with his PCP. Although I would prefer he stay, as he has had no further vom iting in the 4 hours he has been in the ED his preference is not unreasonable. Given that zofran did not work earlier in the day, will try PO reglan. Discharged home; strict return precautions and the importance of same-day PCP followup were reviewed with patient who verbalized understanding. All questions were answered and he is in full agreement with the plan. Medical Records Medical records reviewed: Yes I reviewed the patient's medical records. Medical records narrative: ED visit note 11/25/23 Imaging Data Radiologic Study: Imaging: CT Scan Radiologist's impression: IMPRESSION: 1. No intracranial arterial occlusion or significant stenosis. 2. No acute findings on non-contrast Head CT images. ASPECTS score 10. IMPRESSION: No occlusion or significant stenosis in the arteries of the neck. Lab Data Lab results reviewed: Yes I reviewed the patient's lab results. Labs: Laboratory Tests Range/Units 11/25/23 22:30 WBC (4.4-10.8) 10^3/uL 19.40 H RBC (4.36-5.78) 10^6/uL 4.83 Hgb (13.5-17.5) g/dL 14.1 Hct (40.0-50.0) % 42.6 MCV (80-95) fL 88 MCH (27.0-33.0) pg 29.2 MCHC (32.0-36.0) % 33.1 RDW (11.8-14.1) % 14.2 H Plt Count (130-400) 10^3/uL 201 MPV (8.0-11.0) fL 11.0 Immature Gran % % 0.7 Neutrophils % % 91.5 Lymphocytes % % 3.8 Monocytes % % 3.7 Eosinophils % % 0.0 Basophils % % 0.3 Nucleated RBC % (0.0-0.3) % 0.0 Absolute Neutrophils (1.2-6.7) 10^3/uL 17.75 H Absolute Lymphocytes (1.2-3.4) 10^3/uL 0.74 L Absolute Monocytes (0.1-0.8) 10^3/uL 0.72 Absolute Eosinophils (0.0-0.7) 10^3/uL 0.00 Absolute Basophils (0.0-0.2) 10^3/uL 0.06 PT (9.1-11.1) sec 10.4 INR (0.9-1.1) 1.0 APTT (23.6-32.8) sec 24.0 VBG Lactate (0.6-1.4) mmol/L 1.5 H Sodium (136-145) mmol/L 147 H Potassium (3.5-5.1) mmol/L 3.9 Chloride (98-107) mmol/L 108 H Carbon Dioxide (21.0-32.0) mmol/L 28.0 Anion Gap (3-11) mmol/L 11.0 BUN (7-18) mg/dL 20 H Creatinine (0.70-1.30) mg/dL 1.0 Est GFR (CKD-EPI 2020) (mL/min/1.73m2) 91.69 Glucose (74-106) mg/dL 163 H Calcium (8.5-10.1) mg/dL 9.4 Total Bilirubin (0.2-1.0) mg/dL 0.92 AST (15-37) U/L 14 L ALT (16-63) U/L 26 Alkaline Phosphatase (46-116) U/L 80 Troponin I (< or =60) ng/L < 50 Total Protein (6.4-8.2) g/dL 6.9 Albumin (3.4-5.0) g/dL 4.3 Lipase (16-77) U/L 43 Quality:[facility] Health Related Social Needs: No Data to Display PFSH All Active Problems (Updated 11/26/23 @ 02:22 by Aisha Yeh MD) Vomiting (Acute) Mary-To tear (Acute) Dehydration (Acute) Vomiting (Acute) Depression (Chronic) Vascular Bradley-Danlos syndrome (Acute) No coloscopies, no fluroquinolones. Echo every 2 years. Following with [facility] vascular. 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 smoked 34 years , under 20 cigs a day Laceration of spleen (12/10/12) Surgical History History of removal of cyst (~04/02/21) behind Right ear Family History Father , at the age of 73 Diverticulitis Heart disease Congestive heart failure Melanoma Alcohol abuse Prostate cancer Sister Depression Mother Depression Heart disease Maternal Grandmother Diabetes Paternal Uncle ALS (amyotrophic lateral sclerosis) Son No problems noted. Son No problems noted. Social History (Updated 11/19/23 @ 14:26 by Palma Roa) Smoking/Tobacco Use Status: Former Tobacco Use tobacco type: cigarettes Quit Date: 08/07/19 Tobacco: How many years used: 32 Quit status: quit date established Second Hand Exposure: Yes Smoking risk assessment performed?: Yes Alcohol Intake: current Alcohol Intake frequency: holidays/special occasions only Alcohol type: beer and hard liquor Drug use: Daily Substance use type: marijuana Details: i smoke alot of pot daily pot use 11/07/22 Adopted: No Caregiver/Support person: No Household members: significant other Housing: house Number of Children: 2 Communication Needs: None Education Level: college Details: associates degree Do you need help understanding health information?: Never current occupation: disabled Pets and animals: Yes Pets and animals: cat(s), dog(s), fish and snake(s) Sexually active: Yes Do you think of yourself as: straight/heterosexual Current gender identity: male What is your relationship status?: living with partner How often do you talk on the phone with friends or family?: once per week How often do you get together with friends or relatives?: once per week How often do you attend adventist or mosque services?: decline to answer Do you belong to any clubs or organized social groups?: no Panel score (0-1 are the most socially isolated patients): 1 What type of physical activity do you participate in: regular exercise Duration: 30-45 minutes/day Frequency: daily Mag/Orthodox: Other Special mag needs: No Seatbelt use: always Helmet use: Yes Helmet use: always Drive intox or ride w/intox catering driver: No Firearms in home: Yes Firearms unloaded and locked: Yes Do you feel safe at home: Yes Do you feel safe in your relationship?: Yes Victim of physical abuse: No Victim of emotional abuse: No Victim of sexual abuse: No Would you like helpful sources: No
[2023-11-26 02:10] LABS: Bilirubin Negative (Negative); Blood Negative (Negative); Clarity Clear (Clear); Glucose Negative (Negative); Ketones 15 mg/dL (Negative); Leukocyte Esterase Negative (Negative); Nitrite Negative (Negative); Specific Gravity 1.015 (1.005-1.025); Urobilinogen 0.2 mg/dL (Up to 0.2)
[2023-11-26 02:38] VITALS: BP 114/76; PULSE 48; RESP 14; TEMP 37; O2SAT 97
== END 2023-11-26 03:11 | disposition home or self-care (01) ==
PROVIDERS: Emergency Provider Student in an Organized Health Care Education/Training Program; PCP Nurse Practitioner Family
DX: K22.6 Gastro-esophageal laceration-hemorrhage syndrome (principal); R11.2 Nausea with vomiting, unspecified
CPT/HCPCS: 36415; 70496; 70498; 80053; 83690; 93005; 96361; 96365; 96375; 99285; 81003; 83605; 84484; 85025; 85610; 85730; 93010; 99283; J0131; J2405; J2470; J3490

== ENCOUNTER 2023-11-27 09:44 | Emergency (ER) | payer MEDICAID, SELFPAY ==
[2023-11-27] VITALS (37 sets, daily range): BP systolic 100–171; BP diastolic 60–108; PULSE 39–64; RESP 3–28; O2SAT 100
--- NOTE | 2023-11-27 09:45 | RT.EKG_ITS ---
APPROVED REPORT Exam: Resting ECG Reason for Exam: Extremity numbness Patient Location: E HR:56 bpm ECG Measurements Heart Rate 56 AXIS [place] 170 P 73 QRSd 108 QRS -8 QT 504 T 60 QTc 487 Conclusion Bradycardia with irregular rate...V-rate 47- 64, mean < 60 motion artifact, no stemi
--- NOTE | 2023-11-27 10:04 | DI.CT_ITS ---
Exam(s) CT THORAX ABD/PEL CTA EXAM: CT THORAX ABD/PEL CTA CLINICAL HISTORY: felt pop left sided pain, hx EDS. TECHNIQUE: Imaging Protocol: Axial CT angiography was performed with multi-slice acquisition and m ulti-planar and/or 3D reconstructions. CONTRAST MATERIAL: Intravenous: Omnipaque 350 Contrast volume:structured data in ml Oral: / no COMPARISON: CT CT BRAIN NECK CTA from 11/25/2023 FINDINGS: CHEST: Pulmonary Arteries: No evidence of filling defect to suggest pulmonary emboli. Tracheobronchial tree: Patent where visualized. Mediastinum and Marizol: No dominant adenopathy or fluid collection. Pulmonary parenchyma: No consolidation or dominant measurable mass. Mild respiratory motion. Minimal basilar atelectasis. No infiltrate. Pleura: No effusion or pneumothorax. Heart: The heart is not dilated. No coronary artery calcifications are seen. Aorta: Thoracic aorta non-dilated. Bones: Unremarkable for age. 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 Stable dilatation of common hepatic artery and splenic artery. SMA again shows distal dilatation up to and small dissection flap. PETRA is patent. Aorta shows no evidence of dissection. Small dissection flap and mild dilatation of the right external iliac artery again noted. Station le ft external iliac artery. ABDOMEN: Liver: Normal density. No measurable mass. Portal, Superior Mesenteric, and Splenic Veins: Unremarkable. Gallbladder and Biliary Tract: No radiodense calculus or dilation. Pancreas: Normal density, no abnormal calcifications or inflammatory process. Spleen: Normal. Adrenals: No masses seen. Kidneys: Normal size, contour and axis. No radiodense stones or obstructive uropathy. No masses seen. Bowel: No obstruction or bowel wall thickening. Appendix is unremarkable. Peritoneal Cavity: No ascites, collection or mesenteric inflammatory response. Lymph Nodes: Within normal limits. Bones: Degenerative changes greatest at L4-5. Soft Tissues: Unremarkable. PELVIS: Bladder: Symmetric distention, no gross wall thickening. Reproductive Organs: Prostate mildly enlarged. Lymph Nodes: Within normal limits. Bones: . IMPRESSION: No acute abnormality in the chest abdomen and pelvis. Stable vascular findings from 25 November 2023. RADIATION DOSE DELIVERED: 1,170.67mGy.cm Total DLP DATA REPOSITORY: All CT scans at this facility are submitted to the National Radiology Data Registry (NRDR) Dose Index Registry (DIR) with the [employer] (ACR). RADIATION OPTIMIZATION: All CT scans at this facility use at least one of these dose optimization te chniques: automated exposure control; mA and/or kV adjustment per patient size (includes targeted exa ms where dose is matched to clinical indication); or iterative reconstruction.
--- NOTE | 2023-11-27 10:05 | ED.GENADUL_ITS ---
Discharge Plan Discharge Details Chief Complaint: Abd Prob Primary Care Provider: Jacqueline Pfeiffer ED Provider: Jud Flores Home Meds and New Rx's Prescriptions: No Action acetaminophen 650 mg tablet extended release 650 mg PO Q12H mirabegron [Myrbetriq] 50 mg tablet extended release 24 hr 50 mg PO DAILY Qty: 90 4RF ondansetron HCl 4 mg tablet 4 mg PO QID PRN (Reason: nausea and vomiting) Qty: 30 1RF multivitamin Tablet 1 tab PO DAILY Probiotic 3 billion cell capsule 3,000 mmu cells PO DAILY Rx Instructions: administer with a meal losartan 50 mg tablet 100 mg PO DAILY spironolactone 25 mg tablet 12.5 mg PO DAILY dicyclomine 20 mg tablet 20 mg PO BID PRN pantoprazole 20 mg tablet,delayed release (DR/EC) 20 mg PO DAILY Qty: 90 3RF aspirin 81 mg capsule 81 mg PO DAILY amitriptyline 10 mg tablet 10 mg PO QHS Qty: 90 3RF atorvastatin 80 mg tablet 80 mg PO QHS Qty: 90 4RF hydrochlorothiazide 12.5 mg tablet 12.5 mg PO DAILY Qty: 90 3RF metoprolol succinate 25 mg tablet extended release 24 hr 25 mg PO DAILY Qty: 90 3RF losartan 100 mg tablet 100 mg PO DAILY Patient Comments: TAKE ONE TABLET BY MOUTH EVERY DAY metoclopramide HCl [Reglan] 10 mg tablet 10 mg PO Q6H PRNQty: 7 0RF HPI General Date/Time Provider Initiated Documentation: 11/27/23 09:44 . Limitations to Documentation: no limitations . Information obtained by: patient, family, RN notes reviewed and old records reviewed . History of Present Illness 48 year old M presents to the emergency department with the chief complaint of Abdominal pain, described as severe and similar to prior episodes, with intensity rated at 10. Quality is described as stabbing, and is localized to the abdomen. Patient reports radiation to back. Patient started experiencing this hour(s) and it has been constant. No relieving factors improve symptom(s), No exacerbating factors reported . Patient notes loss of appetite, malaise and nausea/vomiting; denies chest pain, cough, fever/chills, headaches, rash, shortness of breath and weakness. Patient did receive the following treatments prior to arrival, none Related Data Home Medications Medication Instructions Recorded Confirmed lactobacillus combination no.4 3 3,000 mmu cells PO DAILY 01/14/21 11/27/23 billion cell capsule (Probiotic) multivitamin 1 tab PO DAILY 01/14/21 11/27/23 pantoprazole 20 mg tablet,delayed 20 mg PO DAILY #90 tabs 01/12/23 11/27/23 release ondansetron HCl 4 mg tablet 4 mg PO QID PRN nausea and 02/17/23 11/27/23 vomiting #30 tabs dicyclomine 20 mg tablet 20 mg PO BID PRN 05/18/23 11/27/23 losartan 50 mg tablet 100 mg PO DAILY 05/18/23 11/27/23 spironolactone 25 mg tablet 12.5 mg PO DAILY 05/18/23 11/27/23 aspirin 81 mg capsule 81 mg PO DAILY 05/20/23 11/27/23 amitriptyline 10 mg tablet 10 mg PO QHS #90 tabs 08/17/23 11/27/23 atorvastatin 80 mg tablet 80 mg PO QHS #90 tabs 08/17/23 11/27/23 hydrochlorothiazide 12.5 mg tablet 12.5 mg PO DAILY #90 tabs 10/01/23 11/27/23 acetaminophen 650 mg 650 mg PO Q12H 11/05/23 11/27/23 tablet,extended release mirabegron 50 mg tablet,extended 50 mg PO DAILY #90 tabs 11/05/23 11/27/23 release 24 hr (Myrbetriq) metoprolol succinate 25 mg 25 mg PO DAILY #90 tabs 11/18/23 11/27/23 tablet,extended release 24 hr metoclopramide HCl 10 mg tablet 10 mg PO Q6H PRN #7 tabs 11/26/23 11/27/23 (Reglan) losartan 100 mg tablet 100 mg PO DAILY 11/27/23 11/27/23 Previous Rx's Medication Instructions Recorded pantoprazole 20 mg tablet,delayed 20 mg PO DAILY #90 tabs 01/12/23 release ondansetron HCl 4 mg tablet 4 mg PO QID PRN nausea and 02/17/23 vomiting #30 tabs amitriptyline 10 mg tablet 10 mg PO QHS #90 tabs 08/17/23 atorvastatin 80 mg tablet 80 mg PO QHS #90 tabs 08/17/23 hydrochlorothiazide 12.5 mg tablet 12.5 mg PO DAILY #90 tabs 10/01/23 mirabegron 50 mg tablet,extended 50 mg PO DAILY #90 tabs 11/05/23 release 24 hr (Myrbetriq) metoprolol succinate 25 mg 25 mg PO DAILY #90 tabs 11/18/23 tablet,extended release 24 hr metoclopramide HCl 10 mg tablet 10 mg PO Q6H PRN #7 tabs 11/26/23 (Reglan) Allergies Allergy/AdvReac Type Severity Reaction Status Date / Time oxycodone AdvReac Intermediate Nausea Verified 11/26/23 02:33 codeine phosphate AdvReac Mild Nausea Verified 11/26/23 02:33 [From Tylenol-Codeine #3] morphine AdvReac Nausea Verified 11/26/23 02:33 GRASS Allergy Intermediate Itching Uncoded 11/26/23 02:33 MOLDS AND SMUTS Allergy Mild Itching Uncoded 11/26/23 02:33 General Stated Complaint: Abd Prob LISA: 2 Review of Systems Constitutional Constitutional: Reports as per HPI, Denies chills, Denies fatigue, Denies fever(s) and Denies headache(s) ENT Ears, Nose, Mouth, and Throat: Denies headache(s) Cardiovascular Cardiovascular: Reports as per HPI, Denies chest pain and Denies dyspnea Respiratory Respiratory: Reports as per HPI, Denies cough and Denies dyspnea Gastrointestinal Gastrointestinal: Reports as per HPI Genitourinary Genitourinary: Denies system reviewed and no additional complaints, except as documented (patient denies any change in urinary habits) Musculoskeletal Musculoskeletal: Reports as per HPI Integumentary/Breasts Skin/Breast: Reports as per HPI and Denies rash Neurologic Neurologic: Reports as per HPI and Denies headache(s) Endocrine Endocrine: Denies fatigue Exam Const General: cooperative, uncomfortable, no acute distress, well developed, anxious and ill appearing acutely Nutritional Appearance: average body habitus and well nourished Orientation: alert and awake HENAR Head: normal to inspection Mouth: mucous membranes dry Resp Effort & Inspection: normal respiratory effort, able to speak in complete sentences and no respiratory distress Auscultation: clear to auscultation bilaterally, no rales, no rhonchi and no wheezes Cardio Rate: regular rate Rhythm: regular rhythm Heart Sounds: S1 normal and S2 normal GI Inspection: normal to inspection Palpation: soft, no hepatosplenomegaly, not firm, guarding, no hernias, no masses, not rigid and tender in the epigastrum and in the LUQ Back/Spine/Pelvis Back: CVA tenderness (left) Skin General skin exam: no rashes or lesions noted Trauma: no lacerations or abrasions Neuro General: patient alert and patient awake Cognition: normal cognition Speech: speech normal Gait: normal gait Course Vital Signs Vital signs: Vital Signs Pulse 56 L 11/27/23 09:47 Respiratory Rate 28 H 11/27/23 09:47 Blood Pressure 170/93 H 11/27/23 09:47 Pulse Oximetry 100 11/27/23 09:47 Pulse 56 L 11/27/23 09:47 Respiratory Rate 28 H 11/27/23 09:47 Blood Pressure 170/93 H 11/27/23 09:47 Pulse Oximetry 100 11/27/23 09:47 Oxygen Delivery Method Room Air 11/27/23 09:47 Oxygen Flow Rate 0 11/27/23 09:47 Comment HR is always low 11/27/23 09:47 Medical Decision Making Patient is a 48-year-old male, companied by family, presenting today with continued/worsening abdominal pain. He was here twice 2 days ago for the same. Has hx of vascular EDS with multiple dissections, most recent of which was estimated to be about 6 months ago. Followed at [facility]. Chronically on narcotics, smokes marijuana. States yesterday he was feeling improved denies any episodes of vomiting. The day prior, when he was seen here, he had some episodes of emesis and was diagnosed with Mary-To tear. At that time, CTA did not show any new or worsening dissections, vascular disease appear to be stable. Patient states that this morning however, he began having recurrent vomiting. This time is all been nonbloody. Took his 2 Zofran without any relief. Denies any fevers or chills. States that just prior to arrival, he experienced a pop and indicates the left side of the abdomen is area of maximal tenderness. Concern for recurrent dissection. Patient is not anticoagulated. He is on a beta-landry. Denies ETOH, no hx of pancreatitis. Had previous splenic laceration, no previous abdominal surgeries. Reports no BM today, was first yesterday. Reports decreased urinary output. Has had decreased fluid intake. On exam, patient is hemodynamically stable. He appears very anxious and is intermittently writhing in the bed. He is endorsing active nausea. No petechial rash, evidence of active bleeding. Abdominal exam is very limited given the patient's current anxiety and pain level. Will obtain a bedside FAST exam and plan to reimage with CTA to evaluate for potential new or worsening vascular disease. Will give nausea medication as well as treating patient's pain. Patient was initially diagnosed with this issue about 5 years ago and has had chronic abdominal pain both associated with new or worsening disease as well as not associated, patient does smoke marijuana regularly which could also be contributing to some of his symptoms. Bedside FAST without free fluid. Patient improved with fentanyl. Patient going for CTA. Labs reviewed. CBC concerning for leukocytosis, white count of 12.6. This is downtrending from 19 2 days ago. Normal H&H, normal platelets. His lactate is elevated at 3.9. CMP concerning for a mild hypokalemia at 3.3, mild hypomagnesemia at 1.7. DHRUV with a creatinine of 1.5, up from 1 2 days ago. Patient has an anion gap of 17. Troponin within normal limits. His lipase is elevated at 108, this is 43 2 days ago. Patient may be developing acute pancreatitis versus infarction associated with his known vascular etiology and possible recurrent dissection. Patient's pain did increase just after coming back from CT, results from imaging are pending. Will augment his pain medication with Dilaudid. At the end my shift, care transition to Ward Pena PA-C with imaging and disposition pending. Quality:SDGA Health Related Social Needs: No Data to Display [facility] All Active Problems (Updated 11/26/23 @ 02:22 by Aisha Yeh MD) Vomiting (Acute) Mary-To tear (Acute) Dehydration (Acute) Vomiting (Acute) Depression (Chronic) Vascular Bradley-Danlos syndrome (Acute) No coloscopies, no fluroquinolones. Echo every 2 years. Following with [facility] vascular. 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 smoked 34 years , under 20 cigs a day Laceration of spleen (12/10/12) Surgical History History of removal of cyst (~04/02/21) behind Right ear Family History Father , at the age of 73 Diverticulitis Heart disease Congestive heart failure Melanoma Alcohol abuse Prostate cancer Sister Depression Mother Depression Heart disease Maternal Grandmother Diabetes Paternal Uncle ALS (amyotrophic lateral sclerosis) Son No problems noted. Son No problems noted. Social History (Updated 11/19/23 @ 14:26 by Palma Roa) Smoking/Tobacco Use Status: Former Tobacco Use tobacco type: cigarettes Quit Date: 08/07/19 Tobacco: How many years used: 32 Quit status: quit date established Second Hand Exposure: Yes Smoking risk assessment performed?: Yes Alcohol Intake: current Alcohol Intake frequency: holidays/special occasions only Alcohol type: beer and hard liquor Drug use: Daily Substance use type: marijuana Details: i smoke alot of pot daily pot use 11/07/22 Adopted: No Caregiver/Support person: No Household members: significant other Housing: house Number of Children: 2 Communication Needs: None Education Level: college Details: associates degree Do you need help understanding health information?: Never current occupation: disabled Pets and animals: Yes Pets and animals: cat(s), dog(s), fish and snake(s) Sexually active: Yes Do you think of yourself as: straight/heterosexual Current gender identity: male What is your relationship status?: living with partner How often do you talk on the phone with friends or family?: once per week How often do you get together with friends or relatives?: once per week How often do you attend alevism or rastafarian services?: decline to answer Do you belong to any clubs or organized social groups?: no Panel score (0-1 are the most socially isolated patients): 1 What type of physical activity do you participate in: regular exercise Duration: 30-45 minutes/day Frequency: daily Mag/Mandaen: Other Special mag needs: No Seatbelt use: always Helmet use: Yes Helmet use: always Drive intox or ride w/intox route sales driver: No Firearms in home: Yes Firearms unloaded and locked: Yes Do you feel safe at home: Yes Do you feel safe in your relationship?: Yes Victim of physical abuse: No Victim of emotional abuse: No Victim of sexual abuse: No Would you like helpful sources: No
[2023-11-27] MEDS: fentaNYL 100 MCG/2 ML VIAL IVP (10:22)
[2023-11-27] MEDS: Normal Saline 1,000 ML 1000 ML IV (10:22)
[2023-11-27] MEDS: Ondansetron 4 MG/2 ML VIAL IVP (10:30)
[2023-11-27 10:32] LABS: Abs Immature Grans 0.08 10^3/uL (0.0-0.06); Absolute Eosinophil Count 0.14 10^3/uL (0.0-0.7); Absolute Lymphocyte Count 1.39 10^3/uL (1.2-3.4); Absolute Monocyte Count 0.86 10^3/uL (0.1-0.8); Basophils % 0.8 %; Eosinophils % 1.1 %; HCT 40.5 % (40.0-50.0); HGB 13.6 g/dL (13.5-17.5); Immature Grans % 0.6 %; MCH 29.2 pg (27.0-33.0); MCHC 33.6 % (32.0-36.0); MCV 87 fL (80-95); MPV 10.9 fL (8.0-11.0); Monocytes % 6.8 %; Neutrophils % 79.7 %; Platelet Count 214 10^3/uL (130-400); RBC 4.65 10^6/uL (4.36-5.78); RDW 14.1 % (11.8-14.1); RDW-SD 44.8 fL; WBC 12.63 10^3/uL (4.4-10.8)
[2023-11-27 10:33] LABS: Absolute Neutrophil Count 10.07 10^3/uL (1.2-6.7)
[2023-11-27] MEDS: Normal Saline - Diluent 50 ML VIAL IJ (10:37)
[2023-11-27] MEDS: Omnipaque 350 MG/ML 500 ML BTL-Imaging package 115 ML IJ (10:38)
[2023-11-27 10:44] LABS: INR 1.1 (0.9-1.1); PTT Activated 24.9 sec (23.6-32.8); Prothrombin Time 10.8 sec (9.1-11.1)
[2023-11-27 10:50] LABS: ALT 27 U/L (16-63); AST 20 U/L (15-37); Albumin 4.6 g/dL (3.4-5.0); Alkaline Phosphatase 80 U/L (46-116); Anion Gap 17.6 mmol/L (3-11); BUN 23 mg/dL (7-18); Bilirubin, Total 1.72 mg/dL (0.2-1.0); CO2 21.4 mmol/L (21.0-32.0); CREATININE 1.5 mg/dL (0.70-1.30); Calcium 9.8 mg/dL (8.5-10.1); Chloride 107 mmol/L (98-107); Estimated GFR 56.37 (mL/min/1.73m2); Glucose 145 mg/dL (74-106); Lipase 108 U/L (16-77); Magnesium 1.7 mg/dL (1.8-2.4); Potassium 3.3 mmol/L (3.5-5.1); Sodium 146 mmol/L (136-145); Troponin I < 50 ng/L (< or =60)
[2023-11-27 10:58] LABS: Lactate 3.9 mmol/L (0.6-1.4)
[2023-11-27] MEDS: HYDROmorphone 2 MG/ML SYR 1 MG IVP (11:10)
[2023-11-27] MEDS: Metoclopramide 10 MG/2 ML VIAL IVP (11:10)
[2023-11-27] MEDS: diphenhydrAMINE 50 MG/ML VIAL 25 MG IVP (11:11)
[2023-11-27 11:31] LABS: Bilirubin Negative (Negative); Blood Negative (Negative); Clarity Clear (Clear); Glucose Negative (Negative); Ketones 15 mg/dL (Negative); Leukocyte Esterase Negative (Negative); Nitrite Negative (Negative); Urobilinogen 0.2 mg/dL (Up to 0.2); pH 8.5 (5-8)
[2023-11-27] MEDS: Lactated Ringers 1,000 ML 1000 ML IV (12:09)
[2023-11-27 13:33] LABS: Lactate 1.6 mmol/L (0.6-1.4)
[2023-11-27 13:58] LABS: Troponin I < 50 ng/L (< or =60)
[2023-11-27] MEDS: Potassium Chloride Liquid 20 MEQ PKT 40 MEQ PO (14:03)
[2023-11-27] MEDS: Magnesium Oxide 400 MG TAB PO (14:03)
== END 2023-11-27 14:21 | disposition home or self-care (01) ==
PROVIDERS: Physician Assistant; Emergency Provider Physician Assistant; PCP Nurse Practitioner Family
DX: R10.30 Lower abdominal pain, unspecified (principal); E86.0 Dehydration; Z87.39 Personal history of other diseases of the musculoskeletal system and connective tissue
CPT/HCPCS: 71275; 80053; 83690; 86850; 86900; 86901; 93005; 96361; 96374; 96375; 99285; 74174; 81003; 83605; 83735; 84484; 85025; 85610; 85730; 93010; 99283; J1170; J1200; J2405; J2765; J3010

== ENCOUNTER 2024-03-30 12:29 | Emergency (ER) | payer MEDICAID, SELFPAY ==
[2024-03-30] VITALS (57 sets, daily range): BP systolic 67–184; BP diastolic 44–110; PULSE 0–76; RESP 7–26; TEMP 36.2; O2SAT 79–100
--- NOTE | 2024-03-30 12:30 | RT.EKG_ITS ---
APPROVED REPORT Exam: Resting ECG Reason for Exam: Abd Pain Patient Location: E HR:41 bpm ECG Measurements Heart Rate 41 AXIS [place] 146 P 62 QRSd 105 QRS 10 QT 684 T 43 QTc 563 Conclusion Sinus bradycardia...rate< 60 Prolonged QT interval...QTc >500mS
--- NOTE | 2024-03-30 12:45 | DI.CT_ITS ---
Exam(s) CT ABDOMEN PELVIS CTA EXAM: CT ABDOMEN PELVIS CTA CLINICAL HISTORY: abd pain, prior celiac dissection, prior thrombosi. TECHNIQUE: Imaging Protocol: Axial computed tomography images with coronal and sagittal reformatted images were created and reviewed CONTRAST MATERIAL: Intravenous: Omnipaque 350 Contrast volume:100 ml Oral: None COMPARISON: CT CT THORAX ABD/PEL CTA from 11/27/2023 FINDINGS: ABDOMEN AORTA: The abdominal aorta is moderately atherosclerotic but upper normal diameter. Common iliac arteries s lightly prominent diameters. The distal right common iliac artery exhibits diameter 1.3 cm. The lef t common iliac artery exhibits diameter 1.2 cm.There is a nonocclusive dissection in the proximal lef t external iliac artery again noted. There is no dissection evident in the common iliac arteries. N o significant findings in the internal iliac arteries. With respect of the mesenteric vessels.. There is again noted independent origin of the left gastric artery off of off of the abdominal aorta above the origin of the celiac artery. There is a stenosis in this vessel approximately 2 cm distal to its origin with some poststenotic dilatation, unchanged from previous. Celiac artery dissection and distal aneurysmal dilatation to 1.8 cm is again noted, unchanged. The s plenic artery is patent. 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 Superior mesenteric artery arteriomegaly is again evident with normal luminal diameter at its takeoff point but fusiform aneurysmal dilatation distal to this with luminal diameter 1.4 cm, similar to pre vious. No dissection nor intraluminal thrombus sent in this vessel. Renal arteries unremarkable bilaterally. No significant stenosis nor evidence of dissection or fibro muscular dysplasia. Both kidneys exhibit normal size. GI: There are no obvious ischemic appearing bowel loops and there is no ascites. LIVER: There are no focal hepatic lesions nor dilatation of intrahepatic ducts. GALLBLADDER/BILIARY: No obvious gallbladder pathology. CBD is not dilated. PANCREAS: No evidence of pancreatic mass nor dilatation of the pancreatic duct. SPLEEN: Spleen is not enlarged. There are no intrasplenic lesions. Splenic and portal veins are grigsby nt. ADRENALS: There are no significant adrenal masses. KIDNEYS: No cysts evident. No calculi nor hydronephrosis. No solid renal masses. ABDOMINAL AORTA: See above LYMPH NODES: There is no retroperitoneal nor para-aortic adenopathy. No obvious mesenteric masses. ABDOMINAL WALL: No evidence of significant anterior abdominal wall hernia. GI: There is no evidence of bowel obstruction, free air, nor abscess. PELVIS: LYMPH NODES: There is no intrapelvic nor inguinal adenopathy. GI: No evidence of appendicitis.No evidence of sigmoid diverticulitis. URINARY BLADDER: No calculi nor masses evident REPRODUCTIVE: Prostate size upper normal OSSEOUS: No significant osseous lesions. No fractures. Chronic disc space narrowing L5-S1 level. IMPRESSION: 1. 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 2. Previously described superior mesenteric artery mid level aneurysmal dilatation is also stable. I nferior mesenteric artery remains patent. 3. No evidence of dissection in the abdominal aorta. 4. Previously described nonobstructive dissection in the external iliac artery is again noted. Small er nonocclusive dissection right external iliac artery also stable. The arteriomegaly of the common and external iliac arteries remain stable. There is also symmetrical moderate arterial megaly of bot h internal iliac arteries but without focal aneurysmal dilatation. Nor dissections therein. 5. There are no obvious ischemic appearing bowel loops. No ascites. No obvious acute findings RADIATION DOSE DELIVERED: 603.93mGy.cm Total DLP DATA REPOSITORY: All CT scans at this facility are submitted to the National Radiology Data Registry (NRDR) Dose Index Registry (DIR) with the [employer] (ACR). RADIATION OPTIMIZATION: All CT scans at this facility use at least one of these dose optimization te chniques: automated exposure control; mA and/or kV adjustment per patient size (includes targeted exa ms where dose is matched to clinical indication); or iterative reconstruction.
[2024-03-30] MEDS: HYDROmorphone 2 MG/ML SYR IVP (13:01)
[2024-03-30 13:05] LABS: Abs Immature Grans 0.08 10^3/uL (0.0-0.06); Absolute Basophil Count 0.13 10^3/uL (0.0-0.2); Absolute Eosinophil Count 0.07 10^3/uL (0.0-0.7); Absolute Lymphocyte Count 1.36 10^3/uL (1.2-3.4); Absolute Monocyte Count 0.48 10^3/uL (0.1-0.8); Absolute Neutrophil Count 11.92 10^3/uL (1.2-6.7); Basophils % 0.9 %; Eosinophils % 0.5 %; HCT 45.8 % (40.0-50.0); HGB 15.5 g/dL (13.5-17.5); Immature Grans % 0.6 %; Lymphocytes % 9.7 %; MCH 29.5 pg (27.0-33.0); MCHC 33.8 % (32.0-36.0); MCV 87 fL (80-95); MPV 10.9 fL (8.0-11.0); Monocytes % 3.4 %; Neutrophils % 84.9 %; Platelet Count 259 10^3/uL (130-400); RBC 5.26 10^6/uL (4.36-5.78); RDW 13.2 % (11.8-14.1); RDW-SD 41.9 fL; WBC 14.04 10^3/uL (4.4-10.8)
[2024-03-30 13:06] LABS: Lactate 3.7 mmol/L (0.6-1.4)
--- NOTE | 2024-03-30 13:15 | RT.EKG_ITS ---
APPROVED REPORT Exam: Resting ECG Reason for Exam: bradycardia Patient Location: E HR:38 bpm ECG Measurements Heart Rate 38 AXIS [place] 158 P 74 QRSd 98 QRS 65 QT 573 T 74 QTc 458 Conclusion Sinus bradycardia...rate< 60
[2024-03-30 13:38] LABS: ALT 20 U/L (16-63); AST 17 U/L (15-37); Albumin 4.7 g/dL (3.4-5.0); Alkaline Phosphatase 98 U/L (46-116); BUN 23 mg/dL (7-18); Bilirubin, Total 1.07 mg/dL (0.2-1.0); CREATININE 1.3 mg/dL (0.70-1.30); Calcium 10.5 mg/dL (8.5-10.1); Chloride 108 mmol/L (98-107); Estimated GFR 66.51 (mL/min/1.73m2); Glucose 211 mg/dL (74-106); Lipase 25 U/L (16-77); Magnesium 1.8 mg/dL (1.8-2.4); Potassium 3.6 mmol/L (3.5-5.1); Sodium 144 mmol/L (136-145); Total Protein 7.7 g/dL (6.4-8.2)
[2024-03-30] MEDS: Normal Saline - Diluent 50 ML VIAL IJ (14:02)
[2024-03-30] MEDS: Omnipaque 350 MG/ML 500 ML BTL-Imaging package IJ (14:03)
--- NOTE | 2024-03-30 14:10 | ED.GENADUL_ITS ---
Discharge Plan Discharge Details Chief Complaint: Abd Prob Clinical Impression: Abdominal pain, Increased anion gap metabolic acidosis Primary Care Provider: Jacqueline Pfeiffer ED Provider: Mic Marie Home Meds and New Rx's Prescriptions: No Action acetaminophen 650 mg tablet extended release 650 mg PO Q12H ondansetron HCl 4 mg tablet 4 mg PO QID PRN (Reason: nausea and vomiting) Qty: 30 1RF multivitamin Tablet 1 tab PO DAILY Probiotic 3 billion cell capsule 3,000 mmu cells PO DAILY Rx Instructions: administer with a meal pantoprazole 20 mg tablet,delayed release (DR/EC) 20 mg PO DAILY Qty: 90 3RF amitriptyline 10 mg tablet 10 mg PO QHS Qty: 90 3RF atorvastatin 80 mg tablet 80 mg PO QHS Qty: 90 4RF metoprolol succinate 25 mg tablet extended release 24 hr 25 mg PO DAILY Qty: 90 3RF spironolactone 25 mg tablet 12.5 mg PO DAILY Qty: 90 3RF tamsulosin 0.4 mg capsule 0.4 mg PO QHS Qty: 90 1RF losartan 100 mg tablet 100 mg PO DAILY Patient Comments: TAKE ONE TABLET BY MOUTH EVERY DAY hydromorphone [Dilaudid] 2 mg tablet 2 mg PO Q4H Discharge Instructions Additional Instructions: Please follow-up with your primary care physician and vascular specialist. Call today to arrange follow-up. Return to the ER immediately for any worsening or new concerning symptoms. Referrals: Jacqueline Pfeiffer NP [Primary Care Provider] - [facility] General Mode of arrival: ambulatory . Date/Time Provider Initiated Documentation: 03/30/24 12:55 . Limitations to Documentation: no limitations . Information obtained by: patient . HPI Narrative: 49-year-old male with history of vascular Erhlos Danlos, multiple intra- abdominal vascular dissections, previous visits for severe exacerbation of abdominal pain, here today with severe exacerbation of generalized abdominal pain. Patient notes symptoms started this morning. Associated nausea and vomiting. Related Data Home Medications ?Medication ?Instructions ?Recorded ?Confirmed lactobacillus combination no.4 3 3,000 mmu cells PO DAILY 01/14/21 03/30/24 billion cell capsule (Probiotic) multivitamin 1 tab PO DAILY 01/14/21 03/30/24 pantoprazole 20 mg tablet,delayed 20 mg PO DAILY #90 tabs 01/12/23 03/30/24 release ondansetron HCl 4 mg tablet 4 mg PO QID PRN nausea and 02/17/23 03/30/24 vomiting #30 tabs amitriptyline 10 mg tablet 10 mg PO QHS #90 tabs 08/17/23 03/30/24 atorvastatin 80 mg tablet 80 mg PO QHS #90 tabs 08/17/23 03/30/24 acetaminophen 650 mg 650 mg PO Q12H 11/05/23 03/30/24 tablet,extended release metoprolol succinate 25 mg 25 mg PO DAILY #90 tabs 11/18/23 03/30/24 tablet,extended release 24 hr losartan 100 mg tablet 100 mg PO DAILY 11/27/23 03/30/24 spironolactone 25 mg tablet 12.5 mg (1/2 x 25 mg) PO DAILY #90 01/04/24 03/30/24 tabs tamsulosin 0.4 mg capsule 0.4 mg PO QHS #90 caps 01/31/24 03/30/24 hydromorphone 2 mg tablet 2 mg PO Q4H 03/30/24 03/30/24 (Dilaudid) Previous Rx's ?Medication ?Instructions ?Recorded pantoprazole 20 mg tablet,delayed 20 mg PO DAILY #90 tabs 01/12/23 release ondansetron HCl 4 mg tablet 4 mg PO QID PRN nausea and 02/17/23 vomiting #30 tabs amitriptyline 10 mg tablet 10 mg PO QHS #90 tabs 08/17/23 atorvastatin 80 mg tablet 80 mg PO QHS #90 tabs 08/17/23 metoprolol succinate 25 mg 25 mg PO DAILY #90 tabs 11/18/23 tablet,extended release 24 hr spironolactone 25 mg tablet 12.5 mg (1/2 x 25 mg) PO DAILY #90 01/04/24 tabs tamsulosin 0.4 mg capsule 0.4 mg PO QHS #90 caps 01/31/24 Allergies Allergy/AdvReac Type Severity Reaction Status Date / Time oxycodone AdvReac Intermediate Nausea Verified 03/30/24 14:13 codeine phosphate (From AdvReac Mild Nausea Verified 03/30/24 14:13 Tylenol-Codeine #3) morphine AdvReac Nausea Verified 03/30/24 14:13 GRASS Allergy Intermediate Itching Uncoded 03/30/24 14:13 MOLDS AND SMUTS Allergy Mild Itching Uncoded 03/30/24 14:13 General Stated Complaint: Abd Prob LISA: 2 Review of Systems All systems reviewed & are unremarkable except as noted in HPI and below Constitutional Constitutional: Denies fever(s) Exam Const General: cooperative and uncomfortable Orientation: alert and awake HENMT Mouth: moist mucous membranes Eyes Conjunctivae: normal conjunctivae Sclera: normal sclerae Resp Auscultation: clear to auscultation bilaterally, no rales, no rhonchi and no wheezes Cardio Rate: bradycardic Rhythm: regular rhythm GI Palpation: soft, not firm, no guarding, no masses, not rigid and tender (diffuse) Auscultation: normal bowel sounds Skin General skin exam: no rashes or lesions noted Neuro General: patient alert, patient awake, patient oriented x3 and tone normal Extrem General: no edema and other (strong DP bilateral) Course Vital Signs Vital signs: Vital Signs Temperature 36.2 C L 03/30/24 12:32 Pulse 44 L 03/30/24 12:32 Respiratory Rate 20 03/30/24 12:32 Blood Pressure 153/86 H 03/30/24 12:32 Pulse Oximetry 99 03/30/24 12:32 Temperature 36.2 C L 03/30/24 12:32 Pulse 42 L 03/30/24 12:47 Pulse 46 L 03/30/24 12:50 Respiratory Rate 26 H 03/30/24 12:50 Blood Pressure 164/76 H 03/30/24 12:47 Blood Pressure Mean 107 03/30/24 12:47 Pulse Oximetry 100 03/30/24 12:50 Oxygen Delivery Method Room Air 03/30/24 12:32 Oxygen Flow Rate 0 03/30/24 12:32 Pain Level 10 03/30/24 13:01 Lab/Test Results Lab/Test Results: Laboratory Tests Range/Units 03/30/24 03/30/24 12:42 12:42 WBC (4.4-10.8) 10^3/uL 14.04 H RBC (4.36-5.78) 10^6/uL 5.26 Hgb (13.5-17.5) g/dL 15.5 Hct (40.0-50.0) % 45.8 MCV (80-95) fL 87 MCH (27.0-33.0) pg 29.5 MCHC (32.0-36.0) % 33.8 RDW (11.8-14.1) % 13.2 Plt Count (130-400) 10^3/uL 259 MPV (8.0-11.0) fL 10.9 Immature Gran % % 0.6 Neutrophils % % 84.9 Lymphocytes % % 9.7 Monocytes % % 3.4 Eosinophils % % 0.5 Basophils % % 0.9 Nucleated RBC % (0.0-0.3) % 0.0 Absolute Neutrophils (1.2-6.7) 10^3/uL 11.92 H Absolute Lymphocytes (1.2-3.4) 10^3/uL 1.36 Absolute Monocytes (0.1-0.8) 10^3/uL 0.48 Absolute Eosinophils (0.0-0.7) 10^3/uL 0.07 Absolute Basophils (0.0-0.2) 10^3/uL 0.13 VBG Lactate (0.6-1.4) mmol/L 3.7 H* Sodium (136-145) mmol/L 144 Potassium (3.5-5.1) mmol/L 3.6 Chloride (98-107) mmol/L 108 H Carbon Dioxide (21.0-32.0) mmol/L 20.0 L Anion Gap (3-11) mmol/L 16.0 H BUN (7-18) mg/dL 23 H Creatinine (0.70-1.30) mg/dL 1.3 Est GFR (CKD-EPI 2020) (mL/min/1.73m2) 66.51 Glucose (74-106) mg/dL 211 H Calcium (8.5-10.1) mg/dL 10.5 H Magnesium (1.8-2.4) mg/dL 1.8 Total Bilirubin (0.2-1.0) mg/dL 1.07 H AST (15-37) U/L 17 ALT (16-63) U/L 20 Alkaline Phosphatase (46-116) U/L 98 Total Protein (6.4-8.2) g/dL 7.7 Albumin (3.4-5.0) g/dL 4.7 Lipase Cancelled 25 Medical Decision Making 1500 -- 49-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 Patient had similar episode in November. Patient is bradycardic and mildly hypertensive on arrival. He saturating well in no respiratory distress and mentating well. EKG was reviewed and interpreted by me: Please report, sinus bradycardia 41 bpm, prolonged QTc 563. Labs reviewed and leukocytosis noted. Lactic acidosis noted. Lactate 3.7. Anion gap 16. Concern for acute life-threatening intra-abdominal vascular dissection versus ischemic bowel versus other. CT of the abdomen pelvis was interpreted by radiology:1. The previously described proximal celiac dissection and distal aneurysmal dilatation remain stable as does the aneurysmal dilatation of the common hepatic artery and enlarged caliber of the splenic artery. 2. Previously described superior mesenteric artery mid level aneurysmal dilatat ion is also stable. Inferior mesenteric artery remains patent. 3. No evidence of dissection in the abdominal aorta. 4. Previously described nonobstructive dissection in the external iliac artery is again noted. Smaller nonocclusive dissection right external iliac artery also stable. The arteriomegaly of the common and external iliac arteries remain stable. There is also symmetrical moderate arterial megaly of both internal iliac arteries but without focal aneurysmal dilatation. Nor dissections therein. 5. There are no obvious ischemic appearing bowel loops. No ascites. No obvious acute findings Patient was given multiple doses of Dilaudid IV for pain control. On further review of prior vitals, patient has been bradycardic in the past. TSH is pending. Will give IV fluid bolus. 3245 --patient reassessed and much more comfortable. Reviewed results with the patient. Lab Data Lab results reviewed: Yes I reviewed the patient's lab results. Labs: Laboratory Tests Range/Units 03/30/24 03/30/24 12:42 12:42 WBC (4.4-10.8) 10^3/uL 14.04 H RBC (4.36-5.78) 10^6/uL 5.26 Hgb (13.5-17.5) g/dL 15.5 Hct (40.0-50.0) % 45.8 MCV (80-95) fL 87 MCH (27.0-33.0) pg 29.5 MCHC (32.0-36.0) % 33.8 RDW (11.8-14.1) % 13.2 Plt Count (130-400) 10^3/uL 259 MPV (8.0-11.0) fL 10.9 Immature Gran % % 0.6 Neutrophils % % 84.9 Lymphocytes % % 9.7 Monocytes % % 3.4 Eosinophils % % 0.5 Basophils % % 0.9 Nucleated RBC % (0.0-0.3) % 0.0 Absolute Neutrophils (1.2-6.7) 10^3/uL 11.92 H Absolute Lymphocytes (1.2-3.4) 10^3/uL 1.36 Absolute Monocytes (0.1-0.8) 10^3/uL 0.48 Absolute Eosinophils (0.0-0.7) 10^3/uL 0.07 Absolute Basophils (0.0-0.2) 10^3/uL 0.13 VBG Lactate (0.6-1.4) mmol/L 3.7 H* Sodium (136-145) mmol/L 144 Potassium (3.5-5.1) mmol/L 3.6 Chloride (98-107) mmol/L 108 H Carbon Dioxide (21.0-32.0) mmol/L 20.0 L Anion Gap (3-11) mmol/L 16.0 H BUN (7-18) mg/dL 23 H Creatinine (0.70-1.30) mg/dL 1.3 Est GFR (CKD-EPI 2020) (mL/min/1.73m2) 66.51 Glucose (74-106) mg/dL 211 H Calcium (8.5-10.1) mg/dL 10.5 H Magnesium (1.8-2.4) mg/dL 1.8 Total Bilirubin (0.2-1.0) mg/dL 1.07 H AST (15-37) U/L 17 ALT (16-63) U/L 20 Alkaline Phosphatase (46-116) U/L 98 Total Protein (6.4-8.2) g/dL 7.7 Albumin (3.4-5.0) g/dL 4.7 Lipase Cancelled 25 Quality:SDOH Health Related Social Needs: No Data to Display PFSH All Active Problems (Updated 03/30/24 @ 15:55 by Mic Marie MD) Increased anion gap metabolic acidosis (Acute) Abdominal pain (Acute) Depression (Chronic) Vascular Bradley-Danlos syndrome (Acute) No coloscopies, no fluroquinolones. Echo every 2 years. Following with [facility] [place]. 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 smoked 34 years , under 20 cigs a day Laceration of spleen (12/10/12) Surgical History History of removal of cyst (~04/02/21) behind Right ear Family History Father , at the age of 73 Diverticulitis Heart disease Congestive heart failure Melanoma Alcohol abuse Prostate cancer Sister Depression Mother Depression Heart disease Maternal Grandmother Diabetes Paternal Uncle ALS (amyotrophic lateral sclerosis) Son No problems noted. Son No problems noted. Social History Smoking/Tobacco Use Status: Former Tobacco Use tobacco type: cigarettes Quit Date: 08/07/19 Tobacco: How many years used: 32 Quit status: quit date established Second Hand Exposure: Yes Smoking risk assessment performed?: Yes Alcohol Intake: current Alcohol Intake frequency: holidays/special occasions only Alcohol type: beer and hard liquor Drug use: Daily Substance use type: marijuana Details: i smoke alot of pot daily pot use 11/07/22 Adopted: No Caregiver/Support person: No Household members: significant other Housing: house Number of Children: 2 Communication Needs: None Education Level: college Details: associates degree Do you need help understanding health information?: Never current occupation: disabled Pets and animals: Yes Pets and animals: cat(s), dog(s), fish and snake(s) Sexually active: Yes Do you think of yourself as: straight/heterosexual Current gender identity: male What is your relationship status?: living with partner How often do you talk on the phone with friends or family?: once per week How often do you get together with friends or relatives?: once per week How often do you attend alevism or mandaen services?: decline to answer Do you belong to any clubs or organized social groups?: no Panel score (0-1 are the most socially isolated patients): 1 What type of physical activity do you participate in: regular exercise Duration: 30-45 minutes/day Frequency: daily Mag/Episcopalian: Other Special mag needs: No Seatbelt use: always Helmet use: Yes Helmet use: always Drive intox or ride w/intox cryogenic transport driver: No Firearms in home: Yes Firearms unloaded and locked: Yes Do you feel safe at home: Yes Do you feel safe in your relationship?: Yes Victim of physical abuse: No Victim of emotional abuse: No Victim of sexual abuse: No Would you like helpful sources: No
[2024-03-30] MEDS: HYDROmorphone 2 MG/ML SYR 1 MG IVP ×2 (14:19→19:01)
--- NOTE | 2024-03-30 14:34 | NUR.NOTE ---
Nursing Note: patient resting quietly on stretcher, SPO2 decreased to 79% RA. This RN woke patient easily he recovered quickly.
[2024-03-30] MEDS: Normal Saline 500 ML IV (15:21)
[2024-03-30 16:45] LABS: TSH (W/Ref FT4) 2.02 uIU/mL (0.36-3.74); Troponin I 5 ng/L (<or=76)
[2024-03-30 17:25] LABS: Lactate 1.5 mmol/L (0.6-1.4)
[2024-03-30 17:45] LABS: Troponin I 6 ng/L (<or=76)
--- NOTE | 2024-03-30 18:02 | ED.PROG_ITS ---
Date of service: 03/30/24 Time of Service: 18:02 Medical Decision Making I received signout on this 49-year-old male with history of vascular Bradley- Danlos. He had a reassuring CT scan. His pain was improved. He was pending a repeat troponin which was reassuring with no acute injury pattern. His repeat lactate was also markedly improved. He had had episodes of transient hypotension but was able to tolerate p.o. liquids in the ED. Of note he had had transient episodes of hypotension in the past. 6:20 PM Patient had recurrent abdominal pain. I treated him with his outpatient hydromorphone and acetaminophen. Will continue to monitor and reassess. 7:35 PM Patient received additional IV dose of hydromorphone famotidine and Mylanta as he transiently had recurrent abdominal pain. He felt improved. He requested discharge. Blood pressure was slightly low but he was mentating clearly. Lactate and troponin repeat labs reassuring. 10:07 PM At the time of the patient's discharge his blood pressure was documented by nursing as 89/54. He was mentating clearly and felt improved and requested dis charge. In reviewing prior vital signs from previous emergency department visits patient had had transient episodes of hypotension in the past. There were documented pressures similar to tonight's pressure in 2021, 2019 on multiple occasions, and as far back as 2012. This certainly could be a component of the patient's vascular Bradley-Danlos syndrome or possibly his hydromorphone use. He is also on tamsulosin and spironolactone. His BUN was mildly elevated but he did not have an acute kidney injury so was not suspicious for hypotension significant enough to be causing acute kidney injury. He had no fevers to suggest sepsis. I discharged him given that he was feeling improved. We discussed that he should return to the emergency department if he developed any recurrent abdominal pain or if he passed out. He understood his return indications and was discharged with empiric trial of expectant outpatient management. He ambulated out of the emergency department. His bradycardia was similar to prior episodes of bradycardia. Quality:[facility] Health Related Social Needs: No Data to Display Sign Out Sign Out Data: Sign Out Comment: Follow-up on second lactate and reassess patient for disposition. Last updated by Mic Marie MD at 03/30/24 16:35 Discharge Plan Disposition Patient Disposition: Home Discharge Details Clinical Impression: Abdominal pain, Increased anion gap metabolic acidosis Primary Care Provider: Jacqueline Pfeiffer ED Provider: Michael Caceres Home Meds and New Rx's Prescriptions: Continued acetaminophen 650 mg tablet extended release 650 mg PO Q12H ondansetron HCl 4 mg tablet 4 mg PO QID PRN (Reason: nausea and vomiting) Qty: 30 1RF multivitamin Tablet 1 tab PO DAILY Probiotic 3 billion cell capsule 3,000 mmu cells PO DAILY Rx Instructions: administer with a meal pantoprazole 20 mg tablet,delayed release (DR/EC) 20 mg PO DAILY Qty: 90 3RF amitriptyline 10 mg tablet 10 mg PO QHS Qty: 90 3RF atorvastatin 80 mg tablet 80 mg PO QHS Qty: 90 4RF metoprolol succinate 25 mg tablet extended release 24 hr 25 mg PO DAILY Qty: 90 3RF spironolactone 25 mg tablet 12.5 mg PO DAILY Qty: 90 3RF tamsulosin 0.4 mg capsule 0.4 mg PO QHS Qty: 90 1RF losartan 100 mg tablet 100 mg PO DAILY Patient Comments: TAKE ONE TABLET BY MOUTH EVERY DAY hydromorphone [Dilaudid] 2 mg tablet 2 mg PO Q4H PRN Discharge Instructions Additional Instructions: Please follow-up with your primary care physician and vascular specialist. Call today to arrange follow-up. Return to the ER immediately for any worsening or new concerning symptoms. Please return if you pass out or develop worsening pain. Referrals: Jacqueline Pfeiffer NP [Primary Care Provider] - Discharge Data Discharge Date/Time-TO BE ENTERED AT DEPARTURE: 03/30/24 19:47
[2024-03-30] MEDS: Ondansetron 4 MG/2 ML VIAL IVP (18:16)
[2024-03-30] MEDS: Acetaminophen 500 MG TAB 1000 MG PO (18:25)
[2024-03-30] MEDS: HYDROmorphone 2 MG TAB PO (18:25)
[2024-03-30] MEDS: Mylanta Suspension 30 ML CUP PO (19:00)
[2024-03-30] MEDS: Famotidine 20 MG/2 ML VIAL 40 MG IVP (19:00)
[2024-03-30] MEDS: Ondansetron O.D.T. 4 MG TABEF, 3 TABS/BTL PO (19:42)
== END 2024-03-30 19:47 | disposition home or self-care (01) ==
PROVIDERS: Student in an Organized Health Care Education/Training Program; Emergency Provider Emergency Medicine; PCP Nurse Practitioner Family
DX: R10.9 Unspecified abdominal pain (principal); E87.22 Chronic metabolic acidosis; Q79.63 Vascular Ehlers-Danlos syndrome; J44.9 Chronic obstructive pulmonary disease, unspecified; Z87.891 Personal history of nicotine dependence
CPT/HCPCS: 00123; 80053; 83690; 93005; 96361; 96374; 96375; 96376; 99285; 74174; 83605; 83735; 84443; 84484; 85025; 93010; 99284; J1171; J2405

== ENCOUNTER 2024-08-06 08:48 | Observation (INO) | payer MEDICAID, SELFPAY ==
[2024-08-06] VITALS (51 sets, daily range): BP systolic 129–196; BP diastolic 78–110; PULSE 32–163; RESP 3–28; TEMP 36.1–36.6; O2SAT 91–100
--- NOTE | 2024-08-06 08:45 | RT.EKG_ITS ---
APPROVED REPORT Exam: Resting ECG Reason for Exam: Chest pain Patient Location: E HR:44 bpm ECG Measurements Heart Rate 44 AXIS CA 169 P 67 QRSd 108 QRS 15 QT 554 T 40 QTc 466 Conclusion Sinus bradycardia...rate< 60 Atrial premature complex...SV complex w/ short R-R interval No STEMI
--- NOTE | 2024-08-06 08:45 | DI.CT_ITS ---
Exam(s) CT ABDOMEN PELVIS CTA EXAM: CT ABDOMEN PELVIS CTA CLINICAL HISTORY: Abdominal pain. TECHNIQUE: Imaging Protocol: Axial CT angiography was performed with multi-slice acquisition and m ulti-planar and/or 3D reconstructions. CONTRAST MATERIAL: Intravenous: Omnipaque 350 Contrast volume:structured data in ml Oral: / no COMPARISON: CT CT ABDOMEN PELVIS CTA from 03/30/2024 FINDINGS: Vascular Structures: Celiac [place]:Stable celiac artery dissection and dilatation to 1.8 cm. Gastric artery arises directly from the aorta. There is a stenosis proximally with poststenotic dila tation, stable. Hepatic artery: Aneurysmal dilatation 1.4 cm, unchanged. SMA: No evidence of stenosis. Stable aneurysmal dilatation to 1.4 cm. Renal Arteries: No evidence of stenosis or dissection. There is a single renal artery perfusing each kidney. No vascular beading. Aorta: Mild to moderate atherosclerotic changes. No aneurysm. No dissection. No significant stenosis . Iliac Arteries: Stable focal area of dissection in the proximal left external iliac artery. Small fo buddy area of dissection of the right external iliac artery. Stable mild dilatation of the common, int ernal and external iliac arteries. Common Femoral Arteries: No evidence of stenosis or dissection. Soft Tissues:Unremarkable. Lung bases:No acute findings. Liver: Normal size. Normal density. No measurable mass. Gallbladder and biliary tract: No evidence of calculi. No gallbladder wall thickening. No biliary di lation. Pancreas: Normal density, no abnormal calcifications or inflammatory process. Spleen: Normal. Kidneys: Normal size, contour and axis. No obstructive uropathy. No masses seen. No evidence of calcu li. Adrenal glands: No masses seen. Bladder: No gross wall thickening. No evidence of calculi. No evidence of mass. Bowel: No obstruction or bowel wall thickening. No evidence of mesenteric ischemia. Appendix normal. Normal quantity of stool. Peritoneal cavity: No ascites. No focal collection. No mesenteric inflammatory response. Bones: No acute findings. Lymph nodes: Within normal limits. Reproductive: Unremarkable. IMPRESSION: Stable appearance of focal dissections of the bilateral external iliac arteries as well as celiac art fernando. Stable aneurysmal dilatation of the celiac, superior mesenteric artery, common hepatic artery, left g astric arteries. No evidence of bowel ischemia. RADIATION DOSE DELIVERED: Total DLP DATA REPOSITORY: All CT scans at this facility are submitted to the National Radiology Data Registry (NRDR) Dose Index Registry (DIR) with the [employer] (ACR). RADIATION OPTIMIZATION: All CT scans at this facility use at least one of these dose optimization te chniques: automated exposure control; mA and/or kV adjustment per patient size (includes targeted exa ms where dose is matched to clinical indication); or iterative reconstruction.
--- NOTE | 2024-08-06 08:49 | ED.GENADUL_ITS ---
Discharge Plan Disposition Patient Disposition: Admit to [facility] Discharge Details Clinical Impression: Bradycardia, sinus, Prolonged QT interval Admit Date/Time: 08/06/24 13:36 Admit Provider: Earl Pelaez Attending Provider: Earl Pelaez Primary Care Provider: Jacqueline Pfeiffer ED Provider: Michael Caceres General Date/Time Provider Initiated Documentation: 08/06/24 08:49 . HPI Narrative: MDM This is an uncomfortable appearing afebrile and not tachycardic 49-year-old male with history of vascular Bradley-Danlos with left-sided abdominal pain concerning for the possibility of dissection for which patient underwent emergent CT angiogram of the abdomen pelvis. Will touch base with [facility]. No trauma to suggest retroperitoneal hemorrhage. No history of nephrolithiasis to suggest ureterolithiasis. Will obtain ECG and troponin testing the patient denies chest pain. Will send a type and screen. I treated his nausea with ondansetron and his pain with 0.5 mg hydromorphone. No dysuria or frequency to suggest UTI. Patient is not peritonitic. No diarrhea to suggest diverticulitis. No right lower quadrant tenderness to suggest appendicitis. 10:34 AM Initial lactate 4.7 which improved to 2.2 with 500 cc crystalloid. Pain patient's pain is improved. He is persistently bradycardic and this is slightly worse compared to prior as his heart rates are in the high 30s. He is not s ymptomatic so we will defer atropine at this point in time but will place patient in a room with pacer pads on in the event that he required transcutaneous pacing. He may have increased vagal tone secondary to GI discomfort. Will defer further opiates. 10:45 AM I spoke with Dr. Mccloud from vascular at [facility]. He reviewed the patient's scan from today and prior scan from March. He did not note any acute changes. He noted the patient has follow-up later this month. He advised that if patient felt improved that it would not be unreasonable to discharge patient from the ED. 12:56 PM I was in touch with Dr. Pelaez from the hospitalist team who graciously agreed to accept the patient as he was still symptomatic and his QT is prolonged on his ECG and was now 528 ms. Concerningly he was persistently bradycardic in a sinus rhythm in the 30s. He will benefit from overnight telemetry. Chronic conditions affecting the care of the patient: vascular Bradley-Danlos History obtained from an outside historian: N/A External record review: [facility] Diagnostic interpretations performed by me: Per my independent interpretation EKG shows: Interventricular conduction delay with sinus bradycardia. QTc within normal limits. No acute injury pattern. ]Medications: Ondansetron hydromorphone Social determinants of health affecting disposition: N/A Management discussed with: Vascular [facility] Treatment/interventions considered: N/A Response to therapies provided: N/A HPI This is a 49-year-old male with history of vascular Erhlos Danlos, multiple intra-abdominal vascular dissections, previous visits for severe exacerbation of abdominal pain, arrived to the emergency department via private vehicle with severe exacerbation of left upper quadrant abdominal pain. Patient notes symptoms started this morning at 6:30 AM. Symptoms did not wake him up from sleep. Denies loss of consciousness anticoagulation chest pain dysuria frequency abdominal trauma and ureteral lithiasis. He endorses nausea and vomiting. Exam General: Uncomfortable-appearing in no acute distress speaking in complete sentences. Head: Normocephalic, atraumatic. Eye: Extraocular eye movements intact. No conjunctival injection. No scleral icterus. Ear, nose, mouth, throat: Grossly normal inspection. Normal voice, handling secretions normally. Neck: Trachea midline. Cardiovascular: Well-perfused distal extremities. Slow rate. Regular rhythm. Intact PT pulses bilaterally and radial pulses bilaterally. Respiratory: Nonlabored respiration. Clear lungs bilaterally. Gastrointestinal: Nondistended abdomen. Soft. Nontender. No Engel Mckee sign. No Smithers sign. Musculoskeletal: No edema. Moving all 4 extremities spontaneously. Skin: Normal for age and race, grossly normal temperature and turgor. No acute rash. Neurologic: Alert and appropriate, no apparent acute deficits. Related Data Home Medications ?Medication ?Instructions ?Recorded ?Confirmed lactobacillus combination no.4 3 3,000 mmu cells PO DAILY 01/14/21 08/06/24 billion cell capsule (Probiotic) multivitamin 1 tab PO DAILY 01/14/21 08/06/24 pantoprazole 20 mg tablet,delayed 20 mg PO DAILY #90 tabs 01/12/23 08/06/24 release ondansetron HCl 4 mg tablet 4 mg PO QID PRN nausea and 02/17/23 08/06/24 vomiting #30 tabs amitriptyline 10 mg tablet 10 mg PO QHS #90 tabs 08/17/23 08/06/24 atorvastatin 80 mg tablet 80 mg PO QHS #90 tabs 08/17/23 08/06/24 acetaminophen 650 mg 650 mg PO Q12H 11/05/23 08/06/24 tablet,extended release metoprolol succinate 25 mg 25 mg PO DAILY #90 tabs 11/18/23 08/06/24 tablet,extended release 24 hr losartan 100 mg tablet 100 mg PO DAILY 11/27/23 08/06/24 spironolactone 25 mg tablet 12.5 mg (1/2 x 25 mg) PO DAILY #90 01/04/24 08/06/24 tabs tamsulosin 0.4 mg capsule 0.4 mg PO QHS #90 caps 01/31/24 08/06/24 hydromorphone 2 mg tablet 2 mg PO Q4H PRN 03/30/24 08/06/24 (Dilaudid) Previous Rx's ?Medication ?Instructions ?Recorded pantoprazole 20 mg tablet,delayed 20 mg PO DAILY #90 tabs 01/12/23 release ondansetron HCl 4 mg tablet 4 mg PO QID PRN nausea and 02/17/23 vomiting #30 tabs amitriptyline 10 mg tablet 10 mg PO QHS #90 tabs 08/17/23 atorvastatin 80 mg tablet 80 mg PO QHS #90 tabs 08/17/23 metoprolol succinate 25 mg 25 mg PO DAILY #90 tabs 11/18/23 tablet,extended release 24 hr spironolactone 25 mg tablet 12.5 mg (1/2 x 25 mg) PO DAILY #90 01/04/24 tabs tamsulosin 0.4 mg capsule 0.4 mg PO QHS #90 caps 01/31/24 Allergies Allergy/AdvReac Type Severity Reaction Status Date / Time oxycodone AdvReac Intermediate Nausea Verified 03/30/24 14:13 codeine phosphate (From AdvReac Mild Nausea Verified 03/30/24 14:13 Tylenol-Codeine #3) morphine AdvReac Nausea Verified 03/30/24 14:13 GRASS Allergy Intermediate Itching Uncoded 03/30/24 14:13 MOLDS AND SMUTS Allergy Mild Itching Uncoded 03/30/24 14:13 General LISA: 2 Medical Decision Making Quality:SDOH Health Related Social Needs: No Data to Display PFSH All Active Problems (Updated 08/06/24 @ 12:58 by Michael Caceres MD) Prolonged QT interval (Acute) Bradycardia, sinus (Acute) Depression (Chronic) Vascular Bradley-Danlos syndrome (Acute) No coloscopies, no fluroquinolones. Echo every 2 years. Following with [facility] vascular. 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, on retuximab, Dr. 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 rheumatology for potential autoimmune process- elevated CRP, high dose prednisone,, possible second opinion B&W Renal infarct Renal artery embolism Bradycardia COPD (chronic obstructive pulmonary disease) Smoker quit September 06, 2019. smoked 34 years , under 20 cigs a day Laceration of spleen (12/10/12) Surgical History History of removal of cyst (~04/02/21) behind Right ear Family History Father , at the age of 73 Diverticulitis Heart disease Congestive heart failure Melanoma Alcohol abuse Prostate cancer Sister Depression Mother Depression Heart disease Maternal Grandmother Diabetes Paternal Uncle ALS (amyotrophic lateral sclerosis) Son No problems noted. Son No problems noted. Social History Smoking/Tobacco Use Status: Former Tobacco Use tobacco type: cigarettes Quit Date: 08/07/19 Tobacco: How many years used: 32 Quit status: quit date established Second Hand Exposure: Yes Smoking risk assessment performed?: Yes Alcohol Intake: current Alcohol Intake frequency: holidays/special occasions only Alcohol type: beer and hard liquor Drug use: Daily Substance use type: marijuana Details: i smoke alot of pot daily pot use 11/07/22 Adopted: No Caregiver/Support person: No Household members: significant other Housing: house Number of Children: 2 Communication Needs: None Education Level: college Details: associates degree Do you need help understanding health information?: Never current occupation: disabled Pets and animals: Yes Pets and animals: cat(s), dog(s), fish and snake(s) Sexually active: Yes Do you think of yourself as: straight/heterosexual Current gender identity: male What is your relationship status?: living with partner How often do you talk on the phone with friends or family?: once per week How often do you get together with friends or relatives?: once per week How often do you attend mandaen or jain services?: decline to answer Do you belong to any clubs or organized social groups?: no Panel score (0-1 are the most socially isolated patients): 1 What type of physical activity do you participate in: regular exercise Duration: 30-45 minutes/day Frequency: daily Mag/Spiritism: Other Special mag needs: No Seatbelt use: always Helmet use: Yes Helmet use: always Drive 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
[2024-08-06 09:14] LABS: Abs Immature Grans 0.04 10^3/uL (0.0-0.06); Absolute Basophil Count 0.13 10^3/uL (0.0-0.2); Absolute Eosinophil Count 0.44 10^3/uL (0.0-0.7); Absolute Lymphocyte Count 1.48 10^3/uL (1.2-3.4); Absolute Monocyte Count 0.63 10^3/uL (0.1-0.8); Absolute Neutrophil Count 8.97 10^3/uL (1.2-6.7); Basophils % 1.1 %; Eosinophils % 3.8 %; HCT 46.4 % (40.0-50.0); HGB 15.5 g/dL (13.5-17.5); Immature Grans % 0.3 %; Lymphocytes % 12.7 %; MCH 29.5 pg (27.0-33.0); MCHC 33.4 % (32.0-36.0); MCV 88 fL (80-95); MPV 10.6 fL (8.0-11.0); Monocytes % 5.4 %; Neutrophils % 76.7 %; Platelet Count 199 10^3/uL (130-400); RBC 5.25 10^6/uL (4.36-5.78); RDW 12.9 % (11.8-14.1); RDW-SD 41.6 fL; WBC 11.69 10^3/uL (4.4-10.8)
[2024-08-06] MEDS: Omnipaque 350 MG/ML 100 ML BTL IJ (09:16)
[2024-08-06] MEDS: Normal Saline - Diluent 50 ML VIAL IJ (09:16)
[2024-08-06 09:17] LABS: Lactate 4.5 mmol/L (<or=2.0)
[2024-08-06] MEDS: HYDROmorphone 2 MG/ML SYR 0.5 MG IVP ×2 (09:20→10:07)
[2024-08-06] MEDS: Ondansetron 4 MG/2 ML VIAL IVP ×2 (09:20→10:08)
[2024-08-06] MEDS: Normal Saline 500 ML 1000 ML IV (09:28)
[2024-08-06 09:35] LABS: ALT 19 U/L (16-63); AST 15 U/L (15-37); Albumin 4.4 g/dL (3.4-5.0); Alkaline Phosphatase 93 U/L (46-116); Anion Gap 17.9 mmol/L (3-11); BUN 18 mg/dL (7-18); Bilirubin, Total 1.17 mg/dL (0.2-1.0); CO2 20.1 mmol/L (21.0-32.0); CREATININE 1.3 mg/dL (0.70-1.30); Calcium 9.8 mg/dL (8.5-10.1); Chloride 106 mmol/L (98-107); Estimated GFR 66.51 (mL/min/1.73m2); Glucose 143 mg/dL (74-106); Potassium 3.7 mmol/L (3.5-5.1); Sodium 144 mmol/L (136-145); Total Protein 6.9 g/dL (6.4-8.2)
[2024-08-06 09:55] LABS: Troponin I 4 ng/L (<or=76)
[2024-08-06 10:36] LABS: Troponin I 4 ng/L (<or=76)
--- NOTE | 2024-08-06 10:50 | DI.VRAD_ITS ---
PROCEDURE INFORMATION: Exam: CTA Abdomen and Pelvis With Contrast Exam date and time: 08/06/2024 9:13 AM Age: 49 years old Clinical indication: Other: Vomiting, abdomen pain; Prior surgery; Surgery date: 6+ months; Surgery type: On abdomen 5+ yr ago; Vascular selena-danlos syndrome TECHNIQUE: Imaging protocol: Computed tomographic angiography of the abdomen and pelvis with contrast. Exam focused on the arteries. 3D rendering (Not supervised by radiologist): MIP and/or 3D reconstructed images were created by the technologist. Contrast material: OMNIPAQUE 350; Contrast volume: 100 ml; Contrast route: INTRAVENOUS (IV); COMPARISON: CT ABDOMEN PELVIS CTA 03/30/2024 1:50 PM FINDINGS: Aorta: No aortic aneurysm. No aortic dissection. 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 17 x 34 x 21 mm aneurysm of the proximal celiac trunk. This is stable compared to prior exam. There is focal aneurysmal dilation up to 16 mm in the common hepatic artery.This is stable compared to prior exam. There is aneurysmal dilation up to 14 mm in the mid superior mesenteric artery. This is stable compared to prior exam. Renal arteries: No occlusion or significant stenosis. Right iliac arteries: No occlusion or significant stenosis. Left iliac arteries: No occlusion or significant stenosis. Liver: No mass. Gallbladder and biliary ducts: Unremarkable. No calcified stones. No ductal dilation. Pancreas: Unremarkable. No mass. No ductal dilation. Spleen: Unremarkable. No splenomegaly. Adrenal glands: Unremarkable. No mass. Kidneys and ureters: Unremarkable. No solid mass. No hydronephrosis. Stomach and bowel: Unremarkable. No obstruction. No mucosal thickening. Appendix: A normal appendix is identified. Intraperitoneal space: Unremarkable. No free air. No significant fluid collection. Lymph nodes: Unremarkable. No enlarged lymph nodes. Urinary bladder: Unremarkable. No mass. Reproductive: Unremarkable as visualized. Bones/joints: No acute fracture. Soft tissues: There is a small fat-containing umbilical hernia. 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 Dictated and Authenticated by: Stefanie Oliveros MD. Orderin Morris Rodriguez MD
[2024-08-06] MEDS: ACETAMINOPHEN 1,000 MG/100 ML BAG 400 MG IVPB ×3 (12:09→23:56)
[2024-08-06] MEDS: METOCLOPRAMIDE 10 MG in Normal Saline 50 ML 200 MG IVPB (12:10)
--- NOTE | 2024-08-06 12:30 | RT.EKG_ITS ---
APPROVED REPORT Exam: Resting ECG Reason for Exam: Chest pain Patient Location: E HR:57 bpm ECG Measurements Heart Rate 57 AXIS ID 122 P -88 QRSd 96 QRS 17 QT 542 T 71 QTc 528 Conclusion Ectopic atrial bradycardia...abnormal P axis, V-rate< 60 ST elev, probable normal early repol pattern...ST elevation, age<55 Prolonged QT interval...QTc >500mS No STEMI
[2024-08-06 13:12] LABS: Troponin I 6 ng/L (<or=76)
--- NOTE | 2024-08-06 13:12 | HPE_ITS ---
Date of service: 08/06/24 Time of Service: 13:13 Assessment and Plan Assessment and plan (1) Prolonged QT interval: Status: Acute Assessment and plan: Mag level not completed in the ED, ordered to be added to previous specimen. Hypomagnesemia can exacerbated EDS symptoms as well as QTc prolongation Rx Causing QT prolongation reviewed QTc 466-470 ms- w 470 being around upper limit for males, still <500 ms at this time, will continue to monitor EKG in AM Now on IM Tigan for nausea- will avoid zofran, reglan and compazine Mag level was 1.7 --2gm IV magnesium ordered and Mg level in AM (2) Bradycardia, sinus: Status: Acute Assessment and plan: On telemetry Initiate symptomatic bradycardia algorithm as needed (3) Vascular Bradley-Danlos syndrome: Status: Acute Assessment and plan: Continue home medicine management if no risk of QT prolongation Oral hydromorphone changed to IV PRN due to ongoing nausea Will change home oral PPI to IV Scheduled IV acetaminophen NSAIDs considered but might not be appropriate in the setting of EDS and Hx of GIB DVT prophylaxis with Lovenox Discussed with Dr. Pelaez. History of Present Illness History of Present Illness Chief Complaint: Abdominal pain, nausea vomiting N arrative: 49-year-old female patient with a past medical history of vascular Bradley-Danlos presented to the ED at [facility] for evaluation of left upper quadrant, abdominal pain nausea, vomiting. Workup in the ED was significant for WBC at 11 without thrombocytopenia, chemistry was unremarkable VBG lactate initially at 4.5 and 2.2 status post 500 mL status post IV crystalloid, chemistry was unremarkable except for total bilirubin at 1.7 without transaminitis. Troponins were negative, EKG completed at 9:47 AM showed sinus bradycardia without signs of coronary occlusion but QTc at 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 Mccloud from vascular at [facility] who did not see any acute changes upon CT scan review in comparison to previous images from March, and recommended discharge from the emergency room if the patient felt an improvement of symptoms; patient has a follow-up later this month. The hospitalist was contacted for concerns regarding bradycardia and QTc prolongation and agreed to admit the patient for observation to the medical surgical floor with telemetry. Lipase was added to the labs but negative . Patient confirmed full CODE STATUS. Patient mentioned having had ongoing/chronic nausea at home but the nausea was worse with the movement during examination. Patient denied fever, chest pain, hematemesis, hematochezia or melena or dysuria. Patient reported chills, dizziness and a past medical history of gastrointestinal bleeding. Review of Systems All systems reviewed & are unremarkable except as noted in HPI and below PFSH All Active Problems (Updated 08/06/24 @ 12:58 by Michael Caceres MD) Prolonged QT interval (Acute) Bradycardia, sinus (Acute) Depression (Chronic) Vascular Bradley-Danlos syndrome (Acute) No coloscopies, no fluroquinolones. Echo every 2 years. Following with [facility] vascular. 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 smoked 34 years , under 20 cigs a day Laceration of spleen (12/10/12) Surgical History History of removal of cyst (~04/02/21) behind Right ear Family History Father , at the age of 73 Diverticulitis Heart disease Congestive heart failure Melanoma Alcohol abuse Prostate cancer Sister Depression Mother Depression Heart disease Maternal Grandmother Diabetes Paternal Uncle ALS (amyotrophic lateral sclerosis) Son No problems noted. Son No problems noted. Social History Smoking/Tobacco Use Status: Former Tobacco Use tobacco type: cigarettes Quit Date: 08/07/19 Tobacco: How many years used: 32 Quit status: quit date established Second Hand Exposure: Yes Smoking risk assessment performed?: Yes Alcohol Intake: current Alcohol Intake frequency: holidays/special occasions only Alcohol type: beer and hard liquor Drug use: Daily Substance use type: marijuana Details: i smoke alot of pot daily pot use 11/07/22 Adopted: No Caregiver/Support person: No Household members: significant other Housing: house Number of Children: 2 Communication Needs: None Education Level: college Details: associates degree Do you need help understanding health information?: Never current occupation: disabled Pets and animals: Yes Pets and animals: cat(s), dog(s), fish and snake(s) Sexually active: Yes Do you think of yourself as: straight/heterosexual Current gender identity: male What is your relationship status?: living with partner How often do you talk on the phone with friends or family?: once per week How often do you get together with friends or relatives?: once per week How often do you attend evangelical or rastafarian services?: decline to answer Do you belong to any clubs or organized social groups?: no Panel score (0-1 are the most socially isolated patients): 1 What type of physical activity do you participate in: regular exercise Duration: 30-45 minutes/day Frequency: daily Mag/Alevism: Other Special mag needs: No Seatbelt use: always Helmet use: Yes Helmet use: always 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 Firearms in home: Yes Firearms unloaded and locked: Yes Do you feel safe at home: Yes Do you feel safe in your relationship?: Yes Victim of physical abuse: No Victim of emotional abuse: No Victim of sexual abuse: No Would you like helpful sources: No Meds Allergies and Home Medications Allergies Allergy/AdvReac Type Severity Reaction Status Date / Time oxycodone AdvReac Intermediate Nausea Verified 03/30/24 14:13 codeine phosphate (From AdvReac Mild Nausea Verified 03/30/24 14:13 Tylenol-Codeine #3) morphine AdvReac Nausea Verified 03/30/24 14:13 GRASS Allergy Intermediate Itching Uncoded 03/30/24 14:13 MOLDS AND SMUTS Allergy Mild Itching Uncoded 03/30/24 14:13 Home Medications ?Medication ?Instructions ?Recorded ?Confirmed ?Type lactobacillus combination no.4 3 3,000 mmu cells PO DAILY 01/14/21 08/06/24 History billion cell capsule (Probiotic) multivitamin 1 tab PO DAILY 01/14/21 08/06/24 History pantoprazole 20 mg tablet,delayed 20 mg PO DAILY #90 tabs 01/12/23 08/06/24 Rx release ondansetron HCl 4 mg tablet 4 mg PO QID PRN nausea and 02/17/23 08/06/24 Rx vomiting #30 tabs amitriptyline 10 mg tablet 10 mg PO QHS #90 tabs 08/17/23 08/06/24 Rx atorvastatin 80 mg tablet 80 mg PO QHS #90 tabs 08/17/23 08/06/24 Rx acetaminophen 650 mg 650 mg PO Q12H 11/05/23 08/06/24 History tablet,extended release metoprolol succinate 25 mg 25 mg PO DAILY #90 tabs 11/18/23 08/06/24 Rx tablet,extended release 24 hr losartan 100 mg tablet 100 mg PO DAILY 11/27/23 08/06/24 History spironolactone 25 mg tablet 12.5 mg (1/2 x 25 mg) PO DAILY #90 01/04/24 08/06/24 Rx tabs tamsulosin 0.4 mg capsule 0.4 mg PO QHS #90 caps 01/31/24 08/06/24 Rx hydromorphone 2 mg tablet 2 mg PO Q4H PRN 03/30/24 08/06/24 History (Dilaudid) Exam Narrative Exam Narrative: Ill appearing 49-year-old male, alert and oriented x 4, no focal deficit but increased nausea motion during examination. S1,S2, no murmur, telemetry SB HR 38 -40- QTc 470ms positive pulses to all 4 extremities, no CVA tenderness, no bruising to skin Results Labs 08/06/24 09:06 08/06/24 09:06 Labs: Laboratory Results - last 24 hr 08/06/24 08/06/24 08/06/24 09:06 09:40 10:14 WBC 11.69 H RBC 5.25 Hgb 15.5 Hct 46.4 MCV 88 MCH 29.5 MCHC 33.4 RDW 12.9 Plt Count 199 MPV 10.6 Immature Gran % 0.3 Neutrophils % 76.7 Lymphocytes % 12.7 Monocytes % 5.4 Eosinophils % 3.8 Basophils % 1.1 Nucleated RBC % 0.0 Absolute Neutrophils 8.97 H Absolute Lymphocytes 1.48 Absolute Monocytes 0.63 Absolute Eosinophils 0.44 Absolute Basophils 0.13 VBG Lactate 4.5 H* 2.2 H* Sodium 144 Potassium 3.7 Chloride 106 Carbon Dioxide 20.1 L Anion Gap 17.9 H BUN 18 Creatinine 1.3 Est GFR (CKD-EPI 2020) 66.51 Glucose 143 H Calcium 9.8 Total Bilirubin 1.17 H AST 15 ALT 19 Alkaline Phosphatase 93 Troponin I 4 4 Total Protein 6.9 Albumin 4.4 ABO/Rh A Positive Antibody Screen NEGATIVE 08/06/24 11:51 WBC RBC Hgb Hct MCV MCH MCHC RDW Plt Count MPV Immature Gran % Neutrophils % Lymphocytes % Monocytes % Eosinophils % Basophils % Nucleated RBC % Absolute Neutrophils Absolute Lymphocytes Absolute Monocytes Absolute Eosinophils Absolute Basophils VBG Lactate Sodium Potassium Chloride Carbon Dioxide Anion Gap BUN Creatinine Est GFR (CKD-EPI 2020) Glucose Calcium Total Bilirubin AST ALT Alkaline Phosphatase Troponin I Cancelled Total Protein Albumin ABO/Rh Antibody Screen Last Vital Signs Temp 36.1 C L 08/06/24 09:23 Pulse 42 L 08/06/24 12:40 Resp 23 08/06/24 12:40 BP 170/78 H 08/06/24 12:31 Pulse Ox 100 08/06/24 12:40 Time Spent Time spent with Patient: >75 minutes Time was spent: preparing to see the patient(eg.review tests), obtaining and/or reviewing separately otained hiistory, ordering medications,tests, procedures, referring, communicating with other health health care marketing manager, indepentently interpreting results, counseling the patient and care coordination
[2024-08-06 14:22] LABS: Lactate 2.2 mmol/L (<or=2.0)
[2024-08-06 14:31] LABS: Bilirubin Negative (Negative); Blood Negative (Negative); Clarity Clear (Clear); Glucose 100 mg/dL (Negative); Ketones 80 mg/dL (Negative); Leukocyte Esterase Negative (Negative); Nitrite Negative (Negative); Specific Gravity 1.015 (1.005-1.025); Urobilinogen 0.2 mg/dL (Up to 0.2); pH 8.5 (5-8)
[2024-08-06 14:39] LABS: Troponin I < 4 ng/L (<or=76)
[2024-08-06 14:40] LABS: Bacteria Negative HPF (Negative); C & S Indicated? No; Casts Negative LPF (Negative); Crystals Negative HPF (Negative); Epithelial Cells Rare HPF (Negative); Mucus Negative (Negative); RBC 0-2 HPF (0-2); WBC 0-2 HPF (0-5)
[2024-08-06 14:49] LABS: Lipase 18 U/L (<78)
--- NOTE | 2024-08-06 15:02 | W.PC.ACHO ---
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 Bradycardia COPD (chronic obstructive pulmonary disease) Smoker Laceration of spleen (12/10/12) (Last Reviewed 03/30/24 @ 15:03 by Mic Marie MD) History of removal of cyst (~04/02/21) Most Recent Vital Signs Temperature 97.0 F L 08/06/24 09:23 Temperature Source Tympanic 08/06/24 09:23 Pulse 50 L 08/06/24 14:20 Pulse 45 L 08/06/24 14:20 Respiratory Rate 16 08/06/24 14:20 Blood Pressure 176/90 H 08/06/24 14:16 Blood Pressure Mean 122 08/06/24 14:16 Blood Pressure Position Sitting 08/06/24 09:23 Pulse Oximetry 98 08/06/24 14:20 Oxygen Delivery Method Room Air 08/06/24 09:23 Oxygen Flow Rate 0 08/06/24 09:23 Pain Level 5 08/06/24 12:16 Allergies oxycodone Adverse Reaction (Intermediate, Verified 03/30/24 14:13) Nausea pt reports this was recorded in error in ed. he has taken tylenol-3 and percocet and had unset stomachs from them. Pt states that he has never had his throat close up with any med codeine phosphate (From Tylenol-Codeine #3) Adverse Reaction (Mild, Verified 03/30/24 14:13) Nausea upset stomach morphine Adverse Reaction (Verified 03/30/24 14:13) Nausea GRASS Allergy (Intermediate, Uncoded 03/30/24 14:13) Itching itching eyes & runny nose MOLDS AND SMUTS Allergy (Mild, Uncoded 03/30/24 14:13) Itching itchy eyes & runny nose Active Medications Generic Name Dose Route Start Last Admin Trade Name Art PRN Reason Stop Dose Admin Iohexol 100 ml 08/06/24 09:30 08/06/24 09:16 Omnipaque 350 Mg/Ml 100 Ml Btl IJ 09/05/24 23:59 100 ml DIRECTED VIVIAN Administration Sodium Chloride 50 ml 08/06/24 09:30 08/06/24 09:16 Normal Saline - Diluent 50 Ml Vial IJ 50 ml .FOR DI USE VIVIAN Administration IV IV Catheter Type [Right Peripheral IV Antecubital] IV Catheter Gauge [Right 18 Antecubital] Diagnostics 08/06/24 08/06/24 08/06/24 Range/Units 15:36 14:20 14:08 WBC (4.4-10.8) 10^3/uL RBC (4.36-5.78) 10^6/uL Hgb (13.5-17.5) g/dL Hct (40.0-50.0) % MCV (80-95) fL MCH (27.0-33.0) pg MCHC (32.0-36.0) % RDW (11.8-14.1) % Plt Count (130-400) 10^3/uL MPV (8.0-11.0) fL Immature Gran % % Neutrophils % % Lymphocytes % % Monocytes % % Eosinophils % % Basophils % % Nucleated RBC % (0.0-0.3) % Absolute Neutrophils (1.2-6.7) 10^3/uL Absolute Lymphocytes (1.2-3.4) 10^3/uL Absolute Monocytes (0.1-0.8) 10^3/uL Absolute Eosinophils (0.0-0.7) 10^3/uL Absolute Basophils (0.0-0.2) 10^3/uL VBG Lactate (<or=2.0) mmol/L Sodium (136-145) mmol/L Potassium (3.5-5.1) mmol/L Chloride (98-107) mmol/L Carbon Dioxide (21.0-32.0) mmol/L Anion Gap (3-11) mmol/L BUN (7-18) mg/dL Creatinine (0.70-1.30) mg/dL Est GFR (CKD-EPI 2020) (mL/min/1.73m2) Glucose (74-106) mg/dL Calcium (8.5-10.1) mg/dL Total Bilirubin (0.2-1.0) mg/dL AST (15-37) U/L ALT (16-63) U/L Alkaline Phosphatase (46-116) U/L Troponin I Pending < 4 (<or=76) ng/L Total Protein (6.4-8.2) g/dL Albumin (3.4-5.0) g/dL Lipase 18 (<78) U/L Urine Color Yellow (Yellow) Urine Clarity Clear (Clear) Urine pH 8.5 H (5-8) Ur Specific [place] 1.015 (1.005-1.025) Urine Protein 30 H (Neg-Trace) mg/dL Urine Ketones 80 H (Negative) mg/dL Urine Blood Negative (Negative) Urine Nitrite Negative (Negative) Urine Bilirubin Negative (Negative) Urine Urobilinogen 0.2 (Up to 0.2) mg/dL Ur Leukocyte Esterase Negative (Negative) Urine RBC 0-2 (0-2) HPF Urine WBC 0-2 (0-5) HPF Ur Epithelial Cells Rare (Negative) HPF Urine Crystals Negative (Negative) HPF Urine Bacteria Negative (Negative) HPF Urine Casts Negative (Negative) LPF Urine Mucus Negative (Negative) Ur Culture Indicated? No Urine Glucose 100 H (Negative) mg/dL ABO/Rh Antibody Screen 08/06/24 08/06/24 08/06/24 Range/Units 12:48 11:51 10:14 WBC (4.4-10.8) 10^3/uL RBC (4.36-5.78) 10^6/uL Hgb (13.5-17.5) g/dL Hct (40.0-50.0) % MCV (80-95) fL MCH (27.0-33.0) pg MCHC (32.0-36.0) % RDW (11.8-14.1) % Plt Count (130-400) 10^3/uL MPV (8.0-11.0) fL Immature Gran % % Neutrophils % % Lymphocytes % % Monocytes % % Eosinophils % % Basophils % % Nucleated RBC % (0.0-0.3) % Absolute Neutrophils (1.2-6.7) 10^3/uL Absolute Lymphocytes (1.2-3.4) 10^3/uL Absolute Monocytes (0.1-0.8) 10^3/uL Absolute Eosinophils (0.0-0.7) 10^3/uL Absolute Basophils (0.0-0.2) 10^3/uL VBG Lactate 2.2 H* (<or=2.0) mmol/L Sodium (136-145) mmol/L Potassium (3.5-5.1) mmol/L Chloride (98-107) mmol/L Carbon Dioxide (21.0-32.0) mmol/L Anion Gap (3-11) mmol/L BUN (7-18) mg/dL Creatinine (0.70-1.30) mg/dL Est GFR (CKD-EPI 2020) (mL/min/1.73m2) Glucose (74-106) mg/dL Calcium (8.5-10.1) mg/dL Total Bilirubin (0.2-1.0) mg/dL AST (15-37) U/L ALT (16-63) U/L Alkaline Phosphatase (46-116) U/L Troponin I 6 Cancelled 4 (<or=76) ng/L Total Protein (6.4-8.2) g/dL Albumin (3.4-5.0) g/dL Lipase (<78) U/L Urine Color (Yellow) Urine Clarity (Clear) Urine pH (5-8) Ur Specific [place] (1.005-1.025) Urine Protein (Neg-Trace) mg/dL Urine Ketones (Negative) mg/dL Urine Blood (Negative) Urine Nitrite (Negative) Urine Bilirubin (Negative) Urine Urobilinogen (Up to 0.2) mg/dL Ur Leukocyte Esterase (Negative) Urine RBC (0-2) HPF Urine WBC (0-5) HPF Ur Epithelial Cells (Negative) HPF Urine Crystals (Negative) HPF Urine Bacteria (Negative) HPF Urine Casts (Negative) LPF Urine Mucus (Negative) Ur Culture Indicated? Urine Glucose (Negative) mg/dL ABO/Rh Antibody Screen 08/06/24 08/06/24 Range/Units 09:40 09:06 WBC 11.69 H (4.4-10.8) 10^3/uL RBC 5.25 (4.36-5.78) 10^6/uL Hgb 15.5 (13.5-17.5) g/dL Hct 46.4 (40.0-50.0) % MCV 88 (80-95) fL MCH 29.5 (27.0-33.0) pg MCHC 33.4 (32.0-36.0) % RDW 12.9 (11.8-14.1) % Plt Count 199 (130-400) 10^3/uL MPV 10.6 (8.0-11.0) fL Immature Gran % 0.3 % Neutrophils % 76.7 % Lymphocytes % 12.7 % Monocytes % 5.4 % Eosinophils % 3.8 % Basophils % 1.1 % Nucleated RBC % 0.0 (0.0-0.3) % Absolute Neutrophils 8.97 H (1.2-6.7) 10^3/uL Absolute Lymphocytes 1.48 (1.2-3.4) 10^3/uL Absolute Monocytes 0.63 (0.1-0.8) 10^3/uL Absolute Eosinophils 0.44 (0.0-0.7) 10^3/uL Absolute Basophils 0.13 (0.0-0.2) 10^3/uL VBG Lactate 4.5 H* (<or=2.0) mmol/L Sodium 144 (136-145) mmol/L Potassium 3.7 (3.5-5.1) mmol/L Chloride 106 (98-107) mmol/L Carbon Dioxide 20.1 L (21.0-32.0) mmol/L Anion Gap 17.9 H (3-11) mmol/L BUN 18 (7-18) mg/dL Creatinine 1.3 (0.70-1.30) mg/dL Est GFR (CKD-EPI 2020) 66.51 (mL/min/1.73m2) Glucose 143 H (74-106) mg/dL Calcium 9.8 (8.5-10.1) mg/dL Total Bilirubin 1.17 H (0.2-1.0) mg/dL AST 15 (15-37) U/L ALT 19 (16-63) U/L Alkaline Phosphatase 93 (46-116) U/L Troponin I 4 (<or=76) ng/L Total Protein 6.9 (6.4-8.2) g/dL Albumin 4.4 (3.4-5.0) g/dL Lipase (<78) U/L Urine Color (Yellow) Urine Clarity (Clear) Urine pH (5-8) Ur Specific [place] (1.005-1.025) Urine Protein (Neg-Trace) mg/dL Urine Ketones (Negative) mg/dL Urine Blood (Negative) Urine Nitrite (Negative) Urine Bilirubin (Negative) Urine Urobilinogen (Up to 0.2) mg/dL Ur Leukocyte Esterase (Negative) Urine RBC (0-2) HPF Urine WBC (0-5) HPF Ur Epithelial Cells (Negative) HPF Urine Crystals (Negative) HPF Urine Bacteria (Negative) HPF Urine Casts (Negative) LPF Urine Mucus (Negative) Ur Culture Indicated? Urine Glucose (Negative) mg/dL ABO/Rh A Positive Antibody Screen NEGATIVE Intake and Output - 24 Hour Total 08/06/24 08:48 thru 08/06/24 12:50 Intake Total 662 Balance 662 Weight 81.8 kg Intake: IV 662 Falls Risk Assessment History of Falls No History 08/06/24 09:17 Ambulatory Aids Independent 08/06/24 09:17 Fall Total Score 0 08/06/24 09:17 Level of Risk Standard/Low Risk 08/06/24 09:17 Problems (Last Reviewed 03/30/24 @ 15:03 by Mic Marie MD) Prolonged QT interval (Acute) Bradycardia, sinus (Acute) v v v v v v v v v Sending and/or Receiving Nurses: Please use comment section below to note any information pertinent to the patient hand-off not included above. Information / Comments: All questions answered Report received from: Chanel VALLE
[2024-08-06 16:23] LABS: Troponin I 8 ng/L (<or=76)
[2024-08-06] MEDS: HYDROmorphone 2 MG/ML SYR 1 MG IVP ×2 (16:44→21:28)
[2024-08-06] MEDS: Trimethobenzamide 200 MG/2 ML VIAL IM ×2 (16:44→20:31)
[2024-08-06] MEDS: Normal Saline Flush 10 ML SYR IVP ×3 (16:46→23:56)
[2024-08-06] MEDS: Losartan 25 MG TAB 50 MG PO (20:34)
[2024-08-06] MEDS: Enoxaparin 40 MG/0.4 ML SYR SC (21:27)
[2024-08-06] MEDS: Tamsulosin 0.4 MG CAPCR PO (21:27)
[2024-08-06] MEDS: Atorvastatin 40 MG TAB 80 MG PO (21:27)
[2024-08-06] MEDS: Amitriptyline 10 MG TAB PO (21:27)
[2024-08-06 22:16] LABS: Magnesium 1.7 mg/dL (1.8-2.4)
[2024-08-06] MEDS: Pantoprazole 40 MG VIAL IVP (23:55)
[2024-08-07] MEDS: LORazepam 2 MG/ML VIAL 1 MG IVP (01:19)
[2024-08-07] MEDS: MAGNESIUM SULFATE 2 GM/50 ML BAG IV_INF (01:21)
[2024-08-07] MEDS: Normal Saline Flush 10 ML SYR IVP ×4 (01:21→10:19)
[2024-08-07] MEDS: Trimethobenzamide 200 MG/2 ML VIAL IM (03:13)
[2024-08-07] MEDS: ACETAMINOPHEN 1,000 MG/100 ML BAG 400 MG IVPB (05:32)
[2024-08-07 06:48] LABS: Abs Immature Grans 0.05 10^3/uL (0.0-0.06); Absolute Basophil Count 0.03 10^3/uL (0.0-0.2); Absolute Monocyte Count 0.91 10^3/uL (0.1-0.8); Basophils % 0.2 %; HCT 39.9 % (40.0-50.0); HGB 13.7 g/dL (13.5-17.5); Immature Grans % 0.4 %; Lymphocytes % 7.9 %; MCHC 34.3 % (32.0-36.0); MCV 87 fL (80-95); MPV 11.6 fL (8.0-11.0); Monocytes % 6.4 %; Neutrophils % 85.1 %; Platelet Count 175 10^3/uL (130-400); RBC 4.57 10^6/uL (4.36-5.78); RDW 13.3 % (11.8-14.1); WBC 14.26 10^3/uL (4.4-10.8)
[2024-08-07 06:54] LABS: Absolute Lymphocyte Count 1.13 10^3/uL (1.2-3.4); Absolute Neutrophil Count 12.14 10^3/uL (1.2-6.7)
[2024-08-07 06:59] LABS: BUN 23 mg/dL (7-18); CREATININE 0.9 mg/dL (0.70-1.30); Chloride 108 mmol/L (98-107); Glucose 112 mg/dL (74-106); Magnesium 2.2 mg/dL (1.8-2.4); Potassium 3.7 mmol/L (3.5-5.1); Sodium 144 mmol/L (136-145)
--- NOTE | 2024-08-07 07:00 | RT.EKG_ITS ---
APPROVED REPORT Exam: Resting ECG Reason for Exam: QTc prolongation Patient Location: I HR:52 bpm ECG Measurements Heart Rate 52 AXIS PA 154 P 82 QRSd 100 QRS 12 QT 514 T 37 QTc 478 Conclusion Sinus rhythm...normal P axis, V-rate 50- 99 Probable left atrial enlargement...P >50mS, <-0.10mV V1 Borderline prolonged QT interval...QTc >475mS
[2024-08-07 07:36] VITALS: BP 101/64; PULSE 61; RESP 18; TEMP 37.7; O2SAT 95
[2024-08-07] MEDS: Pantoprazole 40 MG VIAL IVP (08:33)
[2024-08-07] MEDS: Losartan 50 MG TAB 100 MG PO (08:38)
[2024-08-07] MEDS: Lactobacillus Acidophilus CAP 1 CAP PO (08:38)
[2024-08-07] MEDS: Multivitamin TAB 1 TAB PO (08:38)
[2024-08-07] MEDS: Spironolactone 25 MG TAB 12.5 MG PO (08:39)
[2024-08-07 11:05] VITALS: BP 120/76; PULSE 52; RESP 16; TEMP 37.4; O2SAT 97
--- NOTE | 2024-08-07 11:24 | DSE_ITS ---
Date of service: 08/07/24 Time of Service: 11:24 DS: Diagnosis Discharge Diagnosis (1) Prolonged QT interval: Status: Acute (2) Bradycardia, sinus: Status: Acute (3) Vascular Bradley-Danlos syndrome: Status: Acute Discharge Plan Disposition Patient Disposition: Home Condition: Improving Discharge Details Reason For Visit: Abdominal pain, nausea, vomting , bradycardia Admit Date/Time: 08/06/24 13:36 Admit Provider: Earl Pelaez Attending Provider: Earl Pelaez Primary Care Provider: Jacqueline Pfeiffer Hospital Course Hospital Course: This is a 49-year-old female patient with a past medical history of vascular Bradley-Danlos presented to the ED at [facility] for evaluation of left upper quadrant, abdominal pain nausea, vomiting. He has history of the episodes and this is typical presentation. Workup in the ED was significant for WBC at 11 without thrombocytopenia, chemistry was unremarkable VBG lactate initially at 4.5 and 2.2 status post 500 mL status post IV crystalloid, chemistry was unremarkable except for total bilirubin at 1.7 without transaminitis. EKG completed in ED showed sinus bradycardia without signs of coronary occlusion but QTc at 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 Mccloud from vascular at [facility] who did not see any acute changes upon CT scan review in comparison to previous images from March, and recommended discharge from the emergency room if the patient felt an improvement of symptoms; patient has a follow-up later this month. The hospitalist was contacted for concerns regarding bradycardia and QTc prolongation and patient was observed overnight on the medical surgical floor with telemetry. He remained in sinus rhythm, metoprolol placed on hold, heart rate improved to the 60's. he has had no further nausea and vomiting and is tolerating liquids well. he will be discharged home to follow up outpatient with pcp for further med recommendations. discharged home with no services. discussed with DR Newsome Home Meds and New Rx's Prescriptions: Continued acetaminophen 650 mg tablet extended release 650 mg PO Q12H ondansetron HCl 4 mg tablet 4 mg PO QID PRN (Reason: nausea and vomiting) Qty: 30 1RF multivitamin Tablet 1 tab PO DAILY Probiotic 3 billion cell capsule 3,000 mmu cells PO DAILY Rx Instructions: administer with a meal pantoprazole 20 mg tablet,delayed release (DR/EC) 20 mg PO DAILY Qty: 90 3RF atorvastatin 80 mg tablet 80 mg PO QHS Qty: 90 4RF metoprolol succinate 25 mg tablet extended release 24 hr 25 mg PO DAILY Qty: 90 3RF spironolactone 25 mg tablet 12.5 mg PO DAILY Qty: 90 3RF tamsulosin 0.4 mg capsule 0.4 mg PO QHS Qty: 90 1RF losartan 100 mg tablet 100 mg PO DAILY Patient Comments: TAKE ONE TABLET BY MOUTH EVERY DAY hydromorphone [Dilaudid] 2 mg tablet 2 mg PO Q4H PRN No Action amitriptyline 10 mg tablet 10 mg PO QHS Qty: 90 3RF Discharge Instructions Instructions: Nausea and vomiting in adults Additional Instructions: resume usual medications discuss other options with pcp at outpatient appointment track heart rate and hold metoprolol is less than 60. push fluids to stay well hydrated advance diet as tolerated Stand Alone Forms: Nursing Discharge Form Referrals: Jacqueline Pfeiffer NP [Primary Care Provider] - (Please call your PCP office on Thursday to make a follow up appointment for within 1 to 2 weeks.) Activity:: Activity as Tolerated Equipment/Supplies:: No Equipment Needed Diet:: As Tolerated Discharge Orders Discharge Orders: Discharge Order (Routine); Ordered 08/07/24 Ordered By: Bri Rivera DS: Summary Time Spent with Patient providing and/or coordinating discharge services: Greater than 30 minutes Status at Discharge Functional status at discharge: independent ambulation Overall status at discharge: patient is back to baseline Mental Status: mental status grossly normal Speech and Movement: speech and movement normal Mood: congruent mood Affect: normal affect Quality:SDOH Health Related Social Needs: Health related social needs feeling lonely/isolated (Z 60.8) Exam Const General: cooperative and no acute distress Orientation: alert and awake [facility] Head: normal to inspection Ears: external ears normal General nose exam: external nose normal Mouth: moist mucous membranes Eyes General: appearance normal, both eyes and all related structures Neck Neck: normal visual inspection Chest Chest: normal inspection of the chest Resp Effort & Inspection: normal respiratory effort and able to speak in complete sentences Cardio Rate: regular rate Rhythm: regular rhythm GI Palpation: soft and tender Skin General skin exam: no rashes or lesions noted Neuro General: patient alert, patient awake and patient oriented x3 Extrem General: normal to inspection and full ROM Psych Mental Status: mental status grossly normal Speech and Movement: speech and movement normal Mood: congruent mood Affect: normal affect DS: Data Vitals/I&O Vitals and I&O: Vital Signs Temperature 37.4 C 08/07/24 11:05 Temperature Source Temporal Artery Scan 08/07/24 11:05 Pulse 52 L 08/07/24 11:05 Pulse Rhythm Regular 08/06/24 16:15 Pulse 45 L 08/06/24 14:20 Respiratory Rate 16 08/07/24 11:05 Respiratory Effort Normal, Non-Labored 08/06/24 16:15 Respiratory Depth Normal 08/06/24 16:15 Respiratory Pattern Normal 08/06/24 16:15 Blood Pressure 120/76 08/07/24 11:05 Blood Pressure Mean 122 08/06/24 14:16 Blood Pressure Position Sitting 08/06/24 09:23 Pulse Oximetry 97 08/07/24 11:05 Oxygen Delivery Method Room Air 08/07/24 11:05 Oxygen Flow Rate 0 08/07/24 11:05 Pain Level 5 08/06/24 23:33 Comment patient asked not to woken up 08/07/24 05:14 Intake & Output 08/06/24 08/06/24 08/07/24 11:59 23:59 11:59 Intake Total 500 / 772 272 / 772 100 / 100 Output Total 300 / 300 200 / 200 Balance 500 / 472 -28 / 472 -100 / -100 Weight 81.8 kg 88.451 kg Intake: IV 500 / 772 272 / 772 100 / 100 Output: Urine 300 / 300 200 / 200 Other: Urine Color [place] Yellow Urine Appearance Clear Clear Urine Odor None Normal Comment per patient voided in toilet Data Completed and Pending Labs on day of discharge: Labs from last 24 hours 08/07/24 08/06/24 08/06/24 06:12 15:53 14:20 WBC 14.26 H RBC 4.57 Hgb 13.7 Hct 39.9 L MCV 87 MCH 30.0 MCHC 34.3 RDW 13.3 Plt Count 175 MPV 11.6 H Immature Gran % 0.4 Neutrophils % 85.1 Lymphocytes % 7.9 Monocytes % 6.4 Eosinophils % 0.0 Basophils % 0.2 Nucleated RBC % 0.0 Absolute Neutrophils 12.14 H Absolute Lymphocytes 1.13 L Absolute Monocytes 0.91 H Absolute Eosinophils 0.00 Absolute Basophils 0.03 VBG Lactate Sodium 144 Potassium 3.7 Chloride 108 H Carbon Dioxide 24.0 Anion Gap 12.0 H BUN 23 H Creatinine 0.9 Est GFR (CKD-EPI 2020) 103.40 Glucose 112 H Calcium 9.0 Magnesium 2.2 1.7 L Troponin I 8 Lipase Urine Color Yellow Urine Clarity Clear Urine pH 8.5 H Ur Specific [place] 1.015 Urine Protein 30 H Urine Ketones 80 H Urine Blood Negative Urine Nitrite Negative Urine Bilirubin Negative Urine Urobilinogen 0.2 Ur Leukocyte Esterase Negative Urine RBC 0-2 Urine WBC 0-2 Ur Epithelial Cells Rare Urine Crystals Negative Urine Bacteria Negative Urine Casts Negative Urine Mucus Negative Ur Culture Indicated? No Urine Glucose 100 H 08/06/24 08/06/24 08/06/24 14:08 12:48 10:14 WBC RBC Hgb Hct MCV MCH MCHC RDW Plt Count MPV Immature Gran % Neutrophils % Lymphocytes % Monocytes % Eosinophils % Basophils % Nucleated RBC % Absolute Neutrophils Absolute Lymphocytes Absolute Monocytes Absolute Eosinophils Absolute Basophils VBG Lactate 2.2 H* Sodium Potassium Chloride Carbon Dioxide Anion Gap BUN Creatinine Est GFR (CKD-EPI 2020) Glucose Calcium Magnesium Troponin I < 4 6 Lipase 18 Urine Color Urine Clarity Urine pH Ur Specific [place] Urine Protein Urine Ketones Urine Blood Urine Nitrite Urine Bilirubin Urine Urobilinogen Ur Leukocyte Esterase Urine RBC Urine WBC Ur Epithelial Cells Urine Crystals Urine Bacteria Urine Casts Urine Mucus Ur Culture Indicated? Urine Glucose PFSH All Active Problems (Updated 08/06/24 @ 12:58 by Michael Caceres MD) Prolonged QT interval (Acute) Bradycardia, sinus (Acute) Depression (Chronic) Vascular Bradley-Danlos syndrome (Acute) No coloscopies, no fluroquinolones. Echo every 2 years. Following with [facility] vascular. 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 smoked 34 years , under 20 cigs a day Laceration of spleen (12/10/12) Surgical History History of removal of cyst (~04/02/21) behind Right ear Family History Father , at the age of 73 Diverticulitis Heart disease Congestive heart failure Melanoma Alcohol abuse Prostate cancer Sister Depression Mother Depression Heart disease Maternal Grandmother Diabetes Paternal Uncle ALS (amyotrophic lateral sclerosis) Son No problems noted. Son No problems noted. Social History Smoking/Tobacco Use Status: Former Tobacco Use tobacco type: cigarettes Quit Date: 08/07/19 Tobacco: How many years used: 32 Quit status: quit date established Second Hand Exposure: Yes Smoking risk assessment performed?: Yes Alcohol Intake: current Alcohol Intake frequency: holidays/special occasions only Alcohol type: beer and hard liquor Drug use: Daily Substance use type: marijuana Details: i smoke alot of pot daily pot use 11/07/22 Adopted: No Caregiver/Support person: No Household members: significant other Housing: house Number of Children: 2 Communication Needs: None Education Level: college Details: associates degree Do you need help understanding health information?: Never current occupation: disabled Pets and animals: Yes Pets and animals: cat(s), dog(s), fish and snake(s) Sexually active: Yes Do you think of yourself as: straight/heterosexual Current gender identity: male What is your relationship status?: living with partner How often do you talk on the phone with friends or family?: once per week How often do you get together with friends or relatives?: once per week How often do you attend methodist or taoism services?: decline to answer Do you belong to any clubs or organized social groups?: no Panel score (0-1 are the most socially isolated patients): 1 What type of physical activity do you participate in: regular exercise Duration: 30-45 minutes/day Frequency: daily Mag/Faith: Other Special mag needs: No Seatbelt use: always Helmet use: Yes Helmet use: always Drive intox or ride w/intox company truck driver: No Firearms in home: Yes Firearms unloaded and locked: Yes Do you feel safe at home: Yes Do you feel safe in your relationship?: Yes Victim of physical abuse: No Victim of emotional abuse: No Victim of sexual abuse: No Would you like helpful sources: No Time Spent with Patient Time Spent with Patient: 45-69 minutes Time was spent: preparing to see the patient(eg.review tests), obtaining and/or reviewing separately otained hiistory, ordering medications,tests, procedures, indepentently interpreting results and counseling the patient
== END 2024-08-07 12:05 | disposition home or self-care (01) ==
LOC: ER 12:58 → MS 15:07
PROVIDERS: Nurse Practitioner Acute Care; Admitting Provider Hospitalist; Emergency Provider Emergency Medicine; PCP Nurse Practitioner Family; Responsible Provider Nurse Practitioner Acute Care; Visit Provider Hospitalist
DX: R00.1 Bradycardia, unspecified (principal); R11.2 Nausea with vomiting, unspecified; R94.31 Abnormal electrocardiogram [ECG] [EKG]; R10.12 Left upper quadrant pain; Q79.63 Vascular Ehlers-Danlos syndrome; Z79.899 Other long term (current) drug therapy; F32.A Depression, unspecified; I10 Essential (primary) hypertension; J44.9 Chronic obstructive pulmonary disease, unspecified; F12.90 Cannabis use, unspecified, uncomplicated; I72.8 Aneurysm of other specified arteries; I77.72 Dissection of iliac artery; Z87.891 Personal history of nicotine dependence
CPT/HCPCS: 00123; 36415; 80048; 80053; 83690; 86850; 86900; 86901; 93005; 96361; 96365; 96366; 96367; 96368; 96372; 96375; 96376; 99285; J1650; 74174; 81003; 81015; 83605; 83735; 84484; 85025; 93010; 99223; 99238; G0378; J0131; J1171; J2060; J2405; J2470; J2765; J3250; J3475; J3490

== ENCOUNTER 2024-08-09 07:02 | Emergency (ER) | payer MEDICAID, SELFPAY ==
[2024-08-09] VITALS (25 sets, daily range): BP systolic 123–175; BP diastolic 78–115; PULSE 46–88; RESP 9–24; TEMP 36.8; O2SAT 96–100
--- NOTE | 2024-08-09 07:15 | RT.EKG_ITS ---
APPROVED REPORT Exam: Resting ECG Reason for Exam: Dissection Patient Location: E HR:51 bpm ECG Measurements Heart Rate 51 AXIS NE 146 P 71 QRSd 101 QRS -2 QT 469 T 63 QTc 432 Conclusion Sinus bradycardia...rate< 60 ST elev, probable normal early repol pattern...ST elevation, age<55
--- NOTE | 2024-08-09 07:38 | W.ED.GENAD ---
Discharge Plan Disposition Patient Disposition: Home Condition: Stable Discharge Details Clinical Impression: Abdominal pain, N&V (nausea and vomiting) Primary Care Provider: Jacqueline Pfeiffer ED Provider: Shaheed Beebe Home Meds and New Rx's Prescriptions: New prochlorperazine maleate [Compazine] 10 mg tablet 10 mg PO TID PRN (Reason: nausea and vomiting) Qty: 30 0RF Continued acetaminophen 650 mg tablet extended release 650 mg PO Q12H multivitamin Tablet 1 tab PO DAILY Probiotic 3 billion cell capsule 3,000 mmu cells PO DAILY Rx Instructions: administer with a meal pantoprazole 20 mg tablet,delayed release (DR/EC) 20 mg PO DAILY Qty: 90 3RF atorvastatin 80 mg tablet 80 mg PO QHS Qty: 90 4RF spironolactone 25 mg tablet 12.5 mg PO DAILY Qty: 90 3RF tamsulosin 0.4 mg capsule 0.4 mg PO QHS Qty: 90 1RF losartan 100 mg tablet 100 mg PO DAILY Patient Comments: TAKE ONE TABLET BY MOUTH EVERY DAY hydromorphone [Dilaudid] 2 mg tablet 2 mg PO Q4H PRN Discontinued ondansetron HCl 4 mg tablet 4 mg PO QID PRN (Reason: nausea and vomiting) Qty: 30 1RF amitriptyline 10 mg tablet 10 mg PO QHS Qty: 90 3RF metoprolol succinate 25 mg tablet extended release 24 hr 25 mg PO DAILY Qty: 90 3RF Discharge Instructions Additional Instructions: Your blood work shows signs of dehydration otherwise no concerning findings. I am prescribing you a different nausea medicine and I would recommend holding metoprolol until you discuss with your primary care provider if you should be put on a different medication. If you feel more ill, have persistent vomiting despite the Compazine return to the emergency department for reevaluation HPI General Mode of arrival: wheelchair. Date/Time Provider Initiated Documentation: 08/09/24 07:03. Limitations to Documentation: no limitations. Information obtained by: patient. History of Present Illness 49 year old M presents to the emergency department with the chief complaint of Abdominal pain, nausea vomiting, described as severe, Quality is described as sharp, and is localized to the abdomen. Patient reports no radiation. Patient started experiencing this hour(s) (2) and it has been constant. No relieving factors improve symptom(s), No exacerbating factors reported . Patient notes nausea/vomiting; denies chest pain, fever/chills and shortness of breath. Patient did receive the following treatments prior to arrival, none Related Data Home Medications ?Medication ?Instructions ?Recorded ?Confirmed lactobacillus combination no.4 3 3,000 mmu cells PO DAILY 01/14/21 08/06/24 billion cell capsule (Probiotic) multivitamin 1 tab PO DAILY 01/14/21 08/06/24 pantoprazole 20 mg tablet,delayed 20 mg PO DAILY #90 tabs 01/12/23 08/06/24 release atorvastatin 80 mg tablet 80 mg PO QHS #90 tabs 08/17/23 08/06/24 acetaminophen 650 mg 650 mg PO Q12H 11/05/23 08/06/24 tablet,extended release losartan 100 mg tablet 100 mg PO DAILY 11/27/23 08/06/24 spironolactone 25 mg tablet 12.5 mg (1/2 x 25 mg) PO DAILY #90 01/04/24 08/06/24 tabs tamsulosin 0.4 mg capsule 0.4 mg PO QHS #90 caps 01/31/24 08/06/24 hydromorphone 2 mg tablet 2 mg PO Q4H PRN 03/30/24 08/06/24 (Dilaudid) prochlorperazine maleate 10 mg 10 mg PO TID PRN nausea and 08/09/24 tablet (Compazine) vomiting #30 tabs Previous Rx's ?Medication ?Instructions ?Recorded pantoprazole 20 mg tablet,delayed 20 mg PO DAILY #90 tabs 01/12/23 release atorvastatin 80 mg tablet 80 mg PO QHS #90 tabs 08/17/23 spironolactone 25 mg tablet 12.5 mg (1/2 x 25 mg) PO DAILY #90 01/04/24 tabs tamsulosin 0.4 mg capsule 0.4 mg PO QHS #90 caps 01/31/24 prochlorperazine maleate 10 mg 10 mg PO TID PRN nausea and 08/09/24 tablet (Compazine) vomiting #30 tabs Allergies Allergy/AdvReac Type Severity Reaction Status Date / Time oxycodone AdvReac Intermediate Nausea Verified 03/30/24 14:13 codeine phosphate (From AdvReac Mild Nausea Verified 03/30/24 14:13 Tylenol-Codeine #3) morphine AdvReac Nausea Verified 03/30/24 14:13 GRASS Allergy Intermediate Itching Uncoded 03/30/24 14:13 MOLDS AND SMUTS Allergy Mild Itching Uncoded 03/30/24 14:13 General Stated Complaint: Nausea/Vomit/Diar LISA: 3 Review of Systems All systems reviewed & are unremarkable except as noted in HPI and below Constitutional Constitutional: Denies chills, Denies fever(s) and Denies weakness Cardiovascular Cardiovascular: Denies chest pain and Denies dyspnea Respiratory Respiratory: Denies cough and Denies dyspnea Gastrointestinal Gastrointestinal: Reports abdominal pain, Reports nausea and Reports vomiting Musculoskeletal Musculoskeletal: Denies joint swelling Neurologic Neurologic: Denies weakness Exam Const Orientation: alert HENMT Head: normal to inspection Ears: external ears normal General nose exam: external nose normal Mouth: moist mucous membranes Eyes General: appearance normal, both eyes and all related structures Neck Neck: normal visual inspection Resp Effort & Inspection: normal respiratory effort and able to speak in complete sentences Auscultation: clear to auscultation bilaterally Cardio Jugular venous pressure: no JVD Rate: regular rate GI Palpation: soft, not firm, no guarding and tender Skin General skin exam: no rashes or lesions noted Neuro General: patient alert and patient oriented x3 Extrem General: normal to inspection Psych Mental Status: mental status grossly normal Course Vital Signs Vital signs: Vital Signs Temperature 36.8 C 08/09/24 07:07 Pulse 76 08/09/24 07:07 Respiratory Rate 24 08/09/24 07:07 Blood Pressure 123/103 H 08/09/24 07:07 Pulse Oximetry 100 08/09/24 07:07 Temperature 36.8 C 08/09/24 07:07 Temperature Source Temporal Artery Scan 08/09/24 07:07 Pulse 76 08/09/24 07:07 Respiratory Rate 24 08/09/24 07:07 Blood Pressure 123/103 H 08/09/24 07:07 Blood Pressure Position Sitting 08/09/24 07:07 Pulse Oximetry 100 08/09/24 07:07 Oxygen Delivery Method Room Air 08/09/24 07:07 Oxygen Flow Rate 0 08/09/24 07:07 Pain Level 9 08/09/24 07:07 Medical Decision Making 49-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 He had a CT done when he was last here a few days ago showing no dissections in his vasculature in his abdominal vessels and vascular surgery at [facility] and these were unchanged. He says symptoms today feel very similar to the symptoms he had a few days ago. He is stable on arrival, his QTc is not prolonged today, I will treat his symptoms with droperidol. His abdomen is nondistended and he has minimal tenderness in all quadrants. I will check a CBC, CMP, lactate and lipase and reassess. If no improvement with droperidol will consider doing another CAT scan. I suspect his symptoms could be due to cyclic vomiting syndrome. Patient started hyperventilating and stating he felt anxious and they could not get full breaths then, he did appear to be having a panic attack, had clear lung sounds and normal oxygenation. Ativan ordered. Labs show a mildly low potassium which was repleted IV. He is tolerating p.o. currently. Initial lactate was 4 which appears he normally has a high lactate and that has resolved and is now 1.0 after 1 L IV fluid and I suspect this is from dehydration. He is feeling significantly better, has no abdominal tenderness on repeat exam. Discussed observation admission versus discharge after discussion with he would like to be discharged with outpatient follow-up which I feel is reasonable. Return precautions given. His heart rate has been in the low 50s and sinus bradycardia, I recommended holding his metoprolol discussed with his PCP being started on a different blood pressure medication Differential Diagnosis Differential Diagnosis: Cyclic vomiting syndrome, dissections, electrolyte abnormality Medical Records Medical records reviewed: Yes I reviewed the patient's medical records. Lab Data Lab results reviewed: Yes I reviewed the patient's lab results. ECG Data Attestation: I personally reviewed and interpreted this ECG (s) as follows: Prior ECG tracings: available for review Interpretation: Sinus bradycardia, rate 51, OH 146, QTc 432, no STEMI Quality:SDOH Health Related Social Needs: Health related social needs feeling lonely/isolated (Z60.8) PFSH All Active Problems (Updated 08/09/24 @ 10:26 by Shaheed Beebe MD) N&V (nausea and vomiting) (Acute) Abdominal pain (Acute) Prolonged QT interval (Acute) Bradycardia, sinus (Acute) Depression (Chronic) Vascular Bradley-Danlos syndrome (Acute) No coloscopies, no fluroquinolones. Echo every 2 years. Following with [facility] vascular. 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 smoked 34 years , under 20 cigs a day Laceration of spleen (12/10/12) Surgical History History of removal of cyst (~04/02/21) behind Right ear Family History Father , at the age of 73 Diverticulitis Heart disease Congestive heart failure Melanoma Alcohol abuse Prostate cancer Sister Depression Mother Depression Heart disease Maternal Grandmother Diabetes Paternal Uncle ALS (amyotrophic lateral sclerosis) Son No problems noted. Son No problems noted. Social History Smoking/Tobacco Use Status: Former Tobacco Use tobacco type: cigarettes Quit Date: 08/07/19 Tobacco: How many years used: 32 Quit status: quit date established Second Hand Exposure: Yes Smoking risk assessment performed?: Yes Alcohol Intake: current Alcohol Intake frequency: holidays/special occasions only Alcohol type: beer and hard liquor Drug use: Daily Substance use type: marijuana Details: i smoke alot of pot daily pot use 11/07/22 Adopted: No Caregiver/Support person: No Household members: significant other Housing: house Number of Children: 2 Communication Needs: None Education Level: college Details: associates degree Do you need help understanding health information?: Never current occupation: disabled Pets and animals: Yes Pets and animals: cat(s), dog(s), fish and snake(s) Sexually active: Yes Do you think of yourself as: straight/heterosexual Current gender identity: male What is your relationship status?: living with partner How often do you talk on the phone with friends or family?: once per week How often do you get together with friends or relatives?: once per week How often do you attend latter-day or anglican services?: decline to answer Do you belong to any clubs or organized social groups?: no Panel score (0-1 are the most socially isolated patients): 1 What type of physical activity do you participate in: regular exercise Duration: 30-45 minutes/day Frequency: daily Mag/Protestant: Other Special mag needs: No Seatbelt use: always Helmet use: Yes Helmet use: always Drive intox or ride w/intox recycling collections driver: No Firearms in home: Yes Firearms unloaded and locked: Yes Do you feel safe at home: Yes Do you feel safe in your relationship?: Yes Victim of physical abuse: No Victim of emotional abuse: No Victim of sexual abuse: No Would you like helpful sources: No
[2024-08-09] MEDS: Droperidol 5 MG/2 ML VIAL 2.5 MG IVP (07:40)
[2024-08-09] MEDS: Normal Saline Flush 10 ML SYR IVP ×3 (07:40→09:56)
[2024-08-09 07:50] LABS: Lactate 4.1 mmol/L (<or=2.0)
[2024-08-09] MEDS: LORazepam 2 MG/ML VIAL IVP (07:51)
[2024-08-09] MEDS: Normal Saline 1,000 ML 1000 ML IV (07:57)
[2024-08-09 08:14] LABS: ALT 30 U/L (16-63); AST 35 U/L (15-37); Albumin 4.9 g/dL (3.4-5.0); Alkaline Phosphatase 90 U/L (46-116); Anion Gap 17.4 mmol/L (3-11); BUN 22 mg/dL (7-18); Bilirubin, Direct 0.3 mg/dL (0.0-0.2); Bilirubin, Total 1.28 mg/dL (0.2-1.0); CO2 23.6 mmol/L (21.0-32.0); CREATININE 1.2 mg/dL (0.70-1.30); Calcium 10.1 mg/dL (8.5-10.1); Chloride 104 mmol/L (98-107); Estimated GFR 73.22 (mL/min/1.73m2); Glucose 119 mg/dL (74-106); Lipase 30 U/L (<78); Magnesium 1.9 mg/dL (1.8-2.4); Potassium 3.1 mmol/L (3.5-5.1); Sodium 145 mmol/L (136-145); Total Protein 7.6 g/dL (6.4-8.2); Troponin I 8 ng/L (<or=76)
[2024-08-09 08:32] LABS: Lactate 2.3 mmol/L (<or=2.0)
[2024-08-09] MEDS: fentaNYL 100 MCG/2 ML VIAL 75 MCG IVP (08:34)
[2024-08-09] MEDS: POTASSIUM CHLORIDE 10 MEQ/100 ML BAG 100 MEQ IV_INF (08:35)
[2024-08-09 08:37] LABS: Procalcitonin < 0.10 ng/mL
[2024-08-09 08:51] LABS: Troponin I 6 ng/L (<or=76)
[2024-08-09] MEDS: Ketorolac 15 MG/ML VIAL IVP (09:56)
[2024-08-09] MEDS: Prochlorperazine 10 MG/2 ML VIAL IVP (09:56)
== END 2024-08-09 11:36 | disposition home or self-care (01) ==
PROVIDERS: Emergency Provider Emergency Medicine; PCP Nurse Practitioner Family
DX: R11.2 Nausea with vomiting, unspecified (principal); R10.9 Unspecified abdominal pain; E87.6 Hypokalemia; J44.9 Chronic obstructive pulmonary disease, unspecified; I10 Essential (primary) hypertension; Q79.63 Vascular Ehlers-Danlos syndrome; Z87.891 Personal history of nicotine dependence
CPT/HCPCS: 36415; 80053; 83690; 84145; 93005; 96361; 96365; 96375; 99284; 82248; 83605; 83735; 84443; 84484; 93010; J0780; J1790; J1885; J2060; J3010; J3480

== ENCOUNTER 2025-05-10 01:28 | Outpatient (CLI) | payer MEDICAID, SELFPAY ==
[2025-05-10 15:42] LABS: ALT 20 U/L (10-49); AST 19 U/L (<34); Albumin 4.5 g/dL (3.2-5.0); Alkaline Phosphatase 66 U/L (46-116); Anion Gap 4.9 mmol/L (3-11); BUN 18 mg/dL (9-23); Bilirubin, Total 0.70 mg/dL (0.2-1.2); CO2 29.1 mmol/L (20.0-31.0); Calcium 9.4 mg/dL (8.3-10.6); Chloride 111 mmol/L (98-107); Cholesterol 135 mg/dL (<200); Glucose 107 mg/dL (74-106); HDL Cholesterol 51 mg/dL (>40); Potassium 4.0 mmol/L (3.5-5.1); Sodium 145 mmol/L (136-145); Total Protein 6.0 g/dL (5.7-8.2)
[2025-05-10 23:14] LABS: PSA, Screening 1.6 ng/mL (<=3.5)
== END 2025-05-10 01:29 | disposition home or self-care (01) ==
LOC: LBO 01:28
PROVIDERS: PCP Nurse Practitioner Family; Visit Provider Nurse Practitioner Family
DX: Z00.00 Encounter for general adult medical examination without abnormal findings (principal); I10 Essential (primary) hypertension; Q79.63 Vascular Ehlers-Danlos syndrome; Z12.5 Encounter for screening for malignant neoplasm of prostate; Z80.42 Family history of malignant neoplasm of prostate
CPT/HCPCS: 36415; 80053; 80061; 84153